=== PATIENT | male | born 1960 | race Caucasian/White ===

== ENCOUNTER 2021-07-08 13:26 | Outpatient (CLI) | payer OTHER, SELFPAY ==
--- NOTE | ~2021-07-08 | CT_ITS ---
EXAMINATION: CT diagnostic chest wo con DATE: 07/08/2021 15:04 INDICATION: J44.9 - Chronic obstructive pulmonary disease, unspecified TECHNIQUE: Computed tomography (CT) of the chest was performed without intravenous contrast. Addition al 3D reconstructions utilizing coronal maximum intensity projection (MIP) were performed. Automated exposure control and iterative reconstruction technique were employed. The dose-length product was 11 9.24 mGy-cm. COMPARISON: None FINDINGS: Mild to moderate upper lung predominant emphysema. Mild discoid atelectasis in the right lower lobe a nd in the lingula. 3 mm right middle lobe nodule for which optional low-dose noncontrast chest CT cou ld be obtained in one year. No pneumonia, pulmonary edema or pleural effusion. Heart size is normal. Atherosclerotic coronary artery calcifications. No pericardial effusion. Mild fusiform ascending thor acic aortic aneurysm measuring up to 4.3 x 4.3 cm in maximal transaxial dimensions. This tapers to no rmal caliber at the distal aortic arch and descending thoracic aorta. No pathologically enlarged thor acic lymphadenopathy. Parapelvic cysts at the bilateral renal mike. Chronic mild anterior wedging of multiple mid to lower thoracic vertebral bodies. Severe lower cervical and mild to moderate thoracic spondylosis. IMPRESSION: 1. Mild to moderate upper lung predominant emphysema. 2. Mild ascending thoracic aortic aneurysm measuring up to 4.3 cm in maximal diameter. 3. 3 mm right middle lobe nodule for which optional low-dose noncontrast chest CT could be obtained i n one year. Reviewed, dictated and finalized at location [facility] IMPRESSION: 1. Mild to moderate upper lung predominant emphysema. 2. Mild ascending thoracic aortic aneurysm measuring up to 4.3 cm in maximal di ameter. 3. 3 mm right middle lobe nodule for which optional low-dose noncontrast chest CT could be obtained in one year.
[2021-07-08 15:00] VITALS: PULSE 89; O2SAT 90
[2021-07-08 15:05] VITALS: PULSE 94; O2SAT 86
[2021-07-08 15:10] VITALS: PULSE 98; O2SAT 88
[2021-07-08 15:15] VITALS: PULSE 95; O2SAT 90
[2021-07-08 15:25] VITALS: PULSE 92; O2SAT 90
--- NOTE | 2021-07-08 15:36 | HOMEO2EVAL ---
Evaluation was performed at [facility] Home Oxygen Evaluation RC: Home Oxygen (O2) Evaluation Start: 07/08/21 15:27 Freq: Status: Active Protocol: RPE Activity Type Activity Date Activity User E-Sign Co-Sign Detail Recorded Client Recorded Date Recorded By Document 07/08/21 15:00 [email or web address] [email or web address] 07/08/21 15:36 DJO Document 07/08/21 15:05 [email or web address] [email or web address] 07/08/21 15:36 DJO Document 07/08/21 15:10 [email or web address] [email or web address] 07/08/21 15:36 DJO Document 07/08/21 15:15 [email or web address] [email or web address] 07/08/21 15:36 DJO Document 07/08/21 15:25 [email or web address] [email or web address] 07/08/21 15:36 DJO 07/08/21 07/08/21 07/08/21 15:00 15:05 15:10 Home O2 Evaluation Test Phase Resting Exercise Exercise Oxygen Delivery Room Air Room Air Nasal Cannula Oxygen Flow Rate (L/min) 1 Pulse Oximetry (90-100 %) 90 86 L 88 L Pulse Rate (60-100 beats/min) 89 94 98 Ambulation Distance (feet) Treatment Charges O2 Evaluation - Outpatient 07/08/21 07/08/21 15:15 15:25 Home O2 Evaluation Test Phase Exercise Resting Oxygen Delivery Nasal Cannula Room Air Oxygen Flow Rate (L/min) 2 Pulse Oximetry (90-100 %) 90 90 Pulse Rate (60-100 beats/min) 95 92 Ambulation Distance (feet) 1,000 Treatment Charges
--- NOTE | 2021-07-08 16:31 | WPDPFTINT ---
PFT Procedure Performed PFT Procedure Performed Spirometry with Pre/Post Bronchodilator Plethysmography (Lung Vol) Diffusing Cap (DLCO) Flow Vol Loop PFT Interpretation This is a pulmonary function test with pre and post-bronchodilator spirometry, plethysmography and diffusing capacity. The test was performed and results interpreted in accordance with the 2019 and 2005 ATS/ERS Task Force guidelines respectively using the Global Lung Function Initiative-2012 reference equations. Patient demonstrated good effort and cooperation. Reproducibility criteria were met. The quality of the pre bronchodilator spirometry maneuver was Grade A and post bronchodilator spirometry maneuver was Grade A. Findings: Spirometry: there is decreased maximal expiratory airflow at all lung volumes with concave expiratory flow tracing. The contour of the inspiratory flow tracing is normal. The pre bronchodilator FVC is 2.88 L, 63% predicted. The pre bronchodilator FEV1 is 0.88 L, 25% predicted. The FEV1: FVC ratio is 31%. The post bronchodilator FVC is 2.82 L, representing to 2% decrease. The post bronchodilator FEV1 is 0.77 L, representing a 12% decrease. Post bronchodilator FEV1: FVC ratio is 27%. Plethysmography: The total lung capacity is 10.00 L, 143% predicted. The functional residual capacity is 9.51 L, 259% predicted. The residual volume is 7.13 L, 311% predicted. Diffusing capacity: The absolute diffusion capacity is 6.7, 24% predicted. The diffusing capacity corrected for alveolar volume is 2.03, 49% predicted. Impression: There is a severe obstructive abnormality without significant improvement after inhaling a single dose of albuterol. The increase in residual volume is consistent with air trapping from an obstructive abnormality. Hyperinflation is present is demonstrated by the increase in functional residual capacity and total lung capacity and is consistent with an obstructive abnormality. The absolute diffusing capacity is severely decreased and remains moderately decreased when corrected for alveolar volume There are no prior studies for comparison
== END 2021-07-08 13:27 | disposition home or self-care (01) ==
PROVIDERS: PCP Family Medicine Adolescent Medicine; Visit Provider Internal Medicine Pulmonary Disease
DX: J44.9 Chronic obstructive pulmonary disease, unspecified (principal); I71.4 Abdominal aortic aneurysm, without rupture; R91.1 Solitary pulmonary nodule; R94.2 Abnormal results of pulmonary function studies
CPT/HCPCS: 71250; 94060; 94618; 94726; 94729

== ENCOUNTER 2022-11-03 12:21 | Outpatient (CLI) | payer OTHER, SELFPAY ==
[2022-11-03 12:55] LABS: Base Excess ABG 2.3 mEq/l (+/-2.0); Carboxyhemoglobin 1.6 % THb (0-2.0); Fractional Inspired Oxygen 21 %; HCO3 ABG 26.1 mEq/l (22.0-26.0); Methemoglobin ABG 0.3 %THb (0-1.5); Oxygen Content ABG 21.1 %vol (16.0-22.0); Oxygen Saturation ABG 90.4 % (95.0-100.0); Oxyhemoglobin 88.6 % THb (90.0-100.0); PCO2 ABG 38.4 mmHg (35.0-45.0); PO2 ABG 55.7 mmHg (80.0-100.0); PO2 FiO2 Ratio Arterial Blood 2.65 %; Reduced Hemoglobin 9.5 %THb (0-5.0); pH ABG 7.451 (7.350-7.450)
[2022-11-03 12:57] LABS: Device ROOM AIR; Site Drawn RIGHT BRACHIAL
== END 2022-11-03 12:22 | disposition home or self-care (01) ==
PROVIDERS: PCP Family Medicine Adolescent Medicine; Visit Provider Internal Medicine Pulmonary Disease
DX: J44.9 Chronic obstructive pulmonary disease, unspecified (principal)
CPT/HCPCS: 36600; 82375; 82805; 83050

== ENCOUNTER 2024-07-12 08:01 | Outpatient (CLI) | payer OTHER, SELFPAY ==
[2024-07-12 08:00] VITALS: PULSE 104; O2SAT 86
[2024-07-12 08:05] VITALS: PULSE 102; O2SAT 88
[2024-07-12 08:10] VITALS: PULSE 106; O2SAT 92
[2024-07-12 08:15] VITALS: PULSE 118; O2SAT 88
[2024-07-12 08:20] VITALS: PULSE 120; O2SAT 91
[2024-07-12 08:30] VITALS: PULSE 105; O2SAT 90
--- NOTE | 2024-07-12 08:35 | HOMEO2EVAL ---
Evaluation was performed at [facility] Home Oxygen Evaluation RC: Home Oxygen (O2) Evaluation Start: 07/12/24 08:29 Freq: Status: Active Protocol: RPE Activity Type Activity Date Activity User E-sign Co-sign Detail Recorded Client Recorded Date Recorded By Document 07/12/24 08:00 [email or web address] [email or web address] 07/12/24 08:35 DJO Document 07/12/24 08:05 [email or web address] [email or web address] 07/12/24 08:35 DJO Document 07/12/24 08:10 [email or web address] [email or web address] 07/12/24 08:35 DJO Document 07/12/24 08:15 [email or web address] [email or web address] 07/12/24 08:35 DJO Document 07/12/24 08:20 [email or web address] [email or web address] 07/12/24 08:35 DJO Document 07/12/24 08:30 [email or web address] [email or web address] 07/12/24 08:35 DJO 07/12/24 07/12/24 07/12/24 08:00 08:05 08:10 Home O2 Evaluation [Oxygen] -Test Phase Resting Resting Resting -Oxygen Delivery Room Air Nasal Cannula Nasal Cannula -Oxygen Flow Rate (L/min) 1 2 [Pulse Oximetry] -Pulse Oximetry (90-100 %) 86 L 88 L 92 [Pulse Rate] -Pulse Rate (60-100 beats/min) 104 H 102 H 106 H [Charges] -Evaluation Charges O2 Evaluation by Pulmonary 07/12/24 07/12/24 07/12/24 08:15 08:20 08:30 Home O2 Evaluation [Oxygen] -Test Phase Exercise Exercise Resting -Oxygen Delivery Nasal Cannula Nasal Cannula Nasal Cannula -Oxygen Flow Rate (L/min) 2 3 2 [Pulse Oximetry] -Pulse Oximetry (90-100 %) 88 L 91 90 [Pulse Rate] -Pulse Rate (60-100 beats/min) 118 H 120 H 105 H [Charges] -Evaluation Charges
== END 2024-07-12 08:02 | disposition home or self-care (01) ==
PROVIDERS: PCP Family Medicine Adolescent Medicine; Visit Provider Physician Assistant
DX: J96.11 Chronic respiratory failure with hypoxia (principal); J44.9 Chronic obstructive pulmonary disease, unspecified
CPT/HCPCS: 94618

== ENCOUNTER 2025-03-06 18:57 | Inpatient (IN) | payer OTHER, SELFPAY ==
[2025-03-06] VITALS (16 sets, daily range): BP systolic 111–125; BP diastolic 88–90; PULSE 99–115; RESP 24–34; O2SAT 76–100; BMI 19.0
--- NOTE | ~2025-03-06 | XR_ITS ---
Portable chest x-ray Comparison: 03/09/2025 Clinical History: Intubation Findings: There is advanced COPD with probable chronic blunting of the costophrenic angles versus sm all pleural or possible minimal haziness in the right midlung Left-sided PICC line in satisfactory po sition. Cardiomediastinal silhouette is stable. Bones and soft tissues are unremarkable. Impression: Left-sided PICC line in place. No other support tubes are present on this exam. Advanced COPD with probable chronic blunting of the costophrenic angles. Correlate for small pleural effusions. Possible minimal haziness right midlung. Correlate for pneumonia or asymmetric pulmonary edema. Reviewed, dictated and finalized at location . Impression: Left-sided PICC line in place. No other support tubes are present on this exam. Advanced COPD with probable chronic blunting of the costophrenic angles. Correl ate for small pleural effusions. Possible minimal haziness right midlung. Correlate for pneumonia or asymmetric pulmonary edema.
--- NOTE | ~2025-03-06 | XR_ITS ---
Portable chest x-ray Comparison: 03/07/2025 Clinical History: Respiratory failure Findings: Endotracheal tube and NG tube are in satisfactory positions. Lungs are clear, without foca l consolidation or pleural effusion. Cardiomediastinal silhouette is stable. Bones and soft tissues are unremarkable. Impression: Support tubes, as above. Clear lungs. Reviewed, dictated and finalized at location . Impression: Support tubes, as above. Clear lungs.
--- NOTE | ~2025-03-06 | XR_ITS ---
Upright portable view of the abdomen Clinical history: NG tube placement Findings: NG tube in satisfactory position. Bowel gas pattern is nonspecific. No evidence for obstruc tion or free air. No abnormal mass lesion or calcification is seen. Osseous structures are intact. Impression: NG tube in satisfactory position. Reviewed, dictated and finalized at location . Impression: NG tube in satisfactory position.
--- NOTE | ~2025-03-06 | XR_ITS ---
XR chest 1V portable 03/12/2025 05:23 Indication: Respiratory distress. Intubation. Procedure: AP portable chest Comparison: Comparison to multiple prior studies sequentially, with oldest reviewed study dated 03/09. Findings: Heart size normal. The lungs are hyperinflated which is consistent with, but not diagnostic of chronic obstructive pulmonary disease. Bibasilar atelectasis/scarring. Endotracheal tube approxim ately 9 cm above the franklyn. Central line tip in the SVC. NG tube coiled in the stomach. No focal pne umonia or edema. Impression: 1: Bibasilar atelectasis/scarring. Reviewed, dictated and finalized at location A. Impression: 1: Bibasilar atelectasis/scarring.
--- NOTE | ~2025-03-06 | XR_ITS ---
XR chest PICC line Ordering provider: Greg Kennedy MD History: . picc line placement . Comparison: None. FINDINGS/impression: Left PICC line is noted with the tip overlying the superior vena cava. Nasogastric tube seen extendin g to the upper abdomen. Endotracheal tube is also seen above the franklyn by about 3 cm Reviewed, dictated and finalized at location A.
--- NOTE | ~2025-03-06 | XR_ITS ---
XR chest ET placement 03/10/2025 11:08 Indication: Intubation. Respiratory distress. Procedure: AP portable chest Comparison: Comparison to multiple prior studies sequentially, with oldest reviewed study dated 03/07. Findings: Endotracheal tube tip 5.8 cm above the franklyn. NG tube in the stomach. Heart size normal. T he lungs are hyperinflated which is consistent with, but not diagnostic of chronic obstructive pulmon louis disease. There are infiltrates of the right mid lung, consistent with pneumonia. No pneumothorax. PICC line tip in the SVC. Impression: 1: Right midthoracic infiltrates, compatible with pneumonia. Reviewed, dictated and finalized at location A. Impression: 1: Right midthoracic infiltrates, compatible with pneumonia.
--- NOTE | ~2025-03-06 | XR_ITS ---
Portable chest x-ray Comparison: 03/07/2025 Clinical History: Intubation Findings: Endotracheal tube, NG tube, and left-sided PICC line are in place. Suspected COPD. Questio nable minimal pleural effusions versus chronic blunting of the costophrenic angles. Cardiomediastina l silhouette is stable. Bones and soft tissues are unremarkable. Impression: COPD with suspected chronic blunting of the costophrenic angles. Consider minimal pleural effusions. Support tubes, as above. Reviewed, dictated and finalized at location M. Impression: COPD with suspected chronic blunting of the costophrenic angles. Consider minim al pleural effusions. Support tubes, as above.
--- NOTE | ~2025-03-06 | XR_ITS ---
XR chest 1V portable 03/11/2025 05:37 Indication: Respiratory distress Procedure: AP portable chest Comparison: Comparison to multiple prior studies sequentially, with oldest reviewed study dated 03/08. Findings: Tubes and lines stable. No pneumothorax. Stable asymmetric infiltrates right midlung. The l ungs are hyperinflated which is consistent with, but not diagnostic of chronic obstructive pulmonary disease. Impression: 1: Stable infiltrates right midlung which may represent atelectasis and/or pneumonia. Reviewed, dictated and finalized at location A. Impression: 1: Stable infiltrates right midlung which may represent atelectasis and/or pneu monia.
--- NOTE | ~2025-03-06 | XR_ITS ---
EXAMINATION: XR chest 1V portable Exam Date/Time: 03/06/2025 19:55 CDT HISTORY: COREY Comparison: 12/27/2018. RESULT: Lines, tubes, and devices: None. Lungs and pleura: Significant hyperinflation. Diffusely increased density over the right lung. No fo chandler consolidation, pleural effusion, or pneumothorax. Cardiomediastinal silhouette: Stable. Other: No acute osseous or upper abdominal finding. IMPRESSION: Asymmetric density over the right lung may be secondary to summation artifact from soft tissues, asym metric edema, or infection. Reviewed, dictated and finalized at location K. IMPRESSION: Asymmetric density over the right lung may be secondary to summation artifact f rom soft tissues, asymmetric edema, or infection.
--- NOTE | ~2025-03-06 | CT_ITS ---
EXAMINATION: CTA chest PE protocol DATE: 03/17/2025 7:09 CDT INDICATION: Persistent shortness of breath TECHNIQUE: Computed tomographic angiography (CTA) of the chest was performed with 100 mL Omnipaque-35 0 intravenous contrast. The dose-length product was 222.89 mGy-cm. Maximum intensity projection 3D-re constructions of the aorta and other arteries were constructed by the technologist on a separate work station. COMPARISON: Reference is made to multiple plain film evaluations of the chest performed most recently on 03/14/2025 and dating back to 03/12/2025 FINDINGS/OBSERVATIONS: PULMONARY ARTERIES: No filling defect is identified within the main or proximal pulmonary artery. The main pulmonary artery is not enlarged. THORACIC AORTA: No aneurysmal dilatation or dissection is present. The great vessels are intact LUNGS: Small right and trace left-sided pleural effusion. Right basilar consolidation. MEDIASTINUM: No morphologically suspicious or pathologically enlarged lymph nodes are identified with in the mediastinum or bilateral axilla. BONES OF THE CHEST: No acute fracture. No significant degenerative disease. No lytic or blastic lesions. HEART: The heart is of normal size, without pericardial effusion. IMPRESSION: No pulmonary embolus. No thoracic aortic dissection. Small right and trace left-sided pleural effusion. Right basilar consolidation. Reviewed, dictated and finalized at location A.
--- NOTE | ~2025-03-06 | XR_ITS ---
XR chest 1V portable 03/13/2025 05:29 Indication: Respiratory failure Procedure: AP portable chest Comparison: Comparison to multiple prior studies sequentially, with oldest reviewed study dated 03/10. Findings: Central line tip in the SVC. Emphysema. Heart size normal. Moderate hyperinflation. Bibasil ar atelectasis. Developing right basilar infiltrates which may represent atelectasis or developing pn eumonia. Impression: 1: Right basilar infiltrates may represent developing pneumonia or atelectasis. Reviewed, dictated and finalized at location A. Impression: 1: Right basilar infiltrates may represent developing pneumonia or atelectasis.
--- NOTE | ~2025-03-06 | XR_ITS ---
Portable chest x-ray Comparison: 03/06/2025 Clinical History: Tube placement Findings: Endotracheal tube in satisfactory position. Lungs are clear, without focal consolidation o r pleural effusion. Probable COPD. Cardiomediastinal silhouette is stable. Bones and soft tissues ar e unremarkable. Impression: Probable COPD with chronic blunting of costophrenic angles. Small pleural effusions not completely ex cluded. ET tube in satisfactory position. Reviewed, dictated and finalized at location M. Impression: Probable COPD with chronic blunting of costophrenic angles. Small pleural effus ions not completely excluded. ET tube in satisfactory position.
--- NOTE | ~2025-03-06 | XR_ITS ---
XR abdomen gastric tube insert INDICATION: Evaluate OG tube position. TECHNIQUE: Limited KUB perform for evaluating LG tube . COMPARISON: 03/07/2020 FINDINGS: OG tube tip in the stomach. Visualized bowel gas pattern is unremarkable. IMPRESSION: 1: OG tube tip in the stomach. Reviewed, dictated and finalized at location A.
--- NOTE | ~2025-03-06 | XR_ITS ---
MODIFIED ESOPHAGRAM HISTORY: Dysphagia. TECHNIQUE: Modified barium esophagram was performed by speech pathologist under radiologist fluorosco pic guidance. This was recorded on tape. The exam was reviewed on 03/14/2025 14:05 CDT. The DAP for this procedure was 0.533 Gycm2. Fluoroscopy time is 0.7 minutes. FINDINGS: Lateral projection of the cervical spine demonstrates age-appropriate degenerative diseas e. No penetration or aspiration. IMPRESSION: No penetration or aspiration Please refer to speech pathologist report for additional detail. Reviewed, dictated and finalized at location A.
--- NOTE | ~2025-03-06 | XR_ITS ---
XR chest 1V portable 03/14/2025 09:14 Indication: Aspiration. Procedure: AP portable chest Comparison: 03/14/2025 Findings: Developing left basilar infiltrate. Heart size normal. Blunting lateral costophrenic recess es may represent small effusions or pleural thickening. No pneumothorax. The lungs are hyperinflated which is consistent with, but not diagnostic of chronic obstructive pulmonary disease. Impression: 1: Developing left basilar infiltrate may represent atelectasis or pneumonia. Consider aspiration. Reviewed, dictated and finalized at location A. Impression: 1: Developing left basilar infiltrate may represent atelectasis or pneumonia. C onsider aspiration.
--- NOTE | ~2025-03-06 | XR_ITS ---
XR chest 1V portable 03/09/2025 05:32 Indication: Respiratory distress Procedure: AP portable chest Comparison: Comparison to multiple prior studies sequentially, with oldest reviewed study dated 03/07. Findings: Heart size normal. Asymmetric right-sided airspace disease may represent pneumonia or asymm etric edema. No significant effusion. No pneumothorax. PICC line tip in the SVC. NG tube in the stoma ch. Endotracheal tube tip 5.4 cm above the franklyn. Impression: 1: Asymmetric right-sided airspace disease may represent asymmetric edema versus pneumonia. Reviewed, dictated and finalized at location A. Impression: 1: Asymmetric right-sided airspace disease may represent asymmetric edema versu s pneumonia.
--- NOTE | ~2025-03-06 | XR_ITS ---
XR chest 1V portable 03/14/2025 06:51 Indication: Respiratory failure Procedure: AP portable chest Comparison: Comparison to multiple prior studies sequentially, with oldest reviewed study dated 03/10. Findings: The lungs are hyperinflated which is consistent with, but not diagnostic of chronic obstruc tive pulmonary disease. Heart size normal. PICC line tip in the SVC. Small pleural effusions. No foca l pneumonia or pneumothorax. No edema. Impression: 1: Small pleural effusions. Reviewed, dictated and finalized at location A. Impression: 1: Small pleural effusions.
--- OUTSIDE RECORDS SUMMARY | 2025-03-06 18:59 | XMS_ITS | Clinical Summary ---
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 Gender Identity Not on file Sexual Orientation Not on file Plan of Treatment Health Maintenance Due Date Last Done Comments Colorectal Cancer Screening Colonoscopy (10 Years) 1959 Hepatitis C 1977 DTaP, Tdap and Td Vaccines ( 1 - Tdap) 1978 Pneumococcal Vaccine: 50+ Ye ars (1 of 1 - PCV) 2009 Zoster Vaccines (1 of 2) 2009 COVID-19 Vaccine ( - 2023-2 5 season) 2024 RSV Immunization or 60+ Years (1 - 1-dose 75+ series) 2034 Meningococcal B Vaccine Aged Out No l onger eligible based on patient's age to complete this topic Meningococcal Vaccine Aged Out No cyn fadumo eligible based on patient's age to complete this topic RSV Immunizations Under 20 Months Aged Out No longer eligible based on patient's age to complete this topic Insurance [facility] [place] [address] Advance Directives Documents on File Type Date Recorded 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
--- NOTE | 2025-03-06 19:13 | ECG_ITS ---
Test Date: 2025-03-06 19:16:26 Measurements Intervals [place] Rate: 102 P: 85 WA: 143 QRS: -82 QRSD: 93 T: 250 QT: 413 QTc: 538 Interpretive Statements SINUS TACHYCARDIA LEFT ANTERIOR FASCICULAR BLOCK ANTEROSEPTAL MYOCARDIAL INFARCTION , PROBABLY RECENT Electronically Signed On 03-06-2025 23:32:45 CDT by Jono Guido D.O
[2025-03-06] MEDS: MAGNESIUM SULF 2 GM/WATER 50ML 2 GM/50 ML BAG IVPB (19:22)
[2025-03-06] MEDS: IPRATROPIUM BR 0.02% INH SOLN 0.5 MG/2.5 ML VIAL 1 MG INHALATION (19:25)
[2025-03-06] MEDS: ALBUTEROL SULFATE NEB 2.5 MG/3 ML INH 15 MG INHALATION (19:25)
[2025-03-06 19:50] LABS: Alveolar/Arterial O2 Gradient 442.8 mmHg; Fractional Inspired Oxygen 100 %; HCO3 ABG 27.9 mEq/l (22.0-26.0); Oxygen Content ABG 22.6 %vol (16.0-22.0); Oxygen Saturation ABG 99.1 % (95.0-100.0); PO2 ABG 201.3 mmHg (80.0-100.0); PO2 FiO2 Ratio Arterial Blood 2.01 %
[2025-03-06 19:52] LABS: Non-Invasive Expiratory Pressure 8 CMH2O; Non-Invasive Inspiratory Pressure 15 CMH2O; Non-Invasive Vent Rate 12 /MIN; PCO2 ABG 68.9 mmHg (35.0-45.0); Site Drawn RIGHT BRACHIAL
[2025-03-06 19:59] LABS: Hematocrit 46.8 % (42.0-52.0); Hemoglobin 15.2 g/dL (14.0-18.0); Mean Corpuscular HGB Conc 32.5 g/dl (32-36); Mean Corpuscular Hemoglobin 31.2 pg (26-34); Mean Corpuscular Volume 96.1 fl (80-100); Platelet Count Result 307 k/mm3 (150-375); Red Blood Count 4.87 M/mm3 (4.6-6.20); White Blood Count 21.0 K/mm3 (4.5-10.0)
[2025-03-06 20:09] LABS: Alanine Aminotransferase 35 U/L (6-50); Albumin Level 4.9 g/dL (3.5-5.1); Alkaline Phosphatase 83 U/L (38-126); Anion Gap 11 mmol/L (4-12); Aspartate Amino Transferase 80 U/L (17-59); Bilirubin,Total 0.6 mg/dL (0.2-1.3); Blood Urea Nitrogen 31 mg/dL (9-20); Calcium 9.9 mg/dL (8.4-10.2); Carbon Dioxide 31 mmol/L (22-30); Chloride 99 mmol/L (98-107); Estimated CRCL calculation 39 ml/min; Estimated Glomerular Filt Rate 49; Glucose 174 mg/dL (65-110); Magnesium 3.8 mg/dL (1.6-2.3); Potassium 4.1 mmol/L (3.4-5.0); Sodium 141 mmol/L (137-145); Total Protein 8.7 g/dL (6.3-8.2)
[2025-03-06 20:10] LABS: INR 1.1; Prothrombin Time 14.7 Seconds (11.1-14.7)
[2025-03-06 20:11] LABS: Partial Thromboplastin Time 37.8 Seconds (22.3-36.8)
[2025-03-06 20:20] LABS: Band Neutrophils Percent 4 % (0-6); Lymphocytes Absolute Manual 1.26 K/mm3 (1.1-4.5); Lymphocytes Percent Manual 6.0 % (18-44); Monocytes Absolute Manual 2.10 K/mm3 (0.1-0.90); Monocytes Percent Manual 10 % (3-9); Neutrophils Absolute Manual 17.64 K/mm3 (1.3-6.7); Neutrophils Percent Manual 80 % (46-73); Total Cells Counted 100
[2025-03-06 20:21] LABS: Schistocytes None Seen
[2025-03-06 20:33] LABS: NT Pro B Type Natriuretic Pept 28900 pg/mL (19.9-100); Troponin I 0.740 ng/mL (0.000-0.034)
[2025-03-06 20:56] LABS: Alveolar/Arterial O2 Gradient 226.8 mmHg; Fractional Inspired Oxygen 60 %; HCO3 ABG 28.6 mEq/l (22.0-26.0); Oxygen Content ABG 22.4 %vol (16.0-22.0); Oxygen Saturation ABG 98.1 % (95.0-100.0); PO2 ABG 129.7 mmHg (80.0-100.0); PO2 FiO2 Ratio Arterial Blood 2.16 %
[2025-03-06 20:59] LABS: PCO2 ABG 64.8 mmHg (35.0-45.0); Site Drawn RIGHT BRACHIAL
[2025-03-06 21:00] LABS: Non-Invasive Expiratory Pressure 8 CMH2O; Non-Invasive Inspiratory Pressure 15 CMH2O; Non-Invasive Vent Rate 12 /MIN
[2025-03-06] MEDS: cefTRIAXone 1 GM in SODIUM CHLORIDE 0.9% IV 50 ML 100 ML IVPB (21:02)
[2025-03-06] MEDS: HEPARIN SOD/D5W 100 UNITS/ML 25,000 UNITS/250 ML BAG 7 UNITS IV CONT (21:06)
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
[2025-03-06] MEDS: ALBUTEROL SULFATE NEB 2.5 MG/3 ML INH 10 MG INHALATION (21:25)
[2025-03-06] MEDS: DOXYCYCLINE IV 100 MG in SODIUM CHLORIDE 0.9% IV 100 ML IVPB (21:33)
--- NOTE | 2025-03-06 22:07 | P.HP_ITS ---
H&P: HPI History of Present Illness Date/Time: 03/06/25 22:07 Chief Complaint: Shortness of breath Narrative: This is a pleasant 64-year-old male with a history of prior tobacco abuse, COPD, chronic respiratory failure with hypoxia, who presents to [facility] ER on 03/06/2025 with a complaint of shortness of breath for about 1 to 2 day. It has been getting progressively worse in his family members finally brought him to the hospital against his will. Patient reports he also had cough with clear sputum production. Some wheezing. No chest pain, fever, nausea or vomiting diarrhea or abdominal pain. Denies drug use or alcohol use. Upon presentation patient has sinus tachycardia, tachypnea, pressure 123/90, saturating 30% on room air. Placed on BiPAP. WBC 21, BUN 31, serum creatinine 1.44. Unclear baseline. Patient does not know of any prior kidney disease. Lactic acid 2.2. Troponin 0.74. BNP 66929. ABG demonstrating pH 7.22, pCO2 69, PO2 to 0 1 on BiPAP 100% FiO2, bicarb 28. Repeat ABG slightly improved with a pH is 7.26, pCO2 65, PO2 130 on 60% FiO2, bicarb 28.6. He had been on a rate of 12 with IPAP EPAP 15/8. On arrival he had been in extreme respiratory distress however after BiPAP he looked greatly improved and breathing much more comfortably. Cardiology consulted from ER, troponin EKG reviewed. Heparin GTT started. Patient also given ceftriaxone and doxycycline, Solu-Medrol 125 mg IV x1, magnesium 2 g IV x1, DuoNebs. Review of Systems Review of Systems: All systems reviewed & are unremarkable except as noted in HPI and below (Subjective/HPI) COUNTS INCLUDE 234 BEDS AT THE [facility] Past Medical History Medical History Chronic respiratory failure with hypoxia Surgical History Surgical History History of ankle surgery (~1976) Right Family History Family History Mother Bone cancer Father Lung cancer Sibling Bone cancer Sibling Liver cancer Social History Social History Smoking packs per day: 0.5 Smoking cigarettes per day: 10.0 Years smoked: 4 Smoking pack-years: 2.00 Smoking status: Former smoker Second hand tobacco smoke exposure: No Smoking end date: 08/22/17 Alcohol intake: current Alcohol use details: Socially Substance use: never Substance use type: does not use Living arrangements: alone Occupation/Education: occupation Gender identity (if verbalized by the patient): Male Spiritual care concerns: No Meds Home Medications and Allergies Home Medications ?Medication ?Instructions ?Recorded ?Confirmed ?Type albuterol sulfate 2.5 mg/3 mL 2.5 mg inhalation Q4-6H PRN 05/19/21 07/04/24 History (0.083 %) solution for nebulization multivitamin 1 tablet PO DAILY 05/19/21 07/04/24 History albuterol sulfate 90 mcg/actuation 2 inh inhalation Q4H PRN shortness 02/04/25 Rx aerosol inhaler (Ventolin HFA) of breath or wheezing #8.5 grams fluticasone fur. 100 mcg-umeclid 1 inh inhalation DAILY #60 ea 02/04/25 Rx 62.5 mcg-vilant 25 mcg inhalat.powder (Trelegy Ellipta) Allergies Allergy/AdvReac Type Severity Reaction Status Date / Time morphine Allergy Intermediate Swelling Verified 03/06/25 22:06 Vital Signs Vital Signs - 24 hr 03/06/25 19:03 03/06/25 19:15 03/06/25 19:25 Pulse Rate 106 H 99 100 Respiratory Rate 27 H 28 H 24 H Blood Pressure 111/89 Pulse Oximetry 91 99 Oxygen Delivery Nasal Cannula BiPAP Oxygen Flow Rate 4 03/06/25 20:15 03/06/25 20:30 03/06/25 20:40 Pulse Rate 109 H 105 H Respiratory Rate 34 H 32 H Blood Pressure 125/88 Pulse Oximetry 90 76 L Oxygen Delivery Room Air Oxygen Flow Rate 03/06/25 21:01 03/06/25 21:22 03/06/25 21:22 Pulse Rate 110 H 107 H Respiratory Rate 30 H 29 H Blood Pressure 123/90 Pulse Oximetry 98 100 100 Oxygen Delivery BiPAP BiPAP Oxygen Flow Rate 03/06/25 21:23 03/06/25 21:31 03/06/25 21:39 Pulse Rate 107 H 106 H 107 H Respiratory Rate 32 H 24 H Blood Pressure 115/88 Pulse Oximetry 99 Oxygen Delivery Oxygen Flow Rate Exam Const: Other: Tachypnea, otherwise comfortable Eyes: Pupils: Equal, round and reactive pupils present Neck: Neck: supple Resp: Effort & Inspection: normal respiratory effort Other: Bibasilar crackles Cardio: Rate: tachycardic Rhythm: regular rhythm Heart sounds: no gallops, no murmurs and no rubs GI: Inspection: non-distended GI Palp: Yes Soft to palpation : General: Yes bladder normal to palpation Neuro: Motor exam (neuro): 5/5 motor strength present throughout Extrem: General: no edema H&P: Results Labs Labs: Short CBC 03/06/25 Range/Units 19:53 WBC 21.0 H (4.5-10.0) K/mm3 Hgb 15.2 (14.0-18.0) g/dL Hct 46.8 (42.0-52.0) % Plt Count 307 (150-375) k/mm3 BMP 03/06/25 19:53 Sodium 141 Potassium 4.1 Chloride 99 Carbon Dioxide 31 H BUN 31 H Creatinine 1.44 H Glucose 174 H Calcium 9.9 Cardiac Enzymes 03/06/25 Range/Units 19:53 Troponin I 0.740 H* (0.000-0.034) ng/mL Liver Function 03/06/25 Range/Units 19:53 Total Bilirubin 0.6 (0.2-1.3) mg/dL AST 80 H (17-59) U/L ALT 35 (6-50) U/L Alkaline Phosphatase 83 (38-126) U/L Albumin 4.9 (3.5-5.1) g/dL Assessment and Plan Assessment and plan (1) Elevated troponin: Code(s): R79.89 - Other specified abnormal findings of blood chemistry Status: Acute (2) Acute respiratory failure with hypoxia and hypercapnia: Code(s): J96.01 - Acute respiratory failure with hypoxia; J96.02 - Acute respiratory failure with hypercapnia Status: Acute (3) COPD (chronic obstructive pulmonary disease): Code(s): J44.9 - Chronic obstructive pulmonary disease, unspecified Status: Acute (4) Pneumonia: Code(s): J18.9 - Pneumonia, unspecified organism Status: Acute (5) Lactic acidosis: Code(s): E87.20 - Acidosis, unspecified Status: Acute (6) Leukocytosis: Code(s): D72.829 - Elevated white blood cell count, unspecified Status: Acute (7) Elevated serum creatinine: Code(s): R79.89 - Other specified abnormal findings of blood chemistry Status: Acute Plan This is a pleasant 64-year-old male with a history of prior tobacco abuse, COPD, chronic respiratory failure with hypoxia, who presents to [facility] ER on 03/06/2025 with a complaint of shortness of breath for about 1 to 2 day. It has been getting progressively worse in his family members finally brought him to the hospital against his will. Patient reports he also had cough with clear sputum production. Some wheezing. No chest pain, fever, nausea or vomiting diarrhea or abdominal pain. Denies drug use or alcohol use. Upon presentation patient has sinus tachycardia, tachypnea, pressure 123/90, saturating 30% on room air. Placed on BiPAP. WBC 21, BUN 31, serum creatinine 1.44. Unclear baseline. Patient does not know of any prior kidney disease. Lactic acid 2.2. Troponin 0.74. BNP 27326. ABG demonstrating pH 7.22, pCO2 69, PO2 to 0 1 on BiPAP 100% FiO2, bicarb 28. Repeat ABG slightly improved with a pH is 7.26, pCO2 65, PO2 130 on 60% FiO2, bicarb 28.6. He had been on a rate of 12 with IPAP EPAP 15/8. Chest x-ray demonstrating streaky opacities over right lung. On arrival he had been in extreme respiratory distress however after BiPAP he looked greatly improved and breathing much more comfortably. Cardiology consulted from ER, troponin EKG reviewed. Heparin GTT started. Patient also given ceftriaxone and doxycycline, Solu-Medrol 125 mg IV x1, magnesium 2 g IV x1, DuoNebs. ----- Sepsis without shock as evidence by possible community-acquired pneumonia with leukocytosis tachycardia acute respiratory failure COPD exacerbation Acute hypoxic hypercapnic respiratory failure Lactic acidosis Elevated serum creatinine Suspected community-acquired pneumonia, likely bacterial NSTEMI Continue heparin GTT. Repeat troponin pending. Cardiology consulted from the ER. NPO. Admit to ICU with telemetry Continue BiPAP. Improving. Check ABG at 2:00 a.m. and will adjust as needed. Continue Solu-Medrol 125 mg IV q.8 hours. DuoNebs q.4 hours. Check quad viral screen. Repeat lactic acid pending Monitor leukocytosis. Hemodynamically stable. Pending blood cultures. Continue ceftriaxone and doxycycline. Elevated BNP has scant bibasilar crackles however with elevated serum creatinine will hold off on diuresis. Does not look overtly overloaded otherwise and is on noninvasive positive-pressure ventilation. Continue to cycle renal function. Intake/output monitoring, daily weights. Consider Nephrology consult. Full code. Saline lock IV. Heparin GTT. NPO. Patient lives at home alone. Hospitalist [facility] Advance Care Plan I have confirmed that the patient's Advanced Care Plan is present, code status is documented, or surrogate decision maker is listed in patient medical record.: Yes Medication Reconciliation I have utilized all available resources to obtain, update and review the patients current medications (includes all prescriptions, OTC, herbals, cannabis, and nutritional supplements).: Yes
[2025-03-06 23:00] LABS: MRSA (PCR) NOT DETECTED (NOT DETECTE)
[2025-03-06] MEDS: IPRATROPIUM 0.5 MG/ALBUTEROL SULFATE 2.5 MG AMPUL.NEB 3 ML INHALATION (23:00)
[2025-03-06 23:01] LABS: Influenza A QL RT-PCR Negative (Negative); Influenza B QL RT-PCR Negative (Negative); RSV RNA, RT-PCR Negative (Negative); SARS-CoV-2 RNA PCR Negative (Negative)
--- NOTE | 2025-03-06 23:29 | ADMGEN ---
This patient, Vega Cedeno, was admitted to Intensive Care Unit-5. Patient/family oriented to hospital policies and general routines including ID bracelet, bed and alarms, visiting hours, pain management, procedures, bathroom and other care routines, personal items, smoking policy, room service/diet, and visiting hours. Information on how to activate the Rapid Response Team has been discussed. Patient/Family are encouraged to report perceived risks to care and to ask questions if they do not understand what they are told or what they should do.
[2025-03-06 23:57] LABS: Alveolar/Arterial O2 Gradient 396.0 mmHg; Carboxyhemoglobin 0.4 % THb (0-2.0); Fractional Inspired Oxygen 85 %; HCO3 ABG 29.1 mEq/l (22.0-26.0); Methemoglobin ABG 0.3 %THb (0-1.5); Oxygen Content ABG 21.3 %vol (16.0-22.0); Oxygen Saturation ABG 98.1 % (95.0-100.0); PO2 ABG 135.6 mmHg (80.0-100.0); PO2 FiO2 Ratio Arterial Blood 1.60 %; Reduced Hemoglobin 1.6 %THb (0-5.0)
[2025-03-07] VITALS (78 sets, daily range): BP systolic 78–138; BP diastolic 59–95; PULSE 72–124; RESP 14–24; TEMP 36.3–38.1; O2SAT 93–100; BMI 19.0
[2025-03-07] MEDS: ETOMIDATE 20 MG/10 ML AMPUL IV PUSH (00:11)
[2025-03-07] MEDS: ROCURONIUM BROMIDE 50 MG/5 ML VIAL 100 MG IV PUSH (00:12)
[2025-03-07 00:23] LABS: Modified Allen's Test Pass; Non-Invasive Expiratory Pressure 8 CMH2O; Non-Invasive Inspiratory Pressure 15 CMH2O; Non-Invasive Vent Rate 12 /MIN; PCO2 ABG 71.8 mmHg (35.0-45.0); Site Drawn RIGHT RADIAL
[2025-03-07] MEDS: SODIUM CHLORIDE 0.9% IV 1,000 ML 999 ML IV CONT ×2 (00:25→06:02)
[2025-03-07] MEDS: EPINEPHrine INJ 1 MG/10 ML SYRINGE IV PUSH (00:25)
[2025-03-07] MEDS: IPRATROPIUM BR 0.02% INH SOLN 0.5 MG/2.5 ML VIAL 1 MG INHALATION (00:29)
[2025-03-07] MEDS: ALBUTEROL SULFATE NEB 2.5 MG/3 ML INH 10 MG INHALATION (00:29)
[2025-03-07] MEDS: MIDAZOLAM 100MG/NS 100ML(*CRX) 100 MG/100 ML BAG IV CONT (00:30)
[2025-03-07] MEDS: FENTANYL 2,500MCG/NS250ML(*CRX 2,500 MCG/250 ML BAG IV CONT (00:30)
[2025-03-07] MEDS: RAPID SEQUENCE INTUBATION KIT 1 EACH (00:47)
[2025-03-07 02:28] LABS: Alveolar/Arterial O2 Gradient 276.7 mmHg; Carboxyhemoglobin 0.5 % THb (0-2.0); Fractional Inspired Oxygen 80 %; HCO3 ABG 28.6 mEq/l (22.0-26.0); Methemoglobin ABG 0.3 %THb (0-1.5); Oxygen Content ABG 20.6 %vol (16.0-22.0); Oxygen Saturation ABG 99.3 % (95.0-100.0); PO2 ABG 222.6 mmHg (80.0-100.0); PO2 FiO2 Ratio Arterial Blood 2.78 %; Reduced Hemoglobin 0.6 %THb (0-5.0)
[2025-03-07 02:32] LABS: Arterial Blood Gas Ventilator rate 16 /MIN; Modified Allen's Test Pass; PCO2 ABG 67.7 mmHg (35.0-45.0); Site Drawn LEFT RADIAL
[2025-03-07 02:33] LABS: Arterial Blood Gas Tidal Volume 400 ml
[2025-03-07] MEDS: PHENYLEPHRINE HCL INJ 50 MG in SODIUM CHLORIDE 0.9% IV 245 ML 12 ML IV CONT ×2 (02:36→21:33)
[2025-03-07 02:46] LABS: Influenza A QL RT-PCR Negative (Negative); Influenza B QL RT-PCR Negative (Negative); RSV RNA, RT-PCR Negative (Negative); SARS-CoV-2 RNA PCR Negative (Negative)
--- NOTE | 2025-03-07 03:17 | P.PCNBEDED_ITS ---
Procedures Intubation Intubation Date: 03/07/25 Intubation Time: 00:54 Consent: Patient consented to intubation after we went over indications and alternatives. A pre-procedural Time-Out was completed immediately before starting the procedur e and confirmed: Patient Identification, Site, Procedure, Patient Position and the Availability of Requisite Equipment: Yes Sedative: etomidate Mg given: 20 Paralytic: rocuronium Mg given: 100 Laryngoscope: fiber optic video scope ET tube size: 8 Tube secured depth (cm): 24 Tube secured location: lips Tube placement confirmation: visualized tube passing through cords, equal breath sounds bilaterally, no breath sounds over epigastrium and confirmation by capnometry Patient tolerated procedure: well and no complications Intubation complications: hypotension (Post intubation hypotension with blood pressures in the 70s and 60 systolic, given 20 mcg of push dose epinephrine with improvement as well as a L of fluid. Sedation was held until correction of hemodynamics. Postprocedural chest x-ray confirms placement) Other Procedures Procedure 1: Other Procedure: Critical care time: 35 minutes, exclusive of the separately billable procedures above including intubation Procedure: Resuscitation Narrative: Patient was intubated for acute hypoxemic and hypercapnic respiratory failure likely secondary to his severe COPD exacerbation. He has failed traditional BiPAP therapies and was admitted to the hospital into the ICU for care. I was called to bedside to perform intubation given patient's clinical decline. He was awake alert and able to answer questions but does have retractions and decreased tidal volumes with hypoxia. Decision was made to intubate the patient emergently. Patient was optimized at this time with blood pressure in the low 100s however did sustain post intubation hypotension likely after sedation given patient was severely working to breathe. Patient was resuscitated with fluid and crystalloid resuscitation 1 L bolus, I did make push dose epinephrine 20 mcg at bedside and pushed 1 aliquot 20 mcg with improvement. X-ray was called to bedside and I independently reviewed the films confirming placement the endotracheal tube approximately 4-5 cm above the franklyn which was advanced and repeat x-ray confirms appropriate placement. Patient is currently on vent settings of 16, tidal volumes of 400, 100% FiO2, peep of 5. Discussed with respiratory therapy in the hospitalist at bedside the plan of care and patient is currently in the ICU with improving hemodynamics after intubation. Versed drip was started for sedation. Spent a total of approximately 35 minutes exclusive of the intubation time performing critical care and stabilization of the patient. Care transitioned back to the hospitalist Dr. Wise at this time.
--- NOTE | 2025-03-07 04:24 | PC.NURSE ---
Patient admitted to floor at 2245 on continuous BiPap. SpO2 in low 90s upon admission. Patient tachypneic with RR of 35-45 breaths per minute as well as very restless and anxious. Patient only able to speak in one word answers and very winded when answering admission questions. Dr. Wise notified of decline in patient condition. FiO2 increased to 85% on patient's BiPap and patient continued to use all accessory muscles with an increased work of breathing. Patient's breath sounds extremely diminished bilaterally. Dr. Wise at bedside at 2340. Patient alert and oriented and agrees to intubation at this time. Dr. Arce at bedside at 0005 to intubate patient as patient's ABG results were worsening on BiPap. Patient intubated at 0012 with 20 of Etomidate and 100 of Rocuronium. Patient requiring blood pressure support post intubation and received 1 L NS bolus. Peripheral phenylephrine initiated to maintain adequate blood pressures. No further changes at this time.
[2025-03-07 04:29] LABS: Alveolar/Arterial O2 Gradient 169.0 mmHg; Carboxyhemoglobin 0.3 % THb (0-2.0); Fractional Inspired Oxygen 40 %; HCO3 ABG 28.2 mEq/l (22.0-26.0); Methemoglobin ABG 0.2 %THb (0-1.5); Oxygen Content ABG 18.9 %vol (16.0-22.0); Oxygen Saturation ABG 93.1 % (95.0-100.0); PCO2 ABG 44.4 mmHg (35.0-45.0); PO2 ABG 65.1 mmHg (80.0-100.0); PO2 FiO2 Ratio Arterial Blood 1.63 %; Reduced Hemoglobin 6.2 %THb (0-5.0)
[2025-03-07 04:30] LABS: Arterial Blood Gas Ventilator rate 20 /MIN; Modified Allen's Test Pass; Site Drawn LEFT RADIAL
[2025-03-07 04:31] LABS: Arterial Blood Gas Tidal Volume 400 ml
[2025-03-07 04:53] LABS: Hematocrit 44.4 % (42.0-52.0); Hemoglobin 13.5 g/dL (14.0-18.0); Mean Corpuscular HGB Conc 30.4 g/dl (32-36); Mean Corpuscular Hemoglobin 30.5 pg (26-34); Mean Corpuscular Volume 100.5 fl (80-100); Platelet Count Result 313 k/mm3 (150-375); Red Blood Count 4.42 M/mm3 (4.6-6.20); White Blood Count 17.7 K/mm3 (4.5-10.0)
[2025-03-07 05:04] LABS: INR 1.2; Prothrombin Time 15.5 Seconds (11.1-14.7)
[2025-03-07 05:05] LABS: Partial Thromboplastin Time 45.9 Seconds (22.3-36.8)
[2025-03-07 05:15] LABS: Anion Gap 12 mmol/L (4-12); Blood Urea Nitrogen 34 mg/dL (9-20); Calcium 9.7 mg/dL (8.4-10.2); Carbon Dioxide 28 mmol/L (22-30); Chloride 101 mmol/L (98-107); Estimated CRCL calculation 47 ml/min; Estimated Glomerular Filt Rate > 60; Glucose 177 mg/dL (65-110); Magnesium 2.7 mg/dL (1.6-2.3); Potassium 4.0 mmol/L (3.4-5.0); Sodium 141 mmol/L (137-145)
[2025-03-07 05:23] LABS: Band Neutrophils Percent 3 % (0-6); Lymphocytes Absolute Manual 0.53 K/mm3 (1.1-4.5); Lymphocytes Percent Manual 3.0 % (18-44); Monocytes Absolute Manual 0.70 K/mm3 (0.1-0.90); Monocytes Percent Manual 4 % (3-9); Neutrophils Absolute Manual 16.46 K/mm3 (1.3-6.7); Neutrophils Percent Manual 90 % (46-73); Total Cells Counted 100
[2025-03-07 05:24] LABS: Schistocytes None Seen
[2025-03-07 05:29] LABS: Troponin I 0.589 ng/mL (0.000-0.034)
[2025-03-07 05:33] LABS: Procalcitonin 0.7 ng/mL
[2025-03-07] MEDS: IPRATROPIUM 0.5 MG/ALBUTEROL SULFATE 2.5 MG AMPUL.NEB 3 ML INHALATION ×6 (06:14→23:19)
--- NOTE | 2025-03-07 07:29 | ECHO_ITS ---
Patient Info Name: Vega Cedeno Age: 64 years : 1960 Gender: Male Ht: 60 in Wt: 132 lbs BSA: 1.61 m2 HR: 106 bpm BP: 100 / 69 mmHg Technical Quality: Good Exam Date: 03/07/2025 10:54 AM Patient Status: I Admit Date: 03/06/2025 Exam Type: CA echo dop color flow w con Complete two-dimensional, color flow and Doppler transthoracic echocardiogram is performed with contrast to opacify the left ventricle and to improve the deliniation of the left ventricle endocardial borders. Staff Referring Physician: Greg Kennedy MD [employer] Teacher: Radha Vela Attending Provider: Corrine Wise Contrast/Agitated Saline Contrast/Ag. Saline: Definity Amount: 2.00 ml Administered By: Radha Vela Existing IV Access: Yes IV Access Condition: patent with no signs of infiltration Summary 1. The left ventricle is normal in size and systolic function. The left ventricular ejection fraction is visually estimated to be 50-55%. The anteroseptum on some off-axis views is hypokinetic. 2. The right ventricle is normal in size and systolic function. 3. There is a small size pericardial effusion with no echocardiographic evidence of cardiac tamponade. Left Ventricle The left ventricle is normal in size and systolic function. The left ventricular ejection fraction is visually estimated to be 50-55%. The anteroseptum on some off-axis views is hypokinetic. Right Ventricle The right ventricle is normal in size and systolic function. Left Atria The left atrium is normal size. Right Atria The right atrium is normal size. Atrial Septum The atrial septum is intact. Aortic Valve The aortic valve is trileaflet and opens well. There is no aortic regurgitation. Pulmonic Valve The pulmonic valve is grossly normal. There is no pulmonic valve regurgitation. Mitral Valve The mitral valve is normal. Tricuspid Valve The tricuspid valve is normal. There is trace tricuspid regurgitation. Pericardium/Pleural There is a small size pericardial effusion with no echocardiographic evidence of cardiac tamponade. Inferior Vena Cava Dilated inferior vena cava with <50% collapse upon inspiration consistent with significantly elevated right atrial pressure, 15 mmHg. Patient was on positive pressure support during this examination. Aorta The aortic root at the level of the sinus of Valsalva measures 3.6 cm in diameter. Left Ventricular Outflow Tract Name Value Normal LVOT 2D LVOT Diameter 2.2 cm LVOT Doppler LVOT Peak Velocity 97 cm/s LVOT Peak Gradient 4 mmHg LVOT Mean Gradient 2 mmHg LVOT VTI 14 cm LVOT VTI/AV VTI Ratio 0.7 LVOT Stroke Volume 51 ml LVOT CO 5.1 l/min LVOT CI 3.2 l/min/m2 Pulmonic Valve Name Value Normal PV Doppler PV Peak Velocity 101 cm/s PV Peak Gradient 4 mmHg Mitral Valve Name Value Normal MV Diastolic Function MV E Peak Velocity 68 cm/s MV A Peak Velocity 88 cm/s MV E/A 0.8 MV Decel Time (PW) 128 ms MV Annular TDI MV E/e' (Septal) 11.3 MV E/e' (Lateral) 6.4 MV E/e' (Average) 8.9 Tricuspid Valve Name Value Normal TV Regurgitation Doppler TR Peak Velocity 251 cm/s TR Peak Gradient 25 mmHg Estimated PAP/RSVP RA Pressure 15 mmHg <=5 PA Systolic Pressure 40 mmHg <36 RV Systolic Pressure 40 mmHg <36 TV Annular TDI TV Lateral Arielle s' Velocity 11.4 cm/s >=9.5 Aortic Valve Name Value Normal AV Doppler AV Peak Velocity 112 cm/s AV Peak Gradient 5 mmHg AV Mean Gradient 3 mmHg AV VTI 20 cm AV Area (Cont Eq VTI) 2.6 cm2 >=3.0 AV Area (Cont Eq Ashok) 3.2 cm2 AV DI (Ashok) 0.87 AV Regurgitation 2D LVOT Area 3.7 cm2 Ventricles Name Value Normal LV Dimensions 2D/MM IVS Diastolic Thickness (2D) 0.8 cm 0.6-1.0 LVID Diastole (2D) 3.8 cm 4.2-5.8 LVIW Diastolic Thickness (2D) 0.9 cm 0.6-1.0 LVID Systole (2D) 2.4 cm 2.5-4.0 LVOT Diameter 2.2 cm LV Mass (2D Cubed) 95.45 g 88.00-224.00 LV Mass Index (2D Cubed) 59 g/m2 49-115 Relative Wall Thickness (2D) 0.48 <=0.42 LV Fractional Shortening/Ejection Fraction 2D/MM LV Fractional Shortening (2D) 38 % 25-43 LV EF (2D Teichholz) 68 % LV Diastolic Volume (4C MOD) 96 ml LV EF (4C MOD) 48 % LV Diastolic Length (4C) 8.6 cm LV Systolic Length (4C) 7.4 cm LV Stroke Volume (4C MOD) 46 ml Atria Name Value Normal LA Dimensions LA Volume (4C A-L) 25 ml RA Dimensions RA Systolic Major [place] Length (4C) 3.4 cm 2.1-2.7 RA Area (4C) 11.0 cm2 <=18.0 Report Signatures
[2025-03-07] MEDS: LIDOCAINE 1% PF INJ 5 ML VIAL INFILTRATE (07:35)
[2025-03-07] MEDS: DOXYCYCLINE IV 100 MG in SODIUM CHLORIDE 0.9% IV 100 ML IVPB ×2 (08:52→20:39)
[2025-03-07] MEDS: PHENTOLAMINE MESYLATE 5 MG/ML VIAL XX (08:53)
[2025-03-07] MEDS: MINERAL OIL/WHITE PETROLATUM OINTMENT 1 APPLIC EACH EYE ×2 (08:57→20:40)
--- NOTE | 2025-03-07 09:03 | ECG_ITS ---
Test Date: 2025-03-07 09:29:31 Measurements Intervals [place] Rate: 108 P: 83 AK: 126 QRS: 94 QRSD: 104 T: 236 QT: 401 QTc: 539 Interpretive Statements SINUS TACHYCARDIA ANTEROSEPTAL INFARCT, AGE INDETERMINATE MARKED T-WAVE ABNORMALITY, CONSIDER ANTEROLATERAL ISCHEMIA [-0.5+ mV T WAVE IN I/aVL/V3-V6] MODERATE T-WAVE ABNORMALITY, CONSIDER INFERIOR ISCHEMIA [-0.1+ mV T WAVE IN II/aVF] Compared to ECG 03/06/2025 19:16:26 NO SIGNIFICANT CHANGE Electronically Signed On 03-07-2025 14:43:43 CDT by Uri Mark M.D.
--- NOTE | 2025-03-07 09:03 | WPDCNINT ---
Assessment and Plan Assessment and plan (1) Septic shock: Code(s): A41.9 - Sepsis, unspecified organism; R65.21 - Severe sepsis with septic shock Status: Acute Assessment and Plan: Patient presented with hypoxia, tachypnea, tachycardia -was found to be in COPD exacerbation -patient was hypotensive, requiring Costa-Synephrine through peripheral IV -lactic acid 5.9 this morning could be related to hypoxia, hypotension -patient has received adequate IV fluids -03/07: PICC line inserted -now on Costa-Synephrine through a PICC line, maintain MAP > 65 mmHg or S BP > 100 mmHg -03/06: Patient on ceftriaxone and doxycycline -03/06: Blood cultures have been obtained and pending (2) Acute respiratory failure with hypoxia and hypercapnia: Code(s): J96.01 - Acute respiratory failure with hypoxia; J96.02 - Acute respiratory failure with hypercapnia Status: Acute Assessment and Plan: Patient presented with respiratory distress, dyspnea, hypoxia with O2 sats in the 30s on 2-3 L oxygen at home, family had to force the patient to come to the ED, in the ED he was immediately placed on BiPAP, given DuoNebs. ABGs revealed hypercapnic respiratory failure, a. ABGs did not show any improvement rather worsening in the CO2 - intubated after he came to the ICU on 03/07/2025 -currently on CMV mode of ventilation, peep of 5, 40% FiO2, will wean oxygen to maintain O2 sats greater than 90% given his COPD -continue bronchodilators -patient did receive Solu-Medrol 125 mg in the ER -Solu-Medrol 125 mg q.8 hours was continued in the ICU by hospitalist -patient is not wheezing this morning, will decrease Solu-Medrol to 40 mg q.12 hours, and will hopefully wean to discontinue quickly -sedated with fentanyl and Versed infusion, maintain RASS of 0 to -2, daily SBT and SAT (3) Chronic obstructive pulmonary disease: Code(s): J44.9 - Chronic obstructive pulmonary disease, unspecified Status: Acute Assessment and Plan: COPD exacerbation -continue mechanical ventilation, DuoNebs, steroids (4) Elevated troponin: Code(s): R79.89 - Other specified abnormal findings of blood chemistry Status: Acute Assessment and Plan: Elevated troponin along with EKG changes -check EKG and troponin again this morning -cardiology has been consulted from ED -patient on heparin infusion - start aspirin 81 mg -echocardiogram has been ordered to rule out wall motion abnormality -await Cardiology recommendation (5) Acute kidney injury: Code(s): N17.9 - Acute kidney failure, unspecified Status: Acute Assessment and Plan: Patient presented with creatinine 1.44 on admission (unknown baseline) - adequately fluid-resuscitated -low urine output, but creatinine has normalized -lactic acid in increased -will start albumin for intravascular volume expansion and maintenance IV fluids for a total of 1000 mL -monitor urine output, renal function and electrolytes (6) IV infiltration: Code(s): T80.1XXA - Vascular complications following infusion, transfusion and therapeutic injection, initial encounter Status: Acute Assessment and Plan: Patient was on Ocsta-Synephrine through a peripheral access which infiltrated overnight -will inject phentolamine/Regitine around the site of infiltration -continue to monitor Plan DVT prophylaxis: Heparin infusion Stress ulcer prophylaxis: Protonix Nutrition: Start tube feeds Code Status: Full code Critical Care Time Spent: 49 minutes Due to a high probability of clinically significant, life threatening deterioration, the patient required my highest level of preparedness to intervene emergently and I personally spent this critical care time directly and personally managing the patient. This critical care time included obtaining a history; examining the patient; pulse oximetry; ordering and review of studies; arranging urgent treatment with development of a management plan; evaluation of patient's response to treatment; frequent reassessment; and discussions with other providers. It was exclusive of separately billable procedures and treating other patients and teaching time. Please see Assessment and Plan section and the rest of the note for further information on patient assessment and treatment This dictation may have been done utilizing a voice recognition system. Attempts have been made to correct errors. However, there may be uncorrected grammatical, spelling, and recognitions errors present. 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 His family members finally forced him to come to the hospital against his wishes as he was saturating 30% on his home O2. In the ER patient was on 4 L nasal cannula and was night saturating 91% initially and was placed on by due to extreme dyspnea and barely able to speak. Patient also reported of cough with clear sputum and wheezing. He denies any chest pain, fevers nausea, vomiting diarrhea abdominal pain denies any drug use or alcohol use. He does smoke 10 cigarettes per day. Initially ABGs showed a pH of 7.22, pCO2 69, PO2 of 201, on BiPAP 15/8, 100% FiO2. BiPAP settings were not changed, repeat head ABGs remained the same and once patient was in the ICU his pCO2 was worse. Patient continued to have dyspnea and tachypnea and was breathing 40 times a minute. Decision was made to intubate the patient in the ICU. He was intubated by the ER physician. Started on Versed and fentanyl infusion for sedation, also started on ceftriaxone and doxycycline. -until labs in the ER were WBC count of 21, INR of 1.2. Creatinine of 1.44, lactic acid of 2.2, troponins was 0.74 and 0.589. PCR for influenza, RSV, SARS-CoV-2 were negative. [place] 57160, procalcitonin of 0.7 EKG anterior septal myocardial infarction, probably recent, sinus tachycardia, left anterior fascicular block Patient seen and examined the ICU this morning, remains intubated, on CMV mode of ventilation, peep of 5, 40% FiO2. Sedated with fentanyl and Versed infusion, patient is awake, opens his eyes, follows simple commands in all extremities and nods to questions. Urine output has been adequate, febrile with a T-max of 100.5?. Lactic acid is elevated to 5.9 this morning, received 1 L IV fluid bolus this morning. Patient denies any chest pain, shortness difficulty breathing, abdominal pain or nausea. He complains of pain in his throat due to the tube. Patient is on Costa-Synephrine a peripheral IV, PICC line was inserted. Costa-Synephrine overnight had extravasated. Review of Systems Review of Systems: ROS unobtainable: Yes unobtainable due to endotracheal tube and unobtainable due to medical condition PMFSH Past Medical History Medical History Chronic respiratory failure with hypoxia Surgical History Surgical History History of ankle surgery (~1976) Right Family History Family History Mother Bone cancer Father Lung cancer Sibling Bone cancer Sibling Liver cancer Social History Social History Smoking packs per day: 0.5 Smoking cigarettes per day: 10.0 Years smoked: 10 Smoking pack-years: 5.00 Smoking status: Former smoker Tobacco type: cigarettes Second hand tobacco smoke exposure: No Smoking end date: 08/22/17 Alcohol intake: current Alcohol use details: Socially Substance use: never Substance use type: does not use Last use: Social drinker Do You Feel Safe in your Home?: Yes Lack of Transportation: No Lack of Food: Never True Current Housing: I Have Housing Concerned About Future Housing: No Difficulty Paying Gas/Electric Bills: No Difficulty Paying for Meds: YES Currently Unemployed: No Education: Decline to Answer Difficulty w/ Childcare or Family Care: No Living arrangements: alone Occupation/Education: occupation Gender identity (if verbalized by the patient): Male Spiritual care concerns: No Meds Home Medications and Allergies Home Medications ?Medication ?Instructions ?Recorded ?Confirmed ?Type albuterol sulfate 2.5 mg/3 mL 2.5 mg inhalation Q4-6H PRN 05/19/21 03/07/25 History (0.083 %) solution for nebulization shortness of breath or wheezing multivitamin 1 tablet PO DAILY 05/19/21 03/07/25 History albuterol sulfate 90 mcg/actuation 2 inh inhalation Q4H PRN shortness 02/04/25 03/07/25 Rx aerosol inhaler (Ventolin HFA) of breath or wheezing #8.5 grams fluticasone fur. 100 mcg-umeclid 1 inh inhalation DAILY #60 ea 02/04/25 03/07/25 Rx 62.5 mcg-vilant 25 mcg inhalat.powder (Trelegy Ellipta) Allergies Allergy/AdvReac Type Severity Reaction Status Date / Time morphine Allergy Intermediate Swelling Verified 03/06/25 22:06 Vital Signs Vital Signs - 24 hr 03/06/25 19:03 03/06/25 19:15 03/06/25 19:25 Temperature Pulse Rate 106 H 99 100 Respiratory Rate 27 H 28 H 24 H Blood Pressure 111/89 Pulse Oximetry 91 99 Oxygen Delivery Nasal Cannula BiPAP Oxygen Flow Rate 4 Fraction of Inspired Oxygen 03/06/25 20:15 03/06/25 20:30 03/06/25 20:40 Temperature Pulse Rate 109 H 105 H Respiratory Rate 34 H 32 H Blood Pressure 125/88 Pulse Oximetry 90 76 L Oxygen Delivery Room Air Oxygen Flow Rate Fraction of Inspired Oxygen 03/06/25 21:01 03/06/25 21:22 03/06/25 21:22 Temperature Pulse Rate 110 H 107 H Respiratory Rate 30 H 29 H Blood Pressure 123/90 Pulse Oximetry 98 100 100 Oxygen Delivery BiPAP BiPAP Oxygen Flow Rate Fraction of Inspired Oxygen 03/06/25 21:23 03/06/25 21:31 03/06/25 21:39 Temperature Pulse Rate 107 H 106 H 107 H Respiratory Rate 32 H 24 H Blood Pressure 115/88 Pulse Oximetry 99 Oxygen Delivery Oxygen Flow Rate Fraction of Inspired Oxygen 03/06/25 22:55 03/06/25 22:58 03/06/25 23:00 Temperature Pulse Rate 111 H 107 H 111 H Respiratory Rate 30 H 24 H 30 H Blood Pressure 115/88 Pulse Oximetry 98 99 Oxygen Delivery BiPAP Oxygen Flow Rate Fraction of Inspired Oxygen 03/06/25 23:10 03/06/25 23:45 03/07/25 00:00 Temperature 97.7 F Pulse Rate 115 H 115 H 112 H Respiratory Rate 30 H 34 H 18 Blood Pressure 109/82 Pulse Oximetry 89 L 100 Oxygen Delivery BiPAP Oxygen Flow Rate Fraction of Inspired Oxygen 45 03/07/25 00:00 03/07/25 00:20 03/07/25 00:24 Temperature Pulse Rate 111 H 115 H 115 H Respiratory Rate 16 Blood Pressure Pulse Oximetry 100 Oxygen Delivery Mechanical Ventilation Oxygen Flow Rate Fraction of Inspired Oxygen 45 03/07/25 00:25 03/07/25 00:30 03/07/25 00:30 Temperature Pulse Rate 124 H 114 H 115 H Respiratory Rate 16 15 16 Blood Pressure 78/69 L Pulse Oximetry 96 Oxygen Delivery Oxygen Flow Rate Fraction of Inspired Oxygen 03/07/25 00:30 03/07/25 00:40 03/07/25 01:00 Temperature 97.3 F L Pulse Rate 119 H 116 H 113 H Respiratory Rate 16 16 16 Blood Pressure 91/67 L 121/92 H 114/86 Pulse Oximetry 94 100 100 Oxygen Delivery Oxygen Flow Rate Fraction of Inspired Oxygen 03/07/25 01:00 03/07/25 01:05 03/07/25 01:20 Temperature Pulse Rate 113 H 118 H 104 H Respiratory Rate 14 16 16 Blood Pressure 102/78 Pulse Oximetry 100 98 Oxygen Delivery Mechanical Ventilation Oxygen Flow Rate Fraction of Inspired Oxygen 85 03/07/25 02:00 03/07/25 02:00 03/07/25 02:00 Temperature Pulse Rate 112 H 115 H 110 H Respiratory Rate 24 H 24 H Blood Pressure Pulse Oximetry Oxygen Delivery Oxygen Flow Rate Fraction of Inspired Oxygen 03/07/25 02:00 03/07/25 02:00 03/07/25 02:30 Temperature 97.5 F L 98.3 F Pulse Rate 108 H 110 H Respiratory Rate 16 16 Blood Pressure 90/67 L 85/65 L Pulse Oximetry 98 94 Oxygen Delivery Oxygen Flow Rate Fraction of Inspired Oxygen 85 03/07/25 02:36 03/07/25 02:45 03/07/25 02:53 Temperature 98.3 F Pulse Rate 112 H 113 H 113 H Respiratory Rate 16 20 Blood Pressure 85/65 L 89/72 L Pulse Oximetry 94 Oxygen Delivery Oxygen Flow Rate Fraction of Inspired Oxygen 03/07/25 02:54 03/07/25 03:07 03/07/25 03:20 Temperature 98.7 F Pulse Rate 110 H 113 H 103 H Respiratory Rate 20 16 Blood Pressure 88/63 L Pulse Oximetry 93 98 Oxygen Delivery Mechanical Ventilation Oxygen Flow Rate Fraction of Inspired Oxygen 40 03/07/25 03:21 03/07/25 03:21 03/07/25 03:30 Temperature Pulse Rate 113 H 114 H 109 H Respiratory Rate 16 Blood Pressure 80/59 L 83/64 L Pulse Oximetry Oxygen Delivery Oxygen Flow Rate Fraction of Inspired Oxygen 03/07/25 03:31 03/07/25 03:45 03/07/25 04:00 Temperature 99.1 F Pulse Rate 109 H 103 H 100 Respiratory Rate 20 20 Blood Pressure 90/69 L 94/73 L Pulse Oximetry 93 Oxygen Delivery Oxygen Flow Rate Fraction of Inspired Oxygen 03/07/25 04:00 03/07/25 04:00 03/07/25 04:00 Temperature 99.3 F Pulse Rate 100 100 100 Respiratory Rate 20 20 20 Blood Pressure 94/73 L Pulse Oximetry 95 Oxygen Delivery Oxygen Flow Rate Fraction of Inspired Oxygen 03/07/25 04:00 03/07/25 04:00 03/07/25 04:00 Temperature Pulse Rate 100 100 Respiratory Rate 20 Blood Pressure Pulse Oximetry 95 Oxygen Delivery Mechanical Ventilation Oxygen Flow Rate Fraction of Inspired Oxygen 85 85 03/07/25 04:45 03/07/25 04:45 03/07/25 05:08 Temperature 99.6 F Pulse Rate 101 H 101 H 99 Respiratory Rate 20 Blood Pressure 100/75 100/75 Pulse Oximetry 97 94 Oxygen Delivery Mechanical Ventilation Oxygen Flow Rate Fraction of Inspired Oxygen 40 03/07/25 06:00 03/07/25 06:00 03/07/25 06:00 Temperature 100.5 F H Pulse Rate 103 H 102 H 102 H Respiratory Rate 20 20 Blood Pressure 91/70 L Pulse Oximetry 97 Oxygen Delivery Oxygen Flow Rate Fraction of Inspired Oxygen 03/07/25 06:00 03/07/25 06:00 03/07/25 06:15 Temperature Pulse Rate 102 H 102 H 101 H Respiratory Rate 20 20 Blood Pressure 91/70 L Pulse Oximetry Oxygen Delivery Oxygen Flow Rate Fraction of Inspired Oxygen 03/07/25 06:25 03/07/25 06:45 03/07/25 06:45 Temperature 100.2 F H Pulse Rate 104 H 102 H 105 H Respiratory Rate 20 20 Blood Pressure 110/78 110/78 Pulse Oximetry 99 Oxygen Delivery Oxygen Flow Rate Fraction of Inspired Oxygen 03/07/25 07:00 03/07/25 07:55 03/07/25 08:03 Temperature 100.1 F H Pulse Rate 106 H 105 H 103 H Respiratory Rate 20 20 Blood Pressure 100/69 Pulse Oximetry 98 98 Oxygen Delivery Mechanical Ventilation Oxygen Flow Rate Fraction of Inspired Oxygen 40 03/07/25 08:12 03/07/25 08:14 Temperature Pulse Rate 116 H Respiratory Rate 19 Blood Pressure Pulse Oximetry Oxygen Delivery Mechanical Ventilation Oxygen Flow Rate Fraction of Inspired Oxygen Exam Narrative: General: Intubated, sedated in no acute distress HEENT:? Pupils equal and reactive, sclera is clear, ETT in place Neck:? Supple Respiratory:? Clear to auscultation bilaterally, decreased at bases, no wheezing, adequate air entry Cardiac:? S1-S2 is normal, sinus tachycardia Abdomen:? Soft, nontender, nondistended, hypoactive bowel sounds Extremities:? No edema, palpable pedal pulses, left upper extremity IV infiltration site with redness on the forearm Neuro:? Intubated, on sedation, patient is awake, follows simple commands and nods to questions Skin:? No lesions noted Psych:? Unable to assess at this time Results Labs 03/07/25 04:44 03/07/25 04:44 Labs: Short CBC 03/06/25 03/07/25 Range/Units 19:53 04:44 WBC 21.0 H 17.7 H (4.5-10.0) K/mm3 Hgb 15.2 13.5 L (14.0-18.0) g/dL Hct 46.8 44.4 (42.0-52.0) % Plt Count 307 313 (150-375) k/mm3 BMP 03/06/25 03/07/25 19:53 04:44 Sodium 141 141 Potassium 4.1 4.0 Chloride 99 101 Carbon Dioxide 31 H 28 BUN 31 H 34 H Creatinine 1.44 H 1.18 Glucose 174 H 177 H Calcium 9.9 9.7 Cardiac Enzymes 03/06/25 03/07/25 03/07/25 Range/Units 19:53 04:44 04:44 Troponin I 0.740 H* 0.589 H* Cancelled (0.000-0.034) ng/mL Liver Function 03/06/25 Range/Units 19:53 Total Bilirubin 0.6 (0.2-1.3) mg/dL AST 80 H (17-59) U/L ALT 35 (6-50) U/L Alkaline Phosphatase 83 (38-126) U/L Albumin 4.9 (3.5-5.1) g/dL Quality VTE Prophylaxis VTE prophylaxis: pharmacologic ordered Hospitalist MIPS Advance Care Plan I have confirmed that the patient's Advanced Care Plan is present, code status is documented, or surrogate decision maker is listed in patient medical record.: Yes Medication Reconciliation I have utilized all available resources to obtain, update and review the patients current medications (includes all prescriptions, OTC, herbals, cannabis, and nutritional supplements).: Yes
[2025-03-07] MEDS: PHENYLEPHRINE HCL INJ 50 MG in SODIUM CHLORIDE 0.9% IV 245 ML 37.5 ML IV CONT (10:15)
[2025-03-07 10:31] LABS: Troponin I 0.431 ng/mL (0.000-0.034)
[2025-03-07] MEDS: ALBUMIN HUMAN 25% 25 GM/100 ML 100 ML IVPB ×3 (10:50→20:39)
--- NOTE | 2025-03-07 10:57 | PM.CNCAR ---
Assessment and Plan Assessment and plan (1) Elevated troponin: Code(s): R79.89 - Other specified abnormal findings of blood chemistry Status: Acute (2) Chronic obstructive pulmonary disease: Code(s): J44.9 - Chronic obstructive pulmonary disease, unspecified Status: Acute Plan 64-year-old man with chronic hypoxic respiratory failure secondary to COPD on home oxygen 2-3 L and tobacco abuse was brought in by family members for worsening shortness of breath now intubated in setting of respiratory acidosis and impending acute on chronic respiratory failure now also found to have ischemic EKG and mildly elevated troponins Troponin elevation -the trend is unlikely to be secondary to acute plaque rupture however cannot rule out underlying coronary artery disease -recommend 48 hours heparin drip and aspirin 81 mg p.o. daily Ischemic EKG -once patient is stable from respiratory standpoint, will consider nuclear stress test -recommend echocardiogram Ventilator dependent respiratory failure -COPD treatment -obtain transthoracic echocardiogram -does not appear to be volume overloaded Ascending aortic aneurysm -will eventually need repeat CT scan of chest and abdomen to monitor his aortic aneurysm (previous CT in 2020 showed 4.3 x 4.3cm) History of Present Illness History of Present Illness Consult date/time: 03/07/25 10:57 Requesting physician: Nini Ji MD Consult reason: Other Reason For Visit: COPD, Acute hypoxic hypercapnic resp failure Narrative: 64-year-old man with chronic hypoxic respiratory failure secondary to COPD on home oxygen 2-3 L and tobacco abuse was brought in by family members for worsening shortness of breath. He clinically presented with hypoxia, respiratory acidosis, and impending acute on chronic respiratory failure for which intubation was performed. He is currently intubated and sedated. He was found to have lactic acidosis along with elevated troponins and ischemic EKG for which Cardiology has been consulted. Review of Systems Review of Systems: ROS unobtainable: Yes unobtainable due to endotracheal tube PMFSH Past Medical History Medical History Chronic respiratory failure with hypoxia Surgical History Surgical History History of ankle surgery (~1976) Right Family History Family History Mother Bone cancer Father Lung cancer Sibling Bone cancer Sibling Liver cancer Social History Social History Smoking packs per day: 0.5 Smoking cigarettes per day: 10.0 Years smoked: 10 Smoking pack-years: 5.00 Smoking status: Former smoker Tobacco type: cigarettes Second hand tobacco smoke exposure: No Smoking end date: 08/22/17 Alcohol intake: current Alcohol use details: Socially Substance use: never Substance use type: does not use Last use: Social drinker Do You Feel Safe in your Home?: Yes Lack of Transportation: No Lack of Food: Never True Current Housing: I Have Housing Concerned About Future Housing: No Difficulty Paying Gas/Electric Bills: No Difficulty Paying for Meds: YES Currently Unemployed: No Education: Decline to Answer Difficulty w/ Childcare or Family Care: No Living arrangements: alone Occupation/Education: occupation Gender identity (if verbalized by the patient): Male Spiritual care concerns: No Meds Home Medications and Allergies Home Medications ?Medication ?Instructions ?Recorded ?Confirmed ?Type albuterol sulfate 2.5 mg/3 mL 2.5 mg inhalation Q4-6H PRN 05/19/21 03/07/25 History (0.083 %) solution for nebulization shortness of breath or wheezing multivitamin 1 tablet PO DAILY 05/19/21 03/07/25 History albuterol sulfate 90 mcg/actuation 2 inh inhalation Q4H PRN shortness 02/04/25 03/07/25 Rx aerosol inhaler (Ventolin HFA) of breath or wheezing #8.5 grams fluticasone fur. 100 mcg-umeclid 1 inh inhalation DAILY #60 ea 02/04/25 03/07/25 Rx 62.5 mcg-vilant 25 mcg inhalat.powder (Trelegy Ellipta) Allergies Allergy/AdvReac Type Severity Reaction Status Date / Time morphine Allergy Intermediate Swelling Verified 03/06/25 22:06 Vital Signs Vital Signs - 24 hr 03/06/25 19:03 03/06/25 19:15 03/06/25 19:25 Temperature Pulse Rate 106 H 99 100 Respiratory Rate 27 H 28 H 24 H Blood Pressure 111/89 Pulse Oximetry 91 99 Oxygen Delivery Nasal Cannula BiPAP Oxygen Flow Rate 4 Fraction of Inspired Oxygen 03/06/25 20:15 03/06/25 20:30 03/06/25 20:40 Temperature Pulse Rate 109 H 105 H Respiratory Rate 34 H 32 H Blood Pressure 125/88 Pulse Oximetry 90 76 L Oxygen Delivery Room Air Oxygen Flow Rate Fraction of Inspired Oxygen 03/06/25 21:01 03/06/25 21:22 03/06/25 21:22 Temperature Pulse Rate 110 H 107 H Respiratory Rate 30 H 29 H Blood Pressure 123/90 Pulse Oximetry 98 100 100 Oxygen Delivery BiPAP BiPAP Oxygen Flow Rate Fraction of Inspired Oxygen 03/06/25 21:23 03/06/25 21:31 03/06/25 21:39 Temperature Pulse Rate 107 H 106 H 107 H Respiratory Rate 32 H 24 H Blood Pressure 115/88 Pulse Oximetry 99 Oxygen Delivery Oxygen Flow Rate Fraction of Inspired Oxygen 03/06/25 22:55 03/06/25 22:58 03/06/25 23:00 Temperature Pulse Rate 111 H 107 H 111 H Respiratory Rate 30 H 24 H 30 H Blood Pressure 115/88 Pulse Oximetry 98 99 Oxygen Delivery BiPAP Oxygen Flow Rate Fraction of Inspired Oxygen 03/06/25 23:10 03/06/25 23:45 03/07/25 00:00 Temperature 36.5 C Pulse Rate 115 H 115 H 112 H Respiratory Rate 30 H 34 H 18 Blood Pressure 109/82 Pulse Oximetry 89 L 100 Oxygen Delivery BiPAP Oxygen Flow Rate Fraction of Inspired Oxygen 45 03/07/25 00:00 03/07/25 00:20 03/07/25 00:24 Temperature Pulse Rate 111 H 115 H 115 H Respiratory Rate 16 Blood Pressure Pulse Oximetry 100 Oxygen Delivery Mechanical Ventilation Oxygen Flow Rate Fraction of Inspired Oxygen 45 03/07/25 00:25 03/07/25 00:30 03/07/25 00:30 Temperature Pulse Rate 124 H 114 H 115 H Respiratory Rate 16 15 16 Blood Pressure 78/69 L Pulse Oximetry 96 Oxygen Delivery Oxygen Flow Rate Fraction of Inspired Oxygen 03/07/25 00:30 03/07/25 00:40 03/07/25 01:00 Temperature 36.3 C L Pulse Rate 119 H 116 H 113 H Respiratory Rate 16 16 16 Blood Pressure 91/67 L 121/92 H 114/86 Pulse Oximetry 94 100 100 Oxygen Delivery Oxygen Flow Rate Fraction of Inspired Oxygen 03/07/25 01:00 03/07/25 01:05 03/07/25 01:20 Temperature Pulse Rate 113 H 118 H 104 H Respiratory Rate 14 16 16 Blood Pressure 102/78 Pulse Oximetry 100 98 Oxygen Delivery Mechanical Ventilation Oxygen Flow Rate Fraction of Inspired Oxygen 85 03/07/25 02:00 03/07/25 02:00 03/07/25 02:00 Temperature Pulse Rate 112 H 115 H 110 H Respiratory Rate 24 H 24 H Blood Pressure Pulse Oximetry Oxygen Delivery Oxygen Flow Rate Fraction of Inspired Oxygen 03/07/25 02:00 03/07/25 02:00 03/07/25 02:30 Temperature 36.4 C L 36.8 C Pulse Rate 108 H 110 H Respiratory Rate 16 16 Blood Pressure 90/67 L 85/65 L Pulse Oximetry 98 94 Oxygen Delivery Oxygen Flow Rate Fraction of Inspired Oxygen 85 03/07/25 02:36 03/07/25 02:45 03/07/25 02:53 Temperature 36.8 C Pulse Rate 112 H 113 H 113 H Respiratory Rate 16 20 Blood Pressure 85/65 L 89/72 L Pulse Oximetry 94 Oxygen Delivery Oxygen Flow Rate Fraction of Inspired Oxygen 03/07/25 02:54 03/07/25 03:07 03/07/25 03:20 Temperature 37.1 C Pulse Rate 110 H 113 H 103 H Respiratory Rate 20 16 Blood Pressure 88/63 L Pulse Oximetry 93 98 Oxygen Delivery Mechanical Ventilation Oxygen Flow Rate Fraction of Inspired Oxygen 40 03/07/25 03:21 03/07/25 03:21 03/07/25 03:30 Temperature Pulse Rate 113 H 114 H 109 H Respiratory Rate 16 Blood Pressure 80/59 L 83/64 L Pulse Oximetry Oxygen Delivery Oxygen Flow Rate Fraction of Inspired Oxygen 03/07/25 03:31 03/07/25 03:45 03/07/25 04:00 Temperature 37.3 C Pulse Rate 109 H 103 H 100 Respiratory Rate 20 20 Blood Pressure 90/69 L 94/73 L Pulse Oximetry 93 Oxygen Delivery Oxygen Flow Rate Fraction of Inspired Oxygen 03/07/25 04:00 03/07/25 04:00 03/07/25 04:00 Temperature 37.4 C Pulse Rate 100 100 100 Respiratory Rate 20 20 20 Blood Pressure 94/73 L Pulse Oximetry 95 Oxygen Delivery Oxygen Flow Rate Fraction of Inspired Oxygen 03/07/25 04:00 03/07/25 04:00 03/07/25 04:00 Temperature Pulse Rate 100 100 Respiratory Rate 20 Blood Pressure Pulse Oximetry 95 Oxygen Delivery Mechanical Ventilation Oxygen Flow Rate Fraction of Inspired Oxygen 85 85 03/07/25 04:45 03/07/25 04:45 03/07/25 05:08 Temperature 37.6 C Pulse Rate 101 H 101 H 99 Respiratory Rate 20 Blood Pressure 100/75 100/75 Pulse Oximetry 97 94 Oxygen Delivery Mechanical Ventilation Oxygen Flow Rate Fraction of Inspired Oxygen 40 03/07/25 06:00 03/07/25 06:00 03/07/25 06:00 Temperature 38.1 C H Pulse Rate 103 H 102 H 102 H Respiratory Rate 20 20 Blood Pressure 91/70 L Pulse Oximetry 97 Oxygen Delivery Oxygen Flow Rate Fraction of Inspired Oxygen 03/07/25 06:00 03/07/25 06:00 03/07/25 06:15 Temperature Pulse Rate 102 H 102 H 101 H Respiratory Rate 20 20 Blood Pressure 91/70 L Pulse Oximetry Oxygen Delivery Oxygen Flow Rate Fraction of Inspired Oxygen 03/07/25 06:25 03/07/25 06:45 03/07/25 06:45 Temperature 37.9 C H Pulse Rate 104 H 102 H 105 H Respiratory Rate 20 20 Blood Pressure 110/78 110/78 Pulse Oximetry 99 Oxygen Delivery Oxygen Flow Rate Fraction of Inspired Oxygen 03/07/25 07:00 03/07/25 07:55 03/07/25 08:00 Temperature 37.8 C H 37.9 C H Pulse Rate 106 H 105 H 110 H Respiratory Rate 20 20 Blood Pressure 100/69 100/76 Pulse Oximetry 98 98 98 Oxygen Delivery Mechanical Ventilation Oxygen Flow Rate Fraction of Inspired Oxygen 40 03/07/25 08:03 03/07/25 08:12 03/07/25 08:14 Temperature Pulse Rate 103 H 116 H Respiratory Rate 20 19 Blood Pressure Pulse Oximetry Oxygen Delivery Mechanical Ventilation Oxygen Flow Rate Fraction of Inspired Oxygen 03/07/25 09:13 03/07/25 09:59 03/07/25 10:00 Temperature Pulse Rate 108 H 104 H 103 H Respiratory Rate 18 Blood Pressure 90/66 L 101/73 Pulse Oximetry Oxygen Delivery Oxygen Flow Rate Fraction of Inspired Oxygen 03/07/25 10:00 03/07/25 10:00 03/07/25 10:00 Temperature 37.9 C H Pulse Rate 103 H 103 H 106 H Respiratory Rate 18 18 18 Blood Pressure 101/73 Pulse Oximetry 98 Oxygen Delivery Oxygen Flow Rate Fraction of Inspired Oxygen 03/07/25 10:15 03/07/25 10:15 03/07/25 10:49 Temperature Pulse Rate 102 H 102 H 95 Respiratory Rate Blood Pressure 105/75 105/75 122/88 Pulse Oximetry Oxygen Delivery Oxygen Flow Rate Fraction of Inspired Oxygen Exam Const: Other: Intubated and sedated HENMT: Other: ETT in place Neck: Neck: no JVD Resp: Auscultation: clear to auscultation bilaterally Cardio: Rate: regular rate Rhythm: regular rhythm Extrem: General: no pedal edema Results Labs and Meds 03/07/25 04:44 03/07/25 04:44 Lab results: Cardiac Enzymes 03/06/25 03/07/25 03/07/25 Range/Units 19:53 04:44 04:44 AST 80 H (17-59) U/L Troponin I 0.740 H* 0.589 H* Cancelled (0.000-0.034) ng/mL 03/07/25 Range/Units 09:49 AST (17-59) U/L Troponin I 0.431 H* D (0.000-0.034) ng/mL Coagulation 03/06/25 03/07/25 Range/Units 19:53 04:44 PT 14.7 15.5 H (11.1-14.7) Seconds APTT 37.8 H 45.9 H (22.3-36.8) Seconds CBC 03/06/25 03/07/25 Range/Units 19:53 04:44 WBC 21.0 H 17.7 H (4.5-10.0) K/mm3 RBC 4.87 4.42 L (4.6-6.20) M/mm3 Hgb 15.2 13.5 L (14.0-18.0) g/dL Hct 46.8 44.4 (42.0-52.0) % Plt Count 307 313 (150-375) k/mm3 Lymph # (Auto) Not Reportable Not Reportable Coos # (Auto) Not Reportable Not Reportable Eos # (Auto) Not Reportable Not Reportable Baso # (Auto) Not Reportable Not Reportable Comprehensive Metabolic Panel 03/06/25 03/07/25 Range/Units 19:53 04:44 Sodium 141 141 (137-145) mmol/L Potassium 4.1 4.0 (3.4-5.0) mmol/L Chloride 99 101 (98-107) mmol/L Carbon Dioxide 31 H 28 (22-30) mmol/L BUN 31 H 34 H (9-20) mg/dL Creatinine 1.44 H 1.18 (0.7-1.3) mg/dL Glucose 174 H 177 H (65-110) mg/dL Calcium 9.9 9.7 (8.4-10.2) mg/dL AST 80 H (17-59) U/L ALT 35 (6-50) U/L Alkaline Phosphatase 83 (38-126) U/L Total Protein 8.7 H (6.3-8.2) g/dL Albumin 4.9 (3.5-5.1) g/dL Intake and Output 03/06/25 03/07/25 03/07/25 23:59 07:59 15:59 Intake Total 200 1239.6 150.3 Output Total 550 Balance 200 689.6 150.3 Intake: IV 200 1239.6 150.3 Fentanyl 2,500Mcg/[id number](*Crx 36.8 20 2,500 mcg In 250 ml @ 75 MCG/HR 7.5 mls/hr IV CONT .[id number] [facility] Rx#:[id number] Heparin Sod/D5w 100 Units/ml 25 57.2 ,000 units In 250 ml @ 700 UNITS/HR 7 mls/hr IV CONT .Q24H [facility] Rx#:[id number] Midazolam 100Mg/Ns 100Ml(*Crx) 8.0 6.9 100 mg In 100 ml @ 1 MG/HR 1 mls/hr IV CONT .Q72H [facility] Rx#: [id number] Phenylephrine HCl Inj 50 mg In 137.6 123.4 Sodium Chloride 0.9% IV 245 ml @ 140 MCG/MIN 42 mls/hr IV CONT .Q5H58M [facility] Rx#:[id number] Sodium Chloride 0.9% IV 1,000 1000 ml @ 999 mls/hr IV CONT .Q1H1M [facility] Rx#:[id number] Doxycycline IV 100 mg In Sodium 100 Chloride 0.9% IV 100 ml @ 100 mls/hr IVPB ONCE ONE Rx#: [id number] Magnesium Sulf 2 gm/Water 50Ml 50 2 gm In 50 ml @ 25 mls/hr IVPB ONCE ONE Rx#:[id number] cefTRIAXone 1 gm In Sodium 50 Chloride 0.9% IV 50 ml @ 100 mls/hr IVPB ONCE STA Rx#: [id number] Oral 0 Output: Catheter Urine 300 Urethral Catheter 300 Gastric Drainage 250 [place] Oral 250 Patient Weight 03/07/25 23:59 Weight 60.2 kg
[2025-03-07] MEDS: PERFLUTREN LIPID MICROSPHERES 1.5 ML VIAL DILUTED TO 10 ML TOTAL VOLUME IV PUSH (11:35)
[2025-03-07] MEDS: cefTRIAXone 2 GM in SODIUM CHLORIDE 0.9% IV 100 ML 200 ML IVPB (12:00)
[2025-03-07] MEDS: LACTATED RINGERS 1,000 ML 100 ML IV CONT (12:04)
[2025-03-07] MEDS: ASPIRIN 81 MG CHEWABLE TABLET PO ×2 (12:05→12:26)
[2025-03-07] MEDS: PANTOPRAZOLE SODIUM IV 40 MG VIAL IV PUSH (12:25)
--- NOTE | 2025-03-07 12:34 | IVDEFINITY ---
Prior to administration of IV Definity the patient was educated on the risks and benefits of the imaging enhancing agent including potential adverse side effects. The patient verbalized understanding. Allergies were verified. No exclusion criteria were identified and at least one of the following inclusion criteria were met: 1) physician request, 2) patient technically difficult to image (per the [place] [employer] guidelines of two or more segments not discernable within the apical view), or 3) questionable left ventricular function. ?
[2025-03-07 12:47] LABS: Partial Thromboplastin Time 79.4 Seconds (22.3-36.8)
[2025-03-07] MEDS: CENTRAL LINE FLUSH 10 ML IV PUSH ×2 (14:00→20:40)
[2025-03-07 17:59] LABS: Partial Thromboplastin Time 81.6 Seconds (22.3-36.8)
[2025-03-08] VITALS (41 sets, daily range): BP systolic 90–128; BP diastolic 60–93; PULSE 72–140; RESP 16–21; TEMP 36.4–37.2; O2SAT 96–100
[2025-03-08] MEDS: HEPARIN SOD/D5W 100 UNITS/ML 25,000 UNITS/250 ML BAG 9 UNITS IV CONT (03:04)
[2025-03-08] MEDS: IPRATROPIUM 0.5 MG/ALBUTEROL SULFATE 2.5 MG AMPUL.NEB 3 ML INHALATION ×5 (03:12→20:22)
[2025-03-08] MEDS: ALBUMIN HUMAN 25% 25 GM/100 ML 100 ML IVPB (04:15)
[2025-03-08 04:45] LABS: Alveolar/Arterial O2 Gradient 141.7 mmHg; Carboxyhemoglobin 0.3 % THb (0-2.0); Fractional Inspired Oxygen 40 %; HCO3 ABG 29.3 mEq/l (22.0-26.0); Methemoglobin ABG 0.1 %THb (0-1.5); Oxygen Content ABG 16.1 %vol (16.0-22.0); Oxygen Saturation ABG 97.8 % (95.0-100.0); PCO2 ABG 40.0 mmHg (35.0-45.0); PO2 ABG 97.5 mmHg (80.0-100.0); PO2 FiO2 Ratio Arterial Blood 2.44 %; Reduced Hemoglobin 2.3 %THb (0-5.0)
[2025-03-08 04:46] LABS: Arterial Blood Gas Ventilator rate 18 /MIN; Site Drawn LEFT BRACHIAL
[2025-03-08 04:47] LABS: Arterial Blood Gas Tidal Volume 450 ml
[2025-03-08 05:25] LABS: Hematocrit 32.9 % (42.0-52.0); Hemoglobin 10.3 g/dL (14.0-18.0); Mean Corpuscular HGB Conc 31.3 g/dl (32-36); Mean Corpuscular Hemoglobin 30.7 pg (26-34); Mean Corpuscular Volume 98.2 fl (80-100); Platelet Count Result 216 k/mm3 (150-375); Red Blood Count 3.35 M/mm3 (4.6-6.20); White Blood Count 18.4 K/mm3 (4.5-10.0)
[2025-03-08 05:37] LABS: Partial Thromboplastin Time 61.4 Seconds (22.3-36.8)
[2025-03-08 05:44] LABS: Alanine Aminotransferase 23 U/L (6-50); Albumin Level 4.1 g/dL (3.5-5.1); Alkaline Phosphatase 46 U/L (38-126); Anion Gap 8 mmol/L (4-12); Aspartate Amino Transferase 40 U/L (17-59); Bilirubin,Total 0.4 mg/dL (0.2-1.3); Blood Urea Nitrogen 33 mg/dL (9-20); Calcium 9.5 mg/dL (8.4-10.2); Carbon Dioxide 30 mmol/L (22-30); Chloride 104 mmol/L (98-107); Estimated CRCL calculation 58 ml/min; Estimated Glomerular Filt Rate > 60; Glucose 155 mg/dL (65-110); Magnesium 2.4 mg/dL (1.6-2.3); Potassium 3.5 mmol/L (3.4-5.0); Sodium 142 mmol/L (137-145); Total Protein 6.4 g/dL (6.3-8.2)
[2025-03-08 06:13] LABS: Band Neutrophils Percent 11 % (0-6); Lymphocytes Absolute Manual 0.55 K/mm3 (1.1-4.5); Lymphocytes Percent Manual 3 % (18-44); Monocytes Absolute Manual 1.65 K/mm3 (0.1-0.90); Monocytes Percent Manual 9 % (3-9); Neutrophils Absolute Manual 16.19 K/mm3 (1.3-6.7); Neutrophils Percent Manual 77 % (46-73); Total Cells Counted 100
[2025-03-08 06:14] LABS: Schistocytes None Seen
[2025-03-08] MEDS: CENTRAL LINE FLUSH 10 ML IV PUSH ×3 (06:21→20:07)
[2025-03-08] MEDS: DOXYCYCLINE IV 100 MG in SODIUM CHLORIDE 0.9% IV 100 ML IVPB ×2 (08:52→20:06)
[2025-03-08] MEDS: POTASSIUM PHOS,M-BASIC-D-BASIC 20 MMOL in SODIUM CHLORIDE 0.9% IV 250 ML 64.17 MMOL IVPB (08:52)
[2025-03-08] MEDS: PANTOPRAZOLE SODIUM IV 40 MG VIAL IV PUSH (08:53)
[2025-03-08] MEDS: MINERAL OIL/WHITE PETROLATUM OINTMENT 1 APPLIC EACH EYE ×2 (08:54→20:07)
--- NOTE | 2025-03-08 09:10 | WPDINTPN ---
Progress Note: A&P Assessment and Plan (1) Septic shock: Code(s): A41.9 - Sepsis, unspecified organism; R65.21 - Severe sepsis with septic shock Status: Acute Assessment and Plan: Patient presented with hypoxia, tachypnea, tachycardia. She was found to be in COPD exacerbation -patient was hypotensive, requiring Costa-Synephrine through peripheral IV -patient has received adequate IV fluids -03/07: PICC line inserted -now on Costa-Synephrine through a PICC line, maintain MAP > 65 mmHg or S BP > 100 mmHg -lactic acid has normalized -03/06: Patient on ceftriaxone and doxycycline -03/06: Blood cultures have been obtained and negative till now (2) Acute respiratory failure with hypoxia and hypercapnia: Code(s): J96.01 - Acute respiratory failure with hypoxia; J96.02 - Acute respiratory failure with hypercapnia Status: Acute Assessment and Plan: Patient presented with respiratory distress, dyspnea, hypoxia with O2 sats in the 30s on 2-3 L oxygen at home, family had to force the patient to come to the ED, in the ED he was immediately placed on BiPAP, given DuoNebs. ABGs revealed hypercapnic respiratory failure, patient was initially placed on BiPAP ABGs did not show any improvement rather worsening in the CO2 - intubated after he came to the ICU on 03/07/2025 -currently on CMV mode of ventilation, peep of 5, 40% FiO2 - 03/08 5/5 PSV weaning trial was tried the patient failed trial due to increased respiratory distress tachycardia and complaint of chest pain. PSV was increased to 15 and later it was aborted and patient was placed back on CMV -continue Solu-Medrol decreased to q.day does -continue bronchodilators and antibiotic -sedated with fentanyl and Versed infusion, maintain RASS of 0 to -2, daily SBT and SAT (3) Chronic obstructive pulmonary disease: Code(s): J44.9 - Chronic obstructive pulmonary disease, unspecified Status: Acute Assessment and Plan: COPD exacerbation See above (4) Elevated troponin: Code(s): R79.89 - Other specified abnormal findings of blood chemistry Status: Acute Assessment and Plan: Elevated troponin along with EKG changes Cardiology consult Patient currently heparin infusion Can not aspirin 81 mg Echo Summary 1. The left ventricle is normal in size and systolic function. The left ventricular ejection fraction is visually estimated to be 50-55%. The anteroseptum on some off-axis views is hypokinetic. 2. The right ventricle is normal in size and systolic function. 3. There is a small size pericardial effusion with no echocardiographic evidence of cardiac tamponade. Await Cardiology recommendation (5) Acute kidney injury: Code(s): N17.9 - Acute kidney failure, unspecified Status: Acute Assessment and Plan: Patient presented with creatinine 1.44 on admission (unknown baseline) - adequately fluid-resuscitated -low urine output, but creatinine has normalized -monitor urine output, renal function and electrolytes (6) IV infiltration: Code(s): T80.1XXA - Vascular complications following infusion, transfusion and therapeutic injection, initial encounter Status: Acute Assessment and Plan: Patient was on Costa-Synephrine through a peripheral access which infiltrated overnight Patient was givent phentolamine/Regitine around the site of infiltration -continue to monitor (7) Electrolyte abnormality: Code(s): E87.8 - Other disorders of electrolyte and fluid balance, not elsewhere classified Status: Acute Assessment and Plan: Replace low potassium Plan DVT prophylaxis: Heparin infusion Stress ulcer prophylaxis: Protonix Nutrition: Continue tube feeds Code Status: Full code Critical Care Time Spent: 35 minutes Due to a high probability of clinically significant, life threatening deterioration, the patient required my highest level of preparedness to intervene emergently and I personally spent this critical care time directly and personally managing the patient. This critical care time included obtaining a history; examining the patient; pulse oximetry; ordering and review of studies; arranging urgent treatment with development of a management plan; evaluation of patient's response to treatment; frequent reassessment; and discussions with other providers. It was exclusive of separately billable procedures and treating other patients and teaching time. Please see Assessment and Plan section and the rest of the note for further information on patient assessment and treatment This dictation may have been done utilizing a voice recognition system. Attempts have been made to correct errors. However, there may be uncorrected grammatical, spelling, and recognitions errors present. Subjective Date/time seen: 03/08/25 Overnight events reviewed. Afebrile Continues to be on mechanical ventilation 40% FiO2 and 5 of PEEP Continues to be on low-dose Costa-Synephrine Continues to be sedated with Versed and fentanyl Other Vitals acceptable Review of Systems Review of Systems: ROS unobtainable: Yes unobtainable due to endotracheal tube and unobtainable due to medical condition Exam Narrative: General: Intubated, sedated in no acute distress HEENT:? Pupils equal and reactive, sclera is clear, ETT in place Neck:? Supple Respiratory:? Clear to auscultation bilaterally, decreased at bases, no wheezing, adequate air entry Cardiac:? S1-S2 is normal, sinus tachycardia Abdomen:? Soft, nontender, nondistended, hypoactive bowel sounds Extremities:? No edema, palpable pedal pulses, left upper extremity IV infiltration site with redness on the forearm Neuro:? Intubated, on sedation, patient is awake, follows simple commands and nods to questions Skin:? No lesions noted Psych:? Unable to assess at this time Objective Data Vital Signs Vital Signs: Vital Signs - 24 hr 03/07/25 09:13 03/07/25 09:59 03/07/25 10:00 Temperature Pulse Rate 108 H 104 H 103 H Respiratory Rate 18 Blood Pressure 90/66 L 101/73 Pulse Oximetry Oxygen Delivery Fraction of Inspired Oxygen 03/07/25 10:00 03/07/25 10:00 03/07/25 10:00 Temperature 37.9 C H Pulse Rate 103 H 103 H 106 H Respiratory Rate 18 18 18 Blood Pressure 101/73 Pulse Oximetry 98 Oxygen Delivery Fraction of Inspired Oxygen 03/07/25 10:00 03/07/25 10:15 03/07/25 10:15 Temperature Pulse Rate 104 H 102 H 102 H Respiratory Rate Blood Pressure 105/75 105/75 Pulse Oximetry Oxygen Delivery Fraction of Inspired Oxygen 03/07/25 10:49 03/07/25 11:44 03/07/25 11:45 Temperature Pulse Rate 95 103 H 104 H Respiratory Rate Blood Pressure 122/88 84/65 L Pulse Oximetry 97 Oxygen Delivery Mechanical Ventilation Fraction of Inspired Oxygen 03/07/25 11:50 03/07/25 12:00 03/07/25 12:00 Temperature Pulse Rate 103 H 93 93 Respiratory Rate 18 18 18 Blood Pressure Pulse Oximetry Oxygen Delivery Fraction of Inspired Oxygen 03/07/25 12:00 03/07/25 12:00 03/07/25 12:00 Temperature 37.8 C H Pulse Rate 93 93 92 Respiratory Rate 18 18 Blood Pressure 123/86 123/86 Pulse Oximetry 99 99 Oxygen Delivery Mechanical Ventilation Fraction of Inspired Oxygen 40 03/07/25 12:00 03/07/25 12:00 03/07/25 12:10 Temperature Pulse Rate 92 101 H Respiratory Rate 18 Blood Pressure Pulse Oximetry Oxygen Delivery Fraction of Inspired Oxygen 40 03/07/25 12:30 03/07/25 14:00 03/07/25 14:00 Temperature 37.6 C Pulse Rate 92 89 89 Respiratory Rate 18 Blood Pressure 130/88 135/93 H Pulse Oximetry 99 Oxygen Delivery Fraction of Inspired Oxygen 03/07/25 14:00 03/07/25 14:00 03/07/25 14:00 Temperature Pulse Rate 89 89 89 Respiratory Rate 18 18 Blood Pressure 135/93 H Pulse Oximetry Oxygen Delivery Fraction of Inspired Oxygen 03/07/25 14:19 03/07/25 14:30 03/07/25 16:00 Temperature Pulse Rate 88 92 85 Respiratory Rate Blood Pressure 135/93 H 131/91 H Pulse Oximetry 98 Oxygen Delivery Mechanical Ventilation Fraction of Inspired Oxygen 03/07/25 16:00 03/07/25 16:00 03/07/25 16:00 Temperature 37.2 C Pulse Rate 84 84 84 Respiratory Rate 18 18 18 Blood Pressure 138/94 H Pulse Oximetry 99 Oxygen Delivery Fraction of Inspired Oxygen 03/07/25 16:00 03/07/25 16:00 03/07/25 16:25 Temperature Pulse Rate 83 82 Respiratory Rate 18 Blood Pressure Pulse Oximetry 99 99 Oxygen Delivery Mechanical Ventilation Mechanical Ventilation Fraction of Inspired Oxygen 40 40 03/07/25 16:25 03/07/25 16:35 03/07/25 16:37 Temperature Pulse Rate 82 85 87 Respiratory Rate 18 18 Blood Pressure 138/94 H Pulse Oximetry Oxygen Delivery Fraction of Inspired Oxygen 03/07/25 17:38 03/07/25 18:00 03/07/25 18:00 Temperature 37.1 C Pulse Rate 95 89 89 Respiratory Rate 18 Blood Pressure 87/62 L 112/79 Pulse Oximetry 98 Oxygen Delivery Fraction of Inspired Oxygen 03/07/25 18:00 03/07/25 18:00 03/07/25 18:00 Temperature Pulse Rate 89 89 89 Respiratory Rate 18 18 Blood Pressure 112/79 Pulse Oximetry Oxygen Delivery Fraction of Inspired Oxygen 03/07/25 18:56 03/07/25 20:00 03/07/25 20:00 Temperature Pulse Rate 93 81 80 Respiratory Rate 18 Blood Pressure 137/95 H 117/81 Pulse Oximetry Oxygen Delivery Fraction of Inspired Oxygen 03/07/25 20:00 03/07/25 20:00 03/07/25 20:00 Temperature 36.9 C Pulse Rate 81 91 Respiratory Rate 18 18 Blood Pressure 117/81 Pulse Oximetry 98 Oxygen Delivery Fraction of Inspired Oxygen 40 03/07/25 20:00 03/07/25 20:15 03/07/25 20:28 Temperature 37.0 C Pulse Rate 78 103 H 90 Respiratory Rate 16 Blood Pressure 125/84 Pulse Oximetry 98 99 Oxygen Delivery Mechanical Ventilation Fraction of Inspired Oxygen 40 03/07/25 20:28 03/07/25 20:30 03/07/25 20:30 Temperature 36.9 C Pulse Rate 90 79 101 H Respiratory Rate 18 18 Blood Pressure 125/84 121/94 H Pulse Oximetry 99 Oxygen Delivery Fraction of Inspired Oxygen 03/07/25 20:32 03/07/25 20:34 03/07/25 20:40 Temperature Pulse Rate 89 93 92 Respiratory Rate 18 18 18 Blood Pressure Pulse Oximetry 98 Oxygen Delivery Mechanical Ventilation Fraction of Inspired Oxygen 40 03/07/25 20:45 03/07/25 20:45 03/07/25 20:46 Temperature 36.9 C Pulse Rate 97 92 92 Respiratory Rate 18 16 Blood Pressure 130/90 130/90 Pulse Oximetry 98 Oxygen Delivery Fraction of Inspired Oxygen 03/07/25 21:00 03/07/25 21:15 03/07/25 21:15 Temperature 37.0 C Pulse Rate 103 H 104 H 104 H Respiratory Rate 18 16 16 Blood Pressure 99/69 L Pulse Oximetry 97 Oxygen Delivery Fraction of Inspired Oxygen 03/07/25 21:30 03/07/25 21:33 03/07/25 21:45 Temperature 37.0 C 37.0 C Pulse Rate 102 H 101 H 95 Respiratory Rate 18 18 Blood Pressure 81/60 L 81/60 L 92/66 L Pulse Oximetry 97 97 Oxygen Delivery Fraction of Inspired Oxygen 03/07/25 22:00 03/07/25 22:00 03/07/25 22:00 Temperature 37.0 C Pulse Rate 72 77 82 Respiratory Rate 18 Blood Pressure 112/79 112/79 Pulse Oximetry 99 Oxygen Delivery Fraction of Inspired Oxygen 03/07/25 22:00 03/07/25 22:00 03/07/25 22:15 Temperature Pulse Rate 78 78 78 Respiratory Rate 16 16 Blood Pressure 120/86 Pulse Oximetry Oxygen Delivery Fraction of Inspired Oxygen 03/07/25 22:15 03/07/25 22:30 03/07/25 22:31 Temperature 36.9 C 36.9 C Pulse Rate 80 86 87 Respiratory Rate 18 18 Blood Pressure 120/86 118/79 118/79 Pulse Oximetry 99 99 Oxygen Delivery Fraction of Inspired Oxygen 03/07/25 22:46 03/07/25 23:00 03/07/25 23:00 Temperature 36.8 C 36.9 C Pulse Rate 90 92 93 Respiratory Rate 18 18 Blood Pressure 99/71 L 85/61 L 85/61 L Pulse Oximetry 98 98 Oxygen Delivery Fraction of Inspired Oxygen 03/07/25 23:19 03/07/25 23:19 03/07/25 23:25 Temperature Pulse Rate 80 80 86 Respiratory Rate 18 18 Blood Pressure Pulse Oximetry 99 Oxygen Delivery Mechanical Ventilation Fraction of Inspired Oxygen 40 03/08/25 00:00 03/08/25 00:00 03/08/25 00:00 Temperature Pulse Rate 85 83 85 Respiratory Rate 16 16 Blood Pressure 115/81 Pulse Oximetry Oxygen Delivery Fraction of Inspired Oxygen 03/08/25 00:00 03/08/25 00:00 03/08/25 00:00 Temperature 36.7 C Pulse Rate 85 85 Respiratory Rate 16 18 Blood Pressure 115/81 Pulse Oximetry 99 98 Oxygen Delivery Mechanical Ventilation Fraction of Inspired Oxygen 40 40 03/08/25 00:00 03/08/25 01:43 03/08/25 02:00 Temperature Pulse Rate 85 89 96 Respiratory Rate Blood Pressure Pulse Oximetry 98 Oxygen Delivery Mechanical Ventilation Fraction of Inspired Oxygen 40 03/08/25 02:00 03/08/25 02:00 03/08/25 02:00 Temperature 36.5 C Pulse Rate 97 93 93 Respiratory Rate 18 18 18 Blood Pressure 93/62 L Pulse Oximetry 97 Oxygen Delivery Fraction of Inspired Oxygen 03/08/25 02:00 03/08/25 03:13 03/08/25 04:00 Temperature Pulse Rate 94 82 95 Respiratory Rate 18 18 Blood Pressure 90/60 L Pulse Oximetry Oxygen Delivery Fraction of Inspired Oxygen 03/08/25 04:00 03/08/25 04:00 03/08/25 04:00 Temperature Pulse Rate 93 94 94 Respiratory Rate 18 18 Blood Pressure 93/62 L Pulse Oximetry 97 Oxygen Delivery Mechanical Ventilation Fraction of Inspired Oxygen 40 03/08/25 04:00 03/08/25 04:00 03/08/25 04:00 Temperature 36.6 C Pulse Rate 92 92 Respiratory Rate 18 Blood Pressure 93/62 L Pulse Oximetry 97 Oxygen Delivery Fraction of Inspired Oxygen 40 03/08/25 04:56 03/08/25 06:00 03/08/25 06:00 Temperature 36.5 C Pulse Rate 87 94 84 Respiratory Rate 18 Blood Pressure 128/92 H Pulse Oximetry 97 100 Oxygen Delivery Mechanical Ventilation Fraction of Inspired Oxygen 40 03/08/25 06:00 03/08/25 06:00 03/08/25 06:30 Temperature 36.8 C Pulse Rate 95 92 87 Respiratory Rate 18 18 18 Blood Pressure 116/84 Pulse Oximetry 99 Oxygen Delivery Fraction of Inspired Oxygen 03/08/25 07:56 03/08/25 07:59 03/08/25 08:00 Temperature 36.7 C Pulse Rate 87 98 88 Respiratory Rate 18 18 Blood Pressure 95/79 L Pulse Oximetry 96 97 Oxygen Delivery Mechanical Ventilation Fraction of Inspired Oxygen 40 03/08/25 08:00 03/08/25 08:13 03/08/25 08:40 Temperature Pulse Rate 100 109 H Respiratory Rate 16 Blood Pressure Pulse Oximetry 98 Oxygen Delivery Mechanical Ventilation Fraction of Inspired Oxygen 40 40 03/08/25 08:56 Temperature Pulse Rate 100 Respiratory Rate Blood Pressure Pulse Oximetry 100 Oxygen Delivery Mechanical Ventilation Fraction of Inspired Oxygen 40 Intake/Output Intake/Output: Intake & Output 03/05/25 03/06/25 03/07/25 03/08/25 23:59 23:59 23:59 23:59 Intake Total 200 3652.5 699.7 Output Total 1100 275 Balance 200 2552.5 424.7 Meds/Results Medications: Active Medications Generic Name Dose Route Start Last Admin Trade Name Freq PRN Reason Stop Dose Admin Albuterol/Ipratropium 3 ml 03/07/25 00:00 03/08/25 07:55 Ipratropium 0.5 Mg/Albuterol Sulfate 2.5 Mg Ampul.Neb 3 Ml INHALATION 3 ml Q4HRT [facility] Administration Aspirin 81 mg 03/08/25 08:00 03/07/25 12:26 Aspirin 81 Mg Chewable Tablet PO 81 mg DAILY@0800 LIZY Administration Dextrose 12.5 gm 03/07/25 11:20 Dextrose 50% 25 Gm/50 Ml Syringe IV PUSH PRN PRN Hypoglycemia Protocol Enoxaparin Sodium 40 mg 03/09/25 09:00 Enoxaparin 40 Mg/0.4 Ml Syringe SUB-Q DAILY LIZY Glucagon 1 mg 03/07/25 11:20 Glucagon For Inj 1 Mg Vial IM PRN PRN Hypoglycemia Protocol Glucose 15 gm 03/07/25 11:20 Glucose Oral Gel 15 Gm Of Glucse In 37.5 Gm Tube PO PRN PRN Hypoglycemia Protocol Heparin Sodium (Porcine) 4,000 units 03/06/25 20:41 03/07/25 05:17 Heparin Sodium 5,000 Units/Ml Vial IV PUSH 03/08/25 21:00 4,000 units PRN PRN Administration aPTT less than 55 seconds Heparin Sodium (Porcine) 2,500 units 03/06/25 20:41 03/08/25 06:55 Heparin Sodium 5,000 Units/Ml Vial IV PUSH 03/08/25 21:00 2,500 units PRN PRN Administration aPTT 55 - 70 seconds Heparin Sodium/Dextrose 25,000 units in 250 mls @ 10 mls/hr 03/06/25 20:45 03/08/25 06:54 Heparin Sodium/D5w 100 Units/Ml IV CONT 03/08/25 21:00 1,000 units/hr .Q24H LIZY 10 mls/hr Titration Protocol 1,000 UNITS/HR Doxycycline Hyclate 100 mg/ 100 mls @ 100 mls/hr 03/07/25 09:00 03/08/25 08:52 Sodium Chloride IVPB 100 mls/hr Q12H LIZY Administration Phenylephrine HCl 50 mg/ 250 mls @ 7.5 mls/hr 03/07/25 00:30 03/08/25 04:00 Sodium Chloride IV CONT 25 mcg/min .[id number] LIZY 7.5 mls/hr Titration Protocol 25 MCG/MIN Fentanyl Citrate 2,500 mcg in 250 mls @ 5 mls/hr 03/07/25 00:50 03/08/25 06:00 Fentanyl 2,500 Mcg/Ns 250 Ml IV CONT 50 mcg/hr .Q50H LIZY 5 mls/hr Titration Protocol 50 MCG/HR Midazolam HCl 100 mg in 100 mls @ 2 mls/hr 03/07/25 00:50 03/08/25 06:00 Versed 100 Mg/Ns 100 Ml IV CONT 2 mg/hr .Q50H LIZY 2 mls/hr Titration Protocol 2 MG/HR Dextrose 1,000 mls @ 100 mls/hr 03/07/25 11:20 Dextrose 5% 1,000 Ml IVPB PRN PRN Hypoglycemia Protocol Ceftriaxone Sodium 2 gm/ 100 mls @ 200 mls/hr 03/08/25 12:00 Sodium Chloride IVPB Q24H LIZY Potassium Phosphate 20 mmol/ 256.6667 mls @ 64.167 mls/hr 03/08/25 07:54 03/08/25 08:52 Sodium Chloride IVPB 03/08/25 11:53 64.17 mls/hr ONCE ONE Administration Insulin Aspart 3 - 6 units 03/07/25 12:00 03/08/25 06:21 Insulin Aspart (*Bkc) 100 Units/Ml SUB-Q Not Given Q6HR LIZY Protocol Methylprednisolone Sodium Succinate 40 mg 03/08/25 09:00 03/08/25 08:53 Methylprednisolone Sod Succ 40 Mg Vial IV PUSH 40 mg QAM LIZY Administration Multi-Ingred Cream/Lotion/Oil/Oint 1 applic 03/07/25 09:00 03/08/25 08:54 Mineral Oil/White Petrolatum Ointment EACH EYE 1 applic Q12HR LIZY Administration Pantoprazole Sodium 40 mg 03/08/25 09:00 03/08/25 08:53 Pantoprazole Sodium Iv 40 Mg Vial IV PUSH 40 mg QAM LIZY Administration Sodium Chloride 10 ml 03/07/25 14:00 03/08/25 06:21 Central Line Flush IV PUSH 10 ml Q8HR LIZY Administration Sodium Chloride 10 ml 03/07/25 07:57 Central Line Flush IV PUSH PRN PRN with TPN bag changes Sodium Chloride 20 ml 03/07/25 07:57 Central Line Flush IV PUSH PRN PRN after blood draws Radiology Results: ITS Impressions Abdomen X-Ray 03/07/25 05:46 Impression: NG tube in satisfactory position. Chest X-Ray 03/08/25 06:02 Impression: COPD with suspected chronic blunting of the costophrenic angles. Consider minimal pleural effusions. Support tubes, as above. Labs Labs: Laboratory Results - last 24 hr 03/07/25 03/07/25 03/07/25 09:49 11:46 11:53 WBC RBC Hgb Hct MCV MCH MCHC RDW Plt Count MPV Immature Gran % (Auto) Neut % (Auto) Lymph % (Auto) [place] % (Auto) Eos % (Auto) Baso % (Auto) Lymph # (Auto) [place] # (Auto) Eos # (Auto) Baso # (Auto) Abs Immat Gran (auto) Absolute Neuts (auto) Absolute Nucleated RBC Total Counted Neutrophils % (Manual) Band Neutrophils % Lymphocytes % (Manual) Monocytes % (Manual) Nucleated RBC % Abs Neuts (Manual) Abs Lymphs (Manual) Abs Monocytes (Manual) Platelet Estimate Schistocytes APTT 79.4 H Puncture Site ABG pH ABG pCO2 ABG pO2 ABG PO2/FiO2 Ratio ABG HCO3 ABG O2 Saturation ABG O2 Content ABG Base Excess A-a Gradient Oxyhemoglobin Carboxyhemoglobin Methemoglobin Reduced Hemoglobin Total Hemoglobin O2 Delivery Device O2 Liters/Min Minute Volume Vent Rate Vent Mode FiO2 Tidal Volume PEEP Peak Inspir Pressure Pressure Support Sodium Potassium Chloride Carbon Dioxide Anion Gap BUN Creatinine Estim Creat Clear Calc Estimated GFR Glucose POC Capillary Glucose 136 H Lactic Acid 1.4 Calcium Phosphorus Magnesium Total Bilirubin AST ALT Alkaline Phosphatase Troponin I 0.431 H* D Total Protein Albumin 03/07/25 03/07/25 03/07/25 17:29 17:31 23:18 WBC RBC Hgb Hct MCV MCH MCHC RDW Plt Count MPV Immature Gran % (Auto) Neut % (Auto) Lymph % (Auto) Rob[place] % (Auto) Eos % (Auto) Baso % (Auto) Lymph # (Auto) [place] # (Auto) Eos # (Auto) Baso # (Auto) Abs Immat Gran (auto) Absolute Neuts (auto) Absolute Nucleated RBC Total Counted Neutrophils % (Manual) Band Neutrophils % Lymphocytes % (Manual) Monocytes % (Manual) Nucleated RBC % Abs Neuts (Manual) Abs Lymphs (Manual) Abs Monocytes (Manual) Platelet Estimate Schistocytes APTT 81.6 H Puncture Site ABG pH ABG pCO2 ABG pO2 ABG PO2/FiO2 Ratio ABG HCO3 ABG O2 Saturation ABG O2 Content ABG Base Excess A-a Gradient Oxyhemoglobin Carboxyhemoglobin Methemoglobin Reduced Hemoglobin Total Hemoglobin O2 Delivery Device O2 Liters/Min Minute Volume Vent Rate Vent Mode FiO2 Tidal Volume PEEP Peak Inspir Pressure Pressure Support Sodium Potassium Chloride Carbon Dioxide Anion Gap BUN Creatinine Estim Creat Clear Calc Estimated GFR Glucose POC Capillary Glucose 143 H 131 H Lactic Acid Calcium Phosphorus Magnesium Total Bilirubin AST ALT Alkaline Phosphatase Troponin I Total Protein Albumin 03/08/25 03/08/25 04:37 05:18 WBC 18.4 H RBC 3.35 L Hgb 10.3 L D Hct 32.9 L MCV 98.2 MCH 30.7 MCHC 31.3 L RDW 13.7 Plt Count 216 MPV 9.9 Immature Gran % (Auto) Not Reportable Neut % (Auto) Not Reportable Lymph % (Auto) Not Reportable Robeson % (Auto) Not Reportable Eos % (Auto) Not Reportable Baso % (Auto) Not Reportable Lymph # (Auto) Not Reportable Robeson # (Auto) Not Reportable Eos # (Auto) Not Reportable Baso # (Auto) Not Reportable Abs Immat Gran (auto) Not Reportable Absolute Neuts (auto) Not Reportable Absolute Nucleated RBC Not Reportable Total Counted 100 Neutrophils % (Manual) 77 H Band Neutrophils % 11 H Lymphocytes % (Manual) 3 L Monocytes % (Manual) 9 Nucleated RBC % Not Reportable Abs Neuts (Manual) 16.19 H Abs Lymphs (Manual) 0.55 L Abs Monocytes (Manual) 1.65 H Platelet Estimate Adequate Schistocytes None seen APTT 61.4 H Puncture Site Left brachial ABG pH 7.483 H ABG pCO2 40.0 ABG pO2 97.5 ABG PO2/FiO2 Ratio 2.44 ABG HCO3 29.3 H ABG O2 Saturation 97.8 ABG O2 Content 16.1 ABG Base Excess 5.5 A-a Gradient 141.7 Oxyhemoglobin 97.3 Carboxyhemoglobin 0.3 Methemoglobin 0.1 Reduced Hemoglobin 2.3 Total Hemoglobin 11.7 L O2 Delivery Device Ventilator O2 Liters/Min Not Reportable Minute Volume Not Reportable Vent Rate 18 Vent Mode Cmv FiO2 40 Tidal Volume 450 PEEP 5 Peak Inspir Pressure Not Reportable Pressure Support Not Reportable Sodium 142 Potassium 3.5 Chloride 104 Carbon Dioxide 30 Anion Gap 8 BUN 33 H Creatinine 0.95 Estim Creat Clear Calc 58 Estimated GFR > 60 Glucose 155 H POC Capillary Glucose Lactic Acid 1.0 Calcium 9.5 Phosphorus 2.1 L Magnesium 2.4 H Total Bilirubin 0.4 AST 40 ALT 23 Alkaline Phosphatase 46 Troponin I Total Protein 6.4 Albumin 4.1 Quality VTE Prophylaxis VTE prophylaxis: pharmacologic ordered
--- NOTE | 2025-03-08 09:57 | P.PNCA_ITS ---
Progress Note: A&P Assessment and Plan (1) Elevated troponin: Code(s): R79.89 - Other specified abnormal findings of blood chemistry Status: Acute (2) COPD (chronic obstructive pulmonary disease): Code(s): J44.9 - Chronic obstructive pulmonary disease, unspecified Status: Acute Plan 64-year-old man with severe COPD with exacerbation requiring intubation and mechanical ventilation. Question regarding possibility of underlying ischemic component has been raised because of the electrocardiographic abnormalities that are noted on this admission. It is also certainly possible that he just has demand ischemia because of hypoxemia/respiratory failure in this setting. I believe the plan should be to proceed with coronary angiography when the patient is stable and no longer on the ventilator. I did speak to him for a while about this today and he seems to understand. Will cut follow him with you and hopefully he will come off the ventilator over the weekend and we can proceed with angiography sometime this coming week Attila Silvestre MD [facility] Subjective Date/time seen: . Date of service: 03/08/25 09:57 Interval history: Follow-up visit in this 64-year-old man with: Severe COPD with exacerbation requiring intubation and mechanical ventilation. In this setting patient developed ischemic T-wave abnormality on ECG and has had modest troponin elevation. No previous history of underlying coronary artery disease. He is awake alert comfortable but still on the ventilator at this time. Spoke to the patient about concerns regarding ischemic heart disease because of the electrocardiographic abnormalities and modest troponin rise. Exam Const: General: comfortable and no acute distress Other: Well-developed well-nourished white male who intubated comfortable on ventilator support. Awake and alert. HENMT: Mouth: Yes moist mucous membranes Eyes: Sclera: sclerae normal Neck: Neck: supple Resp: Other: Breath sounds are clear but tubular and diminished in both lung alvarez, barrel- chested Cardio: Rate: regular rate Rhythm: regular rhythm Other: No audible murmur or gallop GI: GI Palp: Yes Soft to palpation Auscultation: normal bowel sounds Skin: General skin exam: normal color Neuro: Other: Awake and oriented x3 Extrem: General: normal to inspection Objective Data Vital Signs Vital Signs: Vital Signs - 24 hr 03/07/25 09:59 03/07/25 10:00 03/07/25 10:00 Temperature Pulse Rate 104 H 103 H 103 H Respiratory Rate 18 Blood Pressure 90/66 L 101/73 Pulse Oximetry Oxygen Delivery Fraction of Inspired Oxygen 03/07/25 10:00 03/07/25 10:00 03/07/25 10:00 Temperature 37.9 C H Pulse Rate 103 H 106 H 104 H Respiratory Rate 18 18 Blood Pressure 101/73 Pulse Oximetry 98 Oxygen Delivery Fraction of Inspired Oxygen 03/07/25 10:15 03/07/25 10:15 03/07/25 10:49 Temperature Pulse Rate 102 H 102 H 95 Respiratory Rate Blood Pressure 105/75 105/75 122/88 Pulse Oximetry Oxygen Delivery Fraction of Inspired Oxygen 03/07/25 11:44 03/07/25 11:45 03/07/25 11:50 Temperature Pulse Rate 103 H 104 H 103 H Respiratory Rate 18 Blood Pressure 84/65 L Pulse Oximetry 97 Oxygen Delivery Mechanical Ventilation Fraction of Inspired Oxygen 03/07/25 12:00 03/07/25 12:00 03/07/25 12:00 Temperature Pulse Rate 93 93 93 Respiratory Rate 18 18 Blood Pressure 123/86 Pulse Oximetry Oxygen Delivery Fraction of Inspired Oxygen 03/07/25 12:00 03/07/25 12:00 03/07/25 12:00 Temperature 37.8 C H Pulse Rate 93 92 Respiratory Rate 18 18 Blood Pressure 123/86 Pulse Oximetry 99 99 Oxygen Delivery Mechanical Ventilation Fraction of Inspired Oxygen 40 40 03/07/25 12:00 03/07/25 12:10 03/07/25 12:30 Temperature Pulse Rate 92 101 H 92 Respiratory Rate 18 Blood Pressure 130/88 Pulse Oximetry Oxygen Delivery Fraction of Inspired Oxygen 03/07/25 14:00 03/07/25 14:00 03/07/25 14:00 Temperature 37.6 C Pulse Rate 89 89 89 Respiratory Rate 18 Blood Pressure 135/93 H 135/93 H Pulse Oximetry 99 Oxygen Delivery Fraction of Inspired Oxygen 03/07/25 14:00 03/07/25 14:00 03/07/25 14:19 Temperature Pulse Rate 89 89 88 Respiratory Rate 18 18 Blood Pressure 135/93 H Pulse Oximetry Oxygen Delivery Fraction of Inspired Oxygen 03/07/25 14:30 03/07/25 16:00 03/07/25 16:00 Temperature Pulse Rate 92 85 84 Respiratory Rate 18 Blood Pressure 131/91 H Pulse Oximetry 98 Oxygen Delivery Mechanical Ventilation Fraction of Inspired Oxygen 03/07/25 16:00 03/07/25 16:00 03/07/25 16:00 Temperature 37.2 C Pulse Rate 84 84 83 Respiratory Rate 18 18 18 Blood Pressure 138/94 H Pulse Oximetry 99 99 Oxygen Delivery Mechanical Ventilation Fraction of Inspired Oxygen 40 03/07/25 16:00 03/07/25 16:25 03/07/25 16:25 Temperature Pulse Rate 82 82 Respiratory Rate 18 Blood Pressure Pulse Oximetry 99 Oxygen Delivery Mechanical Ventilation Fraction of Inspired Oxygen 40 03/07/25 16:35 03/07/25 16:37 03/07/25 17:38 Temperature Pulse Rate 85 87 95 Respiratory Rate 18 Blood Pressure 138/94 H 87/62 L Pulse Oximetry Oxygen Delivery Fraction of Inspired Oxygen 03/07/25 18:00 03/07/25 18:00 03/07/25 18:00 Temperature 37.1 C Pulse Rate 89 89 89 Respiratory Rate 18 Blood Pressure 112/79 112/79 Pulse Oximetry 98 Oxygen Delivery Fraction of Inspired Oxygen 03/07/25 18:00 03/07/25 18:00 03/07/25 18:56 Temperature Pulse Rate 89 89 93 Respiratory Rate 18 18 Blood Pressure 137/95 H Pulse Oximetry Oxygen Delivery Fraction of Inspired Oxygen 03/07/25 20:00 03/07/25 20:00 03/07/25 20:00 Temperature Pulse Rate 81 80 81 Respiratory Rate 18 18 Blood Pressure 117/81 Pulse Oximetry Oxygen Delivery Fraction of Inspired Oxygen 03/07/25 20:00 03/07/25 20:00 03/07/25 20:00 Temperature 36.9 C Pulse Rate 91 78 Respiratory Rate 18 Blood Pressure 117/81 Pulse Oximetry 98 Oxygen Delivery Fraction of Inspired Oxygen 40 03/07/25 20:15 03/07/25 20:28 03/07/25 20:28 Temperature 37.0 C Pulse Rate 103 H 90 90 Respiratory Rate 16 18 Blood Pressure 125/84 Pulse Oximetry 98 99 Oxygen Delivery Mechanical Ventilation Fraction of Inspired Oxygen 40 03/07/25 20:30 03/07/25 20:30 03/07/25 20:32 Temperature 36.9 C Pulse Rate 79 101 H 89 Respiratory Rate 18 18 Blood Pressure 125/84 121/94 H Pulse Oximetry 99 Oxygen Delivery Fraction of Inspired Oxygen 03/07/25 20:34 03/07/25 20:40 03/07/25 20:45 Temperature 36.9 C Pulse Rate 93 92 97 Respiratory Rate 18 18 18 Blood Pressure 130/90 Pulse Oximetry 98 98 Oxygen Delivery Mechanical Ventilation Fraction of Inspired Oxygen 40 03/07/25 20:45 03/07/25 20:46 03/07/25 21:00 Temperature 37.0 C Pulse Rate 92 92 103 H Respiratory Rate 16 18 Blood Pressure 130/90 99/69 L Pulse Oximetry 97 Oxygen Delivery Fraction of Inspired Oxygen 03/07/25 21:15 03/07/25 21:15 03/07/25 21:30 Temperature 37.0 C Pulse Rate 104 H 104 H 102 H Respiratory Rate 16 16 18 Blood Pressure 81/60 L Pulse Oximetry 97 Oxygen Delivery Fraction of Inspired Oxygen 03/07/25 21:33 03/07/25 21:45 03/07/25 22:00 Temperature 37.0 C Pulse Rate 101 H 95 72 Respiratory Rate 18 Blood Pressure 81/60 L 92/66 L Pulse Oximetry 97 Oxygen Delivery Fraction of Inspired Oxygen 03/07/25 22:00 03/07/25 22:00 03/07/25 22:00 Temperature 37.0 C Pulse Rate 77 82 78 Respiratory Rate 18 16 Blood Pressure 112/79 112/79 Pulse Oximetry 99 Oxygen Delivery Fraction of Inspired Oxygen 03/07/25 22:00 03/07/25 22:15 03/07/25 22:15 Temperature 36.9 C Pulse Rate 78 78 80 Respiratory Rate 16 18 Blood Pressure 120/86 120/86 Pulse Oximetry 99 Oxygen Delivery Fraction of Inspired Oxygen 03/07/25 22:30 03/07/25 22:31 03/07/25 22:46 Temperature 36.9 C 36.8 C Pulse Rate 86 87 90 Respiratory Rate 18 18 Blood Pressure 118/79 118/79 99/71 L Pulse Oximetry 99 98 Oxygen Delivery Fraction of Inspired Oxygen 03/07/25 23:00 03/07/25 23:00 03/07/25 23:19 Temperature 36.9 C Pulse Rate 92 93 80 Respiratory Rate 18 Blood Pressure 85/61 L 85/61 L Pulse Oximetry 98 99 Oxygen Delivery Mechanical Ventilation Fraction of Inspired Oxygen 40 03/07/25 23:19 03/07/25 23:25 03/08/25 00:00 Temperature Pulse Rate 80 86 85 Respiratory Rate 18 18 Blood Pressure 115/81 Pulse Oximetry Oxygen Delivery Fraction of Inspired Oxygen 03/08/25 00:00 03/08/25 00:00 03/08/25 00:00 Temperature Pulse Rate 83 85 85 Respiratory Rate 16 16 16 Blood Pressure Pulse Oximetry 99 Oxygen Delivery Mechanical Ventilation Fraction of Inspired Oxygen 40 03/08/25 00:00 03/08/25 00:00 03/08/25 00:00 Temperature 36.7 C Pulse Rate 85 85 Respiratory Rate 18 Blood Pressure 115/81 Pulse Oximetry 98 Oxygen Delivery Fraction of Inspired Oxygen 40 03/08/25 01:43 03/08/25 02:00 03/08/25 02:00 Temperature 36.5 C Pulse Rate 89 96 97 Respiratory Rate 18 Blood Pressure 93/62 L Pulse Oximetry 98 97 Oxygen Delivery Mechanical Ventilation Fraction of Inspired Oxygen 40 03/08/25 02:00 03/08/25 02:00 03/08/25 02:00 Temperature Pulse Rate 93 93 94 Respiratory Rate 18 18 Blood Pressure 90/60 L Pulse Oximetry Oxygen Delivery Fraction of Inspired Oxygen 03/08/25 03:13 03/08/25 04:00 03/08/25 04:00 Temperature Pulse Rate 82 95 93 Respiratory Rate 18 18 18 Blood Pressure Pulse Oximetry Oxygen Delivery Fraction of Inspired Oxygen 03/08/25 04:00 03/08/25 04:00 03/08/25 04:00 Temperature Pulse Rate 94 94 92 Respiratory Rate 18 Blood Pressure 93/62 L Pulse Oximetry 97 Oxygen Delivery Mechanical Ventilation Fraction of Inspired Oxygen 40 03/08/25 04:00 03/08/25 04:00 03/08/25 04:56 Temperature 36.6 C Pulse Rate 92 87 Respiratory Rate 18 Blood Pressure 93/62 L Pulse Oximetry 97 97 Oxygen Delivery Mechanical Ventilation Fraction of Inspired Oxygen 40 40 03/08/25 06:00 03/08/25 06:00 03/08/25 06:00 Temperature 36.5 C Pulse Rate 94 84 95 Respiratory Rate 18 18 Blood Pressure 128/92 H Pulse Oximetry 100 Oxygen Delivery Fraction of Inspired Oxygen 03/08/25 06:00 03/08/25 06:30 03/08/25 07:56 Temperature 36.8 C Pulse Rate 92 87 87 Respiratory Rate 18 18 18 Blood Pressure 116/84 Pulse Oximetry 99 Oxygen Delivery Fraction of Inspired Oxygen 03/08/25 07:59 03/08/25 08:00 03/08/25 08:00 Temperature 36.7 C Pulse Rate 98 88 Respiratory Rate 18 Blood Pressure 95/79 L Pulse Oximetry 96 97 Oxygen Delivery Mechanical Ventilation Fraction of Inspired Oxygen 40 40 03/08/25 08:00 03/08/25 08:13 03/08/25 08:40 Temperature Pulse Rate 100 109 H Respiratory Rate 16 Blood Pressure Pulse Oximetry 97 98 Oxygen Delivery Mechanical Ventilation Mechanical Ventilation Fraction of Inspired Oxygen 40 40 03/08/25 08:56 Temperature Pulse Rate 100 Respiratory Rate Blood Pressure Pulse Oximetry 100 Oxygen Delivery Mechanical Ventilation Fraction of Inspired Oxygen 40 Intake/Output Intake/Output: Intake & Output 03/05/25 03/06/25 03/07/25 03/08/25 23:59 23:59 23:59 23:59 Intake Total 200 3652.5 699.7 Output Total 1100 275 Balance 200 2552.5 424.7 Meds/Results Medications: Active Medications Generic Name Dose Route Start Last Admin Trade Name Freq PRN Reason Stop Dose Admin Albuterol/Ipratropium 3 ml 03/07/25 00:00 03/08/25 07:55 Ipratropium 0.5 Mg/Albuterol Sulfate 2.5 Mg Ampul.Neb 3 Ml INHALATION 3 ml Q4HRT LIZY Administration Aspirin 81 mg 03/08/25 08:00 03/07/25 12:26 Aspirin 81 Mg Chewable Tablet PO 81 mg DAILY@0800 LIZY Administration Dextrose 12.5 gm 03/07/25 11:20 Dextrose 50% 25 Gm/50 Ml Syringe IV PUSH PRN PRN Hypoglycemia Protocol Enoxaparin Sodium 40 mg 03/09/25 09:00 Enoxaparin 40 Mg/0.4 Ml Syringe SUB-Q DAILY LIZY Glucagon 1 mg 03/07/25 11:20 Glucagon For Inj 1 Mg Vial IM PRN PRN Hypoglycemia Protocol Glucose 15 gm 03/07/25 11:20 Glucose Oral Gel 15 Gm Of Glucse In 37.5 Gm Tube PO PRN PRN Hypoglycemia Protocol Heparin Sodium (Porcine) 4,000 units 03/06/25 20:41 03/07/25 05:17 Heparin Sodium 5,000 Units/Ml Vial IV PUSH 03/08/25 21:00 4,000 units PRN PRN Administration aPTT less than 55 seconds Heparin Sodium (Porcine) 2,500 units 03/06/25 20:41 03/08/25 06:55 Heparin Sodium 5,000 Units/Ml Vial IV PUSH 03/08/25 21:00 2,500 units PRN PRN Administration aPTT 55 - 70 seconds Heparin Sodium/Dextrose 25,000 units in 250 mls @ 10 mls/hr 03/06/25 20:45 03/08/25 06:54 Heparin Sodium/D5w 100 Units/Ml IV CONT 03/08/25 21:00 1,000 units/hr .Q24H LIZY 10 mls/hr Titration Protocol 1,000 UNITS/HR Doxycycline Hyclate 100 mg/ 100 mls @ 100 mls/hr 03/07/25 09:00 03/08/25 08:52 Sodium Chloride IVPB 100 mls/hr Q12H LIZY Administration Phenylephrine HCl 50 mg/ 250 mls @ 7.5 mls/hr 03/07/25 00:30 03/08/25 04:00 Sodium Chloride IV CONT 25 mcg/min .[id number] LIZY 7.5 mls/hr Titration Protocol 25 MCG/MIN Fentanyl Citrate 2,500 mcg in 250 mls @ 5 mls/hr 03/07/25 00:50 03/08/25 06:00 Fentanyl 2,500 Mcg/Ns 250 Ml IV CONT 50 mcg/hr .Q50H LIZY 5 mls/hr Titration Protocol 50 MCG/HR Midazolam HCl 100 mg in 100 mls @ 2 mls/hr 03/07/25 00:50 03/08/25 06:00 Versed 100 Mg/Ns 100 Ml IV CONT 2 mg/hr .Q50H LIZY 2 mls/hr Titration Protocol 2 MG/HR Dextrose 1,000 mls @ 100 mls/hr 03/07/25 11:20 Dextrose 5% 1,000 Ml IVPB PRN PRN Hypoglycemia Protocol Ceftriaxone Sodium 2 gm/ 100 mls @ 200 mls/hr 03/08/25 12:00 Sodium Chloride IVPB Q24H LIZY Potassium Phosphate 20 mmol/ 256.6667 mls @ 64.167 mls/hr 03/08/25 07:54 03/08/25 08:52 Sodium Chloride IVPB 03/08/25 11:53 64.17 mls/hr ONCE ONE Administration Dexmedetomidine HCl 400 mcg in 100 mls @ 3.02 mls/hr 03/08/25 09:50 Precedex 400 Mcg/100 Ml IV CONT .[id number] LIZY Protocol 0.2 MCG/KG/HR Insulin Aspart 3 - 6 units 03/07/25 12:00 03/08/25 06:21 Insulin Aspart (*Bkc) 100 Units/Ml SUB-Q Not Given Q6HR [facility] Protocol Methylprednisolone Sodium Succinate 40 mg 03/08/25 09:00 03/08/25 08:53 Methylprednisolone Sod Succ 40 Mg Vial IV PUSH 40 mg QAM LIZY Administration Multi-Ingred Cream/Lotion/Oil/Oint 1 applic 03/07/25 09:00 03/08/25 08:54 Mineral Oil/White Petrolatum Ointment EACH EYE 1 applic Q12HR LIZY Administration Pantoprazole Sodium 40 mg 03/08/25 09:00 03/08/25 08:53 Pantoprazole Sodium Iv 40 Mg Vial IV PUSH 40 mg QAM LIZY Administration Sodium Chloride 10 ml 03/07/25 14:00 03/08/25 06:21 Central Line Flush IV PUSH 10 ml Q8HR LIZY Administration Sodium Chloride 10 ml 03/07/25 07:57 Central Line Flush IV PUSH PRN PRN with TPN bag changes Sodium Chloride 20 ml 03/07/25 07:57 Central Line Flush IV PUSH PRN PRN after blood draws Radiology Results: ITS Impressions Abdomen X-Ray 03/07/25 05:46 Impression: NG tube in satisfactory position. Chest X-Ray 03/08/25 06:02 Impression: COPD with suspected chronic blunting of the costophrenic angles. Consider minimal pleural effusions. Support tubes, as above. Labs Labs: Laboratory Results - last 24 hr 03/07/25 03/07/25 03/07/25 09:49 11:46 11:53 WBC RBC Hgb Hct MCV MCH MCHC RDW Plt Count MPV Immature Gran % (Auto) Neut % (Auto) Lymph % (Auto) Mckenzie % (Auto) Eos % (Auto) Baso % (Auto) Lymph # (Auto) Mckenzie # (Auto) Eos # (Auto) Baso # (Auto) Abs Immat Gran (auto) Absolute Neuts (auto) Absolute Nucleated RBC Total Counted Neutrophils % (Manual) Band Neutrophils % Lymphocytes % (Manual) Monocytes % (Manual) Nucleated RBC % Abs Neuts (Manual) Abs Lymphs (Manual) Abs Monocytes (Manual) Platelet Estimate Schistocytes APTT 79.4 H Puncture Site ABG pH ABG pCO2 ABG pO2 ABG PO2/FiO2 Ratio ABG HCO3 ABG O2 Saturation ABG O2 Content ABG Base Excess A-a Gradient Oxyhemoglobin Carboxyhemoglobin Methemoglobin Reduced Hemoglobin Total Hemoglobin O2 Delivery Device O2 Liters/Min Minute Volume Vent Rate Vent Mode FiO2 Tidal Volume PEEP Peak Inspir Pressure Pressure Support Sodium Potassium Chloride Carbon Dioxide Anion Gap BUN Creatinine Estim Creat Clear Calc Estimated GFR Glucose POC Capillary Glucose 136 H Lactic Acid 1.4 Calcium Phosphorus Magnesium Total Bilirubin AST ALT Alkaline Phosphatase Troponin I 0.431 H* D Total Protein Albumin 03/07/25 03/07/25 03/07/25 17:29 17:31 23:18 WBC RBC Hgb Hct MCV MCH MCHC RDW Plt Count MPV Immature Gran % (Auto) Neut % (Auto) Lymph % (Auto) Mckenzie % (Auto) Eos % (Auto) Baso % (Auto) Lymph # (Auto) Mckenzie # (Auto) Eos # (Auto) Baso # (Auto) Abs Immat Gran (auto) Absolute Neuts (auto) Absolute Nucleated RBC Total Counted Neutrophils % (Manual) Band Neutrophils % Lymphocytes % (Manual) Monocytes % (Manual) Nucleated RBC % Abs Neuts (Manual) Abs Lymphs (Manual) Abs Monocytes (Manual) Platelet Estimate Schistocytes APTT 81.6 H Puncture Site ABG pH ABG pCO2 ABG pO2 ABG PO2/FiO2 Ratio ABG HCO3 ABG O2 Saturation ABG O2 Content ABG Base Excess A-a Gradient Oxyhemoglobin Carboxyhemoglobin Methemoglobin Reduced Hemoglobin Total Hemoglobin O2 Delivery Device O2 Liters/Min Minute Volume Vent Rate Vent Mode FiO2 Tidal Volume PEEP Peak Inspir Pressure Pressure Support Sodium Potassium Chloride Carbon Dioxide Anion Gap BUN Creatinine Estim Creat Clear Calc Estimated GFR Glucose POC Capillary Glucose 143 H 131 H Lactic Acid Calcium Phosphorus Magnesium Total Bilirubin AST ALT Alkaline Phosphatase Troponin I Total Protein Albumin 03/08/25 03/08/25 04:37 05:18 WBC 18.4 H RBC 3.35 L Hgb 10.3 L D Hct 32.9 L MCV 98.2 MCH 30.7 MCHC 31.3 L RDW 13.7 Plt Count 216 MPV 9.9 Immature Gran % (Auto) Not Reportable Neut % (Auto) Not Reportable Lymph % (Auto) Not Reportable Mckenzie % (Auto) Not Reportable Eos % (Auto) Not Reportable Baso % (Auto) Not Reportable Lymph # (Auto) Not Reportable Mckenzie # (Auto) Not Reportable Eos # (Auto) Not Reportable Baso # (Auto) Not Reportable Abs Immat Gran (auto) Not Reportable Absolute Neuts (auto) Not Reportable Absolute Nucleated RBC Not Reportable Total Counted 100 Neutrophils % (Manual) 77 H Band Neutrophils % 11 H Lymphocytes % (Manual) 3 L Monocytes % (Manual) 9 Nucleated RBC % Not Reportable Abs Neuts (Manual) 16.19 H Abs Lymphs (Manual) 0.55 L Abs Monocytes (Manual) 1.65 H Platelet Estimate Adequate Schistocytes None seen APTT 61.4 H Puncture Site Left brachial ABG pH 7.483 H ABG pCO2 40.0 ABG pO2 97.5 ABG PO2/FiO2 Ratio 2.44 ABG HCO3 29.3 H ABG O2 Saturation 97.8 ABG O2 Content 16.1 ABG Base Excess 5.5 A-a Gradient 141.7 Oxyhemoglobin 97.3 Carboxyhemoglobin 0.3 Methemoglobin 0.1 Reduced Hemoglobin 2.3 Total Hemoglobin 11.7 L O2 Delivery Device Ventilator O2 Liters/Min Not Reportable Minute Volume Not Reportable Vent Rate 18 Vent Mode Cmv FiO2 40 Tidal Volume 450 PEEP 5 Peak Inspir Pressure Not Reportable Pressure Support Not Reportable Sodium 142 Potassium 3.5 Chloride 104 Carbon Dioxide 30 Anion Gap 8 BUN 33 H Creatinine 0.95 Estim Creat Clear Calc 58 Estimated GFR > 60 Glucose 155 H POC Capillary Glucose Lactic Acid 1.0 Calcium 9.5 Phosphorus 2.1 L Magnesium 2.4 H Total Bilirubin 0.4 AST 40 ALT 23 Alkaline Phosphatase 46 Troponin I Total Protein 6.4 Albumin 4.1
[2025-03-08] MEDS: dexmedeTOMIDine 400 MCG/100 ML 400 MCG/100 ML BAG IV CONT (10:30)
--- NOTE | 2025-03-08 11:05 | PCNFU ---
Nutrition Follow-Up Complete: Increased protein energy needs related to mechanical ventilation as evidenced by need for tube feeding Goal: Meet estimated nutrition needs Patient is progressing towards goal. We will continue current goal. Pt current nutrition is Vital AF 1.2 at 40 ml/hr. Nutrition recommendation: goal rate 60 ml/hr. Last recorded weight is 60.4 kg, stable Bowel Motility: Last reported BM 03/06 Labs Reviewed:BUN 33, Glu 155, Hct 32.9, Hgb 10.3 Meds Noted:Protonix, Precedex, Lovenox. Skin: WNL Additional Notes: Patient remains on mechanical vent. Failed breathing trial today. Tube feedings are being tolerated of Vital AF 1.2 at 40 ml/hr. Spoke with Senior Medical Writer today, recommending goal rate at 60 ml/hr. Total Nutrition:1584 kcal/99 gm protein/1070 ml water. Flush 30 ml q 4 hours. Agree with diet orders at this time. Monitoring orders, weights, labs, TF tolerance, output, plan of care, meds, vent settings Follow up Tuesday/Tuesday.
[2025-03-08] MEDS: MIDAZOLAM HCL (*CRX) 2 MG/2 ML VIAL 4 MG IV PUSH (11:54)
[2025-03-08] MEDS: cefTRIAXone 2 GM in SODIUM CHLORIDE 0.9% IV 100 ML 200 ML IVPB (12:36)
[2025-03-08 13:43] LABS: Partial Thromboplastin Time 79.6 Seconds (22.3-36.8)
[2025-03-08] MEDS: FENTANYL 2,500MCG/NS250ML(*CRX 2,500 MCG/250 ML BAG 7.5 MCG IV CONT (18:43)
[2025-03-08] MEDS: dexmedeTOMIDine 400 MCG/100 ML 400 MCG/100 ML BAG 10.57 MCG IV CONT (18:44)
[2025-03-09] VITALS (63 sets, daily range): BP systolic 122–199; BP diastolic 86–178; PULSE 68–138; RESP 6–28; TEMP 36.8–37.4; O2SAT 88–99
[2025-03-09] MEDS: IPRATROPIUM 0.5 MG/ALBUTEROL SULFATE 2.5 MG AMPUL.NEB 3 ML INHALATION ×2 (01:25→07:48)
[2025-03-09] MEDS: dexmedeTOMIDine 400 MCG/100 ML 400 MCG/100 ML BAG 13.59 MCG IV CONT ×2 (02:49→09:12)
[2025-03-09 04:52] LABS: Alveolar/Arterial O2 Gradient 129.2 mmHg; Carboxyhemoglobin 0.3 % THb (0-2.0); Fractional Inspired Oxygen 40 %; HCO3 ABG 30.8 mEq/l (22.0-26.0); Methemoglobin ABG 0.2 %THb (0-1.5); Oxygen Content ABG 17.4 %vol (16.0-22.0); Oxygen Saturation ABG 97.8 % (95.0-100.0); PCO2 ABG 47.1 mmHg (35.0-45.0); PO2 ABG 101.8 mmHg (80.0-100.0); PO2 FiO2 Ratio Arterial Blood 2.55 %; Reduced Hemoglobin 2.0 %THb (0-5.0)
[2025-03-09 04:54] LABS: Modified Allen's Test Pass; Site Drawn RIGHT RADIAL
[2025-03-09 04:55] LABS: Arterial Blood Gas Tidal Volume 400 ml; Arterial Blood Gas Ventilator rate 16 /MIN
[2025-03-09 05:37] LABS: Hematocrit 36.8 % (42.0-52.0); Hemoglobin 11.4 g/dL (14.0-18.0); Immature Granulocyte Percent A 1.0 % (0-0.5); Lymphocytes Absolute Auto 0.66 K/mm3 (0.9-3.2); Mean Corpuscular HGB Conc 31.0 g/dl (32-36); Mean Corpuscular Hemoglobin 30.7 pg (26-34); Mean Corpuscular Volume 99.2 fl (80-100); Nucleated Red Blood Cells Absolute Auto 0.000 K/mm3 (0.0-0.012); Nucleated Red Blood Cells Perc 0.0 % (0.0-0.2); Platelet Count Result 212 k/mm3 (150-375); Red Blood Count 3.71 M/mm3 (4.6-6.20); White Blood Count 14.2 K/mm3 (4.5-10.0)
[2025-03-09 05:52] LABS: Alanine Aminotransferase 34 U/L (6-50); Albumin Level 4.1 g/dL (3.5-5.1); Alkaline Phosphatase 39 U/L (38-126); Anion Gap 8 mmol/L (4-12); Aspartate Amino Transferase 37 U/L (17-59); Bilirubin,Total 0.2 mg/dL (0.2-1.3); Blood Urea Nitrogen 36 mg/dL (9-20); Calcium 9.6 mg/dL (8.4-10.2); Carbon Dioxide 30 mmol/L (22-30); Chloride 105 mmol/L (98-107); Estimated CRCL calculation 62 ml/min; Estimated Glomerular Filt Rate > 60; Glucose 179 mg/dL (65-110); Magnesium 2.4 mg/dL (1.6-2.3); Potassium 4.2 mmol/L (3.4-5.0); Sodium 143 mmol/L (137-145); Total Protein 6.6 g/dL (6.3-8.2)
[2025-03-09] MEDS: CENTRAL LINE FLUSH 10 ML IV PUSH ×3 (06:12→20:48)
--- NOTE | 2025-03-09 08:51 | P.PNINT_ITS ---
Progress Note: A&P Assessment and Plan (1) Septic shock: Code(s): A41.9 - Sepsis, unspecified organism; R65.21 - Severe sepsis with septic shock Status: Acute Assessment and Plan: Patient presented with hypoxia, tachypnea, tachycardia. She was found to be in COPD exacerbation -patient was hypotensive, requiring Costa-Synephrine through peripheral IV -patient has received adequate IV fluids -03/07: PICC line inserted -Costa-Synephrine weaned off -lactic acid has normalized -03/06: Patient on ceftriaxone and doxycycline -03/06: Blood cultures have been obtained and negative till now (2) Acute respiratory failure with hypoxia and hypercapnia: Code(s): J96.01 - Acute respiratory failure with hypoxia; J96.02 - Acute respiratory failure with hypercapnia Status: Acute Assessment and Plan: Patient presented with respiratory distress, dyspnea, hypoxia with O2 sats in the 30s on 2-3 L oxygen at home, family had to force the patient to come to the ED, in the ED he was immediately placed on BiPAP, given DuoNebs. ABGs revealed hypercapnic respiratory failure, patient was initially placed on BiPAP ABGs did not show any improvement rather worsening in the CO2 - intubated after he came to the ICU on 03/07/2025 -currently on CMV mode of ventilation, peep of 5, 40% FiO2 - 03/08 5/5 PSV weaning trial was tried the patient failed trial due to increased respiratory distress tachycardia and complaint of chest pain. PSV was increased to 15 and later it was aborted and patient was placed back on CMV -03/09 sedation holiday and weaning trial again today -continue Solu-Medrol decreased to q.day does -continue bronchodilators and antibiotic -sedated with Precedex and fentanyl infusion, maintain RASS of 0 to -2, daily SBT and SAT (3) Chronic obstructive pulmonary disease: Code(s): J44.9 - Chronic obstructive pulmonary disease, unspecified Status: Acute Assessment and Plan: COPD exacerbation See above (4) Elevated troponin: Code(s): R79.89 - Other specified abnormal findings of blood chemistry Status: Acute Assessment and Plan: Elevated troponin along with EKG changes Cardiology consult Off of heparin infusion after 48 hours Continue aspirin 81 mg Echo Summary 1. The left ventricle is normal in size and systolic function. The left ventricular ejection fraction is visually estimated to be 50-55%. The anteroseptum on some off-axis views is hypokinetic. 2. The right ventricle is normal in size and systolic function. 3. There is a small size pericardial effusion with no echocardiographic evidence of cardiac tamponade. Cardiology plans for cardiac catheterization early next week (5) Acute kidney injury: Code(s): N17.9 - Acute kidney failure, unspecified Status: Acute Assessment and Plan: Patient presented with creatinine 1.44 on admission (unknown baseline) - adequately fluid-resuscitated -low urine output, but creatinine has normalized -monitor urine output, renal function and electrolytes (6) IV infiltration: Code(s): T80.1XXA - Vascular complications following infusion, transfusion and therapeutic injection, initial encounter Status: Acute Assessment and Plan: Patient was on Costa-Synephrine through a peripheral access which infiltrated overnight Patient was givent phentolamine/Regitine around the site of infiltration -continue to monitor (7) Electrolyte abnormality: Code(s): E87.8 - Other disorders of electrolyte and fluid balance, not elsewhere classified Status: Acute Assessment and Plan: Potassium improved after placement Plan DVT prophylaxis: Lovenox Stress ulcer prophylaxis: Protonix Nutrition: Continue tube feeds Code Status: Full code Critical Care Time Spent: 30 minutes Due to a high probability of clinically significant, life threatening deterioration, the patient required my highest level of preparedness to intervene emergently and I personally spent this critical care time directly and personally managing the patient. This critical care time included obtaining a history; examining the patient; pulse oximetry; ordering and review of studies; arranging urgent treatment with development of a management plan; evaluation of patient's response to treatment; frequent reassessment; and discussions with other providers. It was exclusive of separately billable procedures and treating other patients and teaching time. Please see Assessment and Plan section and the rest of the note for further information on patient assessment and treatment This dictation may have been done utilizing a voice recognition system. Attempts have been made to correct errors. However, there may be uncorrected grammatical, spelling, and recognitions errors present. Subjective Date/time seen: 03/09/25 Overnight events reviewed. Afebrile Continues to be on mechanical ventilation 40% FiO2 and 5 of PEEP Tolerating tube feed Continues to be sedated with V Precedex and fentanyl Other Vitals acceptable Awake follows commands and denies any pain or shortness of breath Review of Systems Review of Systems: ROS unobtainable: Yes unobtainable due to endotracheal tube and unobtainable due to medical condition Exam Narrative: General: Intubated, sedated in no acute distress HEENT:? Pupils equal and reactive, sclera is clear, ETT in place Neck:? Supple Respiratory:? Clear to auscultation bilaterally, decreased at bases, no wheezing, adequate air entry Cardiac:? S1-S2 is normal, sinus tachycardia Abdomen:? Soft, nontender, nondistended, hypoactive bowel sounds Extremities:? No edema, palpable pedal pulses, left upper extremity IV infiltration site with redness on the forearm Neuro:? Intubated, on sedation, patient is awake, follows simple commands and nods to questions Skin:? No lesions noted Psych:? Unable to assess at this time Objective Data Vital Signs Vital Signs: Vital Signs - 24 hr 03/08/25 08:56 03/08/25 10:00 03/08/25 10:00 Temperature Pulse Rate 100 100 100 Respiratory Rate 17 17 Blood Pressure Pulse Oximetry 100 Oxygen Delivery Mechanical Ventilation Fraction of Inspired Oxygen 40 03/08/25 10:00 03/08/25 10:00 03/08/25 10:00 Temperature 37.0 C Pulse Rate 100 100 100 Respiratory Rate 17 Blood Pressure 119/87 117/85 Pulse Oximetry 100 Oxygen Delivery Fraction of Inspired Oxygen 03/08/25 10:30 03/08/25 11:17 03/08/25 11:21 Temperature Pulse Rate 98 101 H 101 H Respiratory Rate 18 16 Blood Pressure Pulse Oximetry 100 Oxygen Delivery Mechanical Ventilation Fraction of Inspired Oxygen 40 03/08/25 11:30 03/08/25 11:44 03/08/25 11:45 Temperature Pulse Rate 113 H 140 H 140 H Respiratory Rate 16 21 H 21 H Blood Pressure Pulse Oximetry Oxygen Delivery Fraction of Inspired Oxygen 03/08/25 11:49 03/08/25 12:00 03/08/25 12:00 Temperature 36.9 C Pulse Rate 93 Respiratory Rate 16 Blood Pressure 96/68 L Pulse Oximetry 98 Oxygen Delivery Mechanical Ventilation Fraction of Inspired Oxygen 40 40 03/08/25 12:00 03/08/25 12:00 03/08/25 12:44 Temperature Pulse Rate 108 H 94 Respiratory Rate 16 Blood Pressure Pulse Oximetry 98 Oxygen Delivery Mechanical Ventilation Fraction of Inspired Oxygen 40 03/08/25 13:15 03/08/25 14:00 03/08/25 14:00 Temperature 36.4 C L Pulse Rate 84 77 77 Respiratory Rate 16 16 16 Blood Pressure 112/92 H Pulse Oximetry 100 Oxygen Delivery Fraction of Inspired Oxygen 03/08/25 14:00 03/08/25 14:15 03/08/25 14:28 Temperature Pulse Rate 77 77 75 Respiratory Rate 16 16 Blood Pressure Pulse Oximetry Oxygen Delivery Fraction of Inspired Oxygen 03/08/25 14:31 03/08/25 14:40 03/08/25 16:00 Temperature 36.8 C Pulse Rate 75 77 77 Respiratory Rate 16 16 Blood Pressure 127/93 H Pulse Oximetry 99 98 Oxygen Delivery Mechanical Ventilation Fraction of Inspired Oxygen 40 03/08/25 16:00 03/08/25 16:00 03/08/25 16:00 Temperature Pulse Rate 77 Respiratory Rate 16 Blood Pressure Pulse Oximetry 97 Oxygen Delivery Mechanical Ventilation Fraction of Inspired Oxygen 40 40 03/08/25 16:00 03/08/25 16:00 03/08/25 17:00 Temperature Pulse Rate 77 79 79 Respiratory Rate 16 Blood Pressure Pulse Oximetry 97 Oxygen Delivery Mechanical Ventilation Fraction of Inspired Oxygen 40 03/08/25 18:00 03/08/25 18:00 03/08/25 18:00 Temperature 36.9 C Pulse Rate 75 74 73 Respiratory Rate 16 16 16 Blood Pressure 128/89 Pulse Oximetry 98 Oxygen Delivery Fraction of Inspired Oxygen 03/08/25 18:00 03/08/25 18:43 03/08/25 18:43 Temperature Pulse Rate 76 74 74 Respiratory Rate 17 17 Blood Pressure Pulse Oximetry Oxygen Delivery Fraction of Inspired Oxygen 03/08/25 18:44 03/08/25 18:44 03/08/25 20:00 Temperature 37.2 C Pulse Rate 75 75 84 Respiratory Rate 16 16 18 Blood Pressure 110/82 Pulse Oximetry 97 Oxygen Delivery Fraction of Inspired Oxygen 03/08/25 20:00 03/08/25 20:00 03/08/25 20:00 Temperature Pulse Rate 82 82 82 Respiratory Rate 19 19 19 Blood Pressure Pulse Oximetry 97 Oxygen Delivery Mechanical Ventilation Fraction of Inspired Oxygen 40 03/08/25 20:00 03/08/25 20:00 03/08/25 20:22 Temperature Pulse Rate 84 84 Respiratory Rate 17 Blood Pressure Pulse Oximetry Oxygen Delivery Fraction of Inspired Oxygen 40 03/08/25 20:24 03/08/25 22:00 03/08/25 22:00 Temperature 37.1 C Pulse Rate 84 77 78 Respiratory Rate 16 Blood Pressure 115/86 Pulse Oximetry 97 98 Oxygen Delivery Mechanical Ventilation Fraction of Inspired Oxygen 40 03/08/25 22:00 03/08/25 22:00 03/08/25 22:10 Temperature Pulse Rate 76 77 81 Respiratory Rate 16 16 20 Blood Pressure Pulse Oximetry Oxygen Delivery Fraction of Inspired Oxygen 03/08/25 23:12 03/08/25 23:35 03/08/25 23:48 Temperature Pulse Rate 74 72 Respiratory Rate 16 Blood Pressure Pulse Oximetry 99 99 Oxygen Delivery Mechanical Ventilation Mechanical Ventilation Fraction of Inspired Oxygen 40 40 40 03/09/25 00:00 03/09/25 00:00 03/09/25 00:00 Temperature 37.2 C Pulse Rate 71 71 71 Respiratory Rate 16 16 16 Blood Pressure 123/94 H Pulse Oximetry 99 Oxygen Delivery Fraction of Inspired Oxygen 03/09/25 00:00 03/09/25 01:26 03/09/25 01:28 Temperature Pulse Rate 72 69 68 Respiratory Rate 16 Blood Pressure Pulse Oximetry 99 Oxygen Delivery Mechanical Ventilation Fraction of Inspired Oxygen 40 03/09/25 02:00 03/09/25 02:00 03/09/25 02:00 Temperature 37.1 C Pulse Rate 73 73 74 Respiratory Rate 16 16 Blood Pressure 123/90 Pulse Oximetry 98 Oxygen Delivery Fraction of Inspired Oxygen 03/09/25 02:00 03/09/25 02:49 03/09/25 02:49 Temperature Pulse Rate 74 77 75 Respiratory Rate 16 16 16 Blood Pressure Pulse Oximetry Oxygen Delivery Fraction of Inspired Oxygen 03/09/25 04:00 03/09/25 04:00 03/09/25 04:00 Temperature Pulse Rate 76 76 Respiratory Rate 16 16 Blood Pressure Pulse Oximetry Oxygen Delivery Fraction of Inspired Oxygen 40 03/09/25 04:00 03/09/25 04:00 03/09/25 04:08 Temperature 37.0 C Pulse Rate 77 77 78 Respiratory Rate 17 16 Blood Pressure 122/86 Pulse Oximetry 98 98 Oxygen Delivery Mechanical Ventilation Fraction of Inspired Oxygen 40 03/09/25 04:57 03/09/25 06:00 03/09/25 06:00 Temperature 37.0 C Pulse Rate 75 72 73 Respiratory Rate 16 Blood Pressure 123/87 Pulse Oximetry 98 99 Oxygen Delivery Mechanical Ventilation Fraction of Inspired Oxygen 40 03/09/25 06:00 03/09/25 06:00 03/09/25 07:50 Temperature Pulse Rate 73 73 81 Respiratory Rate 16 16 Blood Pressure Pulse Oximetry 99 Oxygen Delivery Mechanical Ventilation Fraction of Inspired Oxygen 40 03/09/25 07:50 03/09/25 07:58 03/09/25 08:16 Temperature Pulse Rate 81 96 98 Respiratory Rate 11 L 21 H Blood Pressure Pulse Oximetry 97 Oxygen Delivery Mechanical Ventilation Fraction of Inspired Oxygen 35 03/09/25 08:45 Temperature Pulse Rate 102 H Respiratory Rate Blood Pressure Pulse Oximetry 96 Oxygen Delivery Mechanical Ventilation Fraction of Inspired Oxygen 35 Intake/Output Intake/Output: Intake & Output 03/06/25 03/07/25 03/08/25 03/09/25 23:59 23:59 23:59 23:59 Intake Total 200 3652.5 1666.5 901.5 Output Total 1100 675 350 Balance 200 2552.5 991.5 551.5 Meds/Results Medications: Active Medications Generic Name Dose Route Start Last Admin Trade Name Freq PRN Reason Stop Dose Admin Albuterol/Ipratropium 3 ml 03/08/25 14:00 03/09/25 07:48 Ipratropium 0.5 Mg/Albuterol Sulfate 2.5 Mg Ampul.Neb 3 Ml INHALATION 3 ml Q6HRT LIZY Administration Aspirin 81 mg 03/08/25 08:00 03/07/25 12:26 Aspirin 81 Mg Chewable Tablet PO 81 mg DAILY@0800 LIZY Administration Dextrose 12.5 gm 03/07/25 11:20 Dextrose 50% 25 Gm/50 Ml Syringe IV PUSH PRN PRN Hypoglycemia Protocol Enoxaparin Sodium 40 mg 03/09/25 09:00 Enoxaparin 40 Mg/0.4 Ml Syringe SUB-Q DAILY LIZY Glucagon 1 mg 03/07/25 11:20 Glucagon For Inj 1 Mg Vial IM PRN PRN Hypoglycemia Protocol Glucose 15 gm 03/07/25 11:20 Glucose Oral Gel 15 Gm Of Glucse In 37.5 Gm Tube PO PRN PRN Hypoglycemia Protocol Doxycycline Hyclate 100 mg/ 100 mls @ 100 mls/hr 03/07/25 09:00 03/08/25 20:06 Sodium Chloride IVPB 03/11/25 09:59 100 mls/hr Q12H LIZY Administration Fentanyl Citrate 2,500 mcg in 250 mls @ 10 mls/hr 03/07/25 00:50 03/09/25 06:00 Fentanyl 2,500 Mcg/Ns 250 Ml IV CONT 100 mcg/hr .Q25H LIZY 10 mls/hr Titration Protocol 100 MCG/HR Dextrose 1,000 mls @ 100 mls/hr 03/07/25 11:20 Dextrose 5% 1,000 Ml IVPB PRN PRN Hypoglycemia Protocol Ceftriaxone Sodium 2 gm/ 100 mls @ 200 mls/hr 03/08/25 12:00 03/08/25 13:06 Sodium Chloride IVPB 03/12/25 12:29 Infused Q24H LIZY Infusion Dexmedetomidine HCl 400 mcg in 100 mls @ 13.59 mls/hr 03/08/25 09:50 03/09/25 06:00 Precedex 400 Mcg/100 Ml IV CONT 0.9 mcg/kg/hr .Q7H22M LIZY 13.59 mls/hr Titration Protocol 0.9 MCG/KG/HR Insulin Aspart 3 - 6 units 03/07/25 12:00 03/09/25 06:13 Insulin Aspart (*Bkc) 100 Units/Ml SUB-Q Not Given Q6HR LIZY Protocol Methylprednisolone Sodium Succinate 40 mg 03/08/25 09:00 03/08/25 08:53 Methylprednisolone Sod Succ 40 Mg Vial IV PUSH 40 mg QAM LIZY Administration Multi-Ingred Cream/Lotion/Oil/Oint 1 applic 03/07/25 09:00 03/08/25 20:07 Mineral Oil/White Petrolatum Ointment EACH EYE 1 applic Q12HR LIZY Administration Pantoprazole Sodium 40 mg 03/08/25 09:00 03/08/25 08:53 Pantoprazole Sodium Iv 40 Mg Vial IV PUSH 40 mg QAM LIZY Administration Sodium Chloride 10 ml 03/07/25 14:00 03/09/25 06:12 Central Line Flush IV PUSH 10 ml Q8HR LIZY Administration Sodium Chloride 10 ml 03/07/25 07:57 Central Line Flush IV PUSH PRN PRN with TPN bag changes Sodium Chloride 20 ml 03/07/25 07:57 Central Line Flush IV PUSH PRN PRN after blood draws Radiology Results: ITS Impressions Abdomen X-Ray 03/07/25 05:46 Impression: NG tube in satisfactory position. Labs Labs: Laboratory Results - last 24 hr 03/08/25 03/08/25 03/08/25 12:30 13:17 17:43 WBC RBC Hgb Hct MCV MCH MCHC RDW Plt Count MPV Immature Gran % (Auto) Neut % (Auto) Lymph % (Auto) [place] % (Auto) Eos % (Auto) Baso % (Auto) Lymph # (Auto) [place] # (Auto) Eos # (Auto) Baso # (Auto) Abs Immat Gran (auto) Absolute Neuts (auto) Absolute Nucleated RBC Nucleated RBC % APTT 79.6 H Puncture Site ABG pH ABG pCO2 ABG pO2 ABG PO2/FiO2 Ratio ABG HCO3 ABG O2 Saturation ABG O2 Content ABG Base Excess A-a Gradient Oxyhemoglobin Carboxyhemoglobin Methemoglobin Reduced Hemoglobin Total Hemoglobin O2 Delivery Device O2 Liters/Min Minute Volume FiO2 Peak Inspir Pressure Pressure Support Sodium Potassium Chloride Carbon Dioxide Anion Gap BUN Creatinine Estim Creat Clear Calc Estimated GFR Glucose POC Capillary Glucose 169 H 170 H Lactic Acid Calcium Phosphorus Magnesium Total Bilirubin AST ALT Alkaline Phosphatase Total Protein Albumin 03/08/25 03/09/25 03/09/25 23:09 04:45 05:22 WBC 14.2 H RBC 3.71 L Hgb 11.4 L Hct 36.8 L MCV 99.2 MCH 30.7 MCHC 31.0 L RDW 14.0 Plt Count 212 MPV 10.3 Immature Gran % (Auto) 1.0 H Neut % (Auto) 85.4 H Lymph % (Auto) 4.6 L [place] % (Auto) 8.9 H Eos % (Auto) 0.0 Baso % (Auto) 0.1 L Lymph # (Auto) 0.66 L [place] # (Auto) 1.3 H Eos # (Auto) 0.0 Baso # (Auto) 0.0 Abs Immat Gran (auto) 0.14 H Absolute Neuts (auto) 12.2 H Absolute Nucleated RBC 0.000 Nucleated RBC % 0.0 APTT Puncture Site Right radial ABG pH 7.433 ABG pCO2 47.1 H ABG pO2 101.8 H ABG PO2/FiO2 Ratio 2.55 ABG HCO3 30.8 H ABG O2 Saturation 97.8 ABG O2 Content 17.4 ABG Base Excess 5.6 A-a Gradient 129.2 Oxyhemoglobin 97.5 Carboxyhemoglobin 0.3 Methemoglobin 0.2 Reduced Hemoglobin 2.0 Total Hemoglobin 12.6 O2 Delivery Device Ventilator O2 Liters/Min Not Reportable Minute Volume Not Reportable FiO2 40 Peak Inspir Pressure Not Reportable Pressure Support Not Reportable Sodium 143 Potassium 4.2 Chloride 105 Carbon Dioxide 30 Anion Gap 8 BUN 36 H Creatinine 0.97 Estim Creat Clear Calc 62 Estimated GFR > 60 Glucose 179 H POC Capillary Glucose 187 H Lactic Acid 1.6 Calcium 9.6 Phosphorus 3.2 Magnesium 2.4 H Total Bilirubin 0.2 AST 37 ALT 34 Alkaline Phosphatase 39 Total Protein 6.6 Albumin 4.1 Quality VTE Prophylaxis VTE prophylaxis: pharmacologic ordered
[2025-03-09] MEDS: ENOXAPARIN 40 MG/0.4 ML SYRINGE SUB-Q (09:12)
[2025-03-09] MEDS: DOXYCYCLINE IV 100 MG in SODIUM CHLORIDE 0.9% IV 100 ML IVPB ×2 (09:12→20:48)
[2025-03-09] MEDS: MINERAL OIL/WHITE PETROLATUM OINTMENT 1 APPLIC EACH EYE (09:13)
[2025-03-09] MEDS: PANTOPRAZOLE SODIUM IV 40 MG VIAL IV PUSH (09:13)
[2025-03-09] MEDS: ASPIRIN 81 MG CHEWABLE TABLET PO (09:13)
[2025-03-09 09:37] LABS: Alveolar/Arterial O2 Gradient 111.9 mmHg; Fractional Inspired Oxygen 35 %; HCO3 ABG 30.9 mEq/l (22.0-26.0); Oxygen Content ABG 17.1 %vol (16.0-22.0); Oxygen Saturation ABG 93.7 % (95.0-100.0); PCO2 ABG 56.2 mmHg (35.0-45.0); PO2 ABG 72.3 mmHg (80.0-100.0); PO2 FiO2 Ratio Arterial Blood 2.07 %
[2025-03-09 09:38] LABS: Modified Allen's Test Pass; Site Drawn LEFT RADIAL
[2025-03-09 09:39] LABS: Arterial Blood Gas Pressure Support 5 cmH2O
[2025-03-09] MEDS: cefTRIAXone 2 GM in SODIUM CHLORIDE 0.9% IV 100 ML 200 ML IVPB (12:06)
--- NOTE | 2025-03-09 18:48 | P.PNCROSS_ITS ---
Event Note Event Note Event Note: 18:40 - Called to the bedside to re-evaluate the patient. Patient was success fully extubated today. However this afternoon, there were some concerns that the patient's respiratory status was declining. Upon my evaluation the patient had subcostal retractions, minimal air movement upon auscultation, diaphoretic, and tachypneic. He was briefly trialed on BiPAP, however the he tolerated poorly. Discussed findings with the patient and his overall respiratory status. He would like to avoid intubation, however if it is required he is okay with remaining full code. Discussed trying anxiolytic to free try BiPAP, patient is amenable both like to wait until 7:00 p.m.. If breathing has not improved by 7:00 p.m., will start Precedex gtt and once medication has taken affect will place patient back on BiPAP. Levalbuterol/Atrovent 1 hour nebulizer ordered as well. Plan for reassessment. Binitrotoluene Operator aware of plan. 21:00 - Patient's general coloring improved, less mottling noted to his peripheral extremities and he is no longer diaphoretic. Patient's heart rate remains elevated and he remains tachypneic, however subcostal retractions are slightly improved. Patient reports he is tolerating BiPAP better with the Precedex and is alert and orientated x4. Will continue BiPAP as tolerated. No emergent intubation indicated. Monitor closely overnight. Chair Inspector And Leveler updated on patient condition as well. Critical Care Time: I personally spent 30 minutes of direct patient care including (but not limited to) the physical examination, decision-making, bedside evaluation, review of medical records, review of labs and imaging, discussion with nursing staff and other providers for collaborative, critical care management of this patient.
--- NOTE | 2025-03-09 18:54 | ECG_ITS ---
Test Date: 2025-03-09 18:35:28 Measurements Intervals [place] Rate: 127 P: 82 KS: 130 QRS: -43 QRSD: 103 T: 195 QT: 320 QTc: 466 Interpretive Statements BASELINE ARTIFACT, POOR QUALITY ECG SINUS TACHYCARDIA T-WAVE ABNORMALITY CONSIDER ANTEROLATERAL ISCHEMIA ABNORMAL ECG Compared to ECG 03/07/2025 09:29:31 THIS ECG IS OF POOR QUALITY BECAUSE OF BASELINE ARTIFACT, HEART RATE INCREASED NO OTHER SIGNIFICANT CHANGE Electronically Signed On 03-10-2025 08:12:50 CDT by Attila Silvestre M.D.
[2025-03-09] MEDS: IPRATROPIUM BR 0.02% INH SOLN 0.5 MG/2.5 ML VIAL 1.5 MG INHALATION (19:00)
[2025-03-09] MEDS: dexmedeTOMIDine 400 MCG/100 ML 400 MCG/100 ML BAG 8.19 MCG IV CONT (19:38)
[2025-03-10] VITALS (59 sets, daily range): BP systolic 49–187; BP diastolic 39–116; PULSE 16–123; RESP 10–30; TEMP 36.9–37.6; O2SAT 94–100
[2025-03-10] MEDS: CENTRAL LINE FLUSH 20 ML IV PUSH (04:45)
[2025-03-10] MEDS: CENTRAL LINE FLUSH 10 ML IV PUSH ×3 (04:45→20:21)
[2025-03-10 05:22] LABS: Hematocrit 37.5 % (42.0-52.0); Hemoglobin 11.5 g/dL (14.0-18.0); Immature Granulocyte Percent A 0.5 % (0-0.5); Lymphocytes Absolute Auto 1.09 K/mm3 (0.9-3.2); Mean Corpuscular HGB Conc 30.7 g/dl (32-36); Mean Corpuscular Hemoglobin 30.8 pg (26-34); Mean Corpuscular Volume 100.5 fl (80-100); Nucleated Red Blood Cells Absolute Auto 0.000 K/mm3 (0.0-0.012); Nucleated Red Blood Cells Perc 0.0 % (0.0-0.2); Platelet Count Result 192 k/mm3 (150-375); Red Blood Count 3.73 M/mm3 (4.6-6.20); White Blood Count 11.7 K/mm3 (4.5-10.0)
[2025-03-10 05:42] LABS: Alanine Aminotransferase 56 U/L (6-50); Albumin Level 3.7 g/dL (3.5-5.1); Alkaline Phosphatase 45 U/L (38-126); Anion Gap 3 mmol/L (4-12); Aspartate Amino Transferase 52 U/L (17-59); Bilirubin,Total 0.3 mg/dL (0.2-1.3); Blood Urea Nitrogen 30 mg/dL (9-20); Calcium 9.7 mg/dL (8.4-10.2); Carbon Dioxide 37 mmol/L (22-30); Chloride 99 mmol/L (98-107); Estimated CRCL calculation 75 ml/min; Estimated Glomerular Filt Rate > 60; Glucose 106 mg/dL (65-110); Magnesium 2.2 mg/dL (1.6-2.3); Potassium 4.2 mmol/L (3.4-5.0); Sodium 139 mmol/L (137-145); Total Protein 6.2 g/dL (6.3-8.2)
[2025-03-10 05:46] LABS: Alveolar/Arterial O2 Gradient 78.5 mmHg; Carboxyhemoglobin 0.6 % THb (0-2.0); Fractional Inspired Oxygen 35 %; HCO3 ABG 34.6 mEq/l (22.0-26.0); Methemoglobin ABG 0.1 %THb (0-1.5); Oxygen Content ABG 17.7 %vol (16.0-22.0); Oxygen Saturation ABG 98.1 % (95.0-100.0); PCO2 ABG 52.5 mmHg (35.0-45.0); PO2 ABG 110.0 mmHg (80.0-100.0); PO2 FiO2 Ratio Arterial Blood 3.14 %; Reduced Hemoglobin 1.5 %THb (0-5.0)
[2025-03-10 05:54] LABS: Modified Allen's Test Pass; Site Drawn RIGHT RADIAL
[2025-03-10 05:57] LABS: Arterial Blood Gas Ventilator rate 12 /MIN
[2025-03-10] MEDS: IPRATROPIUM 0.5 MG/ALBUTEROL SULFATE 2.5 MG AMPUL.NEB 3 ML INHALATION (08:04)
[2025-03-10] MEDS: DOXYCYCLINE IV 100 MG in SODIUM CHLORIDE 0.9% IV 100 ML IVPB ×2 (09:00→20:20)
[2025-03-10] MEDS: ASPIRIN 81 MG CHEWABLE TABLET PO (09:00)
[2025-03-10] MEDS: ENOXAPARIN 40 MG/0.4 ML SYRINGE SUB-Q (09:00)
[2025-03-10] MEDS: PANTOPRAZOLE SODIUM IV 40 MG VIAL IV PUSH (09:01)
--- NOTE | 2025-03-10 09:15 | WPDINTPN ---
Progress Note: A&P Assessment and Plan (1) Acute respiratory failure with hypoxia and hypercapnia: Code(s): J96.01 - Acute respiratory failure with hypoxia; J96.02 - Acute respiratory failure with hypercapnia Status: Acute Assessment and Plan: Patient presented with respiratory distress, dyspnea, hypoxia with O2 sats in the 30s on 2-3 L oxygen at home, family had to force the patient to come to the ED, in the ED he was immediately placed on BiPAP, given DuoNebs. ABGs revealed hypercapnic respiratory failure, patient was initially placed on BiPAP ABGs did not show any improvement rather worsening in the CO2 - intubated after he came to the ICU on 03/07/2025 - 03/08 5/ PSV weaning trial was tried the patient failed trial due to increased respiratory distress tachycardia and complaint of chest pain. PSV was increased to 15 and later it was aborted and patient was placed back on CMV -03/09 patient was extubated after a successful weaning trial. Patient has required BiPAP on p.r.n. basis and at night yesterday. Continue Change Solu-Medrol to p.o. prednisone taper -continue bronchodilators and antibiotics as below -wean off Precedex (2) Septic shock: Code(s): A41.9 - Sepsis, unspecified organism; R65.21 - Severe sepsis with septic shock Status: Acute Assessment and Plan: Patient presented with hypoxia, tachypnea, tachycardia. She was found to be in COPD exacerbation -patient was hypotensive, requiring Costa-Synephrine through peripheral IV initially and a PICC line was inserted on 03/07 -Costa-Synephrine weaned off -03/06: Patient on ceftriaxone and doxycycline for the code -03/06: Blood cultures have been obtained and negative till now (3) Chronic obstructive pulmonary disease: Code(s): J44.9 - Chronic obstructive pulmonary disease, unspecified Status: Acute Assessment and Plan: COPD exacerbation See above (4) Elevated troponin: Code(s): R79.89 - Other specified abnormal findings of blood chemistry Status: Acute Assessment and Plan: Elevated troponin along with EKG changes Cardiology consult Off of heparin infusion after 48 hours Continue aspirin 81 mg Echo Summary 1. The left ventricle is normal in size and systolic function. The left ventricular ejection fraction is visually estimated to be 50-55%. The anteroseptum on some off-axis views is hypokinetic. 2. The right ventricle is normal in size and systolic function. 3. There is a small size pericardial effusion with no echocardiographic evidence of cardiac tamponade. Cardiology plans for cardiac catheterization on 03/11 (5) Acute kidney injury: Code(s): N17.9 - Acute kidney failure, unspecified Status: Acute Assessment and Plan: Patient presented with creatinine 1.44 on admission (unknown baseline) - adequately fluid-resuscitated and creatinine is normalized -monitor urine output, renal function and electrolytes (6) IV infiltration: Code(s): T80.1XXA - Vascular complications following infusion, transfusion and therapeutic injection, initial encounter Status: Acute Assessment and Plan: Patient was on Costa-Synephrine through a peripheral access which infiltrated overnight Patient was givent phentolamine/Regitine around the site of infiltration -continue to monitor (7) Electrolyte abnormality: Code(s): E87.8 - Other disorders of electrolyte and fluid balance, not elsewhere classified Status: Acute Assessment and Plan: Potassium improved after placement Plan DVT prophylaxis: Lovenox Stress ulcer prophylaxis: Protonix Nutrition: Heart healthy diet Remove Bennett catheter Code Status: Full code Critical Care Time Spent: 30 minutes Due to a high probability of clinically significant, life threatening deterioration, the patient required my highest level of preparedness to intervene emergently and I personally spent this critical care time directly and personally managing the patient. This critical care time included obtaining a history; examining the patient; pulse oximetry; ordering and review of studies; arranging urgent treatment with development of a management plan; evaluation of patient's response to treatment; frequent reassessment; and discussions with other providers. It was exclusive of separately billable procedures and treating other patients and teaching time. Please see Assessment and Plan section and the rest of the note for further information on patient assessment and treatment This dictation may have been done utilizing a voice recognition system. Attempts have been made to correct errors. However, there may be uncorrected grammatical, spelling, and recognitions errors present. Subjective Date/time seen: 03/10/25 Patient was extubated yesterday after a successful weaning trial. Patient has required BiPAP on p.r.n. basis since extubation due to work of breathing. Yesterday he was noncompliant and was not wearing BiPAP through the day but at night he was convinced by the nursing staff and wore BiPAP till 6 in the morning. He states he was feeling much better but this morning during my evaluation he states that he was working with a harder to breathe. He felt a little short of breath but denied any chest pain or cough. He was able to speak full sentences and tolerated clear liquid diet last night without any difficulty. When not on BiPAP he is on 1-2 L of nasal cannula. Urine output is good. Other vitals are stable. Sinus tachycardia on monitor. He is on 0.1 mics of Precedex Patient denies fever, chest pain, cough, nausea vomiting, abdominal pain,, diarrhea, headache or constipation. All other systems were reviewed and were negative Review of Systems Review of Systems: All systems reviewed & are unremarkable except as noted in HPI and below (HPI) Exam Narrative: General: Obvious alert awake mild respiratory distress HEENT:? Pupils equal and reactive, sclera is clear, Neck:? Supple Respiratory:? Overall decreased air entry bilaterally, occasional wheezing bilaterally, able to speak for full sentences Cardiac:? S1-S2 is normal, sinus tachycardia Abdomen:? Soft, nontender, nondistended, hypoactive bowel sounds Extremities:? No edema, palpable pedal pulses, left upper extremity IV infiltration site with redness on the forearm Neuro:? Awake alert follows commands all 4 extremities and AO x3 Skin:? No lesions noted Psych:? Normal speech and affect Objective Data Vital Signs Vital Signs: Vital Signs - 24 hr 03/09/25 09:53 03/09/25 09:53 03/09/25 09:54 Temperature 36.8 C Pulse Rate 109 H Respiratory Rate 15 Blood Pressure 133/90 Pulse Oximetry 93 90 93 Oxygen Delivery Nasal Cannula Nasal Cannula Oxygen Flow Rate 3 3 Fraction of Inspired Oxygen 03/09/25 10:03/09/25 10:03/09/25 10:00 Temperature Pulse Rate 115 H 116 H 113 H Respiratory Rate 17 17 Blood Pressure Pulse Oximetry Oxygen Delivery Oxygen Flow Rate Fraction of Inspired Oxygen 03/09/25 10:03/09/25 11:00 03/09/25 12:00 Temperature 36.8 C Pulse Rate 112 H 109 H 104 H Respiratory Rate 23 H 16 15 Blood Pressure 141/97 H Pulse Oximetry 93 Oxygen Delivery Oxygen Flow Rate Fraction of Inspired Oxygen 03/09/25 12:00 03/09/25 12:00 03/09/25 12:00 Temperature 36.8 C Pulse Rate 104 H 114 H Respiratory Rate 19 Blood Pressure 133/96 H Pulse Oximetry 96 99 Oxygen Delivery Nasal Cannula Oxygen Flow Rate 2 Fraction of Inspired Oxygen 03/09/25 13:00 03/09/25 14:00 03/09/25 14:00 Temperature 37.0 C Pulse Rate 108 H 99 99 Respiratory Rate 22 H 23 H Blood Pressure 154/102 H Pulse Oximetry 97 Oxygen Delivery Oxygen Flow Rate Fraction of Inspired Oxygen 03/09/25 14:00 03/09/25 15:00 03/09/25 16:00 Temperature Pulse Rate 104 H 98 Respiratory Rate 22 H 18 Blood Pressure Pulse Oximetry 96 Oxygen Delivery Nasal Cannula Oxygen Flow Rate 2 Fraction of Inspired Oxygen 03/09/25 16:00 03/09/25 16:00 03/09/25 16:00 Temperature 37.1 C Pulse Rate 114 H 109 H 109 H Respiratory Rate 15 15 Blood Pressure 148/106 H Pulse Oximetry 98 Oxygen Delivery Oxygen Flow Rate Fraction of Inspired Oxygen 03/09/25 17:22 03/09/25 18:00 03/09/25 18:00 Temperature 37.2 C Pulse Rate 127 H 120 H 120 H Respiratory Rate 20 23 H Blood Pressure 163/113 H Pulse Oximetry 88 L Oxygen Delivery Oxygen Flow Rate Fraction of Inspired Oxygen 03/09/25 18:00 03/09/25 18:12 03/09/25 19:00 Temperature 37.3 C Pulse Rate 129 H 126 H 131 H Respiratory Rate 23 H 21 H 19 Blood Pressure 199/178 H Pulse Oximetry 88 L 93 92 Oxygen Delivery Nasal Cannula Nasal Cannula Oxygen Flow Rate 4 2 Fraction of Inspired Oxygen 03/09/25 19:01 03/09/25 19:05 03/09/25 19:15 Temperature 37.3 C 37.4 C Pulse Rate 130 H 128 H 133 H Respiratory Rate 18 25 H 18 Blood Pressure Pulse Oximetry 92 95 Oxygen Delivery Oxygen Flow Rate Fraction of Inspired Oxygen 03/09/25 19:30 03/09/25 19:30 03/09/25 19:38 Temperature 37.3 C Pulse Rate 136 H 134 H 135 H Respiratory Rate 21 H 22 H 19 Blood Pressure Pulse Oximetry 95 96 Oxygen Delivery Nasal Cannula Oxygen Flow Rate 2 Fraction of Inspired Oxygen 03/09/25 19:45 03/09/25 19:48 03/09/25 19:58 Temperature 37.4 C 37.4 C Pulse Rate 138 H 135 H 135 H Respiratory Rate 23 H 24 H 28 H Blood Pressure 198/178 H Pulse Oximetry 96 96 95 Oxygen Delivery BiPAP Oxygen Flow Rate Fraction of Inspired Oxygen 03/09/25 20:00 03/09/25 20:00 03/09/25 20:01 Temperature 37.3 C 37.3 C Pulse Rate 129 H 131 H 130 H Respiratory Rate 18 17 Blood Pressure 164/109 H Pulse Oximetry 95 95 Oxygen Delivery Oxygen Flow Rate Fraction of Inspired Oxygen 03/09/25 20:15 03/09/25 20:15 03/09/25 20:30 Temperature 37.3 C 37.3 C Pulse Rate 132 H 133 H 127 H Respiratory Rate 17 20 17 Blood Pressure Pulse Oximetry 94 92 94 Oxygen Delivery BiPAP Oxygen Flow Rate Fraction of Inspired Oxygen 35 03/09/25 20:45 03/09/25 21:00 03/09/25 21:01 Temperature 37.2 C 37.2 C 37.2 C Pulse Rate 122 H 123 H 123 H Respiratory Rate 17 17 17 Blood Pressure 155/98 H Pulse Oximetry 93 94 94 Oxygen Delivery Oxygen Flow Rate Fraction of Inspired Oxygen 03/09/25 21:15 03/09/25 21:30 03/09/25 21:45 Temperature 37.2 C 37.1 C 37.1 C Pulse Rate 117 H 116 H 108 H Respiratory Rate 17 20 23 H Blood Pressure Pulse Oximetry 94 95 96 Oxygen Delivery Oxygen Flow Rate Fraction of Inspired Oxygen 03/09/25 21:54 03/09/25 22:00 03/09/25 22:01 Temperature 37.1 C 37.0 C 37.0 C Pulse Rate 109 H 103 H 102 H Respiratory Rate 23 H 16 16 Blood Pressure 125/100 H 125/100 H Pulse Oximetry 96 95 95 Oxygen Delivery Oxygen Flow Rate Fraction of Inspired Oxygen 03/09/25 22:04 03/09/25 22:12 03/09/25 22:15 Temperature 37.0 C Pulse Rate 104 H 100 102 H Respiratory Rate 21 H 14 Blood Pressure Pulse Oximetry 96 Oxygen Delivery Oxygen Flow Rate Fraction of Inspired Oxygen 03/09/25 22:30 03/09/25 22:45 03/09/25 23:00 Temperature 37.0 C 37.1 C 37.0 C Pulse Rate 96 93 100 Respiratory Rate 13 15 18 Blood Pressure 136/122 H Pulse Oximetry 97 97 99 Oxygen Delivery Oxygen Flow Rate Fraction of Inspired Oxygen 03/09/25 23:01 03/09/25 23:02 03/09/25 23:06 Temperature 37.0 C 37.0 C Pulse Rate 96 90 95 Respiratory Rate 21 H 14 22 H Blood Pressure 149/99 H Pulse Oximetry 98 98 96 Oxygen Delivery BiPAP Oxygen Flow Rate Fraction of Inspired Oxygen 03/09/25 23:15 03/09/25 23:30 03/09/25 23:45 Temperature 37.0 C 36.9 C 37.0 C Pulse Rate 79 93 82 Respiratory Rate 13 21 H 15 Blood Pressure Pulse Oximetry 98 99 98 Oxygen Delivery Oxygen Flow Rate Fraction of Inspired Oxygen 03/09/25 23:59 03/10/25 00:00 03/10/25 00:00 Temperature 37.0 C Pulse Rate 74 80 80 Respiratory Rate 15 13 13 Blood Pressure 149/99 H Pulse Oximetry 98 98 Oxygen Delivery BiPAP Oxygen Flow Rate Fraction of Inspired Oxygen 35 03/10/25 00:00 03/10/25 00:00 03/10/25 00:02 Temperature 37.0 C 37.1 C Pulse Rate 81 75 76 Respiratory Rate 17 15 Blood Pressure 111/75 Pulse Oximetry 98 97 Oxygen Delivery Oxygen Flow Rate Fraction of Inspired Oxygen 03/10/25 00:15 03/10/25 00:30 03/10/25 00:45 Temperature 37.1 C 37.0 C 37.1 C Pulse Rate 79 78 75 Respiratory Rate 16 13 14 Blood Pressure Pulse Oximetry 98 98 97 Oxygen Delivery Oxygen Flow Rate Fraction of Inspired Oxygen 03/10/25 01:00 03/10/25 01:01 03/10/25 01:15 Temperature 37.1 C 37.1 C 37.1 C Pulse Rate 76 70 73 Respiratory Rate 14 15 14 Blood Pressure 126/80 Pulse Oximetry 97 98 97 Oxygen Delivery Oxygen Flow Rate Fraction of Inspired Oxygen 03/10/25 01:30 03/10/25 01:45 03/10/25 02:00 Temperature 37.1 C 37.1 C Pulse Rate 65 82 67 Respiratory Rate 13 18 Blood Pressure Pulse Oximetry 98 99 Oxygen Delivery Oxygen Flow Rate Fraction of Inspired Oxygen 03/10/25 02:00 03/10/25 02:00 03/10/25 02:00 Temperature 37.1 C 37.1 C Pulse Rate 67 65 67 Respiratory Rate 16 15 16 Blood Pressure 110/70 110/78 Pulse Oximetry 98 Oxygen Delivery Oxygen Flow Rate Fraction of Inspired Oxygen 03/10/25 02:00 03/10/25 02:01 03/10/25 02:15 Temperature 37.2 C 37.1 C 37.1 C Pulse Rate 68 68 63 Respiratory Rate 15 15 13 Blood Pressure 110/78 Pulse Oximetry 98 98 98 Oxygen Delivery Oxygen Flow Rate Fraction of Inspired Oxygen 03/10/25 02:30 03/10/25 02:31 03/10/25 02:45 Temperature 37.1 C 37.1 C Pulse Rate 72 70 71 Respiratory Rate 12 22 H 12 Blood Pressure Pulse Oximetry 98 98 98 Oxygen Delivery BiPAP Oxygen Flow Rate Fraction of Inspired Oxygen 03/10/25 03:01 03/10/25 03:15 03/10/25 03:30 Temperature 37.1 C 37.0 C 37.0 C Pulse Rate 62 70 64 Respiratory Rate 15 13 12 Blood Pressure Pulse Oximetry 97 98 98 Oxygen Delivery Oxygen Flow Rate Fraction of Inspired Oxygen 03/10/25 03:45 03/10/25 04:00 03/10/25 04:00 Temperature 37.0 C 37.0 C Pulse Rate 62 67 62 Respiratory Rate 13 12 15 Blood Pressure 128/91 H Pulse Oximetry 97 98 Oxygen Delivery Oxygen Flow Rate Fraction of Inspired Oxygen 03/10/25 04:00 03/10/25 04:00 03/10/25 04:46 Temperature Pulse Rate 63 63 61 Respiratory Rate 15 10 L Blood Pressure Pulse Oximetry 97 Oxygen Delivery Mechanical Ventilation Oxygen Flow Rate Fraction of Inspired Oxygen 35 03/10/25 05:30 03/10/25 06:00 03/10/25 06:00 Temperature 36.9 C Pulse Rate 76 77 74 Respiratory Rate 18 15 15 Blood Pressure 124/89 Pulse Oximetry 98 99 Oxygen Delivery BiPAP Oxygen Flow Rate Fraction of Inspired Oxygen 03/10/25 06:39 03/10/25 06:41 03/10/25 08:00 Temperature Pulse Rate 78 82 110 H Respiratory Rate 18 24 H Blood Pressure Pulse Oximetry Oxygen Delivery Oxygen Flow Rate Fraction of Inspired Oxygen 03/10/25 08:06 03/10/25 08:06 03/10/25 08:21 Temperature Pulse Rate 114 H 114 H 123 H Respiratory Rate 24 H 24 H 30 H Blood Pressure Pulse Oximetry 94 Oxygen Delivery BiPAP Oxygen Flow Rate Fraction of Inspired Oxygen Intake/Output Intake/Output: Intake & Output 03/07/25 03/08/25 03/09/25 03/10/25 23:59 23:59 23:59 23:59 Intake Total 3652.5 1766.5 1454.3 750.3 Output Total 7227 803 2139 750 Balance 2552.5 1091.5 454.3 0.3 Meds/Results Medications: Active Medications Generic Name Dose Route Start Last Admin Trade Name Freq PRN Reason Stop Dose Admin Albuterol/Ipratropium 3 ml 03/09/25 14:01 03/10/25 08:04 Ipratropium 0.5 Mg/Albuterol Sulfate 2.5 Mg Ampul.Neb 3 Ml INHALATION 3 ml Q6HRT PRN Administration Wheezing Aspirin 81 mg 03/08/25 08:00 03/10/25 09:00 Aspirin 81 Mg Chewable Tablet PO 81 mg DAILY@0800 LIZY Administration Dextrose 12.5 gm 03/07/25 11:20 Dextrose 50% 25 Gm/50 Ml Syringe IV PUSH PRN PRN Hypoglycemia Protocol Enoxaparin Sodium 40 mg 03/09/25 09:00 03/10/25 09:00 Enoxaparin 40 Mg/0.4 Ml Syringe SUB-Q 40 mg DAILY LIZY Administration Glucagon 1 mg 03/07/25 11:20 Glucagon For Inj 1 Mg Vial IM PRN PRN Hypoglycemia Protocol Glucose 15 gm 03/07/25 11:20 Glucose Oral Gel 15 Gm Of Glucse In 37.5 Gm Tube PO PRN PRN Hypoglycemia Protocol Doxycycline Hyclate 100 mg/ 100 mls @ 100 mls/hr 03/07/25 09:00 03/10/25 09:00 Sodium Chloride IVPB 03/11/25 09:59 100 mls/hr Q12H LIZY Administration Dextrose 1,000 mls @ 100 mls/hr 03/07/25 11:20 Dextrose 5% 1,000 Ml IVPB PRN PRN Hypoglycemia Protocol Ceftriaxone Sodium 2 gm/ 100 mls @ 200 mls/hr 03/08/25 12:00 03/09/25 12:36 Sodium Chloride IVPB 03/12/25 12:29 Infused Q24H LIZY Infusion Multi-Ingred Cream/Lotion/Oil/Oint 1 applic 03/07/25 09:00 03/10/25 09:01 Mineral Oil/White Petrolatum Ointment EACH EYE Not Given Q12HR LIZY Pantoprazole Sodium 40 mg 03/08/25 09:00 03/10/25 09:01 Pantoprazole Sodium Iv 40 Mg Vial IV PUSH 40 mg QAM LIZY Administration Prednisone 40 mg 03/10/25 08:00 03/10/25 09:00 Prednisone 20 Mg Tablet PO 03/11/25 08:01 40 mg DAILY@0800 ILZY Administration Prednisone 20 mg 03/12/25 08:00 Prednisone 20 Mg Tablet PO 03/14/25 08:01 DAILY@0800 LIZY Sodium Chloride 10 ml 03/07/25 14:00 03/10/25 04:45 Central Line Flush IV PUSH 10 ml Q8HR LIZY Administration Sodium Chloride 10 ml 03/07/25 07:57 Central Line Flush IV PUSH PRN PRN with TPN bag changes Sodium Chloride 20 ml 03/07/25 07:57 03/10/25 04:45 Central Line Flush IV PUSH 20 ml PRN PRN Administration after blood draws Radiology Results: ITS Impressions Abdomen X-Ray 03/07/25 05:46 Impression: NG tube in satisfactory position. Chest X-Ray 03/10/25 07:14 Impression: Left-sided PICC line in place. No other support tubes are present on this exam. Advanced COPD with probable chronic blunting of the costophrenic angles. Correlate for small pleural effusions. Possible minimal haziness right midlung. Correlate for pneumonia or asymmetric pulmonary edema. Labs Labs: Laboratory Results - last 24 hr 03/09/25 03/09/25 03/09/25 09:35 12:00 17:48 WBC RBC Hgb Hct MCV MCH MCHC RDW Plt Count MPV Immature Gran % (Auto) Neut % (Auto) Lymph % (Auto) [place] % (Auto) Eos % (Auto) Baso % (Auto) Lymph # (Auto) [place] # (Auto) Eos # (Auto) Baso # (Auto) Abs Immat Gran (auto) Absolute Neuts (auto) Absolute Nucleated RBC Nucleated RBC % Puncture Site Left radial ABG pH 7.358 ABG pCO2 56.2 H ABG pO2 72.3 L ABG PO2/FiO2 Ratio 2.07 ABG HCO3 30.9 H ABG O2 Saturation 93.7 L ABG O2 Content 17.1 ABG Base Excess 4.1 A-a Gradient 111.9 Oxyhemoglobin 93.5 Carboxyhemoglobin Methemoglobin Reduced Hemoglobin Total Hemoglobin 13.0 O2 Delivery Device Ventilator O2 Liters/Min Not Reportable Minute Volume Not Reportable Vent Rate Not Reportable Vent Mode Spontaneous FiO2 35 Expiratory Pressure Tidal Volume Not Reportable PEEP 5 Inspiratory Pressure Peak Inspir Pressure Not Reportable Pressure Support 5 Sodium Potassium Chloride Carbon Dioxide Anion Gap BUN Creatinine Estim Creat Clear Calc Estimated GFR Glucose POC Capillary Glucose 144 H 142 H Calcium Phosphorus Magnesium Total Bilirubin AST ALT Alkaline Phosphatase Total Protein Albumin 03/09/25 03/10/25 03/10/25 23:49 04:40 05:32 WBC 11.7 H RBC 3.73 L Hgb 11.5 L Hct 37.5 L MCV 100.5 H MCH 30.8 MCHC 30.7 L RDW 13.7 Plt Count 192 MPV 10.4 Immature Gran % (Auto) 0.5 Neut % (Auto) 78.8 H Lymph % (Auto) 9.3 L [place] % (Auto) 11.2 H Eos % (Auto) 0.0 Baso % (Auto) 0.2 Lymph # (Auto) 1.09 [place] # (Auto) 1.3 H Eos # (Auto) 0.0 Baso # (Auto) 0.0 Abs Immat Gran (auto) 0.06 H Absolute Neuts (auto) 9.2 H Absolute Nucleated RBC 0.000 Nucleated RBC % 0.0 Puncture Site Right radial ABG pH 7.437 ABG pCO2 52.5 H ABG pO2 110.0 H ABG PO2/FiO2 Ratio 3.14 ABG HCO3 34.6 H ABG O2 Saturation 98.1 ABG O2 Content 17.7 ABG Base Excess 8.8 A-a Gradient 78.5 Oxyhemoglobin 97.8 Carboxyhemoglobin 0.6 Methemoglobin 0.1 Reduced Hemoglobin 1.5 Total Hemoglobin 12.8 O2 Delivery Device Bipap O2 Liters/Min Not Reportable Minute Volume Vent Rate 12 Vent Mode FiO2 35 Expiratory Pressure 6 Tidal Volume PEEP Inspiratory Pressure 12 Peak Inspir Pressure Pressure Support Sodium 139 Potassium 4.2 Chloride 99 Carbon Dioxide 37 H Anion Gap 3 L BUN 30 H Creatinine 0.81 Estim Creat Clear Calc 75 Estimated GFR > 60 Glucose 106 POC Capillary Glucose 114 H Calcium 9.7 Phosphorus 2.6 Magnesium 2.2 Total Bilirubin 0.3 AST 52 ALT 56 H Alkaline Phosphatase 45 Total Protein 6.2 L Albumin 3.7 Quality VTE Prophylaxis VTE prophylaxis: pharmacologic ordered
--- NOTE | 2025-03-10 09:26 | PM.PNCARD ---
Progress Note: A&P Assessment and Plan (1) Elevated troponin: Code(s): R79.89 - Other specified abnormal findings of blood chemistry Status: Acute Plan 64-year-old man with: Relatively severe COPD presenting with respiratory failure requiring initially intubation and mechanical ventilator support currently on BiPAP. In the setting of this patient's electrocardiogram developed significant relatively deep precordial T-wave inversions and mild troponin rise. Evaluation with a coronary angiography has been recommended. We will proceed with this tomorrow the patient is able to speak to his physicians and satisfy his concerns to have this conversation. Attila Silvestre MD [facility] Subjective Date/time seen: Date of service: 03/10/25 09:26 Interval history: Follow-up visit in this 64-year-old man with: Severe COPD with exacerbation requiring intubation and mechanical ventilation. In this setting patient developed ischemic T-wave abnormality on ECG and has had modest troponin elevation. No previous history of underlying coronary artery disease. He is awake alert comfortable but still on the ventilator at this time. Spoke to the patient about concerns regarding ischemic heart disease because of the electrocardiographic abnormalities and modest troponin rise. 03/10/2025: Patient reports no cardiovascular symptoms today. Respiratory status has been tenuous requiring BiPAP support. No chest pain or additional symptoms. She another conversation with him today about recommendation to proceed with left heart catheterization tomorrow. Again he expresses desire to speak with his physicians, PCP and or with chyron operator before agreeing to undergo an angiogram. Exam Const: General: comfortable and no acute distress Other: Well-developed well-nourished white male on BiPAP support in ICU HENMT: Mouth: Yes moist mucous membranes Other: ETT in place Eyes: Sclera: sclerae normal Neck: Neck: supple and no JVD Resp: Auscultation: clear to auscultation bilaterally Other: Breath sounds are clear but tubular and diminished in both lung alvarez, barrel-chested Cardio: Rate: regular rate Rhythm: regular rhythm Other: No audible murmur or gallop GI: Auscultation: normal bowel sounds Skin: General skin exam: normal color Neuro: Other: Awake and oriented x3 Extrem: General: normal to inspection and no pedal edema Objective Data Vital Signs Vital Signs: Vital Signs - 24 hr 03/09/25 09:53 03/09/25 09:53 03/09/25 09:54 Temperature 36.8 C Pulse Rate 109 H Respiratory Rate 15 Blood Pressure 133/90 Pulse Oximetry 93 90 93 Oxygen Delivery Nasal Cannula Nasal Cannula Oxygen Flow Rate 3 3 Fraction of Inspired Oxygen 03/09/25 10:00 03/09/25 10:00 03/09/25 10:00 Temperature Pulse Rate 115 H 116 H 113 H Respiratory Rate 17 17 Blood Pressure Pulse Oximetry Oxygen Delivery Oxygen Flow Rate Fraction of Inspired Oxygen 03/09/25 10:00 03/09/25 11:00 03/09/25 12:00 Temperature 36.8 C Pulse Rate 112 H 109 H 104 H Respiratory Rate 23 H 16 15 Blood Pressure 141/97 H Pulse Oximetry 93 Oxygen Delivery Oxygen Flow Rate Fraction of Inspired Oxygen 03/09/25 12:00 03/09/25 12:00 03/09/25 12:00 Temperature 36.8 C Pulse Rate 104 H 114 H Respiratory Rate 19 Blood Pressure 133/96 H Pulse Oximetry 96 99 Oxygen Delivery Nasal Cannula Oxygen Flow Rate 2 Fraction of Inspired Oxygen 03/09/25 13:00 03/09/25 14:00 03/09/25 14:00 Temperature 37.0 C Pulse Rate 108 H 99 99 Respiratory Rate 22 H 23 H Blood Pressure 154/102 H Pulse Oximetry 97 Oxygen Delivery Oxygen Flow Rate Fraction of Inspired Oxygen 03/09/25 14:00 03/09/25 15:00 03/09/25 16:00 Temperature Pulse Rate 104 H 98 Respiratory Rate 22 H 18 Blood Pressure Pulse Oximetry 96 Oxygen Delivery Nasal Cannula Oxygen Flow Rate 2 Fraction of Inspired Oxygen 03/09/25 16:00 03/09/25 16:00 03/09/25 16:00 Temperature 37.1 C Pulse Rate 114 H 109 H 109 H Respiratory Rate 15 15 Blood Pressure 148/106 H Pulse Oximetry 98 Oxygen Delivery Oxygen Flow Rate Fraction of Inspired Oxygen 03/09/25 17:22 03/09/25 18:00 03/09/25 18:00 Temperature 37.2 C Pulse Rate 127 H 120 H 120 H Respiratory Rate 20 23 H Blood Pressure 163/113 H Pulse Oximetry 88 L Oxygen Delivery Oxygen Flow Rate Fraction of Inspired Oxygen 03/09/25 18:00 03/09/25 18:12 03/09/25 19:00 Temperature 37.3 C Pulse Rate 129 H 126 H 131 H Respiratory Rate 23 H 21 H 19 Blood Pressure 199/178 H Pulse Oximetry 88 L 93 92 Oxygen Delivery Nasal Cannula Nasal Cannula Oxygen Flow Rate 4 2 Fraction of Inspired Oxygen 03/09/25 19:01 03/09/25 19:05 03/09/25 19:15 Temperature 37.3 C 37.4 C Pulse Rate 130 H 128 H 133 H Respiratory Rate 18 25 H 18 Blood Pressure Pulse Oximetry 92 95 Oxygen Delivery Oxygen Flow Rate Fraction of Inspired Oxygen 03/09/25 19:30 03/09/25 19:30 03/09/25 19:38 Temperature 37.3 C Pulse Rate 136 H 134 H 135 H Respiratory Rate 21 H 22 H 19 Blood Pressure Pulse Oximetry 95 96 Oxygen Delivery Nasal Cannula Oxygen Flow Rate 2 Fraction of Inspired Oxygen 03/09/25 19:45 03/09/25 19:48 03/09/25 19:58 Temperature 37.4 C 37.4 C Pulse Rate 138 H 135 H 135 H Respiratory Rate 23 H 24 H 28 H Blood Pressure 198/178 H Pulse Oximetry 96 96 95 Oxygen Delivery BiPAP Oxygen Flow Rate Fraction of Inspired Oxygen 03/09/25 20:00 03/09/25 20:00 03/09/25 20:01 Temperature 37.3 C 37.3 C Pulse Rate 129 H 131 H 130 H Respiratory Rate 18 17 Blood Pressure 164/109 H Pulse Oximetry 95 95 Oxygen Delivery Oxygen Flow Rate Fraction of Inspired Oxygen 03/09/25 20:15 03/09/25 20:15 03/09/25 20:30 Temperature 37.3 C 37.3 C Pulse Rate 132 H 133 H 127 H Respiratory Rate 17 20 17 Blood Pressure Pulse Oximetry 94 92 94 Oxygen Delivery BiPAP Oxygen Flow Rate Fraction of Inspired Oxygen 35 03/09/25 20:45 03/09/25 21:00 03/09/25 21:01 Temperature 37.2 C 37.2 C 37.2 C Pulse Rate 122 H 123 H 123 H Respiratory Rate 17 17 17 Blood Pressure 155/98 H Pulse Oximetry 93 94 94 Oxygen Delivery Oxygen Flow Rate Fraction of Inspired Oxygen 03/09/25 21:15 03/09/25 21:30 03/09/25 21:45 Temperature 37.2 C 37.1 C 37.1 C Pulse Rate 117 H 116 H 108 H Respiratory Rate 17 20 23 H Blood Pressure Pulse Oximetry 94 95 96 Oxygen Delivery Oxygen Flow Rate Fraction of Inspired Oxygen 03/09/25 21:54 03/09/25 22:00 03/09/25 22:01 Temperature 37.1 C 37.0 C 37.0 C Pulse Rate 109 H 103 H 102 H Respiratory Rate 23 H 16 16 Blood Pressure 125/100 H 125/100 H Pulse Oximetry 96 95 95 Oxygen Delivery Oxygen Flow Rate Fraction of Inspired Oxygen 03/09/25 22:04 03/09/25 22:12 03/09/25 22:15 Temperature 37.0 C Pulse Rate 104 H 100 102 H Respiratory Rate 21 H 14 Blood Pressure Pulse Oximetry 96 Oxygen Delivery Oxygen Flow Rate Fraction of Inspired Oxygen 03/09/25 22:30 03/09/25 22:45 03/09/25 23:00 Temperature 37.0 C 37.1 C 37.0 C Pulse Rate 96 93 100 Respiratory Rate 13 15 18 Blood Pressure 136/122 H Pulse Oximetry 97 97 99 Oxygen Delivery Oxygen Flow Rate Fraction of Inspired Oxygen 03/09/25 23:01 03/09/25 23:02 03/09/25 23:06 Temperature 37.0 C 37.0 C Pulse Rate 96 90 95 Respiratory Rate 21 H 14 22 H Blood Pressure 149/99 H Pulse Oximetry 98 98 96 Oxygen Delivery BiPAP Oxygen Flow Rate Fraction of Inspired Oxygen 03/09/25 23:15 03/09/25 23:30 03/09/25 23:45 Temperature 37.0 C 36.9 C 37.0 C Pulse Rate 79 93 82 Respiratory Rate 13 21 H 15 Blood Pressure Pulse Oximetry 98 99 98 Oxygen Delivery Oxygen Flow Rate Fraction of Inspired Oxygen 03/09/25 23:59 03/10/25 00:00 03/10/25 00:00 Temperature 37.0 C Pulse Rate 74 80 80 Respiratory Rate 15 13 13 Blood Pressure 149/99 H Pulse Oximetry 98 98 Oxygen Delivery BiPAP Oxygen Flow Rate Fraction of Inspired Oxygen 35 03/10/25 00:00 03/10/25 00:00 03/10/25 00:02 Temperature 37.0 C 37.1 C Pulse Rate 81 75 76 Respiratory Rate 17 15 Blood Pressure 111/75 Pulse Oximetry 98 97 Oxygen Delivery Oxygen Flow Rate Fraction of Inspired Oxygen 03/10/25 00:15 03/10/25 00:30 03/10/25 00:45 Temperature 37.1 C 37.0 C 37.1 C Pulse Rate 79 78 75 Respiratory Rate 16 13 14 Blood Pressure Pulse Oximetry 98 98 97 Oxygen Delivery Oxygen Flow Rate Fraction of Inspired Oxygen 03/10/25 01:00 03/10/25 01:01 03/10/25 01:15 Temperature 37.1 C 37.1 C 37.1 C Pulse Rate 76 70 73 Respiratory Rate 14 15 14 Blood Pressure 126/80 Pulse Oximetry 97 98 97 Oxygen Delivery Oxygen Flow Rate Fraction of Inspired Oxygen 03/10/25 01:30 03/10/25 01:45 03/10/25 02:00 Temperature 37.1 C 37.1 C Pulse Rate 65 82 67 Respiratory Rate 13 18 Blood Pressure Pulse Oximetry 98 99 Oxygen Delivery Oxygen Flow Rate Fraction of Inspired Oxygen 03/10/25 02:00 03/10/25 02:00 03/10/25 02:00 Temperature 37.1 C 37.1 C Pulse Rate 67 65 67 Respiratory Rate 16 15 16 Blood Pressure 110/70 110/78 Pulse Oximetry 98 Oxygen Delivery Oxygen Flow Rate Fraction of Inspired Oxygen 03/10/25 02:00 03/10/25 02:01 03/10/25 02:15 Temperature 37.2 C 37.1 C 37.1 C Pulse Rate 68 68 63 Respiratory Rate 15 15 13 Blood Pressure 110/78 Pulse Oximetry 98 98 98 Oxygen Delivery Oxygen Flow Rate Fraction of Inspired Oxygen 03/10/25 02:30 03/10/25 02:31 03/10/25 02:45 Temperature 37.1 C 37.1 C Pulse Rate 72 70 71 Respiratory Rate 12 22 H 12 Blood Pressure Pulse Oximetry 98 98 98 Oxygen Delivery BiPAP Oxygen Flow Rate Fraction of Inspired Oxygen 03/10/25 03:01 03/10/25 03:15 03/10/25 03:30 Temperature 37.1 C 37.0 C 37.0 C Pulse Rate 62 70 64 Respiratory Rate 15 13 12 Blood Pressure Pulse Oximetry 97 98 98 Oxygen Delivery Oxygen Flow Rate Fraction of Inspired Oxygen 03/10/25 03:45 03/10/25 04:00 03/10/25 04:00 Temperature 37.0 C 37.0 C Pulse Rate 62 67 62 Respiratory Rate 13 12 15 Blood Pressure 128/91 H Pulse Oximetry 97 98 Oxygen Delivery Oxygen Flow Rate Fraction of Inspired Oxygen 03/10/25 04:00 03/10/25 04:00 03/10/25 04:46 Temperature Pulse Rate 63 63 61 Respiratory Rate 15 10 L Blood Pressure Pulse Oximetry 97 Oxygen Delivery Mechanical Ventilation Oxygen Flow Rate Fraction of Inspired Oxygen 35 03/10/25 05:30 03/10/25 06:00 03/10/25 06:00 Temperature 36.9 C Pulse Rate 76 77 74 Respiratory Rate 18 15 15 Blood Pressure 124/89 Pulse Oximetry 98 99 Oxygen Delivery BiPAP Oxygen Flow Rate Fraction of Inspired Oxygen 03/10/25 06:39 03/10/25 06:41 03/10/25 08:00 Temperature Pulse Rate 78 82 110 H Respiratory Rate 18 24 H Blood Pressure Pulse Oximetry Oxygen Delivery Oxygen Flow Rate Fraction of Inspired Oxygen 03/10/25 08:06 03/10/25 08:06 03/10/25 08:21 Temperature Pulse Rate 114 H 114 H 123 H Respiratory Rate 24 H 24 H 30 H Blood Pressure Pulse Oximetry 94 Oxygen Delivery BiPAP Oxygen Flow Rate Fraction of Inspired Oxygen Intake/Output Intake/Output: Intake & Output 03/07/25 03/08/25 03/09/25 03/10/25 23:59 23:59 23:59 23:59 Intake Total 3652.5 1766.5 1454.3 750.3 Output Total 3542 285 4620 750 Balance 2552.5 1091.5 454.3 0.3 Meds/Results Medications: Active Medications Generic Name Dose Route Start Last Admin Trade Name Freq PRN Reason Stop Dose Admin Albuterol/Ipratropium 3 ml 03/09/25 14:01 03/10/25 08:04 Ipratropium 0.5 Mg/Albuterol Sulfate 2.5 Mg Ampul.Neb 3 Ml INHALATION 3 ml Q6HRT PRN Administration Wheezing Aspirin 81 mg 03/08/25 08:00 03/10/25 09:00 Aspirin 81 Mg Chewable Tablet PO 81 mg DAILY@0800 LIZY Administration Dextrose 12.5 gm 03/07/25 11:20 Dextrose 50% 25 Gm/50 Ml Syringe IV PUSH PRN PRN Hypoglycemia Protocol Enoxaparin Sodium 40 mg 03/09/25 09:00 03/10/25 09:00 Enoxaparin 40 Mg/0.4 Ml Syringe SUB-Q 40 mg DAILY LIZY Administration Glucagon 1 mg 03/07/25 11:20 Glucagon For Inj 1 Mg Vial IM PRN PRN Hypoglycemia Protocol Glucose 15 gm 03/07/25 11:20 Glucose Oral Gel 15 Gm Of Glucse In 37.5 Gm Tube PO PRN PRN Hypoglycemia Protocol Doxycycline Hyclate 100 mg/ 100 mls @ 100 mls/hr 03/07/25 09:00 03/10/25 09:00 Sodium Chloride IVPB 03/11/25 09:59 100 mls/hr Q12H LIZY Administration Dextrose 1,000 mls @ 100 mls/hr 03/07/25 11:20 Dextrose 5% 1,000 Ml IVPB PRN PRN Hypoglycemia Protocol Ceftriaxone Sodium 2 gm/ 100 mls @ 200 mls/hr 03/08/25 12:00 03/09/25 12:36 Sodium Chloride IVPB 03/12/25 12:29 Infused Q24H LIZY Infusion Multi-Ingred Cream/Lotion/Oil/Oint 1 applic 03/07/25 09:00 03/10/25 09:01 Mineral Oil/White Petrolatum Ointment EACH EYE Not Given Q12HR LIZY Pantoprazole Sodium 40 mg 03/08/25 09:00 03/10/25 09:01 Pantoprazole Sodium Iv 40 Mg Vial IV PUSH 40 mg QAM LIZY Administration Prednisone 40 mg 03/10/25 08:00 03/10/25 09:00 Prednisone 20 Mg Tablet PO 03/11/25 08:01 40 mg DAILY@0800 LIZY Administration Prednisone 20 mg 03/12/25 08:00 Prednisone 20 Mg Tablet PO 03/14/25 08:01 DAILY@0800 LIZY Sodium Chloride 10 ml 03/07/25 14:00 03/10/25 04:45 Central Line Flush IV PUSH 10 ml Q8HR LIZY Administration Sodium Chloride 10 ml 03/07/25 07:57 Central Line Flush IV PUSH PRN PRN with TPN bag changes Sodium Chloride 20 ml 03/07/25 07:57 03/10/25 04:45 Central Line Flush IV PUSH 20 ml PRN PRN Administration after blood draws Radiology Results: ITS Impressions Abdomen X-Ray 03/07/25 05:46 Impression: NG tube in satisfactory position. Chest X-Ray 03/10/25 07:14 Impression: Left-sided PICC line in place. No other support tubes are present on this exam. Advanced COPD with probable chronic blunting of the costophrenic angles. Correlate for small pleural effusions. Possible minimal haziness right midlung. Correlate for pneumonia or asymmetric pulmonary edema. Labs Labs: Laboratory Results - last 24 hr 03/09/25 03/09/25 03/09/25 09:35 12:00 17:48 WBC RBC Hgb Hct MCV MCH MCHC RDW Plt Count MPV Immature Gran % (Auto) Neut % (Auto) Lymph % (Auto) Tyrrell % (Auto) Eos % (Auto) Baso % (Auto) Lymph # (Auto) Tyrrell # (Auto) Eos # (Auto) Baso # (Auto) Abs Immat Gran (auto) Absolute Neuts (auto) Absolute Nucleated RBC Nucleated RBC % Puncture Site Left radial ABG pH 7.358 ABG pCO2 56.2 H ABG pO2 72.3 L ABG PO2/FiO2 Ratio 2.07 ABG HCO3 30.9 H ABG O2 Saturation 93.7 L ABG O2 Content 17.1 ABG Base Excess 4.1 A-a Gradient 111.9 Oxyhemoglobin 93.5 Carboxyhemoglobin Methemoglobin Reduced Hemoglobin Total Hemoglobin 13.0 O2 Delivery Device Ventilator O2 Liters/Min Not Reportable Minute Volume Not Reportable Vent Rate Not Reportable Vent Mode Spontaneous FiO2 35 Expiratory Pressure Tidal Volume Not Reportable PEEP 5 Inspiratory Pressure Peak Inspir Pressure Not Reportable Pressure Support 5 Sodium Potassium Chloride Carbon Dioxide Anion Gap BUN Creatinine Estim Creat Clear Calc Estimated GFR Glucose POC Capillary Glucose 144 H 142 H Calcium Phosphorus Magnesium Total Bilirubin AST ALT Alkaline Phosphatase Total Protein Albumin 03/09/25 03/10/25 03/10/25 23:49 04:40 05:32 WBC 11.7 H RBC 3.73 L Hgb 11.5 L Hct 37.5 L MCV 100.5 H MCH 30.8 MCHC 30.7 L RDW 13.7 Plt Count 192 MPV 10.4 Immature Gran % (Auto) 0.5 Neut % (Auto) 78.8 H Lymph % (Auto) 9.3 L Tyrrell % (Auto) 11.2 H Eos % (Auto) 0.0 Baso % (Auto) 0.2 Lymph # (Auto) 1.09 Tyrrell # (Auto) 1.3 H Eos # (Auto) 0.0 Baso # (Auto) 0.0 Abs Immat Gran (auto) 0.06 H Absolute Neuts (auto) 9.2 H Absolute Nucleated RBC 0.000 Nucleated RBC % 0.0 Puncture Site Right radial ABG pH 7.437 ABG pCO2 52.5 H ABG pO2 110.0 H ABG PO2/FiO2 Ratio 3.14 ABG HCO3 34.6 H ABG O2 Saturation 98.1 ABG O2 Content 17.7 ABG Base Excess 8.8 A-a Gradient 78.5 Oxyhemoglobin 97.8 Carboxyhemoglobin 0.6 Methemoglobin 0.1 Reduced Hemoglobin 1.5 Total Hemoglobin 12.8 O2 Delivery Device Bipap O2 Liters/Min Not Reportable Minute Volume Vent Rate 12 Vent Mode FiO2 35 Expiratory Pressure 6 Tidal Volume PEEP Inspiratory Pressure 12 Peak Inspir Pressure Pressure Support Sodium 139 Potassium 4.2 Chloride 99 Carbon Dioxide 37 H Anion Gap 3 L BUN 30 H Creatinine 0.81 Estim Creat Clear Calc 75 Estimated GFR > 60 Glucose 106 POC Capillary Glucose 114 H Calcium 9.7 Phosphorus 2.6 Magnesium 2.2 Total Bilirubin 0.3 AST 52 ALT 56 H Alkaline Phosphatase 45 Total Protein 6.2 L Albumin 3.7
[2025-03-10] MEDS: ETOMIDATE 20 MG/10 ML AMPUL 30 MG IV PUSH (10:38)
[2025-03-10] MEDS: MIDAZOLAM HCL (*CRX) 2 MG/2 ML VIAL 4 MG IV PUSH (10:41)
[2025-03-10] MEDS: dexmedeTOMIDine 400 MCG/100 ML 400 MCG/100 ML BAG 8.35 MCG IV CONT (10:49)
[2025-03-10] MEDS: FENTANYL 2,500MCG/NS250ML(*CRX 2,500 MCG/250 ML BAG 10 MCG IV CONT (10:49)
--- NOTE | 2025-03-10 10:50 | WPDPROCEDUR ---
Procedures Intubation Intubation Date: 03/10/25 Intubation Time: 10:40 Consent: Patient with respiratory distress and respiratory failure. Verbal consent was obtained from the patient. A pre-procedural Time-Out was completed immediately before starting the procedure and confirmed: Patient Identification, Site, Procedure, Patient Position and the Availability of Requisite Equipment: Yes Sedative: etomidate Mg given: 30 Paralytic: succinylcholine Mg given: 100 Laryngoscope: fiber optic video scope Assist device used: fiber optic device ET tube size: 7.5 Tube secured depth (cm): 25 Tube secured location: lips Tube placement confirmation: visualized tube passing through cords, equal breath sounds bilaterally, no breath sounds over epigastrium and confirmation by capnometry Patient tolerated procedure: well Intubation complications: none
[2025-03-10] MEDS: SUCCINYLCHOLINE CHLORIDE 20 MG/ML 10 ML VIAL 100 MG IV PUSH (10:51)
--- NOTE | 2025-03-10 10:51 | PM.EVENT ---
Event Note Event Note Event Note: Patient was placed on BiPAP this morning due to increased work of breathing. As the day went patient became worse with increased respiratory distress tachypnea tachycardia. On exam patient was using accessory muscles with face red and diaphoretic. I spoke to patient and discussed option of re-intubation and placed eating back command mechanical ventilation. But agreed and provided verbal consent in the presence of patient's nurse. Patient was re intubated emergently without any complication. Now placed on mechanical ventilation and sedated. Repeat chest x-ray and ABG are pending. Will start tube feeds.
[2025-03-10] MEDS: LACTATED RINGERS 1,000 ML 999 ML IV CONT (11:24)
[2025-03-10] MEDS: NOREPINEPHRINE 8 MG/D5W 250 ML 8 MG/250 ML BAG 9.38 MG IV CONT (11:24)
[2025-03-10 12:08] LABS: Alveolar/Arterial O2 Gradient 108.4 mmHg; Carboxyhemoglobin 0.7 % THb (0-2.0); Fractional Inspired Oxygen 35 %; HCO3 ABG 29.5 mEq/l (22.0-26.0); Methemoglobin ABG 0.1 %THb (0-1.5); Oxygen Content ABG 17.4 %vol (16.0-22.0); Oxygen Saturation ABG 96.6 % (95.0-100.0); PCO2 ABG 47.1 mmHg (35.0-45.0); PO2 ABG 86.4 mmHg (80.0-100.0); PO2 FiO2 Ratio Arterial Blood 2.47 %; Reduced Hemoglobin 3.1 %THb (0-5.0)
[2025-03-10 12:09] LABS: Modified Allen's Test Pass; Site Drawn LEFT RADIAL
[2025-03-10 12:10] LABS: Arterial Blood Gas Pressure Support 0 cmH2O; Arterial Blood Gas Tidal Volume 400 ml; Arterial Blood Gas Ventilator rate 16 /MIN; Liters per Minute 0.0 LPM
[2025-03-10] MEDS: cefTRIAXone 2 GM in SODIUM CHLORIDE 0.9% IV 100 ML 200 ML IVPB (12:32)
--- NOTE | 2025-03-10 13:38 | P.PNIM_ITS ---
Progress Note: A&P Assessment and Plan (1) Acute respiratory failure with hypoxia and hypercapnia: Code(s): J96.01 - Acute respiratory failure with hypoxia; J96.02 - Acute respiratory failure with hypercapnia Status: Acute Assessment and Plan: Patient presented with respiratory distress, dyspnea, hypoxia with O2 sats in the 30s on 2-3 L oxygen at home, ABGs revealed hypercapnic respiratory failure, patient was initially placed on BiPAP ABGs did not show any improvement rather worsening in the CO2 - intubated after he came to the ICU on 03/07/2025 - 03/08 12/24 PSV weaning trial was tried the patient failed trial due to increased respiratory distress tachycardia and complaint of chest pain. PSV was increased to 15 and later it was aborted and patient was placed back on CMV -03/09 patient was extubated after a successful weaning trial. Patient has required BiPAP on p.r.n. basis and at night yesterday. Continue Change Solu-Medrol to p.o. prednisone taper had worsening breathing today. intubated again. 03/10/25 (2) Septic shock: Code(s): A41.9 - Sepsis, unspecified organism; R65.21 - Severe sepsis with septic shock Status: Acute Assessment and Plan: Patient presented with hypoxia, tachypnea, tachycardia. She was found to be in COPD exacerbation -patient was hypotensive, requiring Costa-Synephrine through peripheral IV initially and a PICC line was inserted on 03/07 -Costa-Synephrine weaned off -03/06: Patient on ceftriaxone and doxycycline for the code -03/06: Blood cultures have been obtained and negative till now 03/10. WBC improving 11.7 B/C neg So far (3) Chronic obstructive pulmonary disease: Code(s): J44.9 - Chronic obstructive pulmonary disease, unspecified Status: Acute Assessment and Plan: COPD exacerbation See above (4) Elevated troponin: Code(s): R79.89 - Other specified abnormal findings of blood chemistry Status: Acute Assessment and Plan: Elevated troponin along with EKG changes Cardiology on board plan for possible cardiac cath tomorrow Off of heparin infusion after 48 hours Continue aspirin 81 mg Echo Summary 1. The left ventricle is normal in size and systolic function. The left ventricular ejection fraction is visually estimated to be 50-55%. The anteroseptum on some off-axis views is hypokinetic. 2. The right ventricle is normal in size and systolic function. 3. There is a small size pericardial effusion with no echocardiographic evidence of cardiac tamponade. Cardiology plans for cardiac catheterization on 03/11 (5) Acute kidney injury: Code(s): N17.9 - Acute kidney failure, unspecified Status: Acute Assessment and Plan: Patient presented with creatinine 1.44 on admission (unknown baseline) - adequately fluid-resuscitated and creatinine is normalized -monitor urine output, renal function and electrolytes (6) IV infiltration: Code(s): T80.1XXA - Vascular complications following infusion, transfusion and therapeutic injection, initial encounter Status: Acute Assessment and Plan: Patient was on Costa-Synephrine through a peripheral access which infiltrated overnight Patient was givent phentolamine/Regitine around the site of infiltration -continue to monitor (7) Electrolyte abnormality: Code(s): E87.8 - Other disorders of electrolyte and fluid balance, not elsewhere classified Status: Acute Assessment and Plan: Potassium improved after placement Plan DVT prophylaxis: Lovenox Stress ulcer prophylaxis: Protonix Nutrition: npo while intubated Remove Bennett catheter Code Status: Full code Subjective Date/time seen: 03/10/25 13:38 Interval history: Patient was seen and examined at bedside. he has been intubated this morning. he is awake . following commands. was able to write for me as he is ok. denies any chest pain, abd pain Review of Systems Review of Systems: All systems reviewed & are unremarkable except as noted in HPI and below (HPI) ROS unobtainable: Yes unobtainable due to endotracheal tube and unobtainable due to medical condition Exam Narrative: General: Obvious alert awake, intubated HEENT:? Pupils equal and reactive, sclera is clear, Neck:? Supple Respiratory:? Overall decreased air entry bilaterally, occasional wheezing bilaterallys Cardiac:? S1-S2 is normal, sinus tachycardia Abdomen:? Soft, nontender, nondistended, hypoactive bowel sounds Extremities:? No edema, palpable pedal pulses, left upper extremity IV infiltration site with redness on the forearm Neuro:? Awake alert follows commands all 4 extremities Skin:? No lesions noted Psych:? intubated Const: Other: Tachypnea, otherwise comfortable Eyes: Pupils: Equal, round and reactive pupils present Neck: Neck: supple Resp: Effort & Inspection: normal respiratory effort Other: Bibasilar crackles Cardio: Rate: tachycardic Rhythm: regular rhythm Heart sounds: no gallops, no murmurs and no rubs GI: Inspection: non-distended : General: Yes bladder normal to palpation Neuro: Cranial nerves: Yes Equal, round and reactive pupils present Motor exam (neuro): 5/5 motor strength present throughout Extrem: General: no edema Objective Data Vital Signs Vital Signs: Vital Signs - 24 hr 03/09/25 14:00 03/09/25 14:00 03/09/25 14:00 Temperature 98.6 F Pulse Rate 99 99 104 H Respiratory Rate 23 H 22 H Blood Pressure 154/102 H Pulse Oximetry 97 Oxygen Delivery Oxygen Flow Rate Fraction of Inspired Oxygen 03/09/25 15:00 03/09/25 16:00 03/09/25 16:00 Temperature Pulse Rate 98 114 H Respiratory Rate 18 Blood Pressure Pulse Oximetry 96 Oxygen Delivery Nasal Cannula Oxygen Flow Rate 2 Fraction of Inspired Oxygen 03/09/25 16:00 03/09/25 16:00 03/09/25 17:22 Temperature 98.7 F Pulse Rate 109 H 109 H 127 H Respiratory Rate 15 15 20 Blood Pressure 148/106 H Pulse Oximetry 98 Oxygen Delivery Oxygen Flow Rate Fraction of Inspired Oxygen 03/09/25 18:00 03/09/25 18:00 03/09/25 18:00 Temperature 99 F Pulse Rate 120 H 120 H 129 H Respiratory Rate 23 H 23 H Blood Pressure 163/113 H Pulse Oximetry 88 L 88 L Oxygen Delivery Nasal Cannula Oxygen Flow Rate 4 Fraction of Inspired Oxygen 03/09/25 18:12 03/09/25 19:00 03/09/25 19:01 Temperature 99.2 F 99.2 F Pulse Rate 126 H 131 H 130 H Respiratory Rate 21 H 19 18 Blood Pressure 199/178 H Pulse Oximetry 93 92 92 Oxygen Delivery Nasal Cannula Oxygen Flow Rate 2 Fraction of Inspired Oxygen 03/09/25 19:05 03/09/25 19:15 03/09/25 19:30 Temperature 99.3 F Pulse Rate 128 H 133 H 136 H Respiratory Rate 25 H 18 21 H Blood Pressure Pulse Oximetry 95 95 Oxygen Delivery Nasal Cannula Oxygen Flow Rate 2 Fraction of Inspired Oxygen 03/09/25 19:30 03/09/25 19:38 03/09/25 19:45 Temperature 99.1 F 99.3 F Pulse Rate 134 H 135 H 138 H Respiratory Rate 22 H 19 23 H Blood Pressure Pulse Oximetry 96 96 Oxygen Delivery Oxygen Flow Rate Fraction of Inspired Oxygen 03/09/25 19:48 03/09/25 19:58 03/09/25 20:00 Temperature 99.3 F Pulse Rate 135 H 135 H 129 H Respiratory Rate 24 H 28 H Blood Pressure 198/178 H Pulse Oximetry 96 95 Oxygen Delivery BiPAP Oxygen Flow Rate Fraction of Inspired Oxygen 03/09/25 20:00 03/09/25 20:01 03/09/25 20:15 Temperature 99.2 F 99.2 F Pulse Rate 131 H 130 H 132 H Respiratory Rate 18 17 17 Blood Pressure 164/109 H Pulse Oximetry 95 95 94 Oxygen Delivery BiPAP Oxygen Flow Rate Fraction of Inspired Oxygen 35 03/09/25 20:15 03/09/25 20:30 03/09/25 20:45 Temperature 99.1 F 99.1 F 99.0 F Pulse Rate 133 H 127 H 122 H Respiratory Rate 20 17 17 Blood Pressure Pulse Oximetry 92 94 93 Oxygen Delivery Oxygen Flow Rate Fraction of Inspired Oxygen 03/09/25 21:00 03/09/25 21:01 03/09/25 21:15 Temperature 98.9 F 99.0 F 98.9 F Pulse Rate 123 H 123 H 117 H Respiratory Rate 17 17 17 Blood Pressure 155/98 H Pulse Oximetry 94 94 94 Oxygen Delivery Oxygen Flow Rate Fraction of Inspired Oxygen 03/09/25 21:30 03/09/25 21:45 03/09/25 21:54 Temperature 98.7 F 98.7 F 98.7 F Pulse Rate 116 H 108 H 109 H Respiratory Rate 20 23 H 23 H Blood Pressure 125/100 H Pulse Oximetry 95 96 96 Oxygen Delivery Oxygen Flow Rate Fraction of Inspired Oxygen 03/09/25 22:00 03/09/25 22:01 03/09/25 22:04 Temperature 98.6 F 98.6 F Pulse Rate 103 H 102 H 104 H Respiratory Rate 16 16 21 H Blood Pressure 125/100 H Pulse Oximetry 95 95 Oxygen Delivery Oxygen Flow Rate Fraction of Inspired Oxygen 03/09/25 22:12 03/09/25 22:15 03/09/25 22:30 Temperature 98.6 F 98.6 F Pulse Rate 100 102 H 96 Respiratory Rate 14 13 Blood Pressure Pulse Oximetry 96 97 Oxygen Delivery Oxygen Flow Rate Fraction of Inspired Oxygen 03/09/25 22:45 03/09/25 23:00 03/09/25 23:01 Temperature 98.7 F 98.6 F 98.6 F Pulse Rate 93 100 96 Respiratory Rate 15 18 21 H Blood Pressure 136/122 H 149/99 H Pulse Oximetry 97 99 98 Oxygen Delivery Oxygen Flow Rate Fraction of Inspired Oxygen 03/09/25 23:02 03/09/25 23:06 03/09/25 23:15 Temperature 98.6 F 98.6 F Pulse Rate 90 95 79 Respiratory Rate 14 22 H 13 Blood Pressure Pulse Oximetry 98 96 98 Oxygen Delivery BiPAP Oxygen Flow Rate Fraction of Inspired Oxygen 03/09/25 23:30 03/09/25 23:45 03/09/25 23:59 Temperature 98.5 F 98.6 F 98.6 F Pulse Rate 93 82 74 Respiratory Rate 21 H 15 15 Blood Pressure 149/99 H Pulse Oximetry 99 98 98 Oxygen Delivery Oxygen Flow Rate Fraction of Inspired Oxygen 03/10/25 00:00 03/10/25 00:00 03/10/25 00:00 Temperature Pulse Rate 80 80 81 Respiratory Rate 13 13 Blood Pressure Pulse Oximetry 98 Oxygen Delivery BiPAP Oxygen Flow Rate Fraction of Inspired Oxygen 35 03/10/25 00:00 03/10/25 00:02 03/10/25 00:15 Temperature 98.6 F 98.7 F 98.7 F Pulse Rate 75 76 79 Respiratory Rate 17 15 16 Blood Pressure 111/75 Pulse Oximetry 98 97 98 Oxygen Delivery Oxygen Flow Rate Fraction of Inspired Oxygen 03/10/25 00:30 03/10/25 00:45 03/10/25 01:00 Temperature 98.6 F 98.8 F 98.8 F Pulse Rate 78 75 76 Respiratory Rate 13 14 14 Blood Pressure 126/80 Pulse Oximetry 98 97 97 Oxygen Delivery Oxygen Flow Rate Fraction of Inspired Oxygen 03/10/25 01:01 03/10/25 01:15 03/10/25 01:30 Temperature 98.8 F 98.8 F 98.8 F Pulse Rate 70 73 65 Respiratory Rate 15 14 13 Blood Pressure Pulse Oximetry 98 97 98 Oxygen Delivery Oxygen Flow Rate Fraction of Inspired Oxygen 03/10/25 01:45 03/10/25 02:00 03/10/25 02:00 Temperature 98.8 F 98.8 F Pulse Rate 82 67 67 Respiratory Rate 18 16 Blood Pressure 110/70 Pulse Oximetry 99 Oxygen Delivery Oxygen Flow Rate Fraction of Inspired Oxygen 03/10/25 02:00 03/10/25 02:00 03/10/25 02:00 Temperature 98.8 F 98.9 F Pulse Rate 65 67 68 Respiratory Rate 15 16 15 Blood Pressure 110/78 110/78 Pulse Oximetry 98 98 Oxygen Delivery Oxygen Flow Rate Fraction of Inspired Oxygen 03/10/25 02:01 03/10/25 02:15 03/10/25 02:30 Temperature 98.8 F 98.8 F 98.8 F Pulse Rate 68 63 72 Respiratory Rate 15 13 12 Blood Pressure Pulse Oximetry 98 98 98 Oxygen Delivery Oxygen Flow Rate Fraction of Inspired Oxygen 03/10/25 02:31 03/10/25 02:45 03/10/25 03:01 Temperature 98.7 F 98.7 F Pulse Rate 70 71 62 Respiratory Rate 22 H 12 15 Blood Pressure Pulse Oximetry 98 98 97 Oxygen Delivery BiPAP Oxygen Flow Rate Fraction of Inspired Oxygen 03/10/25 03:15 03/10/25 03:30 03/10/25 03:45 Temperature 98.6 F 98.6 F 98.6 F Pulse Rate 70 64 62 Respiratory Rate 13 12 13 Blood Pressure Pulse Oximetry 98 98 97 Oxygen Delivery Oxygen Flow Rate Fraction of Inspired Oxygen 03/10/25 04:00 03/10/25 04:00 03/10/25 04:00 Temperature 98.6 F Pulse Rate 67 62 63 Respiratory Rate 12 15 15 Blood Pressure 128/91 H Pulse Oximetry 98 97 Oxygen Delivery Mechanical Ventilation Oxygen Flow Rate Fraction of Inspired Oxygen 35 03/10/25 04:00 03/10/25 04:46 03/10/25 05:30 Temperature Pulse Rate 63 61 76 Respiratory Rate 10 L 18 Blood Pressure Pulse Oximetry 98 Oxygen Delivery BiPAP Oxygen Flow Rate Fraction of Inspired Oxygen 03/10/25 06:00 03/10/25 06:00 03/10/25 06:39 Temperature 98.4 F Pulse Rate 77 74 78 Respiratory Rate 15 15 18 Blood Pressure 124/89 Pulse Oximetry 99 Oxygen Delivery Oxygen Flow Rate Fraction of Inspired Oxygen 03/10/25 06:41 03/10/25 08:00 03/10/25 08:00 Temperature Pulse Rate 82 110 H Respiratory Rate 24 H Blood Pressure Pulse Oximetry 94 Oxygen Delivery BiPAP Oxygen Flow Rate Fraction of Inspired Oxygen 35 03/10/25 08:00 03/10/25 08:06 03/10/25 08:06 Temperature 98.7 F Pulse Rate 110 H 114 H 114 H Respiratory Rate 24 H 24 H 24 H Blood Pressure 187/100 H Pulse Oximetry 96 94 Oxygen Delivery BiPAP Oxygen Flow Rate Fraction of Inspired Oxygen 03/10/25 08:21 03/10/25 10:00 03/10/25 10:39 Temperature 99.3 F Pulse Rate 123 H 117 H Respiratory Rate 30 H 29 H Blood Pressure 179/116 H Pulse Oximetry 95 Oxygen Delivery Oxygen Flow Rate Fraction of Inspired Oxygen 35 03/10/25 10:40 03/10/25 10:49 03/10/25 10:49 Temperature Pulse Rate 103 H 103 H 120 H Respiratory Rate 16 16 Blood Pressure Pulse Oximetry 100 Oxygen Delivery Mechanical Ventilation Oxygen Flow Rate Fraction of Inspired Oxygen 35 03/10/25 11:00 03/10/25 11:15 03/10/25 11:23 Temperature Pulse Rate 100 81 69 Respiratory Rate 16 Blood Pressure 49/39 L 62/51 L Pulse Oximetry Oxygen Delivery Oxygen Flow Rate Fraction of Inspired Oxygen 03/10/25 11:24 03/10/25 11:30 03/10/25 11:47 Temperature Pulse Rate 67 62 54 L Respiratory Rate Blood Pressure 66/54 L 67/57 L 134/84 Pulse Oximetry Oxygen Delivery Oxygen Flow Rate Fraction of Inspired Oxygen 03/10/25 12:00 03/10/25 12:00 03/10/25 12:00 Temperature 98.7 F Pulse Rate 57 L Respiratory Rate 16 Blood Pressure 129/83 Pulse Oximetry 98 98 Oxygen Delivery Mechanical Ventilation Oxygen Flow Rate Fraction of Inspired Oxygen 35 35 03/10/25 12:30 03/10/25 12:36 03/10/25 13:00 Temperature Pulse Rate 56 L 68 58 L Respiratory Rate 16 Blood Pressure 141/88 H 133/84 Pulse Oximetry Oxygen Delivery Oxygen Flow Rate Fraction of Inspired Oxygen 03/10/25 13:00 03/10/25 13:21 Temperature Pulse Rate 70 74 Respiratory Rate 16 Blood Pressure 136/85 Pulse Oximetry Oxygen Delivery Oxygen Flow Rate Fraction of Inspired Oxygen Intake/Output Intake/Output: Intake & Output 03/07/25 03/08/25 03/09/25 03/10/25 23:59 23:59 23:59 23:59 Intake Total 3652.5 1766.5 1454.3 995.1 Output Total 7247 185 7662 750 Balance 2552.5 1091.5 454.3 245.1 Meds/Results Medications: Active Medications Generic Name Dose Route Start Last Admin Trade Name Freq PRN Reason Stop Dose Admin Albuterol/Ipratropium 3 ml 03/09/25 14:01 03/10/25 08:04 Ipratropium 0.5 Mg/Albuterol Sulfate 2.5 Mg Ampul.Neb 3 Ml INHALATION 3 ml Q6HRT PRN Administration Wheezing Aspirin 81 mg 03/08/25 08:00 03/10/25 09:00 Aspirin 81 Mg Chewable Tablet PO 81 mg DAILY@0800 LIZY Administration Dextrose 12.5 gm 03/07/25 11:20 Dextrose 50% 25 Gm/50 Ml Syringe IV PUSH PRN PRN Hypoglycemia Protocol Enoxaparin Sodium 40 mg 03/09/25 09:00 03/10/25 09:00 Enoxaparin 40 Mg/0.4 Ml Syringe SUB-Q 40 mg DAILY LIZY Administration Glucagon 1 mg 03/07/25 11:20 Glucagon For Inj 1 Mg Vial IM PRN PRN Hypoglycemia Protocol Glucose 15 gm 03/07/25 11:20 Glucose Oral Gel 15 Gm Of Glucse In 37.5 Gm Tube PO PRN PRN Hypoglycemia Protocol Doxycycline Hyclate 100 mg/ 100 mls @ 100 mls/hr 03/07/25 09:00 03/10/25 10:00 Sodium Chloride IVPB 03/11/25 09:59 Infused Q12H LIZY Infusion Dextrose 1,000 mls @ 100 mls/hr 03/07/25 11:20 Dextrose 5% 1,000 Ml IVPB PRN PRN Hypoglycemia Protocol Ceftriaxone Sodium 2 gm/ 100 mls @ 200 mls/hr 03/08/25 12:00 03/10/25 13:02 Sodium Chloride IVPB 03/12/25 12:29 Infused Q24H LIZY Infusion Fentanyl Citrate 2,500 mcg in 250 mls @ 7.5 mls/hr 03/10/25 10:35 03/10/25 12:30 Fentanyl 2,500 Mcg/Ns 250 Ml IV CONT 75 mcg/hr .[id number] LIZY 7.5 mls/hr Titration Protocol 75 MCG/HR Dexmedetomidine HCl 400 mcg in 100 mls @ 11.69 mls/hr 03/10/25 10:35 03/10/25 13:00 Precedex 400 Mcg/100 Ml IV CONT 0.7 mcg/kg/hr .Q8H34M LIZY 11.69 mls/hr Titration Protocol 0.7 MCG/KG/HR Norepinephrine Bitartrate 8 mg in 250 mls @ 0 mls/hr 03/10/25 11:05 03/10/25 13:21 Levophed 8 Mg/D5w 250 Ml IV CONT 0 mcg/min .Q0M LIZY 0 mls/hr Titration Protocol 0 MCG/MIN Midazolam HCl 2 mg 03/10/25 10:58 Midazolam Hcl (*Crx) 2 Mg/2 Ml Vial IV PUSH Q1H PRN Sedation Multi-Ingred Cream/Lotion/Oil/Oint 1 applic 03/07/25 09:00 03/10/25 09:01 Mineral Oil/White Petrolatum Ointment EACH EYE Not Given Q12HR LIZY Pantoprazole Sodium 40 mg 03/08/25 09:00 03/10/25 09:01 Pantoprazole Sodium Iv 40 Mg Vial IV PUSH 40 mg QAM LIZY Administration Prednisone 40 mg 03/10/25 08:00 03/10/25 09:00 Prednisone 20 Mg Tablet PO 03/11/25 08:01 40 mg DAILY@0800 LIZY Administration Prednisone 20 mg 03/12/25 08:00 Prednisone 20 Mg Tablet PO 03/14/25 08:01 DAILY@0800 LIZY Sodium Chloride 10 ml 03/07/25 14:00 03/10/25 13:24 Central Line Flush IV PUSH 10 ml Q8HR LIZY Administration Sodium Chloride 10 ml 03/07/25 07:57 Central Line Flush IV PUSH PRN PRN with TPN bag changes Sodium Chloride 20 ml 03/07/25 07:57 03/10/25 04:45 Central Line Flush IV PUSH 20 ml PRN PRN Administration after blood draws Radiology Results: ITS Impressions Abdomen X-Ray 03/10/25 11:11 IMPRESSION: 1: OG tube tip in the stomach. Chest X-Ray 03/10/25 11:13 Impression: 1: Right midthoracic infiltrates, compatible with pneumonia. Labs Labs: Laboratory Results - last 24 hr 03/09/25 03/09/25 03/10/25 17:48 23:49 04:40 WBC 11.7 H RBC 3.73 L Hgb 11.5 L Hct 37.5 L MCV 100.5 H MCH 30.8 MCHC 30.7 L RDW 13.7 Plt Count 192 MPV 10.4 Immature Gran % (Auto) 0.5 Neut % (Auto) 78.8 H Lymph % (Auto) 9.3 L [place] % (Auto) 11.2 H Eos % (Auto) 0.0 Baso % (Auto) 0.2 Lymph # (Auto) 1.09 [place] # (Auto) 1.3 H Eos # (Auto) 0.0 Baso # (Auto) 0.0 Abs Immat Gran (auto) 0.06 H Absolute Neuts (auto) 9.2 H Absolute Nucleated RBC 0.000 Nucleated RBC % 0.0 Puncture Site ABG pH ABG pCO2 ABG pO2 ABG PO2/FiO2 Ratio ABG HCO3 ABG O2 Saturation ABG O2 Content ABG Base Excess A-a Gradient Oxyhemoglobin Carboxyhemoglobin Methemoglobin Reduced Hemoglobin Total Hemoglobin O2 Delivery Device O2 Liters/Min Minute Volume Vent Rate Vent Mode FiO2 Expiratory Pressure Tidal Volume PEEP Inspiratory Pressure Peak Inspir Pressure Pressure Support Sodium 139 Potassium 4.2 Chloride 99 Carbon Dioxide 37 H Anion Gap 3 L BUN 30 H Creatinine 0.81 Estim Creat Clear Calc 75 Estimated GFR > 60 Glucose 106 POC Capillary Glucose 142 H 114 H Calcium 9.7 Phosphorus 2.6 Magnesium 2.2 Total Bilirubin 0.3 AST 52 ALT 56 H Alkaline Phosphatase 45 Total Protein 6.2 L Albumin 3.7 03/10/25 03/10/25 03/10/25 05:32 11:59 12:30 WBC RBC Hgb Hct MCV MCH MCHC RDW Plt Count MPV Immature Gran % (Auto) Neut % (Auto) Lymph % (Auto) [place] % (Auto) Eos % (Auto) Baso % (Auto) Lymph # (Auto) [place] # (Auto) Eos # (Auto) Baso # (Auto) Abs Immat Gran (auto) Absolute Neuts (auto) Absolute Nucleated RBC Nucleated RBC % Puncture Site Right radial Left radial ABG pH 7.437 7.415 ABG pCO2 52.5 H 47.1 H ABG pO2 110.0 H 86.4 ABG PO2/FiO2 Ratio 3.14 2.47 ABG HCO3 34.6 H 29.5 H ABG O2 Saturation 98.1 96.6 ABG O2 Content 17.7 17.4 ABG Base Excess 8.8 4.2 A-a Gradient 78.5 108.4 Oxyhemoglobin 97.8 96.1 Carboxyhemoglobin 0.6 0.7 Methemoglobin 0.1 0.1 Reduced Hemoglobin 1.5 3.1 Total Hemoglobin 12.8 12.8 O2 Delivery Device Bipap Ventilator O2 Liters/Min Not Reportable 0.0 Minute Volume Not Reportable Vent Rate 12 16 Vent Mode Cmv FiO2 35 35 Expiratory Pressure 6 Tidal Volume 400 PEEP 5 Inspiratory Pressure 12 Peak Inspir Pressure Not Reportable Pressure Support 0 Sodium Potassium Chloride Carbon Dioxide Anion Gap BUN Creatinine Estim Creat Clear Calc Estimated GFR Glucose POC Capillary Glucose 120 H Calcium Phosphorus Magnesium Total Bilirubin AST ALT Alkaline Phosphatase Total Protein Albumin Quality VTE Prophylaxis VTE prophylaxis: pharmacologic ordered
[2025-03-10] MEDS: dexmedeTOMIDine 400 MCG/100 ML 400 MCG/100 ML BAG 11.69 MCG IV CONT (17:59)
[2025-03-10] MEDS: MINERAL OIL/WHITE PETROLATUM OINTMENT 1 APPLIC EACH EYE (20:21)
[2025-03-11] VITALS (48 sets, daily range): BP systolic 76–126; BP diastolic 56–85; PULSE 47–77; RESP 14–17; TEMP 36.5–37.7; O2SAT 96–100
[2025-03-11] MEDS: dexmedeTOMIDine 400 MCG/100 ML 400 MCG/100 ML BAG 15.03 MCG IV CONT (00:31)
[2025-03-11 05:27] LABS: Hematocrit 40.2 % (42.0-52.0); Hemoglobin 12.3 g/dL (14.0-18.0); Immature Granulocyte Percent A 0.6 % (0-0.5); Lymphocytes Absolute Auto 1.89 K/mm3 (0.9-3.2); Mean Corpuscular HGB Conc 30.6 g/dl (32-36); Mean Corpuscular Hemoglobin 30.7 pg (26-34); Mean Corpuscular Volume 100.2 fl (80-100); Nucleated Red Blood Cells Absolute Auto 0.000 K/mm3 (0.0-0.012); Nucleated Red Blood Cells Perc 0.0 % (0.0-0.2); Platelet Count Result 193 k/mm3 (150-375); Red Blood Count 4.01 M/mm3 (4.6-6.20); White Blood Count 10.7 K/mm3 (4.5-10.0)
[2025-03-11 05:29] LABS: Alanine Aminotransferase 53 U/L (6-50); Albumin Level 3.3 g/dL (3.5-5.1); Alkaline Phosphatase 45 U/L (38-126); Anion Gap 2 mmol/L (4-12); Aspartate Amino Transferase 40 U/L (17-59); Bilirubin,Total 0.5 mg/dL (0.2-1.3); Blood Urea Nitrogen 31 mg/dL (9-20); Calcium 9.4 mg/dL (8.4-10.2); Carbon Dioxide 35 mmol/L (22-30); Chloride 99 mmol/L (98-107); Estimated CRCL calculation 76 ml/min; Estimated Glomerular Filt Rate > 60; Glucose 101 mg/dL (65-110); Magnesium 2.0 mg/dL (1.6-2.3); Potassium 4.0 mmol/L (3.4-5.0); Sodium 136 mmol/L (137-145); Total Protein 5.7 g/dL (6.3-8.2)
[2025-03-11 05:51] LABS: Alveolar/Arterial O2 Gradient 97.8 mmHg; Carboxyhemoglobin 0.9 % THb (0-2.0); Fractional Inspired Oxygen 30 %; HCO3 ABG 31.8 mEq/l (22.0-26.0); Methemoglobin ABG 0.0 %THb (0-1.5); Oxygen Content ABG 18.0 %vol (16.0-22.0); Oxygen Saturation ABG 94.6 % (95.0-100.0); PCO2 ABG 42.0 mmHg (35.0-45.0); PO2 ABG 66.8 mmHg (80.0-100.0); PO2 FiO2 Ratio Arterial Blood 2.23 %; Reduced Hemoglobin 5.5 %THb (0-5.0)
[2025-03-11 05:56] LABS: Arterial Blood Gas Ventilator rate 16 /MIN; Modified Allen's Test Pass; Site Drawn RIGHT RADIAL
[2025-03-11 05:57] LABS: Arterial Blood Gas Tidal Volume 400 ml
[2025-03-11] MEDS: CENTRAL LINE FLUSH 10 ML IV PUSH ×3 (06:18→20:26)
--- NOTE | 2025-03-11 06:45 | PC.NURSE ---
Updated Dr. Llanes regarding vital signs, new order received
[2025-03-11] MEDS: SODIUM CHLORIDE 0.9% IV 500 ML 1000 ML IV CONT (06:55)
[2025-03-11] MEDS: dexmedeTOMIDine 400 MCG/100 ML 400 MCG/100 ML BAG 11.69 MCG IV CONT ×2 (07:24→16:06)
[2025-03-11] MEDS: ASPIRIN 81 MG CHEWABLE TABLET PO (07:53)
[2025-03-11] MEDS: PANTOPRAZOLE SODIUM IV 40 MG VIAL IV PUSH (07:53)
[2025-03-11] MEDS: DOXYCYCLINE IV 100 MG in SODIUM CHLORIDE 0.9% IV 100 ML IVPB (07:53)
[2025-03-11] MEDS: MINERAL OIL/WHITE PETROLATUM OINTMENT 1 APPLIC EACH EYE ×2 (07:54→20:26)
--- NOTE | 2025-03-11 08:28 | P.PNINT_ITS ---
Progress Note: A&P Assessment and Plan (1) Acute respiratory failure with hypoxia and hypercapnia: Code(s): J96.01 - Acute respiratory failure with hypoxia; J96.02 - Acute respiratory failure with hypercapnia Status: Acute Assessment and Plan: Patient presented with respiratory distress, dyspnea, hypoxia with O2 sats in the 30s on 2-3 L oxygen at home, family had to force the patient to come to the ED, in the ED he was immediately placed on BiPAP, given DuoNebs. ABGs revealed hypercapnic respiratory failure, patient was initially placed on BiPAP ABGs did not show any improvement rather worsening in the CO2 - intubated after he came to the ICU on 03/07/2025 - 03/08 12/24 PSV weaning trial was tried the patient failed trial due to increased respiratory distress tachycardia and complaint of chest pain. PSV was increased to 15 and later it was aborted and patient was placed back on CMV -03/09 patient was extubated after a successful weaning trial. Required BiPAP intermittently 03/10 Patient was placed on BiPAP in the morning due to increased work of breathing. As the day went patient became worse with increased respiratory distress tachypnea tachycardia. On exam patient was using accessory muscles with face red and diaphoretic. I spoke to patient and discussed option of re- intubation and placed eating back command mechanical ventilation. Patient agreed and provided verbal consent in the presence of patient's nurse. Patient was re intubated emergently without any complication. Chest x-ray ABG and ventilator settings reviewed. Decrease tidal volume to 380 and rate to 14 Continue prednisone taper Continue bronchodilators and antibiotics as below Continue sedation with Precedex and fentanyl (2) Septic shock: Code(s): A41.9 - Sepsis, unspecified organism; R65.21 - Severe sepsis with septic shock Status: Acute Assessment and Plan: Patient presented with hypoxia, tachypnea, tachycardia. She was found to be in COPD exacerbation -patient was hypotensive, requiring Costa-Synephrine through peripheral IV initially and a PICC line was inserted on 03/07 -on and off support for Levophed likely secondary to sedation. -03/06: Patient on ceftriaxone and doxycycline for the code -03/06: Blood cultures have been obtained and negative till now (3) Chronic obstructive pulmonary disease: Code(s): J44.9 - Chronic obstructive pulmonary disease, unspecified Status: Acute Assessment and Plan: COPD exacerbation See above (4) Elevated troponin: Code(s): R79.89 - Other specified abnormal findings of blood chemistry Status: Acute Assessment and Plan: Elevated troponin along with EKG changes Cardiology consult Off of heparin infusion after 48 hours Continue aspirin 81 mg Echo Summary 1. The left ventricle is normal in size and systolic function. The left ventricular ejection fraction is visually estimated to be 50-55%. The anteroseptum on some off-axis views is hypokinetic. 2. The right ventricle is normal in size and systolic function. 3. There is a small size pericardial effusion with no echocardiographic evidence of cardiac tamponade. Cardiology plans for cardiac catheterization on 03/11 (5) Acute kidney injury: Code(s): N17.9 - Acute kidney failure, unspecified Status: Acute Assessment and Plan: Patient presented with creatinine 1.44 on admission (unknown baseline) - adequately fluid-resuscitated and creatinine is normalized -monitor urine output, renal function and electrolytes (6) Electrolyte abnormality: Code(s): E87.8 - Other disorders of electrolyte and fluid balance, not elsewhere classified Status: Acute Assessment and Plan: Potassium improved after replacement Plan DVT prophylaxis: Lovenox Stress ulcer prophylaxis: Protonix Nutrition: Tube feeds ordered but currently on hold for cardiac catheterization. Code Status: Full code Critical Care Time Spent: 30 minutes Due to a high probability of clinically significant, life threatening deterioration, the patient required my highest level of preparedness to inte rvene emergently and I personally spent this critical care time directly and personally managing the patient. This critical care time included obtaining a history; examining the patient; pulse oximetry; ordering and review of studies; arranging urgent treatment with development of a management plan; evaluation of patient's response to treatment; frequent reassessment; and discussions with other providers. It was exclusive of separately billable procedures and treating other patients and teaching time. Please see Assessment and Plan section and the rest of the note for further information on patient assessment and treatment This dictation may have been done utilizing a voice recognition system. Attempts have been made to correct errors. However, there may be uncorrected grammatical, spelling, and recognitions errors present. Subjective Date/time seen: 03/11/25 Overnight events reviewed. Patient was reintubated yesterday. Afebrile overnight Continues to be on mechanical ventilation 35% FiO2 and 5 of PEEP Yesterday he was started on Levophed for blood pressure support which has been weaned off overnight. Continues to be sedated with Precedex and fentanyl Tolerating tube feeds. Other Vitals acceptable Patient despite sedation is awake and following commands and denies any pain feeling of respiratory distress. Review of system is not obtainable Review of Systems Review of Systems: ROS unobtainable: Yes unobtainable due to endotracheal tube and unobtainable due to medical condition Exam Narrative: General: Sedated intubated and in no distress HEENT:? Pupils equal and reactive, sclera is clear, Neck:? Supple Respiratory:? Overall decreased air entry bilaterally, occasional wheezing bilaterally, Cardiac:? S1-S2 is normal, sinus tachycardia Abdomen:? Soft, nontender, nondistended, hypoactive bowel sounds Extremities:? No edema, palpable pedal pulses, left upper extremity IV infiltration site with redness on the forearm Neuro:? Sedated but opens eyes and nodes head to questions and follows commands with all 4 extremities Skin:? No lesions noted Objective Data Vital Signs Vital Signs: Vital Signs - 24 hr 03/10/25 10:00 03/10/25 10:00 03/10/25 10:39 Temperature 37.4 C Pulse Rate 117 H 113 H Respiratory Rate 29 H Blood Pressure 179/116 H Pulse Oximetry 95 Oxygen Delivery Fraction of Inspired Oxygen 35 03/10/25 10:40 03/10/25 10:49 03/10/25 10:49 Temperature Pulse Rate 103 H 103 H 120 H Respiratory Rate 16 16 Blood Pressure Pulse Oximetry 100 Oxygen Delivery Mechanical Ventilation Fraction of Inspired Oxygen 35 03/10/25 11:00 03/10/25 11:15 03/10/25 11:23 Temperature Pulse Rate 100 81 69 Respiratory Rate 16 Blood Pressure 49/39 L 62/51 L Pulse Oximetry Oxygen Delivery Fraction of Inspired Oxygen 03/10/25 11:24 03/10/25 11:30 03/10/25 11:47 Temperature Pulse Rate 67 62 54 L Respiratory Rate Blood Pressure 66/54 L 67/57 L 134/84 Pulse Oximetry Oxygen Delivery Fraction of Inspired Oxygen 03/10/25 12:00 03/10/25 12:00 03/10/25 12:00 Temperature 37.1 C Pulse Rate 57 L Respiratory Rate 16 Blood Pressure 129/83 Pulse Oximetry 98 98 Oxygen Delivery Mechanical Ventilation Fraction of Inspired Oxygen 35 35 03/10/25 12:00 03/10/25 12:30 03/10/25 12:36 Temperature Pulse Rate 64 56 L 68 Respiratory Rate 16 Blood Pressure 141/88 H Pulse Oximetry Oxygen Delivery Fraction of Inspired Oxygen 03/10/25 13:00 03/10/25 13:00 03/10/25 13:21 Temperature Pulse Rate 58 L 70 74 Respiratory Rate 16 Blood Pressure 133/84 136/85 Pulse Oximetry Oxygen Delivery Fraction of Inspired Oxygen 03/10/25 14:00 03/10/25 14:00 03/10/25 14:00 Temperature 37.6 C H Pulse Rate 70 66 63 Respiratory Rate 16 16 Blood Pressure 92/69 L Pulse Oximetry 97 Oxygen Delivery Fraction of Inspired Oxygen 03/10/25 14:07 03/10/25 14:30 03/10/25 15:00 Temperature Pulse Rate 84 65 63 Respiratory Rate 16 Blood Pressure 92/68 L Pulse Oximetry 97 Oxygen Delivery Mechanical Ventilation Fraction of Inspired Oxygen 35 03/10/25 16:00 03/10/25 16:00 03/10/25 16:00 Temperature 37.6 C Pulse Rate 61 60 65 Respiratory Rate 16 16 16 Blood Pressure 99/70 L Pulse Oximetry 98 Oxygen Delivery Fraction of Inspired Oxygen 03/10/25 16:00 03/10/25 16:00 03/10/25 16:00 Temperature Pulse Rate 59 L Respiratory Rate Blood Pressure Pulse Oximetry 98 Oxygen Delivery Mechanical Ventilation Fraction of Inspired Oxygen 35 35 03/10/25 16:54 03/10/25 17:00 03/10/25 17:59 Temperature Pulse Rate 16 L 81 57 L Respiratory Rate 16 Blood Pressure 97/71 L Pulse Oximetry 99 Oxygen Delivery Mechanical Ventilation Fraction of Inspired Oxygen 30 03/10/25 17:59 03/10/25 18:00 03/10/25 18:00 Temperature 37.4 C Pulse Rate 57 L 57 L 56 L Respiratory Rate 16 16 16 Blood Pressure 97/69 L Pulse Oximetry 97 Oxygen Delivery Fraction of Inspired Oxygen 03/10/25 18:00 03/10/25 19:00 03/10/25 19:00 Temperature Pulse Rate 56 L 58 L 62 Respiratory Rate 18 Blood Pressure 97/67 L Pulse Oximetry Oxygen Delivery Fraction of Inspired Oxygen 03/10/25 19:00 03/10/25 19:20 03/10/25 19:49 Temperature Pulse Rate 61 55 L Respiratory Rate 18 16 Blood Pressure Pulse Oximetry 97 Oxygen Delivery Mechanical Ventilation Fraction of Inspired Oxygen 30 30 03/10/25 20:00 03/10/25 20:00 03/10/25 20:00 Temperature Pulse Rate 55 L 55 L 55 L Respiratory Rate 16 16 Blood Pressure 115/75 Pulse Oximetry Oxygen Delivery Fraction of Inspired Oxygen 03/10/25 20:00 03/10/25 20:00 03/10/25 20:45 Temperature 37.5 C Pulse Rate 55 L 54 L 62 Respiratory Rate 16 Blood Pressure 115/75 Pulse Oximetry 97 97 Oxygen Delivery Mechanical Ventilation Fraction of Inspired Oxygen 30 03/10/25 22:00 03/10/25 22:00 03/10/25 22:00 Temperature 37.6 C H Pulse Rate 55 L 55 L 55 L Respiratory Rate 16 16 Blood Pressure 121/81 Pulse Oximetry 97 Oxygen Delivery Fraction of Inspired Oxygen 03/10/25 22:00 03/10/25 22:00 03/10/25 23:25 Temperature Pulse Rate 55 L 55 L 53 L Respiratory Rate 16 Blood Pressure 121/81 Pulse Oximetry 96 Oxygen Delivery Mechanical Ventilation Fraction of Inspired Oxygen 30 03/10/25 23:29 03/10/25 23:33 03/11/25 00:00 Temperature 37.7 C H Pulse Rate 54 L 54 L Respiratory Rate 16 16 Blood Pressure 126/83 Pulse Oximetry 96 96 Oxygen Delivery Mechanical Ventilation Fraction of Inspired Oxygen 30 30 03/11/25 00:00 03/11/25 00:01 03/11/25 00:01 Temperature Pulse Rate 54 L 55 L 55 L Respiratory Rate 16 16 Blood Pressure Pulse Oximetry Oxygen Delivery Fraction of Inspired Oxygen 03/11/25 00:31 03/11/25 00:31 03/11/25 01:31 Temperature Pulse Rate 56 L 56 L 56 L Respiratory Rate 16 16 16 Blood Pressure Pulse Oximetry Oxygen Delivery Fraction of Inspired Oxygen 03/11/25 02:00 03/11/25 02:00 03/11/25 02:00 Temperature 37.7 C H Pulse Rate 56 L 55 L 56 L Respiratory Rate 16 16 Blood Pressure 111/77 Pulse Oximetry 96 Oxygen Delivery Fraction of Inspired Oxygen 03/11/25 02:00 03/11/25 02:13 03/11/25 03:39 Temperature Pulse Rate 56 L 55 L 57 L Respiratory Rate 16 16 Blood Pressure Pulse Oximetry 96 97 Oxygen Delivery Mechanical Ventilation Mechanical Ventilation Fraction of Inspired Oxygen 30 30 03/11/25 03:45 03/11/25 04:00 03/11/25 04:00 Temperature 37.7 C H Pulse Rate 57 L 57 L Respiratory Rate 16 Blood Pressure 106/76 Pulse Oximetry 97 Oxygen Delivery Fraction of Inspired Oxygen 30 03/11/25 04:00 03/11/25 04:00 03/11/25 05:00 Temperature Pulse Rate 58 L 58 L 58 L Respiratory Rate 16 16 Blood Pressure 100/74 Pulse Oximetry Oxygen Delivery Fraction of Inspired Oxygen 03/11/25 05:30 03/11/25 05:40 03/11/25 06:00 Temperature 37.7 C H Pulse Rate 60 58 L 60 Respiratory Rate 16 16 Blood Pressure 80/62 L Pulse Oximetry 97 98 Oxygen Delivery Mechanical Ventilation Fraction of Inspired Oxygen 30 03/11/25 06:00 03/11/25 06:00 03/11/25 06:00 Temperature Pulse Rate 60 60 60 Respiratory Rate 16 16 Blood Pressure Pulse Oximetry Oxygen Delivery Fraction of Inspired Oxygen 03/11/25 06:15 03/11/25 06:30 03/11/25 07:15 Temperature Pulse Rate 60 60 Respiratory Rate Blood Pressure 80/59 L 80/56 L 98/69 L Pulse Oximetry Oxygen Delivery Fraction of Inspired Oxygen 03/11/25 07:24 03/11/25 07:24 03/11/25 07:30 Temperature Pulse Rate 57 L 57 L Respiratory Rate 16 16 Blood Pressure 88/66 L Pulse Oximetry Oxygen Delivery Fraction of Inspired Oxygen 03/11/25 08:00 03/11/25 08:00 Temperature Pulse Rate Respiratory Rate Blood Pressure Pulse Oximetry 98 Oxygen Delivery Mechanical Ventilation Fraction of Inspired Oxygen 30 30 Intake/Output Intake/Output: Intake & Output 03/08/25 03/09/25 03/10/25 03/11/25 23:59 23:59 23:59 23:59 Intake Total 1766.5 1454.3 1389.9 529.3 Output Total 675 1000 1300 400 Balance 1091.5 454.3 89.9 129.3 Meds/Results Medications: Active Medications Generic Name Dose Route Start Last Admin Trade Name Freq PRN Reason Stop Dose Admin Albuterol/Ipratropium 3 ml 03/09/25 14:01 03/10/25 08:04 Ipratropium 0.5 Mg/Albuterol Sulfate 2.5 Mg Ampul.Neb 3 Ml INHALATION 3 ml Q6HRT PRN Administration Wheezing Aspirin 81 mg 03/08/25 08:00 03/11/25 07:53 Aspirin 81 Mg Chewable Tablet PO 81 mg DAILY@0800 LIZY Administration Dextrose 12.5 gm 03/07/25 11:20 Dextrose 50% 25 Gm/50 Ml Syringe IV PUSH PRN PRN Hypoglycemia Protocol Enoxaparin Sodium 40 mg 03/09/25 09:00 03/10/25 09:00 Enoxaparin 40 Mg/0.4 Ml Syringe SUB-Q 40 mg DAILY LIZY Administration Glucagon 1 mg 03/07/25 11:20 Glucagon For Inj 1 Mg Vial IM PRN PRN Hypoglycemia Protocol Glucose 15 gm 03/07/25 11:20 Glucose Oral Gel 15 Gm Of Glucse In 37.5 Gm Tube PO PRN PRN Hypoglycemia Protocol Doxycycline Hyclate 100 mg/ 100 mls @ 100 mls/hr 03/07/25 09:00 03/11/25 07:53 Sodium Chloride IVPB 03/11/25 09:59 100 mls/hr Q12H LIZY Administration Dextrose 1,000 mls @ 100 mls/hr 03/07/25 11:20 Dextrose 5% 1,000 Ml IVPB PRN PRN Hypoglycemia Protocol Ceftriaxone Sodium 2 gm/ 100 mls @ 200 mls/hr 03/08/25 12:00 03/10/25 13:02 Sodium Chloride IVPB 03/12/25 12:29 Infused Q24H LIZY Infusion Fentanyl Citrate 2,500 mcg in 250 mls @ 2.5 mls/hr 03/10/25 10:35 03/11/25 06:00 Fentanyl 2,500 Mcg/Ns 250 Ml IV CONT 25 mcg/hr .Q72H LIZY 2.5 mls/hr Titration Protocol 25 MCG/HR Dexmedetomidine HCl 400 mcg in 100 mls @ 11.69 mls/hr 03/10/25 10:35 03/11/25 07:24 Precedex 400 Mcg/100 Ml IV CONT 0.7 mcg/kg/hr .Q8H34M LIZY 11.69 mls/hr Administration Protocol 0.7 MCG/KG/HR Norepinephrine Bitartrate 8 mg in 250 mls @ 0 mls/hr 03/10/25 11:05 03/10/25 22:00 Levophed 8 Mg/D5w 250 Ml IV CONT Infused .Q0M LIZY Titration Protocol 0 MCG/MIN Midazolam HCl 2 mg 03/10/25 10:58 Midazolam Hcl (*Crx) 2 Mg/2 Ml Vial IV PUSH Q1H PRN Sedation Multi-Ingred Cream/Lotion/Oil/Oint 1 applic 03/07/25 09:00 03/11/25 07:54 Mineral Oil/White Petrolatum Ointment EACH EYE 1 applic Q12HR LIZY Administration Pantoprazole Sodium 40 mg 03/08/25 09:00 03/11/25 07:53 Pantoprazole Sodium Iv 40 Mg Vial IV PUSH 40 mg QAM LIZY Administration Prednisone 20 mg 03/12/25 08:00 Prednisone 20 Mg Tablet PO 03/14/25 08:01 DAILY@0800 LIZY Sodium Chloride 10 ml 03/07/25 14:00 03/11/25 06:18 Central Line Flush IV PUSH 10 ml Q8HR LIZY Administration Sodium Chloride 10 ml 03/07/25 07:57 Central Line Flush IV PUSH PRN PRN with TPN bag changes Sodium Chloride 20 ml 03/07/25 07:57 03/10/25 04:45 Central Line Flush IV PUSH 20 ml PRN PRN Administration after blood draws Radiology Results: ITS Impressions Abdomen X-Ray 03/10/25 11:11 IMPRESSION: 1: OG tube tip in the stomach. Chest X-Ray 03/11/25 05:57 Impression: 1: Stable infiltrates right midlung which may represent atelectasis and/or pneumonia. Labs Labs: Laboratory Results - last 24 hr 03/10/25 03/10/25 03/10/25 11:59 12:30 17:29 WBC RBC Hgb Hct MCV MCH MCHC RDW Plt Count MPV Immature Gran % (Auto) Neut % (Auto) Lymph % (Auto) [place] % (Auto) Eos % (Auto) Baso % (Auto) Lymph # (Auto) [place] # (Auto) Eos # (Auto) Baso # (Auto) Abs Immat Gran (auto) Absolute Neuts (auto) Absolute Nucleated RBC Nucleated RBC % Puncture Site Left radial ABG pH 7.415 ABG pCO2 47.1 H ABG pO2 86.4 ABG PO2/FiO2 Ratio 2.47 ABG HCO3 29.5 H ABG O2 Saturation 96.6 ABG O2 Content 17.4 ABG Base Excess 4.2 A-a Gradient 108.4 Oxyhemoglobin 96.1 Carboxyhemoglobin 0.7 Methemoglobin 0.1 Reduced Hemoglobin 3.1 Total Hemoglobin 12.8 O2 Delivery Device Ventilator O2 Liters/Min 0.0 Minute Volume Not Reportable Vent Rate 16 Vent Mode Cmv FiO2 35 Tidal Volume 400 PEEP 5 Peak Inspir Pressure Not Reportable Pressure Support 0 Sodium Potassium Chloride Carbon Dioxide Anion Gap BUN Creatinine Estim Creat Clear Calc Estimated GFR Glucose POC Capillary Glucose 120 H 115 H Calcium Phosphorus Magnesium Total Bilirubin AST ALT Alkaline Phosphatase Total Protein Albumin 03/11/25 03/11/25 03/11/25 00:08 05:00 05:30 WBC 10.7 H RBC 4.01 L Hgb 12.3 L Hct 40.2 L MCV 100.2 H MCH 30.7 MCHC 30.6 L RDW 13.5 Plt Count 193 MPV 10.3 Immature Gran % (Auto) 0.6 H Neut % (Auto) 68.4 Lymph % (Auto) 17.7 L [place] % (Auto) 12.5 H Eos % (Auto) 0.7 Baso % (Auto) 0.1 L Lymph # (Auto) 1.89 [place] # (Auto) 1.3 H Eos # (Auto) 0.1 Baso # (Auto) 0.0 Abs Immat Gran (auto) 0.06 H Absolute Neuts (auto) 7.3 H Absolute Nucleated RBC 0.000 Nucleated RBC % 0.0 Puncture Site Right radial ABG pH 7.497 H ABG pCO2 42.0 ABG pO2 66.8 L ABG PO2/FiO2 Ratio 2.23 ABG HCO3 31.8 H ABG O2 Saturation 94.6 L ABG O2 Content 18.0 ABG Base Excess 7.8 A-a Gradient 97.8 Oxyhemoglobin 93.6 Carboxyhemoglobin 0.9 Methemoglobin 0.0 Reduced Hemoglobin 5.5 H Total Hemoglobin 13.7 O2 Delivery Device Ventilator O2 Liters/Min Not Reportable Minute Volume Not Reportable Vent Rate 16 Vent Mode Cmv FiO2 30 Tidal Volume 400 PEEP 5 Peak Inspir Pressure Not Reportable Pressure Support Not Reportable Sodium 136 L Potassium 4.0 Chloride 99 Carbon Dioxide 35 H Anion Gap 2 L BUN 31 H Creatinine 0.79 Estim Creat Clear Calc 76 Estimated GFR > 60 Glucose 101 POC Capillary Glucose 127 H Calcium 9.4 Phosphorus 2.7 Magnesium 2.0 Total Bilirubin 0.5 AST 40 ALT 53 H Alkaline Phosphatase 45 Total Protein 5.7 L Albumin 3.3 L Quality VTE Prophylaxis VTE prophylaxis: pharmacologic ordered
--- NOTE | 2025-03-11 10:03 | P.SEDATION_ITS ---
Moderate Sedation Note-Pt Data Patient Data Allergies Allergy/AdvReac Type Severity Reaction Status Date / Time morphine Allergy Intermediate Swelling Verified 03/06/25 22:06 Home Medications ?Medication ?Instructions ?Recorded ?Confirmed ?Type albuterol sulfate 2.5 mg/3 mL 2.5 mg inhalation Q4-6H PRN 05/19/21 03/07/25 History (0.083 %) solution for nebulization shortness of breath or wheezing multivitamin 1 tablet PO DAILY 05/19/21 03/07/25 History albuterol sulfate 90 mcg/actuation 2 inh inhalation Q4H PRN shortness 02/04/25 03/07/25 Rx aerosol inhaler (Ventolin HFA) of breath or wheezing #8.5 grams fluticasone fur. 100 mcg-umeclid 1 inh inhalation DAILY #60 ea 02/04/25 03/07/25 Rx 62.5 mcg-vilant 25 mcg inhalat.powder (Trelegy Ellipta) Current Medications: Active Medications Albuterol/Ipratropium (Ipratropium 0.5 Mg/Albuterol Sulfate 2.5 Mg Ampul.Neb 3 Ml) 3 ml INHALATION Q6HRT PRN PRN Reason: Wheezing Last Admin: 03/10/25 08:04 Dose: 3 ml Aspirin (Aspirin 81 Mg Chewable Tablet) 81 mg PO DAILY@0800 [facility] Last Admin: 03/11/25 07:53 Dose: 81 mg Dextrose (Dextrose 50% 25 Gm/50 Ml Syringe) 12.5 gm IV PUSH PRN PRN; Protocol PRN Reason: Hypoglycemia Enoxaparin Sodium (Enoxaparin 40 Mg/0.4 Ml Syringe) 40 mg SUB-Q DAILY [facility] Last Admin: 03/11/25 09:16 Dose: Not Given Glucagon (Glucagon For Inj 1 Mg Vial) 1 mg IM PRN PRN; Protocol PRN Reason: Hypoglycemia Glucose (Glucose Oral Gel 15 Gm Of Glucse In 37.5 Gm Tube) 15 gm PO PRN PRN; Protocol PRN Reason: Hypoglycemia Dextrose (Dextrose 5% 1,000 Ml) 1,000 mls @ 100 mls/hr IVPB PRN PRN; Protocol PRN Reason: Hypoglycemia Ceftriaxone Sodium 2 gm/ (Sodium Chloride) 100 mls @ 200 mls/hr IVPB Q24H [facility] Stop: 03/12/25 12:29 Last Infusion: 03/10/25 13:02 Dose: Infused Fentanyl Citrate (Fentanyl 2,500 Mcg/Ns 250 Ml) 2,500 mcg in 250 mls @ 2.5 mls/hr IV CONT .Q72H [facility]; Protocol Last Titration: 03/11/25 06:00 Dose: 25 mcg/hr, 2.5 mls/hr Dexmedetomidine HCl (Precedex 400 Mcg/100 Ml) 400 mcg in 100 mls @ 11.69 mls/hr IV CONT .Q8H34M [facility]; Protocol Last Admin: 03/11/25 07:24 Dose: 0.7 mcg/kg/hr, 11.69 mls/hr Norepinephrine Bitartrate (Levophed 8 Mg/D5w 250 Ml) 8 mg in 250 mls @ 9.375 mls/hr IV CONT .Q24H [facility]; Protocol Midazolam HCl (Midazolam Hcl (*Crx) 2 Mg/2 Ml Vial) 2 mg IV PUSH Q1H PRN PRN Reason: Sedation Multi-Ingred Cream/Lotion/Oil/Oint (Mineral Oil/White Petrolatum Ointment) 1 applic EACH EYE Q12HR [facility] Last Admin: 03/11/25 07:54 Dose: 1 applic Pantoprazole Sodium (Pantoprazole Sodium Iv 40 Mg Vial) 40 mg IV PUSH QAM [facility] Last Admin: 03/11/25 07:53 Dose: 40 mg Prednisone (Prednisone 20 Mg Tablet) 20 mg PO DAILY@0800 [facility] Stop: 03/14/25 08:01 Sodium Chloride (Central Line Flush) 10 ml IV PUSH Q8HR [facility] Last Admin: 03/11/25 06:18 Dose: 10 ml Sodium Chloride (Central Line Flush) 10 ml IV PUSH PRN PRN PRN Reason: with TPN bag changes Sodium Chloride (Central Line Flush) 20 ml IV PUSH PRN PRN PRN Reason: after blood draws Last Admin: 03/10/25 04:45 Dose: 20 ml Sedation/Anesthesia: No previous sedation/anesthesia problems (including family history). [facility] Past Medical History Medical History Chronic respiratory failure with hypoxia Surgical History Surgical History History of ankle surgery (~1976) Right Family History Family History Mother Bone cancer Father Lung cancer Sibling Bone cancer Sibling Liver cancer Social History Social History Smoking packs per day: 0.5 Smoking cigarettes per day: 10.0 Years smoked: 10 Smoking pack-years: 5.00 Smoking status: Former smoker Tobacco type: cigarettes Second hand tobacco smoke exposure: No Smoking end date: 08/22/17 Alcohol intake: current Alcohol use details: Socially Substance use: never Substance use type: does not use Last use: Social drinker Do You Feel Safe in your Home?: Yes Lack of Transportation: No Lack of Food: Never True Current Housing: I Have Housing Concerned About Future Housing: No Difficulty Paying Gas/Electric Bills: No Difficulty Paying for Meds: YES Currently Unemployed: No Education: Decline to Answer Difficulty w/ Childcare or Family Care: No Living arrangements: alone Occupation/Education: occupation Gender identity (if verbalized by the patient): Male Spiritual care concerns: No Mod Sed Physical Exam Physical Exam Pre Procedural Exam: Normal: Heart Size, Heart Rate and Heart Rhythm and Variation: Airway (intubated) and Lungs (intubated) Hours since solid foods: 12 Hours since liquid intake: 12 Mallampati Classification: class II Internal Medicine - PN: Obj Da Vital Signs Vital Signs: Vital Signs - 24 hr 03/10/25 10:39 03/10/25 10:40 03/10/25 10:49 Temperature Pulse Rate 103 H 103 H Respiratory Rate 16 Blood Pressure Pulse Oximetry 100 Oxygen Delivery Mechanical Ventilation Fraction of Inspired Oxygen 35 35 03/10/25 10:49 03/10/25 11:00 03/10/25 11:15 Temperature Pulse Rate 120 H 100 81 Respiratory Rate 16 Blood Pressure 49/39 L 62/51 L Pulse Oximetry Oxygen Delivery Fraction of Inspired Oxygen 03/10/25 11:23 03/10/25 11:24 03/10/25 11:30 Temperature Pulse Rate 69 67 62 Respiratory Rate 16 Blood Pressure 66/54 L 67/57 L Pulse Oximetry Oxygen Delivery Fraction of Inspired Oxygen 03/10/25 11:47 03/10/25 12:00 03/10/25 12:00 Temperature 37.1 C Pulse Rate 54 L 57 L Respiratory Rate 16 Blood Pressure 134/84 129/83 Pulse Oximetry 98 Oxygen Delivery Fraction of Inspired Oxygen 35 03/10/25 12:00 03/10/25 12:00 03/10/25 12:30 Temperature Pulse Rate 64 56 L Respiratory Rate 16 Blood Pressure Pulse Oximetry 98 Oxygen Delivery Mechanical Ventilation Fraction of Inspired Oxygen 35 03/10/25 12:36 03/10/25 13:00 03/10/25 13:00 Temperature Pulse Rate 68 58 L 70 Respiratory Rate 16 Blood Pressure 141/88 H 133/84 Pulse Oximetry Oxygen Delivery Fraction of Inspired Oxygen 03/10/25 13:21 03/10/25 14:00 03/10/25 14:00 Temperature 37.6 C H Pulse Rate 74 70 66 Respiratory Rate 16 Blood Pressure 136/85 92/69 L Pulse Oximetry 97 Oxygen Delivery Fraction of Inspired Oxygen 03/10/25 14:00 03/10/25 14:07 03/10/25 14:30 Temperature Pulse Rate 63 84 65 Respiratory Rate 16 16 Blood Pressure Pulse Oximetry 97 Oxygen Delivery Mechanical Ventilation Fraction of Inspired Oxygen 35 03/10/25 15:00 03/10/25 16:00 03/10/25 16:00 Temperature Pulse Rate 63 61 60 Respiratory Rate 16 16 Blood Pressure 92/68 L Pulse Oximetry Oxygen Delivery Fraction of Inspired Oxygen 03/10/25 16:00 03/10/25 16:00 03/10/25 16:00 Temperature 37.6 C Pulse Rate 65 Respiratory Rate 16 Blood Pressure 99/70 L Pulse Oximetry 98 98 Oxygen Delivery Mechanical Ventilation Fraction of Inspired Oxygen 35 35 03/10/25 16:00 03/10/25 16:54 03/10/25 17:00 Temperature Pulse Rate 59 L 16 L 81 Respiratory Rate Blood Pressure 97/71 L Pulse Oximetry 99 Oxygen Delivery Mechanical Ventilation Fraction of Inspired Oxygen 30 03/10/25 17:59 03/10/25 17:59 03/10/25 18:00 Temperature Pulse Rate 57 L 57 L 57 L Respiratory Rate 16 16 16 Blood Pressure Pulse Oximetry Oxygen Delivery Fraction of Inspired Oxygen 03/10/25 18:00 03/10/25 18:00 03/10/25 19:00 Temperature 37.4 C Pulse Rate 56 L 56 L 58 L Respiratory Rate 16 Blood Pressure 97/69 L 97/67 L Pulse Oximetry 97 Oxygen Delivery Fraction of Inspired Oxygen 03/10/25 19:00 03/10/25 19:00 03/10/25 19:20 Temperature Pulse Rate 62 61 Respiratory Rate 18 18 Blood Pressure Pulse Oximetry Oxygen Delivery Fraction of Inspired Oxygen 30 03/10/25 19:49 03/10/25 20:00 03/10/25 20:00 Temperature Pulse Rate 55 L 55 L 55 L Respiratory Rate 16 16 16 Blood Pressure Pulse Oximetry 97 Oxygen Delivery Mechanical Ventilation Fraction of Inspired Oxygen 30 03/10/25 20:00 03/10/25 20:00 03/10/25 20:00 Temperature 37.5 C Pulse Rate 55 L 55 L 54 L Respiratory Rate 16 Blood Pressure 115/75 115/75 Pulse Oximetry 97 Oxygen Delivery Fraction of Inspired Oxygen 03/10/25 20:45 03/10/25 22:00 03/10/25 22:00 Temperature 37.6 C H Pulse Rate 62 55 L 55 L Respiratory Rate 16 Blood Pressure 121/81 Pulse Oximetry 97 97 Oxygen Delivery Mechanical Ventilation Fraction of Inspired Oxygen 30 03/10/25 22:00 03/10/25 22:00 03/10/25 22:00 Temperature Pulse Rate 55 L 55 L 55 L Respiratory Rate 16 16 Blood Pressure 121/81 Pulse Oximetry Oxygen Delivery Fraction of Inspired Oxygen 03/10/25 23:25 03/10/25 23:29 03/10/25 23:33 Temperature Pulse Rate 53 L 54 L Respiratory Rate 16 Blood Pressure Pulse Oximetry 96 96 Oxygen Delivery Mechanical Ventilation Mechanical Ventilation Fraction of Inspired Oxygen 30 30 30 03/11/25 00:00 03/11/25 00:00 03/11/25 00:01 Temperature 37.7 C H Pulse Rate 54 L 54 L 55 L Respiratory Rate 16 16 Blood Pressure 126/83 Pulse Oximetry 96 Oxygen Delivery Fraction of Inspired Oxygen 03/11/25 00:01 03/11/25 00:31 03/11/25 00:31 Temperature Pulse Rate 55 L 56 L 56 L Respiratory Rate 16 16 16 Blood Pressure Pulse Oximetry Oxygen Delivery Fraction of Inspired Oxygen 03/11/25 01:31 03/11/25 02:00 03/11/25 02:00 Temperature 37.7 C H Pulse Rate 56 L 56 L 55 L Respiratory Rate 16 16 Blood Pressure 111/77 Pulse Oximetry 96 Oxygen Delivery Fraction of Inspired Oxygen 03/11/25 02:00 03/11/25 02:00 03/11/25 02:13 Temperature Pulse Rate 56 L 56 L 55 L Respiratory Rate 16 16 Blood Pressure Pulse Oximetry 96 Oxygen Delivery Mechanical Ventilation Fraction of Inspired Oxygen 30 03/11/25 03:39 03/11/25 03:45 03/11/25 04:00 Temperature Pulse Rate 57 L 57 L Respiratory Rate 16 Blood Pressure Pulse Oximetry 97 Oxygen Delivery Mechanical Ventilation Fraction of Inspired Oxygen 30 30 03/11/25 04:00 03/11/25 04:00 03/11/25 04:00 Temperature 37.7 C H Pulse Rate 57 L 58 L 58 L Respiratory Rate 16 16 16 Blood Pressure 106/76 Pulse Oximetry 97 Oxygen Delivery Fraction of Inspired Oxygen 03/11/25 05:00 03/11/25 05:30 03/11/25 05:40 Temperature Pulse Rate 58 L 60 58 L Respiratory Rate 16 Blood Pressure 100/74 Pulse Oximetry 97 Oxygen Delivery Mechanical Ventilation Fraction of Inspired Oxygen 30 03/11/25 06:00 03/11/25 06:00 03/11/25 06:00 Temperature 37.7 C H Pulse Rate 60 60 60 Respiratory Rate 16 16 Blood Pressure 80/62 L Pulse Oximetry 98 Oxygen Delivery Fraction of Inspired Oxygen 03/11/25 06:00 03/11/25 06:15 03/11/25 06:30 Temperature Pulse Rate 60 60 60 Respiratory Rate 16 Blood Pressure 80/59 L 80/56 L Pulse Oximetry Oxygen Delivery Fraction of Inspired Oxygen 03/11/25 07:15 03/11/25 07:24 03/11/25 07:24 Temperature Pulse Rate 57 L 57 L Respiratory Rate 16 16 Blood Pressure 98/69 L Pulse Oximetry Oxygen Delivery Fraction of Inspired Oxygen 03/11/25 07:30 03/11/25 08:00 03/11/25 08:00 Temperature Pulse Rate Respiratory Rate Blood Pressure 88/66 L Pulse Oximetry 98 Oxygen Delivery Mechanical Ventilation Fraction of Inspired Oxygen 30 30 03/11/25 08:00 03/11/25 08:00 03/11/25 08:50 Temperature 37.6 C Pulse Rate 56 L 56 L 57 L Respiratory Rate 16 Blood Pressure 87/66 L Pulse Oximetry 97 99 Oxygen Delivery Mechanical Ventilation Fraction of Inspired Oxygen 35 03/11/25 09:00 03/11/25 09:16 03/11/25 09:30 Temperature Pulse Rate Respiratory Rate Blood Pressure 76/56 L 94/69 L 104/80 Pulse Oximetry Oxygen Delivery Fraction of Inspired Oxygen Intake/Output Intake/Output: Intake & Output 03/08/25 03/09/25 03/10/25 03/11/25 23:59 23:59 23:59 23:59 Intake Total 1766.5 1454.3 1389.9 629.3 Output Total 675 1000 1300 400 Balance 1091.5 454.3 89.9 229.3 Meds/Results Medications: Active Medications Generic Name Dose Route Start Last Admin Trade Name Freq PRN Reason Stop Dose Admin Albuterol/Ipratropium 3 ml 03/09/25 14:01 03/10/25 08:04 Ipratropium 0.5 Mg/Albuterol Sulfate 2.5 Mg Ampul.Neb 3 Ml INHALATION 3 ml Q6HRT PRN Administration Wheezing Aspirin 81 mg 03/08/25 08:00 03/11/25 07:53 Aspirin 81 Mg Chewable Tablet PO 81 mg DAILY@0800 [facility] Administration Dextrose 12.5 gm 03/07/25 11:20 Dextrose 50% 25 Gm/50 Ml Syringe IV PUSH PRN PRN Hypoglycemia Protocol Enoxaparin Sodium 40 mg 03/09/25 09:00 03/11/25 09:16 Enoxaparin 40 Mg/0.4 Ml Syringe SUB-Q Not Given DAILY [facility] Glucagon 1 mg 03/07/25 11:20 Glucagon For Inj 1 Mg Vial IM PRN PRN Hypoglycemia Protocol Glucose 15 gm 03/07/25 11:20 Glucose Oral Gel 15 Gm Of Glucse In 37.5 Gm Tube PO PRN PRN Hypoglycemia Protocol Dextrose 1,000 mls @ 100 mls/hr 03/07/25 11:20 Dextrose 5% 1,000 Ml IVPB PRN PRN Hypoglycemia Protocol Ceftriaxone Sodium 2 gm/ 100 mls @ 200 mls/hr 03/08/25 12:00 03/10/25 13:02 Sodium Chloride IVPB 03/12/25 12:29 Infused Q24H [facility] Infusion Fentanyl Citrate 2,500 mcg in 250 mls @ 2.5 mls/hr 03/10/25 10:35 03/11/25 06:00 Fentanyl 2,500 Mcg/Ns 250 Ml IV CONT 25 mcg/hr .Q72H [facility] 2.5 mls/hr Titration Protocol 25 MCG/HR Dexmedetomidine HCl 400 mcg in 100 mls @ 11.69 mls/hr 03/10/25 10:35 03/11/25 07:24 Precedex 400 Mcg/100 Ml IV CONT 0.7 mcg/kg/hr .Q8H34M [facility] 11.69 mls/hr Administration Protocol 0.7 MCG/KG/HR Norepinephrine Bitartrate 8 mg in 250 mls @ 9.375 mls/hr 03/11/25 09:15 Levophed 8 Mg/D5w 250 Ml IV CONT .Q24H [facility] Protocol 5 MCG/MIN Midazolam HCl 2 mg 03/10/25 10:58 Midazolam Hcl (*Crx) 2 Mg/2 Ml Vial IV PUSH Q1H PRN Sedation Multi-Ingred Cream/Lotion/Oil/Oint 1 applic 03/07/25 09:00 03/11/25 07:54 Mineral Oil/White Petrolatum Ointment EACH EYE 1 applic Q12HR [facility] Administration Pantoprazole Sodium 40 mg 03/08/25 09:00 03/11/25 07:53 Pantoprazole Sodium Iv 40 Mg Vial IV PUSH 40 mg QAM [facility] Administration Prednisone 20 mg 03/12/25 08:00 Prednisone 20 Mg Tablet PO 03/14/25 08:01 DAILY@0800 [facility] Sodium Chloride 10 ml 03/07/25 14:00 03/11/25 06:18 Central Line Flush IV PUSH 10 ml Q8HR [facility] Administration Sodium Chloride 10 ml 03/07/25 07:57 Central Line Flush IV PUSH PRN PRN with TPN bag changes Sodium Chloride 20 ml 03/07/25 07:57 03/10/25 04:45 Central Line Flush IV PUSH 20 ml PRN PRN Administration after blood draws Radiology Results: ITS Impressions Abdomen X-Ray 03/10/25 11:11 IMPRESSION: 1: OG tube tip in the stomach. Chest X-Ray 03/11/25 05:57 Impression: 1: Stable infiltrates right midlung which may represent atelectasis and/or pneumonia. Labs 03/11/25 05:00 03/11/25 05:00 Labs: Laboratory Results - last 24 hr 03/09/25 03/10/25 03/10/25 04:45 05:32 11:59 WBC RBC Hgb Hct MCV MCH MCHC RDW Plt Count MPV Immature Gran % (Auto) Neut % (Auto) Lymph % (Auto) [place] % (Auto) Eos % (Auto) Baso % (Auto) Lymph # (Auto) [place] # (Auto) Eos # (Auto) Baso # (Auto) Abs Immat Gran (auto) Absolute Neuts (auto) Absolute Nucleated RBC Nucleated RBC % Puncture Site Left radial ABG pH 7.415 ABG pCO2 47.1 H ABG pO2 86.4 ABG PO2/FiO2 Ratio 2.47 ABG HCO3 29.5 H ABG O2 Saturation 96.6 ABG O2 Content 17.4 ABG Base Excess 4.2 A-a Gradient 108.4 Oxyhemoglobin 96.1 Carboxyhemoglobin 0.7 Methemoglobin 0.1 Reduced Hemoglobin 3.1 Total Hemoglobin 12.8 O2 Delivery Device Ventilator O2 Liters/Min 0.0 Minute Volume Not Reportable Not Reportable Vent Rate 16 16 Vent Mode Cmv Not Reportable Cmv FiO2 35 Tidal Volume 400 Not Reportable 400 PEEP 5 Not Reportable 5 Peak Inspir Pressure Not Reportable Not Reportable Pressure Support Not Reportable 0 Sodium Potassium Chloride Carbon Dioxide Anion Gap BUN Creatinine Estim Creat Clear Calc Estimated GFR Glucose POC Capillary Glucose Calcium Phosphorus Magnesium Total Bilirubin AST ALT Alkaline Phosphatase Total Protein Albumin 03/10/25 03/10/25 03/11/25 12:30 17:29 00:08 WBC RBC Hgb Hct MCV MCH MCHC RDW Plt Count MPV Immature Gran % (Auto) Neut % (Auto) Lymph % (Auto) [place] % (Auto) Eos % (Auto) Baso % (Auto) Lymph # (Auto) [place] # (Auto) Eos # (Auto) Baso # (Auto) Abs Immat Gran (auto) Absolute Neuts (auto) Absolute Nucleated RBC Nucleated RBC % Puncture Site ABG pH ABG pCO2 ABG pO2 ABG PO2/FiO2 Ratio ABG HCO3 ABG O2 Saturation ABG O2 Content ABG Base Excess A-a Gradient Oxyhemoglobin Carboxyhemoglobin Methemoglobin Reduced Hemoglobin Total Hemoglobin O2 Delivery Device O2 Liters/Min Minute Volume Vent Rate Vent Mode FiO2 Tidal Volume PEEP Peak Inspir Pressure Pressure Support Sodium Potassium Chloride Carbon Dioxide Anion Gap BUN Creatinine Estim Creat Clear Calc Estimated GFR Glucose POC Capillary Glucose 120 H 115 H 127 H Calcium Phosphorus Magnesium Total Bilirubin AST ALT Alkaline Phosphatase Total Protein Albumin 03/11/25 03/11/25 05:00 05:30 WBC 10.7 H RBC 4.01 L Hgb 12.3 L Hct 40.2 L MCV 100.2 H MCH 30.7 MCHC 30.6 L RDW 13.5 Plt Count 193 MPV 10.3 Immature Gran % (Auto) 0.6 H Neut % (Auto) 68.4 Lymph % (Auto) 17.7 L [place] % (Auto) 12.5 H Eos % (Auto) 0.7 Baso % (Auto) 0.1 L Lymph # (Auto) 1.89 [place] # (Auto) 1.3 H Eos # (Auto) 0.1 Baso # (Auto) 0.0 Abs Immat Gran (auto) 0.06 H Absolute Neuts (auto) 7.3 H Absolute Nucleated RBC 0.000 Nucleated RBC % 0.0 Puncture Site Right radial ABG pH 7.497 H ABG pCO2 42.0 ABG pO2 66.8 L ABG PO2/FiO2 Ratio 2.23 ABG HCO3 31.8 H ABG O2 Saturation 94.6 L ABG O2 Content 18.0 ABG Base Excess 7.8 A-a Gradient 97.8 Oxyhemoglobin 93.6 Carboxyhemoglobin 0.9 Methemoglobin 0.0 Reduced Hemoglobin 5.5 H Total Hemoglobin 13.7 O2 Delivery Device Ventilator O2 Liters/Min Not Reportable Minute Volume Not Reportable Vent Rate 16 Vent Mode Cmv FiO2 30 Tidal Volume 400 PEEP 5 Peak Inspir Pressure Not Reportable Pressure Support Not Reportable Sodium 136 L Potassium 4.0 Chloride 99 Carbon Dioxide 35 H Anion Gap 2 L BUN 31 H Creatinine 0.79 Estim Creat Clear Calc 76 Estimated GFR > 60 Glucose 101 POC Capillary Glucose Calcium 9.4 Phosphorus 2.7 Magnesium 2.0 Total Bilirubin 0.5 AST 40 ALT 53 H Alkaline Phosphatase 45 Total Protein 5.7 L Albumin 3.3 L ASA Classification/Sedation ASA Classification/Sedation ASA Class: III Emergent: No Risks: Risks, benefits and alternatives explained and patient/family accepted plan for sedation. Patient re-evaluated immediately prior to sedation.
--- NOTE | 2025-03-11 10:03 | WPDHPUPDATE1 ---
History and Physical Update Update Date/Time: 03/11/25 09:03 History and Physical has been reviewed, including an updated exam of the patient. There are NO changes in the patient's condition. Risks, benefits, and alternatives have been discussed and questions answered. Patient agrees to proceed with procedure.
--- NOTE | 2025-03-11 11:03 | PCFNICU ---
ICU Rounding Note: Pt current nutrition is Vital 1.2 AF @ 40 ml/h goal rate ON HOLD for cardiac cath. Nutrition recommendation: After procedure, resume Vital AF 1.2 @ 40 ml/h and increase goal rate to 60 ml/h to better meet protein energy needs Last recorded weight is 66.5 kg. Bowel Motility: +1 03/10/25 Labs Reviewed:Hgb 12.3, Hct 40.2, Alb 3.3, Na 136, BUN 31 Meds Noted: Fentanyl, versed, protonix, precedex, levophed Skin: No skin issues Additional Notes: Pt was extubated and then re-intubated. Tube feeds on hold for cath today. When TF is resumed, increase goal to 60 ml/h to provide 1584 kcal, 99 g protein, 1070 ml free water (~90% EER) Following daily in ICU rounds. Monitoring orders, weights, labs, TF tolerance, output, plan of care, meds, vent settings Follow up Tuesday/Tuesday. Daily rounds.
[2025-03-11] MEDS: cefTRIAXone 2 GM in SODIUM CHLORIDE 0.9% IV 100 ML 200 ML IVPB (11:35)
--- NOTE | 2025-03-11 14:27 | P.PCNCC_ITS ---
Cardiac Cath Procedure Note Date of procedure:: 03/11/25 Performing physician:: CATHETERIZATION LABORATORY REPORT Procedure Date: 03/11/2025 Referring Physician: Dr. Llanes Anesthesia: Versed and Fentanyl were ordered and given in my presence at 1402, procedure ended at 1420. Supervision of nurse, Jillian Cruz monitored moderate sedation for 18 minutes. Patient came from ICU intubated and sedated on fentanyl 25mcg/hr and precedex 0.7mcg/kg/hr. The fentanyl was slowly uptitrated to 100mcg/hr over 15 minutes and slowly titrated back down to 25mcg/hr at the end of the case. Pre-op Diagnosis: Cardiomyopathy Post-op Diagnosis: Cardiomyopathy Procedure(s): Left heart catheterization with coronary angiography Access Site: Right common femoral artery Brief History and Clinical Indications: 64-year-old man who was at active tobacco abuser and COPD presented with shortness of breath at decompensated into hypoxic respiratory failure requiring ventilation found to have elevated troponin, ischemic EKG, and cardiomyopathy who was previously extubated and now reintubated for persistent and continual hypoxic respiratory failure is now here to define his coronary anatomy with possible PCI All risks, benefits and alternatives to left heart catheterization with or without percutaneous coronary intervention was discussed at length with the patient. Risk of complications including but not limited to bleeding, infection, arrhythmia, stroke, worsening kidney function, blood loss, groin hematoma, limb loss, emergency coronary artery bypass grafting, and even were discussed with the patient and all questions were answered. The patient understood and wished to proceed. Time out called, patient name, date of , medical record number, allergies, procedure performed, identify Nurse Administrator, patient and staff member concurred with accurate data, procedure carried on. Findings: LEFT HEART CATHETERIZATION FINDINGS: 1. Left main: The left main coronary artery is widely patent without any significant obstructive disease. 2. Left anterior descending: The LAD has 40-50% stenosis in its midbody. The remainder of the LAD and the diagonal branches are free of angiographic high- grade stenosis. 3. Left circumflex: The left circumflex artery provides 3 OM branches. OM1 has a focal 10-20% stenosis. The remainder of the system is free of angiographic stenosis. 4. Right coronary artery: The RCA is a large dominant vessel with diffuse 10% stenosis. 5. Left ventricle: A. End-diastolic pressure 20 mmHg. B. LV gram deferred. C. No significant gradient across aortic valve on catheter pullback. 6. Opening AO pressure 84/55 and closing AO pressure 107/66 7. Right iliofemoral angiogram: The visualized portions of the proximal SFA has 70% stenosis. The visualized portions of the right external iliac artery has diffuse 20-30% stenosis with possible wire bias. Description of Procedure: Informed consent signed and placed in the chart. Patient transferred to landscape laborer room. Prepped and draped in usual sterile fashion. 2% lidocaine in right groin area. Micropuncture needle used to access right common femoral artery with Seldinger technique under fluoroscopic guidance. J wire advanced, micropuncture cannula placed and exchanged for a 5F sheath. JL4 diagnostic catheter engaged Left Main Coronary Artery. JR4 diagnostic catheter engaged Right Coronary Artery. Multiple orthogonal angiogram obtained and reviewed JR4 diagnostic catheter crossed aortic valve to obtain LVEDP, LV angiogram deferred. Hemostasis was achieved by Angioseal Assessment: Moderate CAD Significant PAD Post Operative Condition: Stable No significant blood loss Disposition: ICU Plan: The patient will be monitored in the recovery area. Continue aspirin 81 mg p.o. daily and start atorvastatin 40 mg every evening Outpatient re-evaluation of his peripheral arterial disease. No further inpatient cardiac workup warranted at this time. Uri [facility] Interventional Cardiology
[2025-03-11] MEDS: SODIUM CHLORIDE 0.9% IV 500 ML 200 ML IV CONT (15:00)
--- NOTE | 2025-03-11 15:45 | P.PNIM_ITS ---
Progress Note: A&P Assessment and Plan (1) Acute respiratory failure with hypoxia and hypercapnia: Code(s): J96.01 - Acute respiratory failure with hypoxia; J96.02 - Acute respiratory failure with hypercapnia Status: Acute Assessment and Plan: Patient presented with respiratory distress, dyspnea, hypoxia with O2 sats in the 30s on 2-3 L oxygen at home, ABGs revealed hypercapnic respiratory failure, patient was initially placed on BiPAP ABGs did not show any improvement rather worsening in the CO2 - intubated after he came to the ICU on 03/07/2025 - 03/08 12/24 PSV weaning trial was tried the patient failed trial due to increased respiratory distress tachycardia and complaint of chest pain. PSV was increased to 15 and later it was aborted and patient was placed back on CMV -03/09 patient was extubated after a successful weaning trial. Patient has required BiPAP on p.r.n. basis and at night yesterday. Continue Change Solu-Medrol to p.o. prednisone taper had worsening breathing today. intubated again. 03/10/25 03/11/25 still Intubated (2) Septic shock: Code(s): A41.9 - Sepsis, unspecified organism; R65.21 - Severe sepsis with septic shock Status: Acute Assessment and Plan: Patient presented with hypoxia, tachypnea, tachycardia. She was found to be in COPD exacerbation -patient was hypotensive, requiring Costa-Synephrine through peripheral IV initially and a PICC line was inserted on 03/07 -Costa-Synephrine weaned off -03/06: Patient on ceftriaxone and doxycycline for the code -03/06: Blood cultures have been obtained and negative till now 03/10. WBC improving 11.7 B/C neg So far 03/11 WBC 10.7 (3) Chronic obstructive pulmonary disease: Code(s): J44.9 - Chronic obstructive pulmonary disease, unspecified Status: Acute Assessment and Plan: COPD exacerbation See above (4) Elevated troponin: Code(s): R79.89 - Other specified abnormal findings of blood chemistry Status: Acute Assessment and Plan: Elevated troponin along with EKG changes Cardiology on board Off of heparin infusion after 48 hours Continue aspirin 81 mg Echo Summary 1. The left ventricle is normal in size and systolic function. The left ventricular ejection fraction is visually estimated to be 50-55%. The anteroseptum on some off-axis views is hypokinetic. 2. The right ventricle is normal in size and systolic function. 3. There is a small size pericardial effusion with no echocardiographic evidence of cardiac tamponade. cardiac catheterization on 03/11: Moderate CAD Significant PAD. follow up as outpatient for PAD (5) Acute kidney injury: Code(s): N17.9 - Acute kidney failure, unspecified Status: Acute Assessment and Plan: Patient presented with creatinine 1.44 on admission (unknown baseline) - adequately fluid-resuscitated and creatinine is normalized -monitor urine output, renal function and electrolytes (6) IV infiltration: Code(s): T80.1XXA - Vascular complications following infusion, transfusion and ther apeutic injection, initial encounter Status: Acute Assessment and Plan: Patient was on Costa-Synephrine through a peripheral access which infiltrated overnight Patient was givent phentolamine/Regitine around the site of infiltration -continue to monitor (7) Electrolyte abnormality: Code(s): E87.8 - Other disorders of electrolyte and fluid balance, not elsewhere classified Status: Acute Assessment and Plan: Potassium improved after placement Plan DVT prophylaxis: Lovenox Stress ulcer prophylaxis: Protonix Nutrition: npo while intubated Remove Bennett catheter Code Status: Full code Subjective Date/time seen: 03/11/25 15:45 Interval history: Patient was seen and examined at bedside. he has been intubated this morning. he is awake . following commands. was able to write for me as he is ok. denies any chest pain, abd pain 03/11/25 Patient was seen and examined at bedside. he is intubated but awake. denies chest pain, abd pain, breathing is ok. underwent cardiac cath: Moderate CAD, Significant PAD. follow up as outpatient for PAD Review of Systems Review of Systems: All systems reviewed & are unremarkable except as noted in HPI and below (HPI) ROS unobtainable: Yes unobtainable due to endotracheal tube and unobtainable due to medical condition Exam Narrative: General: Obvious alert awake, intubated HEENT:? Pupils equal and reactive, sclera is clear, Neck:? Supple Respiratory:? Overall decreased air entry bilaterally, occasional wheezing bilaterallys Cardiac:? S1-S2 is normal, sinus tachycardia Abdomen:? Soft, nontender, nondistended, hypoactive bowel sounds Extremities:? No edema, palpable pedal pulses, left upper extremity IV infiltration site with redness on the forearm Neuro:? Awake alert follows commands all 4 extremities Skin:? No lesions noted Psych:? intubated Const: Other: Tachypnea, otherwise comfortable Eyes: Pupils: Equal, round and reactive pupils present Neck: Neck: supple Resp: Effort & Inspection: normal respiratory effort Other: Bibasilar crackles Cardio: Rate: tachycardic Rhythm: regular rhythm Heart sounds: no gallops, no murmurs and no rubs GI: Inspection: non-distended : General: Yes bladder normal to palpation Neuro: Cranial nerves: Yes Equal, round and reactive pupils present Motor exam (neuro): 5/5 motor strength present throughout Extrem: General: no edema Objective Data Vital Signs Vital Signs: Vital Signs - 24 hr 03/10/25 16:00 03/10/25 16:00 03/10/25 16:00 Temperature 99.6 F Pulse Rate 61 60 65 Respiratory Rate 16 16 16 Blood Pressure 99/70 L Pulse Oximetry 98 Oxygen Delivery Fraction of Inspired Oxygen 03/10/25 16:00 03/10/25 16:00 03/10/25 16:00 Temperature Pulse Rate 59 L Respiratory Rate Blood Pressure Pulse Oximetry 98 Oxygen Delivery Mechanical Ventilation Fraction of Inspired Oxygen 35 35 03/10/25 16:54 03/10/25 17:00 03/10/25 17:59 Temperature Pulse Rate 16 L 81 57 L Respiratory Rate 16 Blood Pressure 97/71 L Pulse Oximetry 99 Oxygen Delivery Mechanical Ventilation Fraction of Inspired Oxygen 30 03/10/25 17:59 03/10/25 18:00 03/10/25 18:00 Temperature 99.4 F Pulse Rate 57 L 57 L 56 L Respiratory Rate 16 16 16 Blood Pressure 97/69 L Pulse Oximetry 97 Oxygen Delivery Fraction of Inspired Oxygen 03/10/25 18:00 03/10/25 19:00 03/10/25 19:00 Temperature Pulse Rate 56 L 58 L 62 Respiratory Rate 18 Blood Pressure 97/67 L Pulse Oximetry Oxygen Delivery Fraction of Inspired Oxygen 03/10/25 19:00 03/10/25 19:20 03/10/25 19:49 Temperature Pulse Rate 61 55 L Respiratory Rate 18 16 Blood Pressure Pulse Oximetry 97 Oxygen Delivery Mechanical Ventilation Fraction of Inspired Oxygen 30 30 03/10/25 20:00 03/10/25 20:00 03/10/25 20:00 Temperature Pulse Rate 55 L 55 L 55 L Respiratory Rate 16 16 Blood Pressure 115/75 Pulse Oximetry Oxygen Delivery Fraction of Inspired Oxygen 03/10/25 20:00 03/10/25 20:00 03/10/25 20:45 Temperature 99.5 F Pulse Rate 55 L 54 L 62 Respiratory Rate 16 Blood Pressure 115/75 Pulse Oximetry 97 97 Oxygen Delivery Mechanical Ventilation Fraction of Inspired Oxygen 30 03/10/25 22:00 03/10/25 22:00 03/10/25 22:00 Temperature 99.7 F H Pulse Rate 55 L 55 L 55 L Respiratory Rate 16 16 Blood Pressure 121/81 Pulse Oximetry 97 Oxygen Delivery Fraction of Inspired Oxygen 03/10/25 22:00 03/10/25 22:00 03/10/25 23:25 Temperature Pulse Rate 55 L 55 L 53 L Respiratory Rate 16 Blood Pressure 121/81 Pulse Oximetry 96 Oxygen Delivery Mechanical Ventilation Fraction of Inspired Oxygen 30 03/10/25 23:29 03/10/25 23:33 03/11/25 00:00 Temperature 99.9 F H Pulse Rate 54 L 54 L Respiratory Rate 16 16 Blood Pressure 126/83 Pulse Oximetry 96 96 Oxygen Delivery Mechanical Ventilation Fraction of Inspired Oxygen 30 30 03/11/25 00:00 03/11/25 00:01 03/11/25 00:01 Temperature Pulse Rate 54 L 55 L 55 L Respiratory Rate 16 16 Blood Pressure Pulse Oximetry Oxygen Delivery Fraction of Inspired Oxygen 03/11/25 00:31 03/11/25 00:31 03/11/25 01:31 Temperature Pulse Rate 56 L 56 L 56 L Respiratory Rate 16 16 16 Blood Pressure Pulse Oximetry Oxygen Delivery Fraction of Inspired Oxygen 03/11/25 02:00 03/11/25 02:00 03/11/25 02:00 Temperature 99.8 F H Pulse Rate 56 L 55 L 56 L Respiratory Rate 16 16 Blood Pressure 111/77 Pulse Oximetry 96 Oxygen Delivery Fraction of Inspired Oxygen 03/11/25 02:00 03/11/25 02:13 03/11/25 03:39 Temperature Pulse Rate 56 L 55 L 57 L Respiratory Rate 16 16 Blood Pressure Pulse Oximetry 96 97 Oxygen Delivery Mechanical Ventilation Mechanical Ventilation Fraction of Inspired Oxygen 30 30 03/11/25 03:45 03/11/25 04:00 03/11/25 04:00 Temperature 99.9 F H Pulse Rate 57 L 57 L Respiratory Rate 16 Blood Pressure 106/76 Pulse Oximetry 97 Oxygen Delivery Fraction of Inspired Oxygen 30 03/11/25 04:00 03/11/25 04:00 03/11/25 05:00 Temperature Pulse Rate 58 L 58 L 58 L Respiratory Rate 16 16 Blood Pressure 100/74 Pulse Oximetry Oxygen Delivery Fraction of Inspired Oxygen 03/11/25 05:30 03/11/25 05:40 03/11/25 06:00 Temperature 99.9 F H Pulse Rate 60 58 L 60 Respiratory Rate 16 16 Blood Pressure 80/62 L Pulse Oximetry 97 98 Oxygen Delivery Mechanical Ventilation Fraction of Inspired Oxygen 30 03/11/25 06:00 03/11/25 06:00 03/11/25 06:00 Temperature Pulse Rate 60 60 60 Respiratory Rate 16 16 Blood Pressure Pulse Oximetry Oxygen Delivery Fraction of Inspired Oxygen 03/11/25 06:15 03/11/25 06:30 03/11/25 07:15 Temperature Pulse Rate 60 60 Respiratory Rate Blood Pressure 80/59 L 80/56 L 98/69 L Pulse Oximetry Oxygen Delivery Fraction of Inspired Oxygen 03/11/25 07:24 03/11/25 07:24 03/11/25 07:30 Temperature Pulse Rate 57 L 57 L Respiratory Rate 16 16 Blood Pressure 88/66 L Pulse Oximetry Oxygen Delivery Fraction of Inspired Oxygen 03/11/25 08:00 03/11/25 08:00 03/11/25 08:00 Temperature Pulse Rate 56 L Respiratory Rate Blood Pressure Pulse Oximetry 98 Oxygen Delivery Mechanical Ventilation Fraction of Inspired Oxygen 30 30 03/11/25 08:00 03/11/25 08:00 03/11/25 08:00 Temperature 99.6 F Pulse Rate 56 L 56 L 56 L Respiratory Rate 16 16 16 Blood Pressure 87/66 L Pulse Oximetry 97 Oxygen Delivery Fraction of Inspired Oxygen 03/11/25 08:50 03/11/25 09:00 03/11/25 09:16 Temperature Pulse Rate 57 L Respiratory Rate Blood Pressure 76/56 L 94/69 L Pulse Oximetry 99 Oxygen Delivery Mechanical Ventilation Fraction of Inspired Oxygen 35 03/11/25 09:30 03/11/25 10:00 03/11/25 10:00 Temperature Pulse Rate 68 77 Respiratory Rate 14 Blood Pressure 104/80 Pulse Oximetry Oxygen Delivery Fraction of Inspired Oxygen 03/11/25 10:00 03/11/25 10:00 03/11/25 11:03 Temperature 98.8 F Pulse Rate 77 77 65 Respiratory Rate 14 14 Blood Pressure 101/81 Pulse Oximetry 96 96 Oxygen Delivery Mechanical Ventilation Fraction of Inspired Oxygen 35 03/11/25 12:00 03/11/25 12:00 03/11/25 12:00 Temperature Pulse Rate 63 63 Respiratory Rate 17 17 Blood Pressure Pulse Oximetry 99 Oxygen Delivery Mechanical Ventilation Fraction of Inspired Oxygen 5 03/11/25 12:00 03/11/25 12:00 03/11/25 12:00 Temperature 98.5 F Pulse Rate 59 L 62 Respiratory Rate 15 Blood Pressure 97/70 L Pulse Oximetry 97 Oxygen Delivery Fraction of Inspired Oxygen 35 03/11/25 14:40 03/11/25 14:55 03/11/25 14:56 Temperature 97.8 F Pulse Rate 56 L 49 L 50 L Respiratory Rate 14 Blood Pressure 104/81 Pulse Oximetry 100 100 Oxygen Delivery Mechanical Ventilation Fraction of Inspired Oxygen 35 03/11/25 14:56 03/11/25 15:11 Temperature Pulse Rate 50 L 50 L Respiratory Rate 14 14 Blood Pressure 114/83 113/83 Pulse Oximetry 100 100 Oxygen Delivery Fraction of Inspired Oxygen Intake/Output Intake/Output: Intake & Output 03/08/25 03/09/25 03/10/25 03/11/25 23:59 23:59 23:59 23:59 Intake Total 1766.5 1454.3 1389.9 798.1 Output Total 675 1000 1300 600 Balance 1091.5 454.3 89.9 198.1 Meds/Results Medications: Active Medications Generic Name Dose Route Start Last Admin Trade Name Freq PRN Reason Stop Dose Admin Albuterol/Ipratropium 3 ml 03/09/25 14:01 03/10/25 08:04 Ipratropium 0.5 Mg/Albuterol Sulfate 2.5 Mg Ampul.Neb 3 Ml INHALATION 3 ml Q6HRT PRN Administration Wheezing Aspirin 81 mg 03/08/25 08:00 03/11/25 07:53 Aspirin 81 Mg Chewable Tablet PO 81 mg DAILY@0800 LIZY Administration Atorvastatin Calcium 40 mg 03/11/25 18:00 Atorvastatin 40 Mg Tablet PO EVENING LIZY Dextrose 12.5 gm 03/07/25 11:20 Dextrose 50% 25 Gm/50 Ml Syringe IV PUSH PRN PRN Hypoglycemia Protocol Enoxaparin Sodium 40 mg 03/09/25 09:00 03/11/25 09:16 Enoxaparin 40 Mg/0.4 Ml Syringe SUB-Q Not Given DAILY LIZY Glucagon 1 mg 03/07/25 11:20 Glucagon For Inj 1 Mg Vial IM PRN PRN Hypoglycemia Protocol Glucose 15 gm 03/07/25 11:20 Glucose Oral Gel 15 Gm Of Glucse In 37.5 Gm Tube PO PRN PRN Hypoglycemia Protocol Dextrose 1,000 mls @ 100 mls/hr 03/07/25 11:20 Dextrose 5% 1,000 Ml IVPB PRN PRN Hypoglycemia Protocol Ceftriaxone Sodium 2 gm/ 100 mls @ 200 mls/hr 03/08/25 12:00 03/11/25 12:12 Sodium Chloride IVPB 03/12/25 12:29 Infused Q24H LIZY Infusion Fentanyl Citrate 2,500 mcg in 250 mls @ 2.5 mls/hr 03/10/25 10:35 03/11/25 12:00 Fentanyl 2,500 Mcg/Ns 250 Ml IV CONT 25 mcg/hr .Q72H LIZY 2.5 mls/hr Titration Protocol 25 MCG/HR Dexmedetomidine HCl 400 mcg in 100 mls @ 11.69 mls/hr 03/10/25 10:35 03/11/25 12:00 Precedex 400 Mcg/100 Ml IV CONT 0.7 mcg/kg/hr .Q8H34M LIZY 11.69 mls/hr Titration Protocol 0.7 MCG/KG/HR Norepinephrine Bitartrate 8 mg in 250 mls @ 9.375 mls/hr 03/11/25 09:15 Levophed 8 Mg/D5w 250 Ml IV CONT .Q24H LIZY Protocol 5 MCG/MIN Sodium Chloride 500 mls @ 200 mls/hr 03/11/25 14:30 03/11/25 15:00 Normal Saline Iv IV CONT 03/11/25 16:59 200 mls/hr .Q2H30M ONE Administration Midazolam HCl 2 mg 03/10/25 10:58 Midazolam Hcl (*Crx) 2 Mg/2 Ml Vial IV PUSH Q1H PRN Sedation Multi-Ingred Cream/Lotion/Oil/Oint 1 applic 03/07/25 09:00 03/11/25 07:54 Mineral Oil/White Petrolatum Ointment EACH EYE 1 applic Q12HR LIZY Administration Pantoprazole Sodium 40 mg 03/08/25 09:00 03/11/25 07:53 Pantoprazole Sodium Iv 40 Mg Vial IV PUSH 40 mg QAM LIZY Administration Prednisone 20 mg 03/12/25 08:00 Prednisone 20 Mg Tablet PO 03/14/25 08:01 DAILY@0800 LIZY Sodium Chloride 10 ml 03/07/25 14:00 03/11/25 15:10 Central Line Flush IV PUSH 10 ml Q8HR LIZY Administration Sodium Chloride 10 ml 03/07/25 07:57 Central Line Flush IV PUSH PRN PRN with TPN bag changes Sodium Chloride 20 ml 03/07/25 07:57 03/10/25 04:45 Central Line Flush IV PUSH 20 ml PRN PRN Administration after blood draws Radiology Results: ITS Impressions Abdomen X-Ray 03/10/25 11:11 IMPRESSION: 1: OG tube tip in the stomach. Chest X-Ray 03/11/25 05:57 Impression: 1: Stable infiltrates right midlung which may represent atelectasis and/or pneumonia. Labs Labs: Laboratory Results - last 24 hr 03/09/25 03/10/25 03/10/25 04:45 05:32 17:29 WBC RBC Hgb Hct MCV MCH MCHC RDW Plt Count MPV Immature Gran % (Auto) Neut % (Auto) Lymph % (Auto) [place] % (Auto) Eos % (Auto) Baso % (Auto) Lymph # (Auto) [place] # (Auto) Eos # (Auto) Baso # (Auto) Abs Immat Gran (auto) Absolute Neuts (auto) Absolute Nucleated RBC Nucleated RBC % Puncture Site ABG pH ABG pCO2 ABG pO2 ABG PO2/FiO2 Ratio ABG HCO3 ABG O2 Saturation ABG O2 Content ABG Base Excess A-a Gradient Oxyhemoglobin Carboxyhemoglobin Methemoglobin Reduced Hemoglobin Total Hemoglobin O2 Delivery Device O2 Liters/Min Minute Volume Not Reportable Vent Rate 16 Vent Mode Cmv Not Reportable FiO2 Tidal Volume 400 Not Reportable PEEP 5 Not Reportable Peak Inspir Pressure Not Reportable Pressure Support Not Reportable Sodium Potassium Chloride Carbon Dioxide Anion Gap BUN Creatinine Estim Creat Clear Calc Estimated GFR Glucose POC Capillary Glucose 115 H Calcium Phosphorus Magnesium Total Bilirubin AST ALT Alkaline Phosphatase Total Protein Albumin 03/11/25 03/11/25 03/11/25 00:08 05:00 05:30 WBC 10.7 H RBC 4.01 L Hgb 12.3 L Hct 40.2 L MCV 100.2 H MCH 30.7 MCHC 30.6 L RDW 13.5 Plt Count 193 MPV 10.3 Immature Gran % (Auto) 0.6 H Neut % (Auto) 68.4 Lymph % (Auto) 17.7 L [place] % (Auto) 12.5 H Eos % (Auto) 0.7 Baso % (Auto) 0.1 L Lymph # (Auto) 1.89 [place] # (Auto) 1.3 H Eos # (Auto) 0.1 Baso # (Auto) 0.0 Abs Immat Gran (auto) 0.06 H Absolute Neuts (auto) 7.3 H Absolute Nucleated RBC 0.000 Nucleated RBC % 0.0 Puncture Site Right radial ABG pH 7.497 H ABG pCO2 42.0 ABG pO2 66.8 L ABG PO2/FiO2 Ratio 2.23 ABG HCO3 31.8 H ABG O2 Saturation 94.6 L ABG O2 Content 18.0 ABG Base Excess 7.8 A-a Gradient 97.8 Oxyhemoglobin 93.6 Carboxyhemoglobin 0.9 Methemoglobin 0.0 Reduced Hemoglobin 5.5 H Total Hemoglobin 13.7 O2 Delivery Device Ventilator O2 Liters/Min Not Reportable Minute Volume Not Reportable Vent Rate 16 Vent Mode Cmv FiO2 30 Tidal Volume 400 PEEP 5 Peak Inspir Pressure Not Reportable Pressure Support Not Reportable Sodium 136 L Potassium 4.0 Chloride 99 Carbon Dioxide 35 H Anion Gap 2 L BUN 31 H Creatinine 0.79 Estim Creat Clear Calc 76 Estimated GFR > 60 Glucose 101 POC Capillary Glucose 127 H Calcium 9.4 Phosphorus 2.7 Magnesium 2.0 Total Bilirubin 0.5 AST 40 ALT 53 H Alkaline Phosphatase 45 Total Protein 5.7 L Albumin 3.3 L 03/11/25 03/11/25 11:25 14:56 WBC RBC Hgb Hct MCV MCH MCHC RDW Plt Count MPV Immature Gran % (Auto) Neut % (Auto) Lymph % (Auto) [place] % (Auto) Eos % (Auto) Baso % (Auto) Lymph # (Auto) [place] # (Auto) Eos # (Auto) Baso # (Auto) Abs Immat Gran (auto) Absolute Neuts (auto) Absolute Nucleated RBC Nucleated RBC % Puncture Site ABG pH ABG pCO2 ABG pO2 ABG PO2/FiO2 Ratio ABG HCO3 ABG O2 Saturation ABG O2 Content ABG Base Excess A-a Gradient Oxyhemoglobin Carboxyhemoglobin Methemoglobin Reduced Hemoglobin Total Hemoglobin O2 Delivery Device O2 Liters/Min Minute Volume Vent Rate Vent Mode FiO2 Tidal Volume PEEP Peak Inspir Pressure Pressure Support Sodium Potassium Chloride Carbon Dioxide Anion Gap BUN Creatinine Estim Creat Clear Calc Estimated GFR Glucose POC Capillary Glucose 162 H 150 H Calcium Phosphorus Magnesium Total Bilirubin AST ALT Alkaline Phosphatase Total Protein Albumin Quality VTE Prophylaxis VTE prophylaxis: pharmacologic ordered
[2025-03-11] MEDS: ATORVASTATIN 40 MG TABLET PO (17:35)
[2025-03-11] MEDS: NOREPINEPHRINE 8 MG/D5W 250 ML 8 MG/250 ML BAG 9.38 MG IV CONT (22:09)
[2025-03-12] VITALS (41 sets, daily range): BP systolic 73–132; BP diastolic 53–114; PULSE 54–104; RESP 12–20; TEMP 37–37.5; O2SAT 93–100
[2025-03-12] MEDS: FENTANYL 2,500MCG/NS250ML(*CRX 2,500 MCG/250 ML BAG IV CONT (00:57)
[2025-03-12] MEDS: dexmedeTOMIDine 400 MCG/100 ML 400 MCG/100 ML BAG 10.02 MCG IV CONT (01:43)
[2025-03-12 04:28] LABS: Hematocrit 42.6 % (42.0-52.0); Hemoglobin 13.4 g/dL (14.0-18.0); Immature Granulocyte Percent A 0.9 % (0-0.5); Lymphocytes Absolute Auto 1.91 K/mm3 (0.9-3.2); Mean Corpuscular HGB Conc 31.5 g/dl (32-36); Mean Corpuscular Hemoglobin 30.7 pg (26-34); Mean Corpuscular Volume 97.5 fl (80-100); Nucleated Red Blood Cells Absolute Auto 0.000 K/mm3 (0.0-0.012); Nucleated Red Blood Cells Perc 0.0 % (0.0-0.2); Platelet Count Result 268 k/mm3 (150-375); Red Blood Count 4.37 M/mm3 (4.6-6.20); White Blood Count 18.3 K/mm3 (4.5-10.0)
[2025-03-12] MEDS: CENTRAL LINE FLUSH 10 ML IV PUSH ×3 (04:46→21:46)
[2025-03-12 04:53] LABS: Alanine Aminotransferase 43 U/L (6-50); Albumin Level 3.3 g/dL (3.5-5.1); Alkaline Phosphatase 47 U/L (38-126); Anion Gap 6 mmol/L (4-12); Aspartate Amino Transferase 33 U/L (17-59); Bilirubin,Total 0.5 mg/dL (0.2-1.3); Blood Urea Nitrogen 40 mg/dL (9-20); Calcium 9.4 mg/dL (8.4-10.2); Carbon Dioxide 32 mmol/L (22-30); Chloride 100 mmol/L (98-107); Estimated CRCL calculation 74 ml/min; Estimated Glomerular Filt Rate > 60; Glucose 234 mg/dL (65-110); Magnesium 2.0 mg/dL (1.6-2.3); Potassium 4.2 mmol/L (3.4-5.0); Sodium 138 mmol/L (137-145); Total Protein 5.8 g/dL (6.3-8.2)
[2025-03-12 05:07] LABS: Alveolar/Arterial O2 Gradient 118.2 mmHg; Fractional Inspired Oxygen 35 %; HCO3 ABG 31.8 mEq/l (22.0-26.0); Modified Allen's Test Pass; Oxygen Content ABG 20.1 %vol (16.0-22.0); Oxygen Saturation ABG 95.3 % (95.0-100.0); PCO2 ABG 48.6 mmHg (35.0-45.0); PO2 ABG 74.9 mmHg (80.0-100.0); PO2 FiO2 Ratio Arterial Blood 2.14 %; Site Drawn LEFT RADIAL
[2025-03-12 05:08] LABS: Arterial Blood Gas Tidal Volume 380 ml; Arterial Blood Gas Ventilator rate 14 /MIN
[2025-03-12] MEDS: PANTOPRAZOLE SODIUM IV 40 MG VIAL IV PUSH (08:36)
[2025-03-12] MEDS: ENOXAPARIN 40 MG/0.4 ML SYRINGE SUB-Q (08:36)
[2025-03-12] MEDS: MINERAL OIL/WHITE PETROLATUM OINTMENT 1 APPLIC EACH EYE (08:36)
[2025-03-12] MEDS: ASPIRIN 81 MG CHEWABLE TABLET PO (08:36)
--- NOTE | 2025-03-12 11:00 | PCNFU ---
Nutrition Follow-Up Complete: Increased protein energy needs related to mechanical ventilation as evidenced by need for tube feeding goal: Meet estimated nutrition needs Patient will continue current goal. Pt current nutrition is Vital AF 1.2 at 60 ml/hr. Last recorded weight is 65.7 kg, up from 60.2 kg Bowel Motility: Last reported BM 03/10 Labs Reviewed: Glu 234, Alb 3.3, BUN 40 Meds Noted: Precedex, Levophed, Fentanyl Skin: WNL Additional Notes: Patient remains on mechanical vent. Tube feedings are on hold for possible extubation today. If patient remains on tube feedings recommend Vital AF 1.2 at 60 ml/hr. Total Nutrition: 1584 kcal/99 gm protein/1070 ml water. Flush 30 ml q 4 hours. Agree with diet orders. Monitoring orders, weights, labs, TF tolerance, output, plan of care, meds, vent settings Follow up Tuesday/Tuesday. Daily rounds
[2025-03-12] MEDS: dexmedeTOMIDine 400 MCG/100 ML 400 MCG/100 ML BAG 8.35 MCG IV CONT (11:01)
--- NOTE | 2025-03-12 11:29 | WPDINTPN ---
Progress Note: A&P Assessment and Plan (1) Acute respiratory failure with hypoxia and hypercapnia: Code(s): J96.01 - Acute respiratory failure with hypoxia; J96.02 - Acute respiratory failure with hypercapnia Status: Acute Assessment and Plan: Patient presented with respiratory distress, dyspnea, hypoxia with O2 sats in the 30s on 2-3 L oxygen at home, family had to force the patient to come to the ED, in the ED he was immediately placed on BiPAP, given DuoNebs. ABGs revealed hypercapnic respiratory failure, patient was initially placed on BiPAP ABGs did not show any improvement rather worsening in the CO2 - intubated after he came to the ICU on 03/07/2025 - 03/08 12/24 PSV weaning trial was tried the patient failed trial due to increased respiratory distress tachycardia and complaint of chest pain. PSV was increased to 15 and later it was aborted and patient was placed back on CMV -03/09 patient was extubated after a successful weaning trial. Required BiPAP intermittently 03/10 Patient was placed on BiPAP in the morning due to increased work of breathing. As the day went patient became worse with increased respiratory distress tachypnea tachycardia. On exam patient was using accessory muscles with face red and diaphoretic. I spoke to patient and discussed option of re-intubation and placed eating back command mechanical ventilation. Patient agreed and provided verbal consent in the presence of patient's nurse. Patient was re intubated emergently without any complication. 03/12: Chest x-ray and ABGs reviewed this morning, placed on SBT, did very well on SBT for about 3 hours, successfully extubated to BiPAP Continue prednisone taper (end date 03/14/2025) -Will add Trelegy Ellipta which is his home inhaler -also continue DuoNeb (2) Septic shock: Code(s): A41.9 - Sepsis, unspecified organism; R65.21 - Severe sepsis with septic shock Status: Acute Assessment and Plan: Patient presented with hypoxia, tachypnea, tachycardia. She was found to be in COPD exacerbation -patient was hypotensive, requiring Costa-Synephrine through peripheral IV initially and a PICC line was inserted on 03/07 -on and off support for Levophed likely secondary to sedation. -03/06: Status post doxycycline and ceftriaxone -03/06: Blood cultures have been obtained and negative till now (3) Chronic obstructive pulmonary disease: Code(s): J44.9 - Chronic obstructive pulmonary disease, unspecified Status: Acute Assessment and Plan: COPD exacerbation See above (4) Elevated troponin: Code(s): R79.89 - Other specified abnormal findings of blood chemistry Status: Acute Assessment and Plan: Elevated troponin along with EKG changes Cardiology consult Off of heparin infusion after 48 hours Continue aspirin 81 mg Echo Summary 1. The left ventricle is normal in size and systolic function. The left ventricular ejection fraction is visually estimated to be 50-55%. The anteroseptum on some off-axis views is hypokinetic. 2. The right ventricle is normal in size and systolic function. 3. There is a small size pericardial effusion with no echocardiographic evidence of cardiac tamponade. 03/11/2025: Cardiac catheterization showed moderate CAD, significant P 80, continue aspirin, statin, outpatient evaluation of his peripheral arterial disease, no further inpatient cardiac workup at this time (5) Acute kidney injury: Code(s): N17.9 - Acute kidney failure, unspecified Status: Acute Assessment and Plan: Patient presented with creatinine 1.44 on admission (unknown baseline) - adequately fluid-resuscitated and creatinine is normalized -monitor urine output, renal function and electrolytes (6) Electrolyte abnormality: Code(s): E87.8 - Other disorders of electrolyte and fluid balance, not elsewhere classified Status: Acute Assessment and Plan: Potassium improved after replacement Plan DVT prophylaxis: Lovenox Stress ulcer prophylaxis: Protonix Nutrition: Tube feeds tube feeds on hold for possible extubation Code Status: Full code Critical Care Time Spent: 33 minutes Discussed with patient regarding extubation and if he fails, he wants to be Re-intubated. Due to a high probability of clinically significant, life threatening deterioration, the patient required my highest level of preparedness to intervene emergently and I personally spent this critical care time directly and personally managing the patient. This critical care time included obtaining a history; examining the patient; pulse oximetry; ordering and review of studies; arranging urgent treatment with development of a management plan; evaluation of patient's response to treatment; frequent reassessment; and discussions with other providers. It was exclusive of separately billable procedures and treating other patients and teaching time. Please see Assessment and Plan section and the rest of the note for further information on patient assessment and treatment This dictation may have been done utilizing a voice recognition system. Attempts have been made to correct errors. However, there may be uncorrected grammatical, spelling, and recognitions errors present. Subjective Date/time seen: 03/12/25 11:29 Interval history: Reason for consult: Shortness of breath, COPD exacerbation, requiring intubation and mechanical ventilator, suicidal ideation -03/07: Intubated 03/09: Extubated 03/10: Re-intubated 03/12/2020: Patient seen and examined the ICU, patient remains intubated on CMV mode of ventilation, peep of 5, 35% FiO2. Sedated with fentanyl and Precedex infusion, patient is awake, alert, follows simple commands and nods to questions. Urine output has been adequate, afebrile. Remains on Levophed 2 mcg/min. Review of Systems Review of Systems: ROS unobtainable: Yes unobtainable due to endotracheal tube and unobtainable due to medical condition Exam Narrative: General: Sedated intubated and in no distress HEENT:? Pupils equal and reactive, sclera is clear, Neck:? Supple Respiratory:? Improved air entry, decreased at bases, no wheezing, Cardiac:? S1-S2 is normal, normal sinus rhythm Abdomen:? Soft, nontender, nondistended, hypoactive bowel sounds Extremities:? No edema, palpable pedal pulses, left upper extremity IV infiltration site with redness on the forearm Neuro:? Intubated, on minimal sedation with fentanyl and Precedex infusion opens eyes and nodes head to questions and follows commands with all 4 extremities Skin:? No lesions noted Objective Data Vital Signs Vital Signs: Vital Signs - 24 hr 03/11/25 12:00 03/11/25 12:00 03/11/25 12:00 Temperature Pulse Rate 63 63 Respiratory Rate 17 17 Blood Pressure Pulse Oximetry 99 Oxygen Delivery Mechanical Ventilation Fraction of Inspired Oxygen 35 03/11/25 12:00 03/11/25 12:00 03/11/25 12:00 Temperature 98.5 F Pulse Rate 59 L 62 Respiratory Rate 15 Blood Pressure 97/70 L Pulse Oximetry 97 Oxygen Delivery Fraction of Inspired Oxygen 35 03/11/25 14:00 03/11/25 14:40 03/11/25 14:55 Temperature 97.8 F Pulse Rate 50 L 56 L 49 L Respiratory Rate 14 14 Blood Pressure 104/81 Pulse Oximetry 100 100 Oxygen Delivery Mechanical Ventilation Fraction of Inspired Oxygen 35 03/11/25 14:56 03/11/25 14:56 03/11/25 15:11 Temperature Pulse Rate 50 L 50 L 50 L Respiratory Rate 14 14 Blood Pressure 114/83 113/83 Pulse Oximetry 100 100 Oxygen Delivery Fraction of Inspired Oxygen 03/11/25 15:41 03/11/25 15:58 03/11/25 16:00 Temperature 97.9 F Pulse Rate 49 L 57 L Respiratory Rate 14 14 Blood Pressure 121/82 Pulse Oximetry 100 100 Oxygen Delivery Mechanical Ventilation Fraction of Inspired Oxygen 35 03/11/25 16:00 03/11/25 16:00 03/11/25 16:00 Temperature 97.8 F Pulse Rate 50 L 49 L Respiratory Rate 16 Blood Pressure 121/84 Pulse Oximetry 100 Oxygen Delivery Fraction of Inspired Oxygen 35 03/11/25 16:00 03/11/25 16:06 03/11/25 16:11 Temperature Pulse Rate 50 L 57 L 50 L Respiratory Rate 14 14 14 Blood Pressure 121/80 Pulse Oximetry 100 Oxygen Delivery Fraction of Inspired Oxygen 03/11/25 17:11 03/11/25 17:14 03/11/25 18:00 Temperature 97.7 F Pulse Rate 51 L 50 L 54 L Respiratory Rate 14 14 Blood Pressure 113/80 Pulse Oximetry 100 100 Oxygen Delivery Mechanical Ventilation Fraction of Inspired Oxygen 35 03/11/25 18:00 03/11/25 18:00 03/11/25 18:07 Temperature 97.8 F Pulse Rate 53 L 53 L 54 L Respiratory Rate 15 14 Blood Pressure 109/77 Pulse Oximetry 100 Oxygen Delivery Fraction of Inspired Oxygen 03/11/25 18:11 03/11/25 19:11 03/11/25 19:58 Temperature 97.8 F Pulse Rate 53 L 60 53 L Respiratory Rate 15 15 Blood Pressure 107/74 112/77 Pulse Oximetry 100 100 99 Oxygen Delivery Mechanical Ventilation Fraction of Inspired Oxygen 35 03/11/25 20:00 03/11/25 20:00 03/11/25 20:00 Temperature 97.7 F Pulse Rate 57 L Respiratory Rate 15 Blood Pressure 107/78 Pulse Oximetry 100 100 Oxygen Delivery Mechanical Ventilation Fraction of Inspired Oxygen 35 35 03/11/25 20:00 03/11/25 20:00 03/11/25 20:00 Temperature Pulse Rate 57 L 57 L 55 L Respiratory Rate 15 15 Blood Pressure Pulse Oximetry Oxygen Delivery Fraction of Inspired Oxygen 03/11/25 20:11 03/11/25 22:00 03/11/25 22:00 Temperature Pulse Rate 54 L 53 L 53 L Respiratory Rate 14 14 14 Blood Pressure 107/78 Pulse Oximetry 100 Oxygen Delivery Fraction of Inspired Oxygen 03/11/25 22:00 03/11/25 22:00 03/11/25 22:09 Temperature Pulse Rate 53 L 53 L 53 L Respiratory Rate 14 Blood Pressure 86/65 L 88/65 L Pulse Oximetry 100 Oxygen Delivery Fraction of Inspired Oxygen 03/11/25 22:15 03/11/25 22:55 03/12/25 00:00 Temperature Pulse Rate 47 L 50 L Respiratory Rate Blood Pressure 115/85 Pulse Oximetry 100 99 Oxygen Delivery Mechanical Ventilation Mechanical Ventilation Fraction of Inspired Oxygen 35 35 03/12/25 00:00 03/12/25 00:00 03/12/25 00:00 Temperature Pulse Rate 54 L 54 L 54 L Respiratory Rate 15 15 Blood Pressure 130/87 Pulse Oximetry Oxygen Delivery Fraction of Inspired Oxygen 03/12/25 00:00 03/12/25 00:00 03/12/25 00:00 Temperature 98.6 F Pulse Rate 60 54 L Respiratory Rate 15 Blood Pressure 130/87 Pulse Oximetry 99 Oxygen Delivery Fraction of Inspired Oxygen 35 03/12/25 00:57 03/12/25 00:57 03/12/25 00:58 Temperature Pulse Rate 59 L 59 L 57 L Respiratory Rate 16 16 Blood Pressure 113/79 Pulse Oximetry Oxygen Delivery Fraction of Inspired Oxygen 03/12/25 01:31 03/12/25 01:43 03/12/25 01:43 Temperature Pulse Rate 68 78 78 Respiratory Rate 14 14 Blood Pressure 73/53 L Pulse Oximetry Oxygen Delivery Fraction of Inspired Oxygen 03/12/25 01:52 03/12/25 02:00 03/12/25 02:00 Temperature Pulse Rate 61 63 63 Respiratory Rate 17 Blood Pressure 86/62 L Pulse Oximetry 100 Oxygen Delivery Mechanical Ventilation Fraction of Inspired Oxygen 35 03/12/25 02:00 03/12/25 02:00 03/12/25 02:00 Temperature Pulse Rate 63 63 63 Respiratory Rate 17 17 Blood Pressure 86/62 L Pulse Oximetry 99 Oxygen Delivery Fraction of Inspired Oxygen 03/12/25 02:04 03/12/25 04:00 03/12/25 04:00 Temperature Pulse Rate 64 70 70 Respiratory Rate 18 Blood Pressure 79/61 L 96/69 L Pulse Oximetry Oxygen Delivery Fraction of Inspired Oxygen 03/12/25 04:00 03/12/25 04:00 03/12/25 04:00 Temperature Pulse Rate 70 Respiratory Rate 18 Blood Pressure Pulse Oximetry 95 Oxygen Delivery Mechanical Ventilation Fraction of Inspired Oxygen 35 35 03/12/25 04:00 03/12/25 04:00 03/12/25 05:01 Temperature 99.0 F Pulse Rate 70 68 91 Respiratory Rate 18 Blood Pressure 96/69 L Pulse Oximetry 98 98 Oxygen Delivery Mechanical Ventilation Fraction of Inspired Oxygen 35 03/12/25 06:00 03/12/25 06:00 03/12/25 06:00 Temperature 98.8 F Pulse Rate 88 88 88 Respiratory Rate 20 20 Blood Pressure 95/70 L Pulse Oximetry 96 Oxygen Delivery Fraction of Inspired Oxygen 03/12/25 06:00 03/12/25 06:00 03/12/25 08:00 Temperature 99.0 F Pulse Rate 88 88 89 Respiratory Rate 20 20 Blood Pressure 95/70 L 108/78 Pulse Oximetry 97 Oxygen Delivery Fraction of Inspired Oxygen 03/12/25 08:00 03/12/25 08:00 03/12/25 08:00 Temperature Pulse Rate 89 89 89 Respiratory Rate 20 20 Blood Pressure 108/89 Pulse Oximetry Oxygen Delivery Fraction of Inspired Oxygen 03/12/25 08:30 03/12/25 08:35 03/12/25 10:00 Temperature 99.5 F Pulse Rate 95 86 Respiratory Rate 17 Blood Pressure 107/80 Pulse Oximetry 97 97 Oxygen Delivery Mechanical Ventilation Mechanical Ventilation Fraction of Inspired Oxygen 35 35 03/12/25 10:00 03/12/25 10:00 03/12/25 10:00 Temperature Pulse Rate 86 86 86 Respiratory Rate 17 17 Blood Pressure 107/80 Pulse Oximetry Oxygen Delivery Fraction of Inspired Oxygen 03/12/25 10:22 03/12/25 10:24 03/12/25 10:25 Temperature Pulse Rate 88 89 88 Respiratory Rate 15 16 Blood Pressure 110/85 Pulse Oximetry Oxygen Delivery Fraction of Inspired Oxygen 03/12/25 10:25 03/12/25 10:29 03/12/25 11:01 Temperature Pulse Rate 86 92 93 Respiratory Rate 16 Blood Pressure Pulse Oximetry 96 96 Oxygen Delivery Mechanical Ventilation Mechanical Ventilation Fraction of Inspired Oxygen 35 35 03/12/25 11:01 Temperature Pulse Rate 93 Respiratory Rate 16 Blood Pressure Pulse Oximetry Oxygen Delivery Fraction of Inspired Oxygen Intake/Output Intake/Output: Intake & Output 03/09/25 03/10/25 03/11/25 03/12/25 23:59 23:59 23:59 23:59 Intake Total 1454.3 1389.9 932.4 990.5 Output Total 1000 1300 950 400 Balance 454.3 89.9 -17.6 590.5 Meds/Results Medications: Active Medications Generic Name Dose Route Start Last Admin Trade Name Freq PRN Reason Stop Dose Admin Albuterol/Ipratropium 3 ml 03/09/25 14:01 03/10/25 08:04 Ipratropium 0.5 Mg/Albuterol Sulfate 2.5 Mg Ampul.Neb 3 Ml INHALATION 3 ml Q6HRT PRN Administration Wheezing Aspirin 81 mg 03/08/25 08:00 03/12/25 08:36 Aspirin 81 Mg Chewable Tablet PO 81 mg DAILY@0800 LIZY Administration Atorvastatin Calcium 40 mg 03/11/25 18:00 03/11/25 17:35 Atorvastatin 40 Mg Tablet PO 40 mg EVENING LIZY Administration Dextrose 12.5 gm 03/07/25 11:20 Dextrose 50% 25 Gm/50 Ml Syringe IV PUSH PRN PRN Hypoglycemia Protocol Enoxaparin Sodium 40 mg 03/09/25 09:00 03/12/25 08:36 Enoxaparin 40 Mg/0.4 Ml Syringe SUB-Q 40 mg DAILY LIZY Administration Glucagon 1 mg 03/07/25 11:20 Glucagon For Inj 1 Mg Vial IM PRN PRN Hypoglycemia Protocol Glucose 15 gm 03/07/25 11:20 Glucose Oral Gel 15 Gm Of Glucse In 37.5 Gm Tube PO PRN PRN Hypoglycemia Protocol Dextrose 1,000 mls @ 100 mls/hr 03/07/25 11:20 Dextrose 5% 1,000 Ml IVPB PRN PRN Hypoglycemia Protocol Ceftriaxone Sodium 2 gm/ 100 mls @ 200 mls/hr 03/08/25 12:00 03/11/25 12:12 Sodium Chloride IVPB 03/12/25 12:29 Infused Q24H LIZY Infusion Fentanyl Citrate 2,500 mcg in 250 mls @ 0 mls/hr 03/10/25 10:35 03/12/25 10:25 Fentanyl 2,500 Mcg/Ns 250 Ml IV CONT 0 mcg/hr .Q0M LIZY 0 mls/hr Titration Protocol 0 MCG/HR Dexmedetomidine HCl 400 mcg in 100 mls @ 8.35 mls/hr 03/10/25 10:35 03/12/25 11:01 Precedex 400 Mcg/100 Ml IV CONT 0.5 mcg/kg/hr .[id number] LIZY 8.35 mls/hr Administration Protocol 0.5 MCG/KG/HR Norepinephrine Bitartrate 8 mg in 250 mls @ 3.75 mls/hr 03/11/25 09:15 03/12/25 10:24 Levophed 8 Mg/D5w 250 Ml IV CONT 2 mcg/min .Q24H LIZY 3.75 mls/hr Titration Protocol 2 MCG/MIN Midazolam HCl 2 mg 03/10/25 10:58 Midazolam Hcl (*Crx) 2 Mg/2 Ml Vial IV PUSH Q1H PRN Sedation Multi-Ingred Cream/Lotion/Oil/Oint 1 applic 03/07/25 09:00 03/12/25 08:36 Mineral Oil/White Petrolatum Ointment EACH EYE 1 applic Q12HR LIZY Administration Pantoprazole Sodium 40 mg 03/08/25 09:00 03/12/25 08:36 Pantoprazole Sodium Iv 40 Mg Vial IV PUSH 40 mg QAM LIZY Administration Prednisone 20 mg 03/12/25 08:00 03/12/25 08:37 Prednisone 20 Mg Tablet PO 03/14/25 08:01 20 mg DAILY@0800 LIZY Administration Sodium Chloride 10 ml 03/07/25 14:00 03/12/25 04:46 Central Line Flush IV PUSH 10 ml Q8HR LIZY Administration Sodium Chloride 10 ml 03/07/25 07:57 Central Line Flush IV PUSH PRN PRN with TPN bag changes Sodium Chloride 20 ml 03/07/25 07:57 03/10/25 04:45 Central Line Flush IV PUSH 20 ml PRN PRN Administration after blood draws Radiology Results: ITS Impressions Abdomen X-Ray 03/10/25 11:11 IMPRESSION: 1: OG tube tip in the stomach. Chest X-Ray 03/12/25 05:32 Impression: 1: Bibasilar atelectasis/scarring. Labs Labs: Laboratory Results - last 24 hr 03/11/25 03/11/25 03/11/25 11:25 14:56 18:18 WBC RBC Hgb Hct MCV MCH MCHC RDW Plt Count MPV Immature Gran % (Auto) Neut % (Auto) Lymph % (Auto) Snyder % (Auto) Eos % (Auto) Baso % (Auto) Lymph # (Auto) Snyder # (Auto) Eos # (Auto) Baso # (Auto) Abs Immat Gran (auto) Absolute Neuts (auto) Absolute Nucleated RBC Nucleated RBC % Puncture Site ABG pH ABG pCO2 ABG pO2 ABG PO2/FiO2 Ratio ABG HCO3 ABG O2 Saturation ABG O2 Content ABG Base Excess A-a Gradient Oxyhemoglobin Total Hemoglobin O2 Delivery Device O2 Liters/Min Minute Volume Vent Rate Vent Mode FiO2 Tidal Volume PEEP Peak Inspir Pressure Pressure Support Sodium Potassium Chloride Carbon Dioxide Anion Gap BUN Creatinine Estim Creat Clear Calc Estimated GFR Glucose POC Capillary Glucose 162 H 150 H 138 H Calcium Phosphorus Magnesium Total Bilirubin AST ALT Alkaline Phosphatase Total Protein Albumin 03/12/25 03/12/25 03/12/25 00:27 04:22 04:53 WBC 18.3 H RBC 4.37 L Hgb 13.4 L Hct 42.6 MCV 97.5 MCH 30.7 MCHC 31.5 L RDW 13.6 Plt Count 268 MPV 10.0 Immature Gran % (Auto) 0.9 H Neut % (Auto) 73.0 Lymph % (Auto) 10.4 L Snyder % (Auto) 14.6 H Eos % (Auto) 0.9 Baso % (Auto) 0.2 Lymph # (Auto) 1.91 Snyder # (Auto) 2.7 H Eos # (Auto) 0.2 Baso # (Auto) 0.0 Abs Immat Gran (auto) 0.16 H Absolute Neuts (auto) 13.4 H Absolute Nucleated RBC 0.000 Nucleated RBC % 0.0 Puncture Site Left radial ABG pH 7.433 ABG pCO2 48.6 H ABG pO2 74.9 L ABG PO2/FiO2 Ratio 2.14 ABG HCO3 31.8 H ABG O2 Saturation 95.3 ABG O2 Content 20.1 ABG Base Excess 6.2 A-a Gradient 118.2 Oxyhemoglobin 94.2 Total Hemoglobin 15.2 O2 Delivery Device Ventilator O2 Liters/Min Not Reportable Minute Volume Not Reportable Vent Rate 14 Vent Mode Cmv FiO2 35 Tidal Volume 380 PEEP 5 Peak Inspir Pressure Not Reportable Pressure Support Not Reportable Sodium 138 Potassium 4.2 Chloride 100 Carbon Dioxide 32 H Anion Gap 6 BUN 40 H Creatinine 0.82 Estim Creat Clear Calc 74 Estimated GFR > 60 Glucose 234 H POC Capillary Glucose 121 H Calcium 9.4 Phosphorus 4.2 Magnesium 2.0 Total Bilirubin 0.5 AST 33 ALT 43 Alkaline Phosphatase 47 Total Protein 5.8 L Albumin 3.3 L 03/12/25 03/12/25 06:01 11:08 WBC RBC Hgb Hct MCV MCH MCHC RDW Plt Count MPV Immature Gran % (Auto) Neut % (Auto) Lymph % (Auto) Snyder % (Auto) Eos % (Auto) Baso % (Auto) Lymph # (Auto) Snyder # (Auto) Eos # (Auto) Baso # (Auto) Abs Immat Gran (auto) Absolute Neuts (auto) Absolute Nucleated RBC Nucleated RBC % Puncture Site ABG pH ABG pCO2 ABG pO2 ABG PO2/FiO2 Ratio ABG HCO3 ABG O2 Saturation ABG O2 Content ABG Base Excess A-a Gradient Oxyhemoglobin Total Hemoglobin O2 Delivery Device O2 Liters/Min Minute Volume Vent Rate Vent Mode FiO2 Tidal Volume PEEP Peak Inspir Pressure Pressure Support Sodium Potassium Chloride Carbon Dioxide Anion Gap BUN Creatinine Estim Creat Clear Calc Estimated GFR Glucose POC Capillary Glucose 173 H 131 H Calcium Phosphorus Magnesium Total Bilirubin AST ALT Alkaline Phosphatase Total Protein Albumin Quality VTE Prophylaxis VTE prophylaxis: pharmacologic ordered
[2025-03-12 11:30] LABS: Alveolar/Arterial O2 Gradient 117.6 mmHg; Carboxyhemoglobin 0.8 % THb (0-2.0); Fractional Inspired Oxygen 35 %; HCO3 ABG 33.9 mEq/l (22.0-26.0); Methemoglobin ABG 0.2 %THb (0-1.5); Oxygen Content ABG 18.7 %vol (16.0-22.0); Oxygen Saturation ABG 95.2 % (95.0-100.0); PCO2 ABG 50.0 mmHg (35.0-45.0); PO2 ABG 73.8 mmHg (80.0-100.0); PO2 FiO2 Ratio Arterial Blood 2.11 %; Reduced Hemoglobin 5.2 %THb (0-5.0)
[2025-03-12 11:31] LABS: Arterial Blood Gas Pressure Support 8 cmH2O; Modified Allen's Test Pass; Site Drawn LEFT RADIAL
[2025-03-12] MEDS: FUROSEMIDE INJ 40 MG/4 ML VIAL IV PUSH (11:50)
[2025-03-12] MEDS: cefTRIAXone 2 GM in SODIUM CHLORIDE 0.9% IV 100 ML 200 ML IVPB (11:56)
--- NOTE | 2025-03-12 13:10 | PM.IMPN ---
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 She was found to be in COPD exacerbation -patient was hypotensive, requiring Costa-Synephrine through peripheral IV initially and a PICC line was inserted on 03/07 -on and off support for Levophed likely secondary to sedation. -03/06: Status post doxycycline and ceftriaxone -03/06: Blood cultures have been obtained and negative till now (3) Chronic obstructive pulmonary disease: Code(s): J44.9 - Chronic obstructive pulmonary disease, unspecified Status: Acute Assessment and Plan: COPD exacerbation See above (4) Elevated troponin: Code(s): R79.89 - Other specified abnormal findings of blood chemistry Status: Acute Assessment and Plan: Elevated troponin along with EKG changes s/p Cardiac cath no significant coronary artery disease ECHO showed EF 50-55% with anteroseptal hypokinesis (5) Acute kidney injury: Code(s): N17.9 - Acute kidney failure, unspecified Status: Acute Assessment and Plan: Patient presented with creatinine 1.44 on admission (unknown baseline) - adequately fluid-resuscitated and creatinine is normalized -monitor urine output, renal function and electrolytes (6) Electrolyte abnormality: Code(s): E87.8 - Other disorders of electrolyte and fluid balance, not elsewhere classified Status: Acute Assessment and Plan: Potassium improved after replacement Plan DVT prophylaxis: Lovenox Stress ulcer prophylaxis: Protonix Nutrition: Tube feeds tube feeds on hold for possible extubation Code Status: Full code Subjective Date/time seen: 03/12/25 13:10 Interval history: Comfortable at bedside On breathing trial, for possible extubation today Review of Systems Review of Systems: All systems reviewed & are unremarkable except as noted in HPI and below (HPI) ROS unobtainable: Yes unobtainable due to endotracheal tube and unobtainable due to medical condition Exam Narrative: General: Sedated intubated and in no distress HEENT:? Pupils equal and reactive, sclera is clear, Neck:? Supple Respiratory:? Improved air entry, decreased at bases, no wheezing, Cardiac:? S1-S2 is normal, normal sinus rhythm Abdomen:? Soft, nontender, nondistended, hypoactive bowel sounds Extremities:? No edema, palpable pedal pulses, left upper extremity IV infiltration site with redness on the forearm Neuro:? Intubated, on minimal sedation with fentanyl and Precedex infusion opens eyes and nodes head to questions and follows commands with all 4 extremities Skin:? No lesions noted Const: Other: Tachypnea, otherwise comfortable Eyes: Pupils: Equal, round and reactive pupils present Neck: Neck: supple Resp: Effort & Inspection: normal respiratory effort Other: Bibasilar crackles Cardio: Rate: tachycardic Rhythm: regular rhythm Heart sounds: no gallops, no murmurs and no rubs GI: Inspection: non-distended : General: Yes bladder normal to palpation Neuro: Cranial nerves: Yes Equal, round and reactive pupils present Motor exam (neuro): 5/5 motor strength present throughout Extrem: General: no edema Objective Data Vital Signs Vital Signs: Vital Signs - 24 hr 03/11/25 14:00 03/11/25 14:40 03/11/25 14:55 Temperature 97.8 F Pulse Rate 50 L 56 L 49 L Respiratory Rate 14 14 Blood Pressure 104/81 Pulse Oximetry 100 100 Oxygen Delivery Mechanical Ventilation Fraction of Inspired Oxygen 35 03/11/25 14:56 03/11/25 14:56 03/11/25 15:11 Temperature Pulse Rate 50 L 50 L 50 L Respiratory Rate 14 14 Blood Pressure 114/83 113/83 Pulse Oximetry 100 100 Oxygen Delivery Fraction of Inspired Oxygen 03/11/25 15:41 03/11/25 15:58 03/11/25 16:00 Temperature 97.9 F Pulse Rate 49 L 57 L Respiratory Rate 14 14 Blood Pressure 121/82 Pulse Oximetry 100 100 Oxygen Delivery Mechanical Ventilation Fraction of Inspired Oxygen 35 03/11/25 16:00 03/11/25 16:00 03/11/25 16:00 Temperature 97.8 F Pulse Rate 50 L 49 L Respiratory Rate 16 Blood Pressure 121/84 Pulse Oximetry 100 Oxygen Delivery Fraction of Inspired Oxygen 35 03/11/25 16:00 03/11/25 16:06 03/11/25 16:11 Temperature Pulse Rate 50 L 57 L 50 L Respiratory Rate 14 14 14 Blood Pressure 121/80 Pulse Oximetry 100 Oxygen Delivery Fraction of Inspired Oxygen 03/11/25 17:11 03/11/25 17:14 03/11/25 18:00 Temperature 97.7 F Pulse Rate 51 L 50 L 54 L Respiratory Rate 14 14 Blood Pressure 113/80 Pulse Oximetry 100 100 Oxygen Delivery Mechanical Ventilation Fraction of Inspired Oxygen 35 03/11/25 18:00 03/11/25 18:00 03/11/25 18:07 Temperature 97.8 F Pulse Rate 53 L 53 L 54 L Respiratory Rate 15 14 Blood Pressure 109/77 Pulse Oximetry 100 Oxygen Delivery Fraction of Inspired Oxygen 03/11/25 18:11 03/11/25 19:11 03/11/25 19:58 Temperature 97.8 F Pulse Rate 53 L 60 53 L Respiratory Rate 15 15 Blood Pressure 107/74 112/77 Pulse Oximetry 100 100 99 Oxygen Delivery Mechanical Ventilation Fraction of Inspired Oxygen 35 03/11/25 20:00 03/11/25 20:00 03/11/25 20:00 Temperature 97.7 F Pulse Rate 57 L Respiratory Rate 15 Blood Pressure 107/78 Pulse Oximetry 100 100 Oxygen Delivery Mechanical Ventilation Fraction of Inspired Oxygen 35 35 03/11/25 20:00 03/11/25 20:00 03/11/25 20:00 Temperature Pulse Rate 57 L 57 L 55 L Respiratory Rate 15 15 Blood Pressure Pulse Oximetry Oxygen Delivery Fraction of Inspired Oxygen 03/11/25 20:11 03/11/25 22:00 03/11/25 22:00 Temperature Pulse Rate 54 L 53 L 53 L Respiratory Rate 14 14 14 Blood Pressure 107/78 Pulse Oximetry 100 Oxygen Delivery Fraction of Inspired Oxygen 03/11/25 22:00 03/11/25 22:00 03/11/25 22:09 Temperature Pulse Rate 53 L 53 L 53 L Respiratory Rate 14 Blood Pressure 86/65 L 88/65 L Pulse Oximetry 100 Oxygen Delivery Fraction of Inspired Oxygen 03/11/25 22:15 03/11/25 22:55 03/12/25 00:00 Temperature Pulse Rate 47 L 50 L Respiratory Rate Blood Pressure 115/85 Pulse Oximetry 100 99 Oxygen Delivery Mechanical Ventilation Mechanical Ventilation Fraction of Inspired Oxygen 35 35 03/12/25 00:00 03/12/25 00:00 03/12/25 00:00 Temperature Pulse Rate 54 L 54 L 54 L Respiratory Rate 15 15 Blood Pressure 130/87 Pulse Oximetry Oxygen Delivery Fraction of Inspired Oxygen 03/12/25 00:00 03/12/25 00:00 03/12/25 00:00 Temperature 98.6 F Pulse Rate 60 54 L Respiratory Rate 15 Blood Pressure 130/87 Pulse Oximetry 99 Oxygen Delivery Fraction of Inspired Oxygen 35 03/12/25 00:57 03/12/25 00:57 03/12/25 00:58 Temperature Pulse Rate 59 L 59 L 57 L Respiratory Rate 16 16 Blood Pressure 113/79 Pulse Oximetry Oxygen Delivery Fraction of Inspired Oxygen 03/12/25 01:31 03/12/25 01:43 03/12/25 01:43 Temperature Pulse Rate 68 78 78 Respiratory Rate 14 14 Blood Pressure 73/53 L Pulse Oximetry Oxygen Delivery Fraction of Inspired Oxygen 03/12/25 01:52 03/12/25 02:00 03/12/25 02:00 Temperature Pulse Rate 61 63 63 Respiratory Rate 17 Blood Pressure 86/62 L Pulse Oximetry 100 Oxygen Delivery Mechanical Ventilation Fraction of Inspired Oxygen 35 03/12/25 02:00 03/12/25 02:00 03/12/25 02:00 Temperature Pulse Rate 63 63 63 Respiratory Rate 17 17 Blood Pressure 86/62 L Pulse Oximetry 99 Oxygen Delivery Fraction of Inspired Oxygen 03/12/25 02:04 03/12/25 04:00 03/12/25 04:00 Temperature Pulse Rate 64 70 70 Respiratory Rate 18 Blood Pressure 79/61 L 96/69 L Pulse Oximetry Oxygen Delivery Fraction of Inspired Oxygen 03/12/25 04:00 03/12/25 04:00 03/12/25 04:00 Temperature Pulse Rate 70 Respiratory Rate 18 Blood Pressure Pulse Oximetry 95 Oxygen Delivery Mechanical Ventilation Fraction of Inspired Oxygen 35 35 03/12/25 04:00 03/12/25 04:00 03/12/25 05:01 Temperature 99.0 F Pulse Rate 70 68 91 Respiratory Rate 18 Blood Pressure 96/69 L Pulse Oximetry 98 98 Oxygen Delivery Mechanical Ventilation Fraction of Inspired Oxygen 35 03/12/25 06:00 03/12/25 06:00 03/12/25 06:00 Temperature 98.8 F Pulse Rate 88 88 88 Respiratory Rate 20 20 Blood Pressure 95/70 L Pulse Oximetry 96 Oxygen Delivery Fraction of Inspired Oxygen 03/12/25 06:00 03/12/25 06:00 03/12/25 08:00 Temperature 99.0 F Pulse Rate 88 88 89 Respiratory Rate 20 20 Blood Pressure 95/70 L 108/78 Pulse Oximetry 97 Oxygen Delivery Fraction of Inspired Oxygen 03/12/25 08:00 03/12/25 08:00 03/12/25 08:00 Temperature Pulse Rate 89 89 89 Respiratory Rate 20 20 Blood Pressure 108/89 Pulse Oximetry Oxygen Delivery Fraction of Inspired Oxygen 03/12/25 08:00 03/12/25 08:30 03/12/25 08:35 Temperature Pulse Rate 95 Respiratory Rate Blood Pressure Pulse Oximetry 97 Oxygen Delivery Mechanical Ventilation Mechanical Ventilation Fraction of Inspired Oxygen 35 35 35 03/12/25 10:00 03/12/25 10:00 03/12/25 10:00 Temperature 99.5 F Pulse Rate 86 86 86 Respiratory Rate 17 17 Blood Pressure 107/80 107/80 Pulse Oximetry 97 Oxygen Delivery Fraction of Inspired Oxygen 03/12/25 10:00 03/12/25 10:22 03/12/25 10:24 Temperature Pulse Rate 86 88 89 Respiratory Rate 17 15 Blood Pressure 110/85 Pulse Oximetry Oxygen Delivery Fraction of Inspired Oxygen 03/12/25 10:25 03/12/25 10:25 03/12/25 10:29 Temperature Pulse Rate 88 86 92 Respiratory Rate 16 Blood Pressure Pulse Oximetry 96 96 Oxygen Delivery Mechanical Ventilation Mechanical Ventilation Fraction of Inspired Oxygen 35 35 03/12/25 11:01 03/12/25 11:01 03/12/25 11:50 Temperature Pulse Rate 93 93 91 Respiratory Rate 16 16 19 Blood Pressure Pulse Oximetry 96 Oxygen Delivery BiPAP Fraction of Inspired Oxygen 03/12/25 11:51 03/12/25 12:00 03/12/25 12:00 Temperature Pulse Rate 93 92 92 Respiratory Rate 14 13 Blood Pressure 120/82 Pulse Oximetry Oxygen Delivery Fraction of Inspired Oxygen 03/12/25 12:19 03/12/25 12:28 Temperature Pulse Rate 94 96 Respiratory Rate 14 Blood Pressure 121/88 Pulse Oximetry Oxygen Delivery Fraction of Inspired Oxygen Intake/Output Intake/Output: Intake & Output 03/09/25 03/10/25 03/11/25 03/12/25 23:59 23:59 23:59 23:59 Intake Total 1454.3 1389.9 932.4 1008.6 Output Total 1000 1300 950 400 Balance 454.3 89.9 -17.6 608.6 Meds/Results Medications: Active Medications Generic Name Dose Route Start Last Admin Trade Name Freq PRN Reason Stop Dose Admin Albuterol/Ipratropium 3 ml 03/12/25 14:00 Ipratropium 0.5 Mg/Albuterol Sulfate 2.5 Mg Ampul.Neb 3 Ml INHALATION Q6HRT LIZY Aspirin 81 mg 03/08/25 08:00 03/12/25 08:36 Aspirin 81 Mg Chewable Tablet PO 81 mg DAILY@0800 LIZY Administration Atorvastatin Calcium 40 mg 03/11/25 18:00 03/11/25 17:35 Atorvastatin 40 Mg Tablet PO 40 mg EVENING LIZY Administration Dextrose 12.5 gm 03/07/25 11:20 Dextrose 50% 25 Gm/50 Ml Syringe IV PUSH PRN PRN Hypoglycemia Protocol Enoxaparin Sodium 40 mg 03/09/25 09:00 03/12/25 08:36 Enoxaparin 40 Mg/0.4 Ml Syringe SUB-Q 40 mg DAILY LIZY Administration Fluticasone/Umeclidinium/Vilanterol 1 puff 03/12/25 12:05 Fluticasone/Umeclidin/Vilanter 100-62.5-25 Mcg Ellipta INHALATION DAILY [facility] Glucagon 1 mg 03/07/25 11:20 Glucagon For Inj 1 Mg Vial IM PRN PRN Hypoglycemia Protocol Glucose 15 gm 03/07/25 11:20 Glucose Oral Gel 15 Gm Of Glucse In 37.5 Gm Tube PO PRN PRN Hypoglycemia Protocol Dextrose 1,000 mls @ 100 mls/hr 03/07/25 11:20 Dextrose 5% 1,000 Ml IVPB PRN PRN Hypoglycemia Protocol Dexmedetomidine HCl 400 mcg in 100 mls @ 5.01 mls/hr 03/10/25 10:35 03/12/25 12:28 Precedex 400 Mcg/100 Ml IV CONT 0.3 mcg/kg/hr .[id number] LIZY 5.01 mls/hr Titration Protocol 0.3 MCG/KG/HR Pantoprazole Sodium 40 mg 03/08/25 09:00 03/12/25 08:36 Pantoprazole Sodium Iv 40 Mg Vial IV PUSH 40 mg QAM LIZY Administration Prednisone 20 mg 03/12/25 08:00 03/12/25 08:37 Prednisone 20 Mg Tablet PO 03/14/25 08:01 20 mg DAILY@0800 LIZY Administration Sodium Chloride 10 ml 03/07/25 14:00 03/12/25 04:46 Central Line Flush IV PUSH 10 ml Q8HR LIZY Administration Sodium Chloride 10 ml 03/07/25 07:57 Central Line Flush IV PUSH PRN PRN with TPN bag changes Sodium Chloride 20 ml 03/07/25 07:57 03/10/25 04:45 Central Line Flush IV PUSH 20 ml PRN PRN Administration after blood draws Radiology Results: ITS Impressions Abdomen X-Ray 03/10/25 11:11 IMPRESSION: 1: OG tube tip in the stomach. Chest X-Ray 03/12/25 05:32 Impression: 1: Bibasilar atelectasis/scarring. Labs Labs: Laboratory Results - last 24 hr 03/11/25 03/11/25 03/12/25 14:56 18:18 00:27 WBC RBC Hgb Hct MCV MCH MCHC RDW Plt Count MPV Immature Gran % (Auto) Neut % (Auto) Lymph % (Auto) Riley % (Auto) Eos % (Auto) Baso % (Auto) Lymph # (Auto) Riley # (Auto) Eos # (Auto) Baso # (Auto) Abs Immat Gran (auto) Absolute Neuts (auto) Absolute Nucleated RBC Nucleated RBC % Puncture Site ABG pH ABG pCO2 ABG pO2 ABG PO2/FiO2 Ratio ABG HCO3 ABG O2 Saturation ABG O2 Content ABG Base Excess A-a Gradient Oxyhemoglobin Carboxyhemoglobin Methemoglobin Reduced Hemoglobin Total Hemoglobin O2 Delivery Device O2 Liters/Min Minute Volume Vent Rate Vent Mode FiO2 Tidal Volume PEEP Peak Inspir Pressure Pressure Support Sodium Potassium Chloride Carbon Dioxide Anion Gap BUN Creatinine Estim Creat Clear Calc Estimated GFR Glucose POC Capillary Glucose 150 H 138 H 121 H Calcium Phosphorus Magnesium Total Bilirubin AST ALT Alkaline Phosphatase Total Protein Albumin 03/12/25 03/12/25 03/12/25 04:22 04:53 06:01 WBC 18.3 H RBC 4.37 L Hgb 13.4 L Hct 42.6 MCV 97.5 MCH 30.7 MCHC 31.5 L RDW 13.6 Plt Count 268 MPV 10.0 Immature Gran % (Auto) 0.9 H Neut % (Auto) 73.0 Lymph % (Auto) 10.4 L Riley % (Auto) 14.6 H Eos % (Auto) 0.9 Baso % (Auto) 0.2 Lymph # (Auto) 1.91 Riley # (Auto) 2.7 H Eos # (Auto) 0.2 Baso # (Auto) 0.0 Abs Immat Gran (auto) 0.16 H Absolute Neuts (auto) 13.4 H Absolute Nucleated RBC 0.000 Nucleated RBC % 0.0 Puncture Site Left radial ABG pH 7.433 ABG pCO2 48.6 H ABG pO2 74.9 L ABG PO2/FiO2 Ratio 2.14 ABG HCO3 31.8 H ABG O2 Saturation 95.3 ABG O2 Content 20.1 ABG Base Excess 6.2 A-a Gradient 118.2 Oxyhemoglobin 94.2 Carboxyhemoglobin Methemoglobin Reduced Hemoglobin Total Hemoglobin 15.2 O2 Delivery Device Ventilator O2 Liters/Min Not Reportable Minute Volume Not Reportable Vent Rate 14 Vent Mode Cmv FiO2 35 Tidal Volume 380 PEEP 5 Peak Inspir Pressure Not Reportable Pressure Support Not Reportable Sodium 138 Potassium 4.2 Chloride 100 Carbon Dioxide 32 H Anion Gap 6 BUN 40 H Creatinine 0.82 Estim Creat Clear Calc 74 Estimated GFR > 60 Glucose 234 H POC Capillary Glucose 173 H Calcium 9.4 Phosphorus 4.2 Magnesium 2.0 Total Bilirubin 0.5 AST 33 ALT 43 Alkaline Phosphatase 47 Total Protein 5.8 L Albumin 3.3 L 03/12/25 03/12/25 11:08 11:28 WBC RBC Hgb Hct MCV MCH MCHC RDW Plt Count MPV Immature Gran % (Auto) Neut % (Auto) Lymph % (Auto) Riley % (Auto) Eos % (Auto) Baso % (Auto) Lymph # (Auto) Riley # (Auto) Eos # (Auto) Baso # (Auto) Abs Immat Gran (auto) Absolute Neuts (auto) Absolute Nucleated RBC Nucleated RBC % Puncture Site Left radial ABG pH 7.449 ABG pCO2 50.0 H ABG pO2 73.8 L ABG PO2/FiO2 Ratio 2.11 ABG HCO3 33.9 H ABG O2 Saturation 95.2 ABG O2 Content 18.7 ABG Base Excess 8.4 A-a Gradient 117.6 Oxyhemoglobin 93.8 Carboxyhemoglobin 0.8 Methemoglobin 0.2 Reduced Hemoglobin 5.2 H Total Hemoglobin 14.2 O2 Delivery Device Ventilator O2 Liters/Min Not Reportable Minute Volume Not Reportable Vent Rate Not Reportable Vent Mode Spontaneous FiO2 35 Tidal Volume Not Reportable PEEP 5 Peak Inspir Pressure Not Reportable Pressure Support 8 Sodium Potassium Chloride Carbon Dioxide Anion Gap BUN Creatinine Estim Creat Clear Calc Estimated GFR Glucose POC Capillary Glucose 131 H Calcium Phosphorus Magnesium Total Bilirubin AST ALT Alkaline Phosphatase Total Protein Albumin Quality VTE Prophylaxis VTE prophylaxis: pharmacologic ordered
[2025-03-12] MEDS: IPRATROPIUM 0.5 MG/ALBUTEROL SULFATE 2.5 MG AMPUL.NEB 3 ML INHALATION ×2 (13:47→20:19)
[2025-03-12] MEDS: FLUTICASONE/UMECLIDIN/VILANTER 100-62.5-25 MCG ELLIPTA 1 PUFF INHALATION (13:47)
[2025-03-12] MEDS: ATORVASTATIN 40 MG TABLET PO (17:14)
[2025-03-13] VITALS (27 sets, daily range): BP systolic 119–164; BP diastolic 77–98; PULSE 95–115; RESP 14–32; TEMP 36.8–38.3; O2SAT 93–100
[2025-03-13] MEDS: IPRATROPIUM 0.5 MG/ALBUTEROL SULFATE 2.5 MG AMPUL.NEB 3 ML INHALATION ×4 (02:16→19:58)
[2025-03-13] MEDS: CENTRAL LINE FLUSH 10 ML IV PUSH ×3 (05:03→20:31)
[2025-03-13 05:08] LABS: Hematocrit 40.0 % (42.0-52.0); Hemoglobin 12.8 g/dL (14.0-18.0); Immature Granulocyte Percent A 1.0 % (0-0.5); Lymphocytes Absolute Auto 1.91 K/mm3 (0.9-3.2); Mean Corpuscular HGB Conc 32.0 g/dl (32-36); Mean Corpuscular Hemoglobin 30.9 pg (26-34); Mean Corpuscular Volume 96.6 fl (80-100); Nucleated Red Blood Cells Absolute Auto 0.000 K/mm3 (0.0-0.012); Nucleated Red Blood Cells Perc 0.0 % (0.0-0.2); Platelet Count Result 223 k/mm3 (150-375); Red Blood Count 4.14 M/mm3 (4.6-6.20); White Blood Count 18.3 K/mm3 (4.5-10.0)
[2025-03-13 05:43] LABS: Alanine Aminotransferase 57 U/L (6-50); Albumin Level 3.5 g/dL (3.5-5.1); Alkaline Phosphatase 58 U/L (38-126); Anion Gap 5 mmol/L (4-12); Aspartate Amino Transferase 55 U/L (17-59); Bilirubin,Total 0.6 mg/dL (0.2-1.3); Blood Urea Nitrogen 32 mg/dL (9-20); Calcium 9.1 mg/dL (8.4-10.2); Carbon Dioxide 35 mmol/L (22-30); Chloride 94 mmol/L (98-107); Estimated CRCL calculation 76 ml/min; Estimated Glomerular Filt Rate > 60; Glucose 80 mg/dL (65-110); Magnesium 1.9 mg/dL (1.6-2.3); Potassium 3.5 mmol/L (3.4-5.0); Sodium 134 mmol/L (137-145); Total Protein 5.9 g/dL (6.3-8.2)
[2025-03-13] MEDS: FLUTICASONE/UMECLIDIN/VILANTER 100-62.5-25 MCG ELLIPTA 1 PUFF INHALATION (07:45)
[2025-03-13 07:56] LABS: Alveolar/Arterial O2 Gradient 95.5 mmHg; Fractional Inspired Oxygen 30 %; HCO3 ABG 33.8 mEq/l (22.0-26.0); Oxygen Content ABG 18.5 %vol (16.0-22.0); Oxygen Saturation ABG 94.5 % (95.0-100.0); PCO2 ABG 44.3 mmHg (35.0-45.0); PO2 ABG 66.4 mmHg (80.0-100.0); PO2 FiO2 Ratio Arterial Blood 2.21 %
[2025-03-13 08:00] LABS: Modified Allen's Test Pass; Non-Invasive Expiratory Pressure 6 CMH2O; Non-Invasive Inspiratory Pressure 12 CMH2O; Non-Invasive Vent Rate 14 /MIN; Site Drawn LEFT RADIAL
[2025-03-13] MEDS: ENOXAPARIN 40 MG/0.4 ML SYRINGE SUB-Q (08:24)
[2025-03-13] MEDS: ASPIRIN 81 MG CHEWABLE TABLET PO (08:24)
[2025-03-13] MEDS: PANTOPRAZOLE SODIUM IV 40 MG VIAL IV PUSH (08:24)
--- NOTE | 2025-03-13 09:12 | WPDINTPN ---
Progress Note: A&P Assessment and Plan (1) Acute respiratory failure with hypoxia and hypercapnia: Code(s): J96.01 - Acute respiratory failure with hypoxia; J96.02 - Acute respiratory failure with hypercapnia Status: Acute Assessment and Plan: Patient presented with respiratory distress, dyspnea, hypoxia with O2 sats in the 30s on 2-3 L oxygen at home, family had to force the patient to come to the ED, in the ED he was immediately placed on BiPAP, given DuoNebs. ABGs revealed hypercapnic respiratory failure, patient was initially placed on BiPAP ABGs did not show any improvement rather worsening in the CO2 - intubated after he came to the ICU on 03/07/2025 - 03/08 12/24 PSV weaning trial was tried the patient failed trial due to increased respiratory distress tachycardia and complaint of chest pain. PSV was increased to 15 and later it was aborted and patient was placed back on CMV -03/09 patient was extubated after a successful weaning trial. Required BiPAP intermittently -03/10 Re-intubated, after failing BiPAP and increased work of breathing 03/12: Extubated directly to BiPAP -will have PT/OT evaluate the pain -speech therapy for bedside swallow Continue prednisone taper (end date 03/14/2025) -continue Trelegy Ellipta which is his home inhaler -also continue DuoNeb -patient wears 3-4 L oxygen at home -BiPAP p.r.n. (2) Septic shock: Code(s): A41.9 - Sepsis, unspecified organism; R65.21 - Severe sepsis with septic shock Status: Acute Assessment and Plan: Patient presented with hypoxia, tachypnea, tachycardia. She was found to be in COPD exacerbation -patient was hypotensive, requiring Costa-Synephrine through peripheral IV initially and a PICC line was inserted on 03/07 -on and off support for Levophed likely secondary to sedation. -03/06: Status post doxycycline and ceftriaxone -03/06: Blood cultures have been obtained and negative till now (3) Chronic obstructive pulmonary disease: Code(s): J44.9 - Chronic obstructive pulmonary disease, unspecified Status: Acute Assessment and Plan: COPD exacerbation See above (4) Elevated troponin: Code(s): R79.89 - Other specified abnormal findings of blood chemistry Status: Acute Assessment and Plan: Elevated troponin along with EKG changes Cardiology consult Off of heparin infusion after 48 hours Continue aspirin 81 mg Echo Summary 1. The left ventricle is normal in size and systolic function. The left ventricular ejection fraction is visually estimated to be 50-55%. The anteroseptum on some off-axis views is hypokinetic. 2. The right ventricle is normal in size and systolic function. 3. There is a small size pericardial effusion with no echocardiographic evidence of cardiac tamponade. 03/11/2025: Cardiac catheterization showed moderate CAD, significant P 80, continue aspirin, statin, outpatient evaluation of his peripheral arterial disease, no further inpatient cardiac workup at this time (5) Acute kidney injury: Code(s): N17.9 - Acute kidney failure, unspecified Status: Acute Assessment and Plan: Patient presented with creatinine 1.44 on admission (unknown baseline) - adequately fluid-resuscitated and creatinine is normalized -monitor urine output, renal function and electrolytes (6) Electrolyte abnormality: Code(s): E87.8 - Other disorders of electrolyte and fluid balance, not elsewhere classified Status: Acute Assessment and Plan: Replace potassium Plan DVT prophylaxis: Lovenox Stress ulcer prophylaxis: Protonix Nutrition: Appreciate speech evaluation and recommendations, will start heart healthy diet Code Status: Full code Critical Care Time Spent: 31 minutes Discussed with patient regarding extubation and if he fails, he wants to be Re-intubated. Due to a high probability of clinically significant, life threatening deterioration, the patient required my highest level of preparedness to intervene emergently and I personally spent this critical care time directly and personally managing the patient. This critical care time included obtaining a history; examining the patient; pulse oximetry; ordering and review of studies; arranging urgent treatment with development of a management plan; evaluation of patient's response to treatment; frequent reassessment; and discussions with other providers. It was exclusive of separately billable procedures and treating other patients and teaching time. Please see Assessment and Plan section and the rest of the note for further information on patient assessment and treatment This dictation may have been done utilizing a voice recognition system. Attempts have been made to correct errors. However, there may be uncorrected grammatical, spelling, and recognitions errors present. Subjective Date/time seen: 03/13/25 09:12 Interval history: Reason for consult: Shortness of breath, COPD exacerbation, requiring intubation and mechanical ventilator, suicidal ideation 03/07: Intubated 03/09: Extubated 03/10: Re-intubated 03/12: Extubated 03/13/2020: Patient seen and examined the ICU, extubated on 03/12, currently on BiPAP overnight, is awake, alert, oriented, follows simple commands and answers to questions appropriately. Patient is afebrile, hemodynamically stable, adequate urine output in response to diuresis. Off all pressors Review of Systems Review of Systems: All systems reviewed & are unremarkable except as noted in HPI and below (HPI) Exam Narrative: General: Pleasant gentleman, awake in no acute distress HEENT:? Pupils equal and reactive, sclera is clear, Neck:? Supple Respiratory:? Improved air entry, decreased at bases, no wheezing, Cardiac:? S1-S2 is normal, normal sinus rhythm Abdomen:? Soft, nontender, nondistended, hypoactive bowel sounds Extremities:? No edema, palpable pedal pulses, Neuro:? Extubated on 03/12, awake, alert, able to answer questions appropriately and follows simple commands in all extremities Skin:? No lesions noted Psych: Normal mentation and affect Objective Data Vital Signs Vital Signs: Vital Signs - 24 hr 03/12/25 10:00 03/12/25 10:00 03/12/25 10:00 Temperature 99.5 F Pulse Rate 86 86 86 Respiratory Rate 17 17 Blood Pressure 107/80 107/80 Pulse Oximetry 97 Oxygen Delivery Oxygen Flow Rate Fraction of Inspired Oxygen 03/12/25 10:00 03/12/25 10:00 03/12/25 10:22 Temperature Pulse Rate 86 86 88 Respiratory Rate 17 15 Blood Pressure Pulse Oximetry Oxygen Delivery Oxygen Flow Rate Fraction of Inspired Oxygen 03/12/25 10:24 03/12/25 10:25 03/12/25 10:25 Temperature Pulse Rate 89 88 86 Respiratory Rate 16 Blood Pressure 110/85 Pulse Oximetry 96 Oxygen Delivery Mechanical Ventilation Oxygen Flow Rate Fraction of Inspired Oxygen 03/12/25 10:29 03/12/25 11:01 03/12/25 11:01 Temperature Pulse Rate 92 93 93 Respiratory Rate 16 16 Blood Pressure Pulse Oximetry 96 Oxygen Delivery Mechanical Ventilation Oxygen Flow Rate Fraction of Inspired Oxygen 35 03/12/25 11:50 03/12/25 11:51 03/12/25 12:00 Temperature Pulse Rate 91 93 92 Respiratory Rate 19 14 13 Blood Pressure Pulse Oximetry 96 Oxygen Delivery BiPAP Oxygen Flow Rate Fraction of Inspired Oxygen 03/12/25 12:00 03/12/25 12:00 03/12/25 12:00 Temperature Pulse Rate 92 96 95 Respiratory Rate 14 Blood Pressure 120/82 Pulse Oximetry 96 Oxygen Delivery BiPAP Oxygen Flow Rate Fraction of Inspired Oxygen 35 03/12/25 12:00 03/12/25 12:19 03/12/25 12:28 Temperature 99.0 F Pulse Rate 92 94 96 Respiratory Rate 14 14 Blood Pressure 120/82 121/88 Pulse Oximetry 96 Oxygen Delivery Oxygen Flow Rate Fraction of Inspired Oxygen 03/12/25 13:30 03/12/25 13:30 03/12/25 13:30 Temperature Pulse Rate 99 99 99 Respiratory Rate 14 14 Blood Pressure Pulse Oximetry 96 Oxygen Delivery BiPAP Oxygen Flow Rate Fraction of Inspired Oxygen 35 03/12/25 13:52 03/12/25 13:53 03/12/25 14:00 Temperature Pulse Rate 98 97 101 H Respiratory Rate 19 19 15 Blood Pressure 115/78 Pulse Oximetry 97 98 Oxygen Delivery BiPAP Oxygen Flow Rate Fraction of Inspired Oxygen 03/12/25 14:00 03/12/25 14:01 03/12/25 15:00 Temperature 99.2 F Pulse Rate 101 H 98 104 H Respiratory Rate 15 16 Blood Pressure 132/114 H Pulse Oximetry 99 Oxygen Delivery Oxygen Flow Rate Fraction of Inspired Oxygen 03/12/25 15:49 03/12/25 16:00 03/12/25 16:00 Temperature 99.3 F Pulse Rate 96 94 95 Respiratory Rate 13 14 Blood Pressure 120/82 Pulse Oximetry 99 93 Oxygen Delivery BiPAP Oxygen Flow Rate Fraction of Inspired Oxygen 35 03/12/25 16:30 03/12/25 16:55 03/12/25 18:00 Temperature Pulse Rate 93 92 92 Respiratory Rate 15 12 Blood Pressure Pulse Oximetry 100 Oxygen Delivery BiPAP Oxygen Flow Rate Fraction of Inspired Oxygen 03/12/25 18:00 03/12/25 20:00 03/12/25 20:00 Temperature 99.5 F 99.4 F Pulse Rate 92 93 93 Respiratory Rate 16 14 14 Blood Pressure 115/83 127/83 Pulse Oximetry 98 100 100 Oxygen Delivery BiPAP Oxygen Flow Rate Fraction of Inspired Oxygen 35 03/12/25 20:00 03/12/25 20:19 03/12/25 20:20 Temperature Pulse Rate 93 88 89 Respiratory Rate 17 18 Blood Pressure Pulse Oximetry 100 Oxygen Delivery BiPAP Oxygen Flow Rate Fraction of Inspired Oxygen 03/12/25 20:26 03/12/25 22:00 03/12/25 22:00 Temperature Pulse Rate 89 96 96 Respiratory Rate 18 14 Blood Pressure 127/77 Pulse Oximetry 100 Oxygen Delivery Oxygen Flow Rate Fraction of Inspired Oxygen 03/12/25 23:26 03/13/25 00:00 03/13/25 00:00 Temperature 100.0 F H Pulse Rate 96 96 96 Respiratory Rate 17 14 14 Blood Pressure 122/80 Pulse Oximetry 100 100 100 Oxygen Delivery BiPAP BiPAP Oxygen Flow Rate Fraction of Inspired Oxygen 30 03/13/25 00:00 03/13/25 02:00 03/13/25 02:00 Temperature Pulse Rate 95 98 98 Respiratory Rate 14 Blood Pressure 142/87 H Pulse Oximetry 100 Oxygen Delivery Oxygen Flow Rate Fraction of Inspired Oxygen 03/13/25 02:17 03/13/25 02:20 03/13/25 04:00 Temperature 99.8 F H Pulse Rate 99 99 100 Respiratory Rate 15 15 14 Blood Pressure 119/77 Pulse Oximetry 100 100 Oxygen Delivery BiPAP Oxygen Flow Rate Fraction of Inspired Oxygen 03/13/25 04:00 03/13/25 04:00 03/13/25 05:10 Temperature Pulse Rate 100 103 H 101 H Respiratory Rate 14 16 Blood Pressure Pulse Oximetry 100 100 Oxygen Delivery BiPAP BiPAP Oxygen Flow Rate Fraction of Inspired Oxygen 30 03/13/25 06:00 03/13/25 06:00 03/13/25 07:48 Temperature Pulse Rate 101 H 101 H 105 H Respiratory Rate 16 22 H Blood Pressure 123/80 Pulse Oximetry 100 98 Oxygen Delivery BiPAP Oxygen Flow Rate Fraction of Inspired Oxygen 03/13/25 07:48 03/13/25 07:55 03/13/25 08:00 Temperature 99.7 F H Pulse Rate 105 H 104 H 104 H Respiratory Rate 18 18 20 Blood Pressure 134/88 Pulse Oximetry 100 Oxygen Delivery Oxygen Flow Rate Fraction of Inspired Oxygen 03/13/25 08:00 03/13/25 08:20 Temperature Pulse Rate 104 H 105 H Respiratory Rate 20 20 Blood Pressure Pulse Oximetry 99 97 Oxygen Delivery BiPAP Nasal Cannula Oxygen Flow Rate 3 Fraction of Inspired Oxygen 30 32 Intake/Output Intake/Output: Intake & Output 03/10/25 03/11/25 03/12/25 03/13/25 23:59 23:59 23:59 23:59 Intake Total 1389.9 932.4 1153.8 200 Output Total 2294 981 9158 500 Balance 89.9 -17.6 -1596.2 -300 Meds/Results Medications: Active Medications Generic Name Dose Route Start Last Admin Trade Name Freq PRN Reason Stop Dose Admin Albuterol/Ipratropium 3 ml 03/12/25 14:00 03/13/25 07:44 Ipratropium 0.5 Mg/Albuterol Sulfate 2.5 Mg Ampul.Neb 3 Ml INHALATION 3 ml Q6HRT LIZY Administration Aspirin 81 mg 03/08/25 08:00 03/13/25 08:24 Aspirin 81 Mg Chewable Tablet PO 81 mg DAILY@0800 LIZY Administration Atorvastatin Calcium 40 mg 03/11/25 18:00 03/12/25 17:14 Atorvastatin 40 Mg Tablet PO 40 mg EVENING LIZY Administration Dextrose 12.5 gm 03/07/25 11:20 Dextrose 50% 25 Gm/50 Ml Syringe IV PUSH PRN PRN Hypoglycemia Protocol Enoxaparin Sodium 40 mg 03/09/25 09:00 03/13/25 08:24 Enoxaparin 40 Mg/0.4 Ml Syringe SUB-Q 40 mg DAILY LIZY Administration Fluticasone/Umeclidinium/Vilanterol 1 puff 03/12/25 12:05 03/13/25 07:45 Fluticasone/Umeclidin/Vilanter 100-62.5-25 Mcg Ellipta INHALATION 1 puff DAILY LIZY Administration Glucagon 1 mg 03/07/25 11:20 Glucagon For Inj 1 Mg Vial IM PRN PRN Hypoglycemia Protocol Glucose 15 gm 03/07/25 11:20 Glucose Oral Gel 15 Gm Of Glucse In 37.5 Gm Tube PO PRN PRN Hypoglycemia Protocol Dextrose 1,000 mls @ 100 mls/hr 03/07/25 11:20 Dextrose 5% 1,000 Ml IVPB PRN PRN Hypoglycemia Protocol Pantoprazole Sodium 40 mg 03/08/25 09:00 03/13/25 08:24 Pantoprazole Sodium Iv 40 Mg Vial IV PUSH 40 mg QAM LIZY Administration Prednisone 20 mg 03/12/25 08:00 03/13/25 08:24 Prednisone 20 Mg Tablet PO 03/14/25 08:01 20 mg DAILY@0800 LIZY Administration Sodium Chloride 10 ml 03/07/25 14:00 03/13/25 05:03 Central Line Flush IV PUSH 10 ml Q8HR LIZY Administration Sodium Chloride 10 ml 03/07/25 07:57 Central Line Flush IV PUSH PRN PRN with TPN bag changes Sodium Chloride 20 ml 03/07/25 07:57 03/10/25 04:45 Central Line Flush IV PUSH 20 ml PRN PRN Administration after blood draws Radiology Results: ITS Impressions Abdomen X-Ray 03/10/25 11:11 IMPRESSION: 1: OG tube tip in the stomach. Chest X-Ray 03/13/25 05:49 Impression: 1: Right basilar infiltrates may represent developing pneumonia or atelectasis. Labs Labs: Laboratory Results - last 24 hr 03/12/25 03/12/25 03/13/25 11:08 11:28 04:54 WBC 18.3 H RBC 4.14 L Hgb 12.8 L Hct 40.0 L MCV 96.6 MCH 30.9 MCHC 32.0 RDW 13.5 Plt Count 223 MPV 10.1 Immature Gran % (Auto) 1.0 H Neut % (Auto) 73.8 H Lymph % (Auto) 10.4 L [place] % (Auto) 13.6 H Eos % (Auto) 1.0 Baso % (Auto) 0.2 Lymph # (Auto) 1.91 [place] # (Auto) 2.5 H Eos # (Auto) 0.2 Baso # (Auto) 0.0 Abs Immat Gran (auto) 0.18 H Absolute Neuts (auto) 13.5 H Absolute Nucleated RBC 0.000 Nucleated RBC % 0.0 Puncture Site Left radial ABG pH 7.449 ABG pCO2 50.0 H ABG pO2 73.8 L ABG PO2/FiO2 Ratio 2.11 ABG HCO3 33.9 H ABG O2 Saturation 95.2 ABG O2 Content 18.7 ABG Base Excess 8.4 A-a Gradient 117.6 Oxyhemoglobin 93.8 Carboxyhemoglobin 0.8 Methemoglobin 0.2 Reduced Hemoglobin 5.2 H Total Hemoglobin 14.2 O2 Delivery Device Ventilator O2 Liters/Min Not Reportable Minute Volume Not Reportable Vent Rate Not Reportable Vent Mode Spontaneous FiO2 35 Expiratory Pressure Tidal Volume Not Reportable PEEP 5 Inspiratory Pressure Peak Inspir Pressure Not Reportable Pressure Support 8 Sodium 134 L Potassium 3.5 Chloride 94 L Carbon Dioxide 35 H Anion Gap 5 BUN 32 H Creatinine 0.79 Estim Creat Clear Calc 76 Estimated GFR > 60 Glucose 80 POC Capillary Glucose 131 H Calcium 9.1 Phosphorus 2.8 Magnesium 1.9 Total Bilirubin 0.6 AST 55 ALT 57 H Alkaline Phosphatase 58 Total Protein 5.9 L Albumin 3.5 03/13/25 07:50 WBC RBC Hgb Hct MCV MCH MCHC RDW Plt Count MPV Immature Gran % (Auto) Neut % (Auto) Lymph % (Auto) [place] % (Auto) Eos % (Auto) Baso % (Auto) Lymph # (Auto) [place] # (Auto) Eos # (Auto) Baso # (Auto) Abs Immat Gran (auto) Absolute Neuts (auto) Absolute Nucleated RBC Nucleated RBC % Puncture Site Left radial ABG pH 7.500 H ABG pCO2 44.3 ABG pO2 66.4 L ABG PO2/FiO2 Ratio 2.21 ABG HCO3 33.8 H ABG O2 Saturation 94.5 L ABG O2 Content 18.5 ABG Base Excess 9.4 A-a Gradient 95.5 Oxyhemoglobin 93.2 Carboxyhemoglobin Methemoglobin Reduced Hemoglobin Total Hemoglobin 14.1 O2 Delivery Device Non-invasive vent O2 Liters/Min Not Reportable Minute Volume Vent Rate 14 Vent Mode FiO2 30 Expiratory Pressure 6 Tidal Volume PEEP Inspiratory Pressure 12 Peak Inspir Pressure Pressure Support Sodium Potassium Chloride Carbon Dioxide Anion Gap BUN Creatinine Estim Creat Clear Calc Estimated GFR Glucose POC Capillary Glucose Calcium Phosphorus Magnesium Total Bilirubin AST ALT Alkaline Phosphatase Total Protein Albumin Quality VTE Prophylaxis VTE prophylaxis: pharmacologic ordered
--- NOTE | 2025-03-13 09:35 | PCSTNOTE ---
Please refer to the Bedside Swallow Evaluation in the EMR. Please note, silent aspiration cannot be ruled out at bedside. The patient is a 64 year old male admitted with respiratory failure/COPD. He was recently extubated an remains NPO. Orders received to complete a bedside swallow evaluation for possible advancement to a diet. The patient was positioned upright and assessed with 5cc/tsp thin liquid, uncontrolled straw drinks thin liquid, pudding/puree, and crackers/solids. Oral Stage: Timely oral preparation and transit for all consistencies.. Pharyngeal Stage: Swallow initiation was completed in a timely manner for all consistencies with good laryngeal elevation and no observed coughing/choking or vocal quality change. The patient does have to coordinate respiration and swallow initiation but appears to manage within normal limits. Reviewed results with nursing and the patient's physician.
--- NOTE | 2025-03-13 10:52 | PCFNICU ---
ICU Rounding Note: Pt current nutrition is Heart Healthy. Last recorded weight is 66.3 kg. Bowel Motility: Last reported BM 03/10 Labs Reviewed: BUN 32, Hct 40.0, Na 134 Meds Noted: Protonix, Lovenox, Prednisone. Skin: WNL Additional Notes: Patient extubated. Swallow study today-recommend regular diet consistencies. Diet order has been advanced to heart healthy. Agree with diet orders Following daily in ICU rounds. Monitoring orders, weights, labs, plan of care, meds, every 5 days.
[2025-03-13] MEDS: FUROSEMIDE INJ 40 MG/4 ML VIAL IV PUSH (11:03)
[2025-03-13] MEDS: POTASSIUM CHLORIDE 20 MEQ ER TABLET 40 MEQ PO (11:04)
[2025-03-13] MEDS: POTASSIUM CHLORIDE 20 MEQ ER TABLET PO (11:07)
--- NOTE | 2025-03-13 16:57 | ECG_ITS ---
Test Date: 2025-03-13 17:08:58 Measurements Intervals [place] Rate: 114 P: 82 WI: 149 QRS: 268 QRSD: 81 T: 85 QT: 330 QTc: 455 Interpretive Statements SINUS TACHYCARDIA RIGHT ATRIAL ENLARGEMENT [0.3mV P WAVE] INDETERMINATE AXIS NONSPECIFIC T-WAVE ABNORMALITY Compared to ECG 03/09/2025 18:35:28 Atrial abnormality now present Possible ischemia no longer present T-wave abnormality still present Electronically Signed On 03-15-2025 15:33:03 CDT by Uri Mark M.D.
[2025-03-13] MEDS: ATORVASTATIN 40 MG TABLET PO (17:05)
[2025-03-13] MEDS: ACETAMINOPHEN 325 MG TABLET 650 MG PO (17:05)
--- NOTE | 2025-03-13 17:08 | PM.IMPN ---
Progress Note: A&P Assessment and Plan (1) Acute respiratory failure with hypoxia and hypercapnia: Code(s): J96.01 - Acute respiratory failure with hypoxia; J96.02 - Acute respiratory failure with hypercapnia Status: Acute Assessment and Plan: s/p intubation now on nasal cannula oxygen Continue prednisone taper (end date 03/14/2025) -continue Trelegy Ellipta which is his home inhaler -also continue DuoNeb -patient wears 3-4 L oxygen at home -BiPAP p.r.n. (2) Septic shock: Code(s): A41.9 - Sepsis, unspecified organism; R65.21 - Severe sepsis with septic shock Status: Acute Assessment and Plan: Patient presented with hypoxia, tachypnea, tachycardia. She was found to be in COPD exacerbation -patient was hypotensive, requiring Costa-Synephrine through peripheral IV initially and a PICC line was inserted on 03/07 -on and off support for Levophed likely secondary to sedation. -03/06: Status post doxycycline and ceftriaxone -03/06: Blood cultures have been obtained and negative till now (3) Chronic obstructive pulmonary disease: Code(s): J44.9 - Chronic obstructive pulmonary disease, unspecified Status: Acute Assessment and Plan: COPD exacerbation See above (4) Elevated troponin: Code(s): R79.89 - Other specified abnormal findings of blood chemistry Status: Acute Assessment and Plan: Elevated troponin along with EKG changes Cardiology consult Off of heparin infusion after 48 hours Continue aspirin 81 mg Echo Summary 1. The left ventricle is normal in size and systolic function. The left ventricular ejection fraction is visually estimated to be 50-55%. The anteroseptum on some off-axis views is hypokinetic. 2. The right ventricle is normal in size and systolic function. 3. There is a small size pericardial effusion with no echocardiographic evidence of cardiac tamponade. 03/11/2025: Cardiac catheterization showed moderate CAD, significant P 80, continue aspirin, statin, outpatient evaluation of his peripheral arterial disease, no further inpatient cardiac workup at this time (5) Acute kidney injury: Code(s): N17.9 - Acute kidney failure, unspecified Status: Acute Assessment and Plan: Patient presented with creatinine 1.44 on admission (unknown baseline) - adequately fluid-resuscitated and creatinine is normalized -monitor urine output, renal function and electrolytes (6) Electrolyte abnormality: Code(s): E87.8 - Other disorders of electrolyte and fluid balance, not elsewhere classified Status: Acute Assessment and Plan: Replace potassium Plan DVT prophylaxis: Lovenox Stress ulcer prophylaxis: Protonix Nutrition: Appreciate speech evaluation and recommendations, will start heart healthy diet Code Status: Full code Subjective Date/time seen: 03/13/25 17:08 Interval history: Comfortable at bedside and on supplemental oxygen by Nasal cannula Review of Systems Review of Systems: All systems reviewed & are unremarkable except as noted in HPI and below (HPI) ROS unobtainable: Yes unobtainable due to endotracheal tube and unobtainable due to medical condition Exam Narrative: General: Pleasant gentleman, awake in no acute distress HEENT:? Pupils equal and reactive, sclera is clear, Neck:? Supple Respiratory:? Improved air entry, decreased at bases, no wheezing, Cardiac:? S1-S2 is normal, normal sinus rhythm Abdomen:? Soft, nontender, nondistended, hypoactive bowel sounds Extremities:? No edema, palpable pedal pulses, Neuro:? Extubated on 03/12, awake, alert, able to answer questions appropriately and follows simple commands in all extremities Skin:? No lesions noted Psych: Normal mentation and affect Const: Other: Tachypnea, otherwise comfortable Eyes: Pupils: Equal, round and reactive pupils present Neck: Neck: supple Resp: Effort & Inspection: normal respiratory effort Other: Bibasilar crackles Cardio: Rate: tachycardic Rhythm: regular rhythm Heart sounds: no gallops, no murmurs and no rubs GI: Inspection: non-distended : General: Yes bladder normal to palpation Neuro: Cranial nerves: Yes Equal, round and reactive pupils present Motor exam (neuro): 5/5 motor strength present throughout Extrem: General: no edema Objective Data Vital Signs Vital Signs: Vital Signs - 24 hr 03/12/25 18:00 03/12/25 18:00 03/12/25 20:00 Temperature 99.5 F 99.4 F Pulse Rate 92 92 93 Respiratory Rate 16 14 Blood Pressure 115/83 127/83 Pulse Oximetry 98 100 Oxygen Delivery Oxygen Flow Rate Fraction of Inspired Oxygen 03/12/25 20:00 03/12/25 20:00 03/12/25 20:19 Temperature Pulse Rate 93 93 88 Respiratory Rate 14 17 Blood Pressure Pulse Oximetry 100 Oxygen Delivery BiPAP Oxygen Flow Rate Fraction of Inspired Oxygen 35 03/12/25 20:20 03/12/25 20:26 03/12/25 22:00 Temperature Pulse Rate 89 89 96 Respiratory Rate 18 18 Blood Pressure Pulse Oximetry 100 Oxygen Delivery BiPAP Oxygen Flow Rate Fraction of Inspired Oxygen 03/12/25 22:00 03/12/25 23:26 03/13/25 00:00 Temperature Pulse Rate 96 96 96 Respiratory Rate 14 17 14 Blood Pressure 127/77 Pulse Oximetry 100 100 100 Oxygen Delivery BiPAP BiPAP Oxygen Flow Rate Fraction of Inspired Oxygen 30 03/13/25 00:00 03/13/25 00:00 03/13/25 02:00 Temperature 100.0 F H Pulse Rate 96 95 98 Respiratory Rate 14 Blood Pressure 122/80 Pulse Oximetry 100 Oxygen Delivery Oxygen Flow Rate Fraction of Inspired Oxygen 03/13/25 02:00 03/13/25 02:17 03/13/25 02:20 Temperature Pulse Rate 98 99 99 Respiratory Rate 14 15 15 Blood Pressure 142/87 H Pulse Oximetry 100 100 Oxygen Delivery BiPAP Oxygen Flow Rate Fraction of Inspired Oxygen 03/13/25 04:00 03/13/25 04:00 03/13/25 04:00 Temperature 99.8 F H Pulse Rate 100 100 103 H Respiratory Rate 14 14 Blood Pressure 119/77 Pulse Oximetry 100 100 Oxygen Delivery BiPAP Oxygen Flow Rate Fraction of Inspired Oxygen 30 03/13/25 05:10 03/13/25 06:00 03/13/25 06:00 Temperature Pulse Rate 101 H 101 H 101 H Respiratory Rate 16 16 Blood Pressure 123/80 Pulse Oximetry 100 100 Oxygen Delivery BiPAP Oxygen Flow Rate Fraction of Inspired Oxygen 03/13/25 07:48 03/13/25 07:48 03/13/25 07:55 Temperature Pulse Rate 105 H 105 H 104 H Respiratory Rate 22 H 18 18 Blood Pressure Pulse Oximetry 98 Oxygen Delivery BiPAP Oxygen Flow Rate Fraction of Inspired Oxygen 03/13/25 08:00 03/13/25 08:00 03/13/25 08:00 Temperature 99.7 F H Pulse Rate 104 H 104 H 106 H Respiratory Rate 20 20 Blood Pressure 134/88 Pulse Oximetry 100 99 Oxygen Delivery BiPAP Oxygen Flow Rate Fraction of Inspired Oxygen 30 03/13/25 08:20 03/13/25 10:00 03/13/25 10:00 Temperature 100.3 F H Pulse Rate 105 H 104 H 104 H Respiratory Rate 20 23 H Blood Pressure 145/86 H Pulse Oximetry 97 100 Oxygen Delivery Nasal Cannula Oxygen Flow Rate 3 Fraction of Inspired Oxygen 32 03/13/25 12:00 03/13/25 12:00 03/13/25 12:00 Temperature 99.8 F H Pulse Rate 107 H 109 H 105 H Respiratory Rate 20 18 Blood Pressure 130/90 Pulse Oximetry 99 94 Oxygen Delivery Nasal Cannula Oxygen Flow Rate 2 Fraction of Inspired Oxygen 03/13/25 14:00 03/13/25 14:00 03/13/25 15:05 Temperature 99.7 F H Pulse Rate 108 H 108 H 107 H Respiratory Rate 25 H 18 Blood Pressure 134/91 H Pulse Oximetry 100 Oxygen Delivery Oxygen Flow Rate Fraction of Inspired Oxygen 03/13/25 15:13 03/13/25 15:14 03/13/25 16:00 Temperature Pulse Rate 105 H 114 H Respiratory Rate 18 23 H Blood Pressure Pulse Oximetry 93 Oxygen Delivery Nasal Cannula Nasal Cannula Oxygen Flow Rate 2 3 Fraction of Inspired Oxygen 03/13/25 16:00 03/13/25 17:05 Temperature 100.8 F H 101.0 F H Pulse Rate 113 H Respiratory Rate 22 H Blood Pressure 121/88 Pulse Oximetry 96 Oxygen Delivery Oxygen Flow Rate Fraction of Inspired Oxygen Intake/Output Intake/Output: Intake & Output 03/10/25 03/11/25 03/12/25 03/13/25 23:59 23:59 23:59 23:59 Intake Total 1389.9 932.4 1153.8 1160 Output Total 3947 378 7406 3150 Balance 89.9 -17.6 -1596.2 -1989 Meds/Results Medications: Active Medications Generic Name Dose Route Start Last Admin Trade Name Freq PRN Reason Stop Dose Admin Acetaminophen 650 mg 03/13/25 16:49 03/13/25 17:05 Acetaminophen 325 Mg Tablet PO 650 mg Q6H PRN Administration Mild Pain (1-3) or Fever Albuterol/Ipratropium 3 ml 03/12/25 14:00 03/13/25 15:04 Ipratropium 0.5 Mg/Albuterol Sulfate 2.5 Mg Ampul.Neb 3 Ml INHALATION 3 ml Q6HRT LIZY Administration Aspirin 81 mg 03/08/25 08:00 03/13/25 08:24 Aspirin 81 Mg Chewable Tablet PO 81 mg DAILY@0800 LIZY Administration Atorvastatin Calcium 40 mg 03/11/25 18:00 03/13/25 17:05 Atorvastatin 40 Mg Tablet PO 40 mg EVENING LIZY Administration Dextrose 12.5 gm 03/07/25 11:20 Dextrose 50% 25 Gm/50 Ml Syringe IV PUSH PRN PRN Hypoglycemia Protocol Enoxaparin Sodium 40 mg 03/09/25 09:00 03/13/25 08:24 Enoxaparin 40 Mg/0.4 Ml Syringe SUB-Q 40 mg DAILY LIZY Administration Fluticasone/Umeclidinium/Vilanterol 1 puff 03/12/25 12:05 03/13/25 07:45 Fluticasone/Umeclidin/Vilanter 100-62.5-25 Mcg Ellipta INHALATION 1 puff DAILY LIZY Administration Glucagon 1 mg 03/07/25 11:20 Glucagon For Inj 1 Mg Vial IM PRN PRN Hypoglycemia Protocol Glucose 15 gm 03/07/25 11:20 Glucose Oral Gel 15 Gm Of Glucse In 37.5 Gm Tube PO PRN PRN Hypoglycemia Protocol Dextrose 1,000 mls @ 100 mls/hr 03/07/25 11:20 Dextrose 5% 1,000 Ml IVPB PRN PRN Hypoglycemia Protocol Pantoprazole Sodium 40 mg 03/08/25 09:00 03/13/25 08:24 Pantoprazole Sodium Iv 40 Mg Vial IV PUSH 40 mg QAM LIZY Administration Prednisone 20 mg 03/12/25 08:00 03/13/25 08:24 Prednisone 20 Mg Tablet PO 03/14/25 08:01 20 mg DAILY@0800 LIZY Administration Sodium Chloride 10 ml 03/07/25 14:00 03/13/25 14:38 Central Line Flush IV PUSH 10 ml Q8HR LIZY Administration Sodium Chloride 10 ml 03/07/25 07:57 Central Line Flush IV PUSH PRN PRN with TPN bag changes Sodium Chloride 20 ml 03/07/25 07:57 03/10/25 04:45 Central Line Flush IV PUSH 20 ml PRN PRN Administration after blood draws Radiology Results: ITS Impressions Abdomen X-Ray 03/10/25 11:11 IMPRESSION: 1: OG tube tip in the stomach. Chest X-Ray 03/13/25 05:49 Impression: 1: Right basilar infiltrates may represent developing pneumonia or atelectasis. Labs Labs: Laboratory Results - last 24 hr 03/13/25 03/13/25 04:54 07:50 WBC 18.3 H RBC 4.14 L Hgb 12.8 L Hct 40.0 L MCV 96.6 MCH 30.9 MCHC 32.0 RDW 13.5 Plt Count 223 MPV 10.1 Immature Gran % (Auto) 1.0 H Neut % (Auto) 73.8 H Lymph % (Auto) 10.4 L [place] % (Auto) 13.6 H Eos % (Auto) 1.0 Baso % (Auto) 0.2 Lymph # (Auto) 1.91 [place] # (Auto) 2.5 H Eos # (Auto) 0.2 Baso # (Auto) 0.0 Abs Immat Gran (auto) 0.18 H Absolute Neuts (auto) 13.5 H Absolute Nucleated RBC 0.000 Nucleated RBC % 0.0 Puncture Site Left radial ABG pH 7.500 H ABG pCO2 44.3 ABG pO2 66.4 L ABG PO2/FiO2 Ratio 2.21 ABG HCO3 33.8 H ABG O2 Saturation 94.5 L ABG O2 Content 18.5 ABG Base Excess 9.4 A-a Gradient 95.5 Oxyhemoglobin 93.2 Total Hemoglobin 14.1 O2 Delivery Device Non-invasive vent O2 Liters/Min Not Reportable Vent Rate 14 FiO2 30 Expiratory Pressure 6 Inspiratory Pressure 12 Sodium 134 L Potassium 3.5 Chloride 94 L Carbon Dioxide 35 H Anion Gap 5 BUN 32 H Creatinine 0.79 Estim Creat Clear Calc 76 Estimated GFR > 60 Glucose 80 Calcium 9.1 Phosphorus 2.8 Magnesium 1.9 Total Bilirubin 0.6 AST 55 ALT 57 H Alkaline Phosphatase 58 Total Protein 5.9 L Albumin 3.5 Quality VTE Prophylaxis VTE prophylaxis: pharmacologic ordered
--- NOTE | 2025-03-13 18:28 | PC.NURSE ---
This patient, Vega Cedeno, was transferred to [[id number] ] on 03/13/25 at 1828. Personal belongings sent with patient. Report given to Sybil. Appropriate documentation sent with patient and patient's brother Osmin has been notified about this patient's being transferred to IMU room 203.
[2025-03-14] VITALS (24 sets, daily range): BP systolic 112–134; BP diastolic 67–83; PULSE 87–108; RESP 18–31; TEMP 36.4–37; O2SAT 94–100
[2025-03-14] MEDS: IPRATROPIUM 0.5 MG/ALBUTEROL SULFATE 2.5 MG AMPUL.NEB 3 ML INHALATION ×3 (01:06→19:55)
[2025-03-14 06:15] LABS: Hematocrit 37.6 % (42.0-52.0); Hemoglobin 12.1 g/dL (14.0-18.0); Immature Granulocyte Percent A 1.2 % (0-0.5); Lymphocytes Absolute Auto 2.06 K/mm3 (0.9-3.2); Mean Corpuscular HGB Conc 32.2 g/dl (32-36); Mean Corpuscular Hemoglobin 31.2 pg (26-34); Mean Corpuscular Volume 96.9 fl (80-100); Nucleated Red Blood Cells Absolute Auto 0.000 K/mm3 (0.0-0.012); Nucleated Red Blood Cells Perc 0.0 % (0.0-0.2); Platelet Count Result 198 k/mm3 (150-375); Red Blood Count 3.88 M/mm3 (4.6-6.20); White Blood Count 19.1 K/mm3 (4.5-10.0)
[2025-03-14] MEDS: CENTRAL LINE FLUSH 10 ML IV PUSH ×3 (06:33→23:01)
[2025-03-14 06:44] LABS: Alanine Aminotransferase 44 U/L (6-50); Albumin Level 3.3 g/dL (3.5-5.1); Alkaline Phosphatase 53 U/L (38-126); Anion Gap 3 mmol/L (4-12); Aspartate Amino Transferase 48 U/L (17-59); Bilirubin,Total 0.7 mg/dL (0.2-1.3); Blood Urea Nitrogen 28 mg/dL (9-20); Calcium 8.7 mg/dL (8.4-10.2); Carbon Dioxide 37 mmol/L (22-30); Chloride 93 mmol/L (98-107); Estimated CRCL calculation 69 ml/min; Estimated Glomerular Filt Rate > 60; Glucose 93 mg/dL (65-110); Magnesium 1.9 mg/dL (1.6-2.3); Potassium 3.8 mmol/L (3.4-5.0); Sodium 133 mmol/L (137-145); Total Protein 5.8 g/dL (6.3-8.2)
[2025-03-14] MEDS: PANTOPRAZOLE SODIUM IV 40 MG VIAL IV PUSH ×2 (11:59→12:00)
[2025-03-14] MEDS: PIPERACILLIN/TAZOBACTAM SOD 4.5 GM in SODIUM CHLORIDE 0.9% IV 100 ML 200 ML IVPB ×2 (12:01→18:41)
[2025-03-14] MEDS: ENOXAPARIN 40 MG/0.4 ML SYRINGE SUB-Q (12:01)
--- NOTE | 2025-03-14 13:22 | PC.NURSE ---
Pt off floor for modified barium swallow
--- NOTE | 2025-03-14 13:48 | PCRTNOTE ---
Window of time for administration has passed. See next scheduled administration.
--- NOTE | 2025-03-14 13:59 | PCSTNOTE ---
Please refer to the Modified Barium Swallow Evaluation in the EMR. The patient is a 64 year old male referred for an MBS Study. The patient was admitted with respiratory failure and hypoxia. The patient was noted to have a choking episode this am with solids. The patient was positioned in the lateral view and presented the following consistencies: 5cc/tsp thin liquid barium, cup/uncontrolled amounts thin liquid barium, pudding mixed with barium paste, and cracker coated with barium paste. Oral Stage: Timely oral preparation and transit for all consistencies. Pharyngeal Stage: Swallow initiation was timely without viewed laryngeal penetration or aspiration for all consistencies. In addition no residual was viewed to remain in the vallecula or pyriform sinus for all consistencies administered. The patients swallow appears within normal limits no further speech services recommended.
--- NOTE | 2025-03-14 14:29 | PM.IMPN ---
Progress Note: A&P Assessment and Plan (1) Acute respiratory failure with hypoxia and hypercapnia: Code(s): J96.01 - Acute respiratory failure with hypoxia; J96.02 - Acute respiratory failure with hypercapnia Status: Acute Assessment and Plan: s/p intubation now on nasal cannula oxygen Continue prednisone taper (end date 03/14/2025) -continue Trelegy Ellipta which is his home inhaler -also continue DuoNeb -patient wears 3-4 L oxygen at home -BiPAP p.r.n. (2) Septic shock: Code(s): A41.9 - Sepsis, unspecified organism; R65.21 - Severe sepsis with septic shock Status: Acute Assessment and Plan: Patient presented with hypoxia, tachypnea, tachycardia. She was found to be in COPD exacerbation -patient was hypotensive, requiring Costa-Synephrine through peripheral IV initially and a PICC line was inserted on 03/07 -on and off support for Levophed likely secondary to sedation. -03/06: Status post doxycycline and ceftriaxone -03/06: Blood cultures have been obtained and negative till now (3) Chronic obstructive pulmonary disease: Code(s): J44.9 - Chronic obstructive pulmonary disease, unspecified Status: Acute Assessment and Plan: COPD exacerbation See above (4) Elevated troponin: Code(s): R79.89 - Other specified abnormal findings of blood chemistry Status: Acute Assessment and Plan: Elevated troponin along with EKG changes Cardiology consult Off of heparin infusion after 48 hours Continue aspirin 81 mg Echo Summary 1. The left ventricle is normal in size and systolic function. The left ventricular ejection fraction is visually estimated to be 50-55%. The anteroseptum on some off-axis views is hypokinetic. 2. The right ventricle is normal in size and systolic function. 3. There is a small size pericardial effusion with no echocardiographic evidence of cardiac tamponade. 03/11/2025: Cardiac catheterization showed moderate CAD, significant P 80, continue aspirin, statin, outpatient evaluation of his peripheral arterial disease, no further inpatient cardiac workup at this time (5) Acute kidney injury: Code(s): N17.9 - Acute kidney failure, unspecified Status: Acute Assessment and Plan: resolved Cr 0.81 (6) Electrolyte abnormality: Code(s): E87.8 - Other disorders of electrolyte and fluid balance, not elsewhere classified Status: Acute Assessment and Plan: Replace potassium Plan Aspiration pnuemonia Patient had an aspiration event last night and CXR showed LLL infiltrate likely from aspiration Started on Zosyn MBS now aspiration noted patient will continue on regular diet monitor one more night DVT prophylaxis: Lovenox Stress ulcer prophylaxis: Protonix Nutrition: Appreciate speech evaluation and recommendations, will start heart healthy diet Code Status: Full code Subjective Date/time seen: 03/14/25 14:29 Interval history: Comfortable at bedside Had an aspiration event last night and CXR showed developing LLL infiltrate suspicious for aspiration Review of Systems Review of Systems: All systems reviewed & are unremarkable except as noted in HPI and below (HPI) ROS unobtainable: Yes unobtainable due to endotracheal tube and unobtainable due to medical condition Exam Narrative: General: Pleasant gentleman, awake in no acute distress HEENT:? Pupils equal and reactive, sclera is clear, Neck:? Supple Respiratory:? Improved air entry, decreased at bases, no wheezing, Cardiac:? S1-S2 is normal, normal sinus rhythm Abdomen:? Soft, nontender, nondistended, hypoactive bowel sounds Extremities:? No edema, palpable pedal pulses, Neuro:? Extubated on 03/12, awake, alert, able to answer questions appropriately and follows simple commands in all extremities Skin:? No lesions noted Psych: Normal mentation and affect Const: Other: Tachypnea, otherwise comfortable Eyes: Pupils: Equal, round and reactive pupils present Neck: Neck: supple Resp: Effort & Inspection: normal respiratory effort Other: Bibasilar crackles Cardio: Rate: tachycardic Rhythm: regular rhythm Heart sounds: no gallops, no murmurs and no rubs GI: Inspection: non-distended : General: Yes bladder normal to palpation Neuro: Cranial nerves: Yes Equal, round and reactive pupils present Motor exam (neuro): 5/5 motor strength present throughout Extrem: General: no edema Objective Data Vital Signs Vital Signs: Vital Signs - 24 hr 03/13/25 15:05 03/13/25 15:13 03/13/25 15:14 Temperature Pulse Rate 107 H 105 H Respiratory Rate 18 18 Blood Pressure Pulse Oximetry Oxygen Delivery Nasal Cannula Oxygen Flow Rate 2 Fraction of Inspired Oxygen 03/13/25 16:00 03/13/25 16:00 03/13/25 16:00 Temperature 100.8 F H Pulse Rate 114 H 113 H 115 H Respiratory Rate 23 H 22 H Blood Pressure 121/88 Pulse Oximetry 93 96 Oxygen Delivery Nasal Cannula Oxygen Flow Rate 3 Fraction of Inspired Oxygen 03/13/25 17:05 03/13/25 18:00 03/13/25 18:00 Temperature 101.0 F H 100.6 F H Pulse Rate 110 H 111 H Respiratory Rate 26 H Blood Pressure 133/81 Pulse Oximetry 93 Oxygen Delivery Oxygen Flow Rate Fraction of Inspired Oxygen 03/13/25 18:05 03/13/25 19:58 03/13/25 19:59 Temperature 100.6 F H 98.2 F Pulse Rate 108 H 105 H Respiratory Rate 23 H 20 Blood Pressure 164/98 H Pulse Oximetry 100 Oxygen Delivery Oxygen Flow Rate Fraction of Inspired Oxygen 03/13/25 20:00 03/13/25 20:00 03/13/25 20:01 Temperature Pulse Rate 106 H 110 H Respiratory Rate 20 Blood Pressure Pulse Oximetry 100 100 Oxygen Delivery Nasal Cannula Nasal Cannula Oxygen Flow Rate 3 3 Fraction of Inspired Oxygen 32 03/13/25 22:00 03/13/25 22:56 03/13/25 23:40 Temperature 98.6 F Pulse Rate 110 H 102 H 109 H Respiratory Rate 26 H 32 H Blood Pressure 140/95 H Pulse Oximetry 97 99 Oxygen Delivery BiPAP Oxygen Flow Rate Fraction of Inspired Oxygen 03/14/25 00:00 03/14/25 00:00 03/14/25 01:07 Temperature Pulse Rate 108 H 100 Respiratory Rate 23 H Blood Pressure Pulse Oximetry 97 Oxygen Delivery BiPAP Oxygen Flow Rate Fraction of Inspired Oxygen 30 03/14/25 01:08 03/14/25 02:00 03/14/25 03:51 Temperature 97.7 F Pulse Rate 100 101 H 95 Respiratory Rate 23 H 24 H Blood Pressure 118/76 Pulse Oximetry 99 98 Oxygen Delivery BiPAP Oxygen Flow Rate Fraction of Inspired Oxygen 03/14/25 04:00 03/14/25 04:00 03/14/25 04:18 Temperature Pulse Rate 99 98 Respiratory Rate 31 H Blood Pressure Pulse Oximetry 100 98 Oxygen Delivery BiPAP BiPAP Oxygen Flow Rate Fraction of Inspired Oxygen 30 03/14/25 04:20 03/14/25 06:00 03/14/25 08:00 Temperature Pulse Rate 98 94 102 H Respiratory Rate 20 Blood Pressure Pulse Oximetry 98 Oxygen Delivery Nasal Cannula Oxygen Flow Rate 3 Fraction of Inspired Oxygen 32 03/14/25 08:11 03/14/25 08:18 03/14/25 10:00 Temperature 97.5 F L Pulse Rate 100 104 H Respiratory Rate 18 Blood Pressure 134/78 Pulse Oximetry 95 95 Oxygen Delivery Nasal Cannula Oxygen Flow Rate 3 Fraction of Inspired Oxygen 03/14/25 12:00 03/14/25 12:00 03/14/25 13:51 Temperature 98.2 F Pulse Rate 104 H 104 H 104 H Respiratory Rate 22 H 20 Blood Pressure 112/83 Pulse Oximetry 100 Oxygen Delivery Oxygen Flow Rate Fraction of Inspired Oxygen 03/14/25 13:55 Temperature Pulse Rate 100 Respiratory Rate 20 Blood Pressure Pulse Oximetry Oxygen Delivery Oxygen Flow Rate Fraction of Inspired Oxygen Intake/Output Intake/Output: Intake & Output 03/11/25 03/12/25 03/13/25 03/14/25 23:59 23:59 23:59 23:59 Intake Total 932.4 1153.8 1160 420 Output Total 950 2750 3150 350 Balance -17.6 -1596.2 -1989 70 Meds/Results Medications: Active Medications Generic Name Dose Route Start Last Admin Trade Name Freq PRN Reason Stop Dose Admin Acetaminophen 650 mg 03/13/25 16:49 03/13/25 17:05 Acetaminophen 325 Mg Tablet PO 650 mg Q6H PRN Administration Mild Pain (1-3) or Fever Albuterol/Ipratropium 3 ml 03/12/25 14:00 03/14/25 13:48 Ipratropium 0.5 Mg/Albuterol Sulfate 2.5 Mg Ampul.Neb 3 Ml INHALATION 3 ml Q6HRT LIZY Administration Aspirin 81 mg 03/08/25 08:00 03/14/25 11:45 Aspirin 81 Mg Chewable Tablet PO Not Given DAILY@0800 LIZY Atorvastatin Calcium 40 mg 03/11/25 18:00 03/13/25 17:05 Atorvastatin 40 Mg Tablet PO 40 mg EVENING LIZY Administration Dextrose 12.5 gm 03/07/25 11:20 Dextrose 50% 25 Gm/50 Ml Syringe IV PUSH PRN PRN Hypoglycemia Protocol Enoxaparin Sodium 40 mg 03/09/25 09:00 03/14/25 12:01 Enoxaparin 40 Mg/0.4 Ml Syringe SUB-Q 40 mg DAILY LIZY Administration Fluticasone/Umeclidinium/Vilanterol 1 puff 03/12/25 12:05 03/14/25 13:48 Fluticasone/Umeclidin/Vilanter 100-62.5-25 Mcg Ellipta INHALATION Not Given DAILY LIZY Glucagon 1 mg 03/07/25 11:20 Glucagon For Inj 1 Mg Vial IM PRN PRN Hypoglycemia Protocol Glucose 15 gm 03/07/25 11:20 Glucose Oral Gel 15 Gm Of Glucse In 37.5 Gm Tube PO PRN PRN Hypoglycemia Protocol Dextrose 1,000 mls @ 100 mls/hr 03/07/25 11:20 Dextrose 5% 1,000 Ml IVPB PRN PRN Hypoglycemia Protocol Piperacillin Sod/Tazobactam 100 mls @ 200 mls/hr 03/14/25 10:00 03/14/25 12:01 Sod 4.5 gm/ Sodium Chloride IVPB 200 mls/hr Q6H LIZY Administration Pantoprazole Sodium 40 mg 03/08/25 09:00 03/14/25 12:00 Pantoprazole Sodium Iv 40 Mg Vial IV PUSH 40 mg QAM LIZY Administration Sodium Chloride 10 ml 03/07/25 14:00 03/14/25 06:33 Central Line Flush IV PUSH 10 ml Q8HR LIZY Administration Sodium Chloride 10 ml 03/07/25 07:57 Central Line Flush IV PUSH PRN PRN with TPN bag changes Sodium Chloride 20 ml 03/07/25 07:57 03/10/25 04:45 Central Line Flush IV PUSH 20 ml PRN PRN Administration after blood draws Radiology Results: ITS Impressions Abdomen X-Ray 03/10/25 11:11 IMPRESSION: 1: OG tube tip in the stomach. Chest X-Ray 03/14/25 09:15 Impression: 1: Developing left basilar infiltrate may represent atelectasis or pneumonia. Consider aspiration. Modified Barium Swallow 03/14/25 14:04 IMPRESSION: No penetration or aspiration Please refer to speech pathologist report for additional detail. Labs Labs: Laboratory Results - last 24 hr 03/14/25 06:04 WBC 19.1 H RBC 3.88 L Hgb 12.1 L Hct 37.6 L MCV 96.9 MCH 31.2 MCHC 32.2 RDW 13.5 Plt Count 198 MPV 9.8 Immature Gran % (Auto) 1.2 H Neut % (Auto) 71.7 Lymph % (Auto) 10.8 L [place] % (Auto) 14.4 H Eos % (Auto) 1.7 Baso % (Auto) 0.2 Lymph # (Auto) 2.06 [place] # (Auto) 2.8 H Eos # (Auto) 0.3 Baso # (Auto) 0.0 Abs Immat Gran (auto) 0.22 H Absolute Neuts (auto) 13.7 H Absolute Nucleated RBC 0.000 Nucleated RBC % 0.0 Sodium 133 L Potassium 3.8 Chloride 93 L Carbon Dioxide 37 H Anion Gap 3 L BUN 28 H Creatinine 0.81 Estim Creat Clear Calc 69 Estimated GFR > 60 Glucose 93 Calcium 8.7 Phosphorus 2.8 Magnesium 1.9 Total Bilirubin 0.7 AST 48 ALT 44 Alkaline Phosphatase 53 Total Protein 5.8 L Albumin 3.3 L Quality VTE Prophylaxis VTE prophylaxis: pharmacologic ordered
[2025-03-14] MEDS: ATORVASTATIN 40 MG TABLET PO (18:42)
[2025-03-15] VITALS (17 sets, daily range): BP systolic 116–134; BP diastolic 67–94; PULSE 85–109; RESP 16–26; TEMP 36.3–36.9; O2SAT 96–100
[2025-03-15] MEDS: PIPERACILLIN/TAZOBACTAM SOD 4.5 GM in SODIUM CHLORIDE 0.9% IV 100 ML 200 ML IVPB ×5 (00:21→23:14)
[2025-03-15] MEDS: IPRATROPIUM 0.5 MG/ALBUTEROL SULFATE 2.5 MG AMPUL.NEB 3 ML INHALATION ×4 (01:21→21:21)
[2025-03-15] MEDS: CENTRAL LINE FLUSH 10 ML IV PUSH ×3 (06:30→23:12)
[2025-03-15 06:45] LABS: Hematocrit 36.5 % (42.0-52.0); Hemoglobin 11.8 g/dL (14.0-18.0); Immature Granulocyte Percent A 1.0 % (0-0.5); Lymphocytes Absolute Auto 1.48 K/mm3 (0.9-3.2); Mean Corpuscular HGB Conc 32.3 g/dl (32-36); Mean Corpuscular Hemoglobin 30.9 pg (26-34); Mean Corpuscular Volume 95.5 fl (80-100); Nucleated Red Blood Cells Absolute Auto 0.000 K/mm3 (0.0-0.012); Nucleated Red Blood Cells Perc 0.0 % (0.0-0.2); Platelet Count Result 223 k/mm3 (150-375); Red Blood Count 3.82 M/mm3 (4.6-6.20); White Blood Count 16.5 K/mm3 (4.5-10.0)
[2025-03-15] MEDS: FLUTICASONE/UMECLIDIN/VILANTER 100-62.5-25 MCG ELLIPTA 1 PUFF INHALATION (07:20)
[2025-03-15] MEDS: ASPIRIN 81 MG CHEWABLE TABLET PO (08:04)
[2025-03-15] MEDS: ENOXAPARIN 40 MG/0.4 ML SYRINGE SUB-Q (08:05)
[2025-03-15] MEDS: PANTOPRAZOLE SODIUM IV 40 MG VIAL IV PUSH (08:05)
[2025-03-15] MEDS: ACETAMINOPHEN 325 MG TABLET 650 MG PO (08:06)
[2025-03-15 08:35] LABS: Alanine Aminotransferase 39 U/L (6-50); Albumin Level 3.4 g/dL (3.5-5.1); Alkaline Phosphatase 54 U/L (38-126); Anion Gap 5 mmol/L (4-12); Aspartate Amino Transferase 41 U/L (17-59); Bilirubin,Total 0.6 mg/dL (0.2-1.3); Blood Urea Nitrogen 21 mg/dL (9-20); Calcium 8.8 mg/dL (8.4-10.2); Carbon Dioxide 34 mmol/L (22-30); Chloride 94 mmol/L (98-107); Estimated CRCL calculation 73 ml/min; Estimated Glomerular Filt Rate > 60; Glucose 134 mg/dL (65-110); Magnesium 2.1 mg/dL (1.6-2.3); Potassium 4.2 mmol/L (3.4-5.0); Sodium 133 mmol/L (137-145); Total Protein 5.9 g/dL (6.3-8.2)
--- NOTE | 2025-03-15 12:45 | PC.NURSE ---
This patient, Vega Cedeno, was received from IMU room 203 on 03/15/25 at 1215. Patient/family oriented to unit policies and routines
--- NOTE | 2025-03-15 13:43 | PM.IMPN ---
Progress Note: A&P Assessment and Plan (1) Acute respiratory failure with hypoxia and hypercapnia: Code(s): J96.01 - Acute respiratory failure with hypoxia; J96.02 - Acute respiratory failure with hypercapnia Status: Acute Assessment and Plan: s/p intubation now on nasal cannula oxygen Continue prednisone taper (end date 03/14/2025) -continue Trelegy Ellipta which is his home inhaler -also continue DuoNeb -patient wears 3-4 L oxygen at home -BiPAP p.r.n. (2) Septic shock: Code(s): A41.9 - Sepsis, unspecified organism; R65.21 - Severe sepsis with septic shock Status: Acute Assessment and Plan: Patient presented with hypoxia, tachypnea, tachycardia. She was found to be in COPD exacerbation -patient was hypotensive, requiring Costa-Synephrine through peripheral IV initially and a PICC line was inserted on 03/07 -on and off support for Levophed likely secondary to sedation. -03/06: Status post doxycycline and ceftriaxone -03/06: Blood cultures have been obtained and negative till now (3) Chronic obstructive pulmonary disease: Code(s): J44.9 - Chronic obstructive pulmonary disease, unspecified Status: Acute Assessment and Plan: COPD exacerbation See above (4) Elevated troponin: Code(s): R79.89 - Other specified abnormal findings of blood chemistry Status: Acute Assessment and Plan: Elevated troponin along with EKG changes Cardiology consult Off of heparin infusion after 48 hours Continue aspirin 81 mg Echo Summary 1. The left ventricle is normal in size and systolic function. The left ventricular ejection fraction is visually estimated to be 50-55%. The anteroseptum on some off-axis views is hypokinetic. 2. The right ventricle is normal in size and systolic function. 3. There is a small size pericardial effusion with no echocardiographic evidence of cardiac tamponade. 03/11/2025: Cardiac catheterization showed moderate CAD, significant P 80, continue aspirin, statin, outpatient evaluation of his peripheral arterial disease, no further inpatient cardiac workup at this time (5) Acute kidney injury: Code(s): N17.9 - Acute kidney failure, unspecified Status: Acute Assessment and Plan: resolved Cr 0.81 (6) Electrolyte abnormality: Code(s): E87.8 - Other disorders of electrolyte and fluid balance, not elsewhere classified Status: Acute Assessment and Plan: Replace potassium Plan Aspiration pneumonia Patient had an aspiration event last night and CXR showed LLL infiltrate likely from aspiration day 2 on Zosyn MBS now aspiration noted patient will continue on regular diet monitor one more night Acute on chronic respiratory failure resolved to baseline 2-3 nasal cannula DVT prophylaxis: Lovenox Stress ulcer prophylaxis: Protonix Code Status: Full code Awaiting placement Subjective Date/time seen: 03/15/25 13:43 Interval history: Comfortable at bedside Awaiting placement Review of Systems Review of Systems: All systems reviewed & are unremarkable except as noted in HPI and below (HPI) ROS unobtainable: Yes unobtainable due to endotracheal tube and unobtainable due to medical condition Exam Narrative: General: Pleasant gentleman, awake in no acute distress HEENT:? Pupils equal and reactive, sclera is clear, Neck:? Supple Respiratory:? Improved air entry, decreased at bases, no wheezing, Cardiac:? S1-S2 is normal, normal sinus rhythm Abdomen:? Soft, nontender, nondistended, hypoactive bowel sounds Extremities:? No edema, palpable pedal pulses, Neuro:? Extubated on 03/12, awake, alert, able to answer questions appropriately and follows simple commands in all extremities Skin:? No lesions noted Psych: Normal mentation and affect Const: Other: Tachypnea, otherwise comfortable Eyes: Pupils: Equal, round and reactive pupils present Neck: Neck: supple Resp: Effort & Inspection: normal respiratory effort Other: Bibasilar crackles Cardio: Rate: tachycardic Rhythm: regular rhythm Heart sounds: no gallops, no murmurs and no rubs GI: Inspection: non-distended : General: Yes bladder normal to palpation Neuro: Cranial nerves: Yes Equal, round and reactive pupils present Motor exam (neuro): 5/5 motor strength present throughout Extrem: General: no edema Objective Data Vital Signs Vital Signs: Vital Signs - 24 hr 03/14/25 13:51 03/14/25 13:55 03/14/25 14:00 Temperature Pulse Rate 104 H 100 100 Respiratory Rate 20 20 Blood Pressure Pulse Oximetry Oxygen Delivery Oxygen Flow Rate Fraction of Inspired Oxygen 03/14/25 15:15 03/14/25 15:44 03/14/25 15:58 Temperature 98.4 F Pulse Rate 101 H 100 Respiratory Rate 22 H Blood Pressure 123/67 Pulse Oximetry 98 Oxygen Delivery Nasal Cannula Oxygen Flow Rate 2 Fraction of Inspired Oxygen 03/14/25 19:55 03/14/25 19:55 03/14/25 20:00 Temperature Pulse Rate 98 Respiratory Rate 22 H Blood Pressure Pulse Oximetry 96 97 Oxygen Delivery Nasal Cannula Nasal Cannula Oxygen Flow Rate 3 2 Fraction of Inspired Oxygen 03/14/25 20:01 03/14/25 20:10 03/14/25 21:57 Temperature 98.6 F Pulse Rate 104 H 96 87 Respiratory Rate 22 H 23 H 23 H Blood Pressure 124/74 Pulse Oximetry 94 95 Oxygen Delivery BiPAP Oxygen Flow Rate Fraction of Inspired Oxygen 03/15/25 00:07 03/15/25 01:21 03/15/25 01:21 Temperature 98.5 F Pulse Rate 85 92 92 Respiratory Rate 22 H 26 H 26 H Blood Pressure 125/81 Pulse Oximetry 99 96 Oxygen Delivery BiPAP Oxygen Flow Rate Fraction of Inspired Oxygen 03/15/25 01:27 03/15/25 07:15 03/15/25 07:20 Temperature Pulse Rate 95 86 Respiratory Rate 26 H 20 Blood Pressure Pulse Oximetry 96 Oxygen Delivery Nasal Cannula Oxygen Flow Rate 3 Fraction of Inspired Oxygen 32 03/15/25 07:22 03/15/25 07:59 03/15/25 08:00 Temperature 98.0 F Pulse Rate 92 88 Respiratory Rate 20 22 H Blood Pressure 134/79 Pulse Oximetry 100 100 Oxygen Delivery Nasal Cannula Oxygen Flow Rate 3 Fraction of Inspired Oxygen 03/15/25 12:37 03/15/25 12:50 Temperature 97.4 F L Pulse Rate 109 H Respiratory Rate 16 Blood Pressure 116/67 Pulse Oximetry 100 100 Oxygen Delivery Nasal Cannula Oxygen Flow Rate 3 Fraction of Inspired Oxygen 32 Intake/Output Intake/Output: Intake & Output 03/12/25 03/13/25 03/14/25 03/15/25 23:59 23:59 23:59 23:59 Intake Total 1153.8 1160 1160 1330 Output Total 2750 3150 1100 1300 Balance -1596.2 30 Meds/Results Medications: Active Medications Generic Name Dose Route Start Last Admin Trade Name Freq PRN Reason Stop Dose Admin Acetaminophen 650 mg 03/13/25 16:49 03/15/25 08:06 Acetaminophen 325 Mg Tablet PO 650 mg Q6H PRN Administration Mild Pain (1-3) or Fever Albuterol/Ipratropium 3 ml 03/12/25 14:00 03/15/25 07:19 Ipratropium 0.5 Mg/Albuterol Sulfate 2.5 Mg Ampul.Neb 3 Ml INHALATION 3 ml Q6HRT LIZY Administration Aspirin 81 mg 03/08/25 08:00 03/15/25 08:04 Aspirin 81 Mg Chewable Tablet PO 81 mg DAILY@0800 LIZY Administration Atorvastatin Calcium 40 mg 03/11/25 18:00 03/14/25 18:42 Atorvastatin 40 Mg Tablet PO 40 mg EVENING LIZY Administration Dextrose 12.5 gm 03/07/25 11:20 Dextrose 50% 25 Gm/50 Ml Syringe IV PUSH PRN PRN Hypoglycemia Protocol Enoxaparin Sodium 40 mg 03/09/25 09:00 03/15/25 08:05 Enoxaparin 40 Mg/0.4 Ml Syringe SUB-Q 40 mg DAILY LIZY Administration Fluticasone/Umeclidinium/Vilanterol 1 puff 03/12/25 12:05 03/15/25 07:20 Fluticasone/Umeclidin/Vilanter 100-62.5-25 Mcg Ellipta INHALATION 1 puff DAILY LIZY Administration Glucagon 1 mg 03/07/25 11:20 Glucagon For Inj 1 Mg Vial IM PRN PRN Hypoglycemia Protocol Glucose 15 gm 03/07/25 11:20 Glucose Oral Gel 15 Gm Of Glucse In 37.5 Gm Tube PO PRN PRN Hypoglycemia Protocol Dextrose 1,000 mls @ 100 mls/hr 03/07/25 11:20 Dextrose 5% 1,000 Ml IVPB PRN PRN Hypoglycemia Protocol Piperacillin Sod/Tazobactam 100 mls @ 200 mls/hr 03/15/25 06:00 03/15/25 12:04 Sod 4.5 gm/ Sodium Chloride IVPB Infused Q6H LIZY Infusion Pantoprazole Sodium 40 mg 03/08/25 09:00 03/15/25 08:05 Pantoprazole Sodium Iv 40 Mg Vial IV PUSH 40 mg QAM LIZY Administration Sodium Chloride 10 ml 03/07/25 14:00 03/15/25 06:30 Central Line Flush IV PUSH 10 ml Q8HR LIZY Administration Sodium Chloride 10 ml 03/07/25 07:57 Central Line Flush IV PUSH PRN PRN with TPN bag changes Sodium Chloride 20 ml 03/07/25 07:57 03/10/25 04:45 Central Line Flush IV PUSH 20 ml PRN PRN Administration after blood draws Radiology Results: ITS Impressions Abdomen X-Ray 03/10/25 11:11 IMPRESSION: 1: OG tube tip in the stomach. Chest X-Ray 03/14/25 09:15 Impression: 1: Developing left basilar infiltrate may represent atelectasis or pneumonia. Consider aspiration. Modified Barium Swallow 03/14/25 14:04 IMPRESSION: No penetration or aspiration Please refer to speech pathologist report for additional detail. Labs Labs: Laboratory Results - last 24 hr 03/15/25 06:34 WBC 16.5 H RBC 3.82 L Hgb 11.8 L Hct 36.5 L MCV 95.5 MCH 30.9 MCHC 32.3 RDW 13.2 Plt Count 223 MPV 10.1 Immature Gran % (Auto) 1.0 H Neut % (Auto) 77.9 H Lymph % (Auto) 9.0 L [place] % (Auto) 11.6 H Eos % (Auto) 0.3 Baso % (Auto) 0.2 Lymph # (Auto) 1.48 [place] # (Auto) 1.9 H Eos # (Auto) 0.1 Baso # (Auto) 0.0 Abs Immat Gran (auto) 0.16 H Absolute Neuts (auto) 12.8 H Absolute Nucleated RBC 0.000 Nucleated RBC % 0.0 Sodium 133 L Potassium 4.2 Chloride 94 L Carbon Dioxide 34 H Anion Gap 5 BUN 21 H Creatinine 0.73 Estim Creat Clear Calc 73 Estimated GFR > 60 Glucose 134 H Calcium 8.8 Magnesium 2.1 Total Bilirubin 0.6 AST 41 ALT 39 Alkaline Phosphatase 54 Total Protein 5.9 L Albumin 3.4 L Quality VTE Prophylaxis VTE prophylaxis: pharmacologic ordered
--- NOTE | 2025-03-15 14:17 | PCOTNOTE ---
Attempted to see Patient at this time. Patient on the phone, states he has business to take care of, not today, come back tomorrow.
[2025-03-15] MEDS: ATORVASTATIN 40 MG TABLET PO (17:30)
--- NOTE | 2025-03-15 17:34 | P.CONPL_ITS ---
Assessment and Plan Assessment and plan (1) Acute on chronic respiratory failure with hypoxia and hypercapnia: Code(s): J96.21 - Acute and chronic respiratory failure with hypoxia; J96.22 - Acute and chronic respiratory failure with hypercapnia Status: Acute Assessment and Plan: Long standing need for O2, has not been on home ventilation in the past. He has had high pCO2 throughout this admission, over-corrected at the time of extubation. He may be a candidate for non invasive home ventilation. He uses O2 at night, has not been evaluated for non invasive home vent, and with his ABGs, he may be a candidate. This may keep him from going into failure. Using his ABGs from this admission, he would not have to be sleep tested. (2) Chronic obstructive pulmonary disease: Code(s): J44.9 - Chronic obstructive pulmonary disease, unspecified Status: Acute Assessment and Plan: Very end end stage COPD, FEV1 was less than a liter in 2020; Long standing, advanced; he did not follow through with plans to have evaluation for [place] valve, endobronchial valve for COPD management. He is on Trelegy at home, may benefit from having his meds switched to nebulized instead of inhaler due to his poor lung mechanics. He is hyperinflated, breathing at the top of his lung volumes. He missed his recent appointment which was scheduled for December. He was last seen in June. (3) Shortness of Breath: Code(s): R06.02 - Shortness of breath Status: Acute Assessment and Plan: He has intractable shortness of breath, has been worsening over the last several months. (4) History of tobacco abuse: Code(s): Z87.891 - Personal history of nicotine dependence Status: Acute Assessment and Plan: has not smoked since pre-COVID; reports a light history of smoking, only a half pack per day for 10 years so 5 pack years, and secondary smoke exposure growing up. His degree of COPD is out of proportion to the minimal amount of smoking. He did say that when COVID hit, 2019, he thought everything was deteriorating, so he decided to smoke with a friend. He knew immediately that smoking was awful for him and he stopped. Plan plan: 1) CTA r/o PE; I want to exclude this diagnosis for his persistent dyspnea and as a possible reason for his left lung hyperlucency. He seems to have unilateral hypertranslucency, left lung appears more lucent; this can occur due to a number of conditions; will evaluate for PE. He arrived with increased creatinine, now his acute kidney injury has resolved, est GFR is > 60. 2) He has very end end stage COPD, FEV1 was less than a liter in 2020; he is breathing at the top of his lung volumes, has no pulmonary reserve. He tells me that he has been making bad choices with his health, has often refused to follow recommendations. He was referred for evaluation for [place] valve, never followed up with the referral. He has never had pulmonary rehab, has a borrowed nebulizer at home, does not have meds for it. WE can send albuterol and other medications when he is discharged. He may be better served with a nebulized medication regimen instead of Trelegy one puff a day; he has no inspiratory capacity. He needs to have medications added to COPD, 3) Add Daliresp/roflumilast 250 mcg a day. 4) He may be a candidate for non-invasive positive pressure device at discharge. Will ask RT to assist with ordering and trials while he is here. 5) He is going to need close f/u in our clinic. He missed his December appt. History of Present Illness History of Present Illness Consult date: 03/16/25 Requesting physician: Konrad Kennedy MD Chief complaint: COPD, Acute hypoxic hypercapnic resp failure Narrative: pt was seen March 16, 2025 at 19:[address] Cintron consulted me to see the patient for increasing O2 need, intubation twice recently March 06 or and again March 10, cardiac cath March 11 NEW: Vega Cedeno is a 64-year-old man admitted March 06 with low saturation and shortness of breath for 1-2 days, was in extremis, friends who are also co- workers/landlord overrode his complaints that he did not want to come in; he was making ill informed decisions based on hypoxemia. He tells me that he has been eating a lot of processed foods, cold cuts, frozen pizzas recently. He has not been drinking much fluids. His COPD is managed with Trelegy 100, ONE puff a day and albuterol rescue inhaler 2 or 3 puffs daily. He has been using oxygen for several years. He tells me that he was really short of breath, had a short walk from his job to apartment which is 140 feet away from door to door. The heat has been oppressive with extremely high humidity. On the day of admission, he decided to wait outside in the heat to get his mail instead of going in and trying to make a second trip back to the mailbox. He was extremely short of breath, was waiting until he felt better but apparently was standing outside in the extreme heat for 30 minutes. His neighbor noticed this was happening, and others around him rushed to his side, called 911 despite his loud objections. He admits that he often makes poor choices when his O2 level is low. He had very low oxygen saturation despite using oxygen. He says that he had a cough with clear sputum, some wheezing but no chest pain, fever, sore throat, sinus congestion, leg swelling. His reported saturation was in the 30% range, probably not accurate. He had hypercapnia with a pCO2 in the 65-70 range, was on BiPAP before intubation, was treated empirically for pneumonia, had ceftriaxone and doxycycline, IV Solu-Medrol, then extubated. He had acute kidney injury, now resolved. He has been intubated and extubated twice now. He was in the intensive care unit with septic shock which was attributed to a COPD exacerbation. He had an elevated lactic acid of 5.9, he had a PICC line with Cotsa-Synephrine, negative blood cultures. He had elevated troponins consistent with demand ischemia. He was reintubated 03/10, had a cardiac cath 03/11. He was extubated, remains short of breath with little exertion. Labs: Lactic acid 2.2. Troponin 0.74. BNP [id number]. ABG demonstrating pH 7.22, pCO2 69, pO2 was 201 on BiPAP 100% FiO2, bicarb 28. Repeat ABG slightly improved with a pH 7.26, pCO2 65, PO2 130 on 60% FiO2, bicarb 28.6. He had been on a rate of 12 with IPAP EPAP 15/8. Cardiology consulted from ER, troponin EKG reviewed. Heparin GTT started. Patient also given ceftriaxone and doxycycline, Solu-Medrol 125 mg IV x1, magnesium 2 g IV x1, DuoNebs. 03/07/25 echo: The left ventricle is normal in size and systolic function. The left ventricular ejection fraction is visually estimated to be 50-55%. The morgan-septum on some off-axis views is hypokinetic. 2. The right ventricle is normal in size and systolic function. 3. There is a small size pericardial effusion with no echocardiographic evidence of cardiac tamponade. He had elevate troponin with demand ischemia ; acute kidney injury Reintubated 03/10/25 Cath 03/11 Dr Mark ; Left main: The left main coronary artery is widely patent without any significant obstructive disease. 2. Left anterior descending: The LAD has 40-50% stenosis in its midbody. The remainder of the LAD and the diagonal branches are free of angiographic high- grade stenosis. 3. Left circumflex: The left circumflex artery provides 3 OM branches. OM1 has a focal 10-20% stenosis. The remainder of the system is free of angiographic stenosis. 4. Right coronary artery: The RCA is a large dominant vessel with diffuse 10% stenosis. 5. Left ventricle: A. End-diastolic pressure 20 mmHg. B. LV gram deferred. C. No significant gradient across aortic valve on catheter pullback. 6. Opening AO pressure 84/55 and closing AO pressure 107/66 7. Right iliofemoral angiogram: The visualized portions of the proximal SFA has 70% stenosis. The visualized portions of the right external iliac artery has diffuse 20-30% stenosis with possible wire bias. 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 3 03/0603/11/2503/12 pH 7.225 7.26 7.433 7.497 7.433 7.499 7.50 pCO2 69 65 40 42 48.6 50 44 pO2 201 130 97.5 67 75 74 66 HCO3 28 28 29 32 32 34 34 sat 93% 94% 94% 93% O2 delivery CMV CMV CMV spontaneous BiPAP O2 40% 30% 35% 35% 30% rate 16 IPAP 15 15 12 EPAP 8 8 5 5 5 5 * 03/14/2025, CXR : Developing left basilar infiltrate may represent atelectasis or pneumonia. Consider aspiration. He had the MBS due to this CXR, and had no aspiration. He appears to have unilateral hypertranslucency, left side is . I am not a radiologist. The differential diagnosis of unilateral hyperlucency is broad. One of the causes is large PE. older testing; 07/08/21 - PFTs - ?severe obstructive abnormality on PFTs 07/08/21 with FEV1 0.88 (25% predicted, TLC 143%, FRC 259%, RV 311%, DCLO corrected for Va 49%) . 07/08/21 - Home O2 evaluation - Required no supplemental oxygen at rest and 2L/min O2 with ambulation. 07/08/21 - CT chest - Mild to moderate upper lobe predominant emphysema. Mild discoid atelectasis in RLL and lingula. A 3mm nodule in right middle lobe. Mild fusiform ascending thoracic aortic aneurysm measuring up to 4.3 x 4.3 cm in maximal transaxial dimensions.? 06/08/21 - Overnight oximetry on 2L/min - ?time with saturation less than or equal to 88% was 2.3 minutes. Continue 2L/min with sleep. - Overnight oximetry on room air - ?Low saturation 78%, time with saturation less than or to a 8 equal to 88% was 219.5 minutes.?He was prescribed 2L/min O2 with sleep Review of Systems 2 Review of Systems: All systems reviewed & are unremarkable except as noted in HPI and below PMFSH Past Medical History Medical History (Updated 03/18/25 @ 14:54 by Livia Iglesias MD) Chronic obstructive pulmonary disease Chronic respiratory failure with hypoxia Surgical History Surgical History History of ankle surgery (~1976) Right Family History Family History Mother Bone cancer Father Lung cancer Sibling Bone cancer Sibling Liver cancer Social History Social History Smoking packs per day: 0.5 Smoking cigarettes per day: 10.0 Years smoked: 10 Smoking pack-years: 5.00 Smoking status: Former smoker Tobacco type: cigarettes Second hand tobacco smoke exposure: No Smoking end date: 08/22/17 Alcohol intake: current Alcohol use details: Socially Substance use: never Substance use type: does not use Last use: Social drinker Do You Feel Safe in your Home?: Yes Lack of Transportation: No Lack of Food: Never True Current Housing: I Have Housing Concerned About Future Housing: No Difficulty Paying Gas/Electric Bills: No Difficulty Paying for Meds: YES Currently Unemployed: No Education: Decline to Answer Difficulty w/ Childcare or Family Care: No Living arrangements: alone Occupation/Education: occupation Gender identity (if verbalized by the patient): Male Spiritual care concerns: No Meds Home Medications and Allergies Home Medications ?Medication ?Instructions ?Recorded ?Confirmed ?Type albuterol sulfate 2.5 mg/3 mL 2.5 mg inhalation Q4-6H PRN 05/19/21 03/07/25 History (0.083 %) solution for nebulization shortness of breath or wheezing multivitamin 1 tablet PO DAILY 05/19/21 03/07/25 History albuterol sulfate 90 mcg/actuation 2 inh inhalation Q4H PRN shortness 02/04/25 03/07/25 Rx aerosol inhaler (Ventolin HFA) of breath or wheezing #8.5 grams fluticasone fur. 100 mcg-umeclid 1 inh inhalation DAILY #60 ea 02/04/25 03/07/25 Rx 62.5 mcg-vilant 25 mcg inhalat.powder (Trelegy Ellipta) Allergies Allergy/AdvReac Type Severity Reaction Status Date / Time morphine Allergy Intermediate Swelling Verified 03/06/25 22:06 Vital Signs Vital Signs - 24 hr 03/14/25 19:55 03/14/25 19:55 03/14/25 20:00 Temperature Pulse Rate 98 Respiratory Rate 22 H Blood Pressure Pulse Oximetry 96 97 Oxygen Delivery Nasal Cannula Nasal Cannula Oxygen Flow Rate 3 2 Fraction of Inspired Oxygen 03/14/25 20:01 03/14/25 20:10 03/14/25 21:57 Temperature 37.0 C Pulse Rate 104 H 96 87 Respiratory Rate 22 H 23 H 23 H Blood Pressure 124/74 Pulse Oximetry 94 95 Oxygen Delivery BiPAP Oxygen Flow Rate Fraction of Inspired Oxygen 03/15/25 00:07 03/15/25 01:21 03/15/25 01:21 Temperature 36.9 C Pulse Rate 85 92 92 Respiratory Rate 22 H 26 H 26 H Blood Pressure 125/81 Pulse Oximetry 99 96 Oxygen Delivery BiPAP Oxygen Flow Rate Fraction of Inspired Oxygen 03/15/25 01:27 03/15/25 07:15 03/15/25 07:20 Temperature Pulse Rate 95 86 Respiratory Rate 26 H 20 Blood Pressure Pulse Oximetry 96 Oxygen Delivery Nasal Cannula Oxygen Flow Rate 3 Fraction of Inspired Oxygen 32 03/15/25 07:22 03/15/25 07:59 03/15/25 08:00 Temperature 36.7 C Pulse Rate 92 88 Respiratory Rate 20 22 H Blood Pressure 134/79 Pulse Oximetry 100 100 Oxygen Delivery Nasal Cannula Oxygen Flow Rate 3 Fraction of Inspired Oxygen 03/15/25 12:37 03/15/25 12:50 03/15/25 15:15 Temperature 36.3 C L Pulse Rate 109 H 86 Respiratory Rate 16 20 Blood Pressure 116/67 Pulse Oximetry 100 100 Oxygen Delivery Nasal Cannula Oxygen Flow Rate 3 Fraction of Inspired Oxygen 32 03/15/25 15:25 Temperature Pulse Rate 88 Respiratory Rate 20 Blood Pressure Pulse Oximetry Oxygen Delivery Oxygen Flow Rate Fraction of Inspired Oxygen Exam 2 Narrative: GEN: Alert, oriented, mild increase in respiratory effort, nasal cannula O2 HEENT: pupils are equal, EOMI, symmetrical face; oral membranes dry, Mallampati II airway NECK: Trachea is midline, no lymphadenopathy CHEST: Equal air entry, hyperinflated, symmetric excursion, decreased breath sounds CV: Distant regular S1S2 no m/g/r ABD : (+) bowel sounds Extremities : no clubbing, cyanosis, or edema PSYCH: normal thought, speech, gait is not tested Results Laboratory Findings 03/17/25 05:09 03/17/25 05:09 ABG, PT/INR, D-dimer: ABG ABG pH 7.500 (7.350-7.450) H 03/13/25 07:50 ABG pCO2 44.3 mmHg (35.0-45.0) 03/13/25 07:50 ABG pO2 66.4 mmHg (80.0-100.0) L 03/13/25 07:50 ABG O2 Saturation 94.5 % (95.0-100.0) L 03/13/25 07:50 PT/INR, D-dimer PT 15.5 Seconds (11.1-14.7) H 03/07/25 04:44 INR 1.2 03/07/25 04:44 D-Dimer 0.49 ug/mL (<0.48) H 03/06/25 19:53 Abnormal lab findings: Abnormal Labs 03/06/25 03/06/25 03/06/25 19:36 19:53 20:42 WBC 21.0 H RBC Hgb Hct MCV MCHC Immature Gran % (Auto) Neut % (Auto) Lymph % (Auto) [place] % (Auto) Baso % (Auto) Lymph # (Auto) [place] # (Auto) Abs Immat Gran (auto) Absolute Neuts (auto) Neutrophils % (Manual) 80 H Band Neutrophils % Lymphocytes % (Manual) 6.0 L Monocytes % (Manual) 10 H Abs Neuts (Manual) 17.64 H Abs Lymphs (Manual) Abs Monocytes (Manual) 2.10 H PT APTT 37.8 H D-Dimer 0.49 H ABG pH 7.225 L* 7.262 L* ABG pCO2 68.9 H* 64.8 H* ABG pO2 201.3 H 129.7 H ABG HCO3 27.9 H 28.6 H ABG O2 Saturation ABG O2 Content 22.6 H 22.4 H Reduced Hemoglobin Total Hemoglobin Sodium Chloride Carbon Dioxide 31 H Anion Gap BUN 31 H Creatinine 1.44 H Estimated GFR 49 L Glucose 174 H POC Capillary Glucose Lactic Acid 2.2 H Phosphorus Magnesium 3.8 H AST 80 H ALT Troponin I 0.740 H* NT-Pro-B Natriuret Pep 95717 H Total Protein 8.7 H Albumin 03/06/25 03/06/25 03/07/25 23:39 23:48 02:11 WBC RBC Hgb Hct MCV MCHC Immature Gran % (Auto) Neut % (Auto) Lymph % (Auto) [place] % (Auto) Baso % (Auto) Lymph # (Auto) [place] # (Auto) Abs Immat Gran (auto) Absolute Neuts (auto) Neutrophils % (Manual) Band Neutrophils % Lymphocytes % (Manual) Monocytes % (Manual) Abs Neuts (Manual) Abs Lymphs (Manual) Abs Monocytes (Manual) PT APTT D-Dimer ABG pH 7.226 L* 7.243 L* ABG pCO2 71.8 H* 67.7 H* ABG pO2 135.6 H 222.6 H ABG HCO3 29.1 H 28.6 H ABG O2 Saturation ABG O2 Content Reduced Hemoglobin Total Hemoglobin Sodium Chloride Carbon Dioxide Anion Gap BUN Creatinine Estimated GFR Glucose POC Capillary Glucose Lactic Acid 4.3 H* Phosphorus Magnesium AST ALT Troponin I NT-Pro-B Natriuret Pep Total Protein Albumin 03/07/25 03/07/25 03/07/25 04:23 04:44 08:04 WBC 17.7 H RBC 4.42 L Hgb 13.5 L Hct MCV 100.5 H MCHC 30.4 L Immature Gran % (Auto) Neut % (Auto) Lymph % (Auto) [place] % (Auto) Baso % (Auto) Lymph # (Auto) [place] # (Auto) Abs Immat Gran (auto) Absolute Neuts (auto) Neutrophils % (Manual) 90 H Band Neutrophils % Lymphocytes % (Manual) 3.0 L Monocytes % (Manual) Abs Neuts (Manual) 16.46 H Abs Lymphs (Manual) 0.53 L Abs Monocytes (Manual) PT 15.5 H APTT 45.9 H D-Dimer ABG pH ABG pCO2 ABG pO2 65.1 L ABG HCO3 28.2 H ABG O2 Saturation 93.1 L ABG O2 Content Reduced Hemoglobin 6.2 H Total Hemoglobin Sodium Chloride Carbon Dioxide Anion Gap BUN 34 H Creatinine Estimated GFR Glucose 177 H POC Capillary Glucose 165 H Lactic Acid 5.9 H* Phosphorus Magnesium 2.7 H AST ALT Troponin I 0.589 H* NT-Pro-B Natriuret Pep Total Protein Albumin 03/07/25 03/07/25 03/07/25 09:49 11:46 11:53 WBC RBC Hgb Hct MCV MCHC Immature Gran % (Auto) Neut % (Auto) Lymph % (Auto) [place] % (Auto) Baso % (Auto) Lymph # (Auto) [place] # (Auto) Abs Immat Gran (auto) Absolute Neuts (auto) Neutrophils % (Manual) Band Neutrophils % Lymphocytes % (Manual) Monocytes % (Manual) Abs Neuts (Manual) Abs Lymphs (Manual) Abs Monocytes (Manual) PT APTT 79.4 H D-Dimer ABG pH ABG pCO2 ABG pO2 ABG HCO3 ABG O2 Saturation ABG O2 Content Reduced Hemoglobin Total Hemoglobin Sodium Chloride Carbon Dioxide Anion Gap BUN Creatinine Estimated GFR Glucose POC Capillary Glucose 136 H Lactic Acid Phosphorus Magnesium AST ALT Troponin I 0.431 H* D NT-Pro-B Natriuret Pep Total Protein Albumin 03/07/25 03/07/25 03/07/25 17:29 17:31 23:18 WBC RBC Hgb Hct MCV MCHC Immature Gran % (Auto) Neut % (Auto) Lymph % (Auto) [place] % (Auto) Baso % (Auto) Lymph # (Auto) [place] # (Auto) Abs Immat Gran (auto) Absolute Neuts (auto) Neutrophils % (Manual) Band Neutrophils % Lymphocytes % (Manual) Monocytes % (Manual) Abs Neuts (Manual) Abs Lymphs (Manual) Abs Monocytes (Manual) PT APTT 81.6 H D-Dimer ABG pH ABG pCO2 ABG pO2 ABG HCO3 ABG O2 Saturation ABG O2 Content Reduced Hemoglobin Total Hemoglobin Sodium Chloride Carbon Dioxide Anion Gap BUN Creatinine Estimated GFR Glucose POC Capillary Glucose 143 H 131 H Lactic Acid Phosphorus Magnesium AST ALT Troponin I NT-Pro-B Natriuret Pep Total Protein Albumin 03/08/25 03/08/25 03/08/25 04:37 05:18 12:30 WBC 18.4 H RBC 3.35 L Hgb 10.3 L D Hct 32.9 L MCV MCHC 31.3 L Immature Gran % (Auto) Neut % (Auto) Lymph % (Auto) Burn[place] % (Auto) Baso % (Auto) Lymph # (Auto) [place] # (Auto) Abs Immat Gran (auto) Absolute Neuts (auto) Neutrophils % (Manual) 77 H Band Neutrophils % 11 H Lymphocytes % (Manual) 3 L Monocytes % (Manual) Abs Neuts (Manual) 16.19 H Abs Lymphs (Manual) 0.55 L Abs Monocytes (Manual) 1.65 H PT APTT 61.4 H D-Dimer ABG pH 7.483 H ABG pCO2 ABG pO2 ABG HCO3 29.3 H ABG O2 Saturation ABG O2 Content Reduced Hemoglobin Total Hemoglobin 11.7 L Sodium Chloride Carbon Dioxide Anion Gap BUN 33 H Creatinine Estimated GFR Glucose 155 H POC Capillary Glucose 169 H Lactic Acid Phosphorus 2.1 L Magnesium 2.4 H AST ALT Troponin I NT-Pro-B Natriuret Pep Total Protein Albumin 03/08/25 03/08/25 03/08/25 13:17 17:43 23:09 WBC RBC Hgb Hct MCV MCHC Immature Gran % (Auto) Neut % (Auto) Lymph % (Auto) [place] % (Auto) Baso % (Auto) Lymph # (Auto) [place] # (Auto) Abs Immat Gran (auto) Absolute Neuts (auto) Neutrophils % (Manual) Band Neutrophils % Lymphocytes % (Manual) Monocytes % (Manual) Abs Neuts (Manual) Abs Lymphs (Manual) Abs Monocytes (Manual) PT APTT 79.6 H D-Dimer ABG pH ABG pCO2 ABG pO2 ABG HCO3 ABG O2 Saturation ABG O2 Content Reduced Hemoglobin Total Hemoglobin Sodium Chloride Carbon Dioxide Anion Gap BUN Creatinine Estimated GFR Glucose POC Capillary Glucose 170 H 187 H Lactic Acid Phosphorus Magnesium AST ALT Troponin I NT-Pro-B Natriuret Pep Total Protein Albumin 03/09/25 03/09/25 03/09/25 04:45 05:22 09:35 WBC 14.2 H RBC 3.71 L Hgb 11.4 L Hct 36.8 L MCV MCHC 31.0 L Immature Gran % (Auto) 1.0 H Neut % (Auto) 85.4 H Lymph % (Auto) 4.6 L Burnett % (Auto) 8.9 H Baso % (Auto) 0.1 L Lymph # (Auto) 0.66 L Burnett # (Auto) 1.3 H Abs Immat Gran (auto) 0.14 H Absolute Neuts (auto) 12.2 H Neutrophils % (Manual) Band Neutrophils % Lymphocytes % (Manual) Monocytes % (Manual) Abs Neuts (Manual) Abs Lymphs (Manual) Abs Monocytes (Manual) PT APTT D-Dimer ABG pH ABG pCO2 47.1 H 56.2 H ABG pO2 101.8 H 72.3 L ABG HCO3 30.8 H 30.9 H ABG O2 Saturation 93.7 L ABG O2 Content Reduced Hemoglobin Total Hemoglobin Sodium Chloride Carbon Dioxide Anion Gap BUN 36 H Creatinine Estimated GFR Glucose 179 H POC Capillary Glucose Lactic Acid Phosphorus Magnesium 2.4 H AST ALT Troponin I NT-Pro-B Natriuret Pep Total Protein Albumin 03/09/25 03/09/25 03/09/25 12:00 17:48 23:49 WBC RBC Hgb Hct MCV MCHC Immature Gran % (Auto) Neut % (Auto) Lymph % (Auto) Burn[place] % (Auto) Baso % (Auto) Lymph # (Auto) Burnett # (Auto) Abs Immat Gran (auto) Absolute Neuts (auto) Neutrophils % (Manual) Band Neutrophils % Lymphocytes % (Manual) Monocytes % (Manual) Abs Neuts (Manual) Abs Lymphs (Manual) Abs Monocytes (Manual) PT APTT D-Dimer ABG pH ABG pCO2 ABG pO2 ABG HCO3 ABG O2 Saturation ABG O2 Content Reduced Hemoglobin Total Hemoglobin Sodium Chloride Carbon Dioxide Anion Gap BUN Creatinine Estimated GFR Glucose POC Capillary Glucose 144 H 142 H 114 H Lactic Acid Phosphorus Magnesium AST ALT Troponin I NT-Pro-B Natriuret Pep Total Protein Albumin 03/10/25 03/10/25 03/10/25 04:40 05:32 11:59 WBC 11.7 H RBC 3.73 L Hgb 11.5 L Hct 37.5 L MCV 100.5 H MCHC 30.7 L Immature Gran % (Auto) Neut % (Auto) 78.8 H Lymph % (Auto) 9.3 L Burnett % (Auto) 11.2 H Baso % (Auto) Lymph # (Auto) Burnett # (Auto) 1.3 H Abs Immat Gran (auto) 0.06 H Absolute Neuts (auto) 9.2 H Neutrophils % (Manual) Band Neutrophils % Lymphocytes % (Manual) Monocytes % (Manual) Abs Neuts (Manual) Abs Lymphs (Manual) Abs Monocytes (Manual) PT APTT D-Dimer ABG pH ABG pCO2 52.5 H 47.1 H ABG pO2 110.0 H ABG HCO3 34.6 H 29.5 H ABG O2 Saturation ABG O2 Content Reduced Hemoglobin Total Hemoglobin Sodium Chloride Carbon Dioxide 37 H Anion Gap 3 L BUN 30 H Creatinine Estimated GFR Glucose POC Capillary Glucose Lactic Acid Phosphorus Magnesium AST ALT 56 H Troponin I NT-Pro-B Natriuret Pep Total Protein 6.2 L Albumin 03/10/25 03/10/25 03/11/25 12:30 17:29 00:08 WBC RBC Hgb Hct MCV MCHC Immature Gran % (Auto) Neut % (Auto) Lymph % (Auto) Burn[place] % (Auto) Baso % (Auto) Lymph # (Auto) [place] # (Auto) Abs Immat Gran (auto) Absolute Neuts (auto) Neutrophils % (Manual) Band Neutrophils % Lymphocytes % (Manual) Monocytes % (Manual) Abs Neuts (Manual) Abs Lymphs (Manual) Abs Monocytes (Manual) PT APTT D-Dimer ABG pH ABG pCO2 ABG pO2 ABG HCO3 ABG O2 Saturation ABG O2 Content Reduced Hemoglobin Total Hemoglobin Sodium Chloride Carbon Dioxide Anion Gap BUN Creatinine Estimated GFR Glucose POC Capillary Glucose 120 H 115 H 127 H Lactic Acid Phosphorus Magnesium AST ALT Troponin I NT-Pro-B Natriuret Pep Total Protein Albumin 03/11/25 03/11/25 03/11/25 05:00 05:30 11:25 WBC 10.7 H RBC 4.01 L Hgb 12.3 L Hct 40.2 L MCV 100.2 H MCHC 30.6 L Immature Gran % (Auto) 0.6 H Neut % (Auto) Lymph % (Auto) 17.7 L Burnett % (Auto) 12.5 H Baso % (Auto) 0.1 L Lymph # (Auto) Burnett # (Auto) 1.3 H Abs Immat Gran (auto) 0.06 H Absolute Neuts (auto) 7.3 H Neutrophils % (Manual) Band Neutrophils % Lymphocytes % (Manual) Monocytes % (Manual) Abs Neuts (Manual) Abs Lymphs (Manual) Abs Monocytes (Manual) PT APTT D-Dimer ABG pH 7.497 H ABG pCO2 ABG pO2 66.8 L ABG HCO3 31.8 H ABG O2 Saturation 94.6 L ABG O2 Content Reduced Hemoglobin 5.5 H Total Hemoglobin Sodium 136 L Chloride Carbon Dioxide 35 H Anion Gap 2 L BUN 31 H Creatinine Estimated GFR Glucose POC Capillary Glucose 162 H Lactic Acid Phosphorus Magnesium AST ALT 53 H Troponin I NT-Pro-B Natriuret Pep Total Protein 5.7 L Albumin 3.3 L 03/11/25 03/11/25 03/12/25 14:56 18:18 00:27 WBC RBC Hgb Hct MCV MCHC Immature Gran % (Auto) Neut % (Auto) Lymph % (Auto) Burnett % (Auto) Baso % (Auto) Lymph # (Auto) Burnett # (Auto) Abs Immat Gran (auto) Absolute Neuts (auto) Neutrophils % (Manual) Band Neutrophils % Lymphocytes % (Manual) Monocytes % (Manual) Abs Neuts (Manual) Abs Lymphs (Manual) Abs Monocytes (Manual) PT APTT D-Dimer ABG pH ABG pCO2 ABG pO2 ABG HCO3 ABG O2 Saturation ABG O2 Content Reduced Hemoglobin Total Hemoglobin Sodium Chloride Carbon Dioxide Anion Gap BUN Creatinine Estimated GFR Glucose POC Capillary Glucose 150 H 138 H 121 H Lactic Acid Phosphorus Magnesium AST ALT Troponin I NT-Pro-B Natriuret Pep Total Protein Albumin 03/12/25 03/12/25 03/12/25 04:22 04:53 06:01 WBC 18.3 H RBC 4.37 L Hgb 13.4 L Hct MCV MCHC 31.5 L Immature Gran % (Auto) 0.9 H Neut % (Auto) Lymph % (Auto) 10.4 L [place] % (Auto) 14.6 H Baso % (Auto) Lymph # (Auto) [place] # (Auto) 2.7 H Abs Immat Gran (auto) 0.16 H Absolute Neuts (auto) 13.4 H Neutrophils % (Manual) Band Neutrophils % Lymphocytes % (Manual) Monocytes % (Manual) Abs Neuts (Manual) Abs Lymphs (Manual) Abs Monocytes (Manual) PT APTT D-Dimer ABG pH ABG pCO2 48.6 H ABG pO2 74.9 L ABG HCO3 31.8 H ABG O2 Saturation ABG O2 Content Reduced Hemoglobin Total Hemoglobin Sodium Chloride Carbon Dioxide 32 H Anion Gap BUN 40 H Creatinine Estimated GFR Glucose 234 H POC Capillary Glucose 173 H Lactic Acid Phosphorus Magnesium AST ALT Troponin I NT-Pro-B Natriuret Pep Total Protein 5.8 L Albumin 3.3 L 03/12/25 03/12/25 03/13/25 11:08 11:28 04:54 WBC 18.3 H RBC 4.14 L Hgb 12.8 L Hct 40.0 L MCV MCHC Immature Gran % (Auto) 1.0 H Neut % (Auto) 73.8 H Lymph % (Auto) 10.4 L [place] % (Auto) 13.6 H Baso % (Auto) Lymph # (Auto) [place] # (Auto) 2.5 H Abs Immat Gran (auto) 0.18 H Absolute Neuts (auto) 13.5 H Neutrophils % (Manual) Band Neutrophils % Lymphocytes % (Manual) Monocytes % (Manual) Abs Neuts (Manual) Abs Lymphs (Manual) Abs Monocytes (Manual) PT APTT D-Dimer ABG pH ABG pCO2 50.0 H ABG pO2 73.8 L ABG HCO3 33.9 H ABG O2 Saturation ABG O2 Content Reduced Hemoglobin 5.2 H Total Hemoglobin Sodium 134 L Chloride 94 L Carbon Dioxide 35 H Anion Gap BUN 32 H Creatinine Estimated GFR Glucose POC Capillary Glucose 131 H Lactic Acid Phosphorus Magnesium AST ALT 57 H Troponin I NT-Pro-B Natriuret Pep Total Protein 5.9 L Albumin 03/13/25 03/14/25 03/15/25 07:50 06:04 06:34 WBC 19.1 H 16.5 H RBC 3.88 L 3.82 L Hgb 12.1 L 11.8 L Hct 37.6 L 36.5 L MCV MCHC Immature Gran % (Auto) 1.2 H 1.0 H Neut % (Auto) 77.9 H Lymph % (Auto) 10.8 L 9.0 L [place] % (Auto) 14.4 H 11.6 H Baso % (Auto) Lymph # (Auto) [place] # (Auto) 2.8 H 1.9 H Abs Immat Gran (auto) 0.22 H 0.16 H Absolute Neuts (auto) 13.7 H 12.8 H Neutrophils % (Manual) Band Neutrophils % Lymphocytes % (Manual) Monocytes % (Manual) Abs Neuts (Manual) Abs Lymphs (Manual) Abs Monocytes (Manual) PT APTT D-Dimer ABG pH 7.500 H ABG pCO2 ABG pO2 66.4 L ABG HCO3 33.8 H ABG O2 Saturation 94.5 L ABG O2 Content Reduced Hemoglobin Total Hemoglobin Sodium 133 L 133 L Chloride 93 L 94 L Carbon Dioxide 37 H 34 H Anion Gap 3 L BUN 28 H 21 H Creatinine Estimated GFR Glucose 134 H POC Capillary Glucose Lactic Acid Phosphorus Magnesium AST ALT Troponin I NT-Pro-B Natriuret Pep Total Protein 5.8 L 5.9 L Albumin 3.3 L 3.4 L
[2025-03-16] VITALS (14 sets, daily range): BP systolic 109–132; BP diastolic 66–100; PULSE 82–97; RESP 16–20; TEMP 35.7–36.8; O2SAT 94–100
[2025-03-16] MEDS: IPRATROPIUM 0.5 MG/ALBUTEROL SULFATE 2.5 MG AMPUL.NEB 3 ML INHALATION ×4 (02:24→21:49)
[2025-03-16] MEDS: PIPERACILLIN/TAZOBACTAM SOD 4.5 GM in SODIUM CHLORIDE 0.9% IV 100 ML 200 ML IVPB ×4 (05:26→23:03)
[2025-03-16] MEDS: CENTRAL LINE FLUSH 10 ML IV PUSH ×3 (05:26→23:02)
[2025-03-16] MEDS: ENOXAPARIN 40 MG/0.4 ML SYRINGE SUB-Q (09:56)
[2025-03-16] MEDS: ASPIRIN 81 MG CHEWABLE TABLET PO (09:56)
--- NOTE | 2025-03-16 13:23 | PM.IMPN ---
Progress Note: A&P Assessment and Plan (1) Acute respiratory failure with hypoxia and hypercapnia: Code(s): J96.01 - Acute respiratory failure with hypoxia; J96.02 - Acute respiratory failure with hypercapnia Status: Acute Assessment and Plan: s/p intubation now on nasal cannula oxygen Continue prednisone taper (end date 03/14/2025) -continue Trelegy Ellipta which is his home inhaler -also continue DuoNeb -patient wears 3-4 L oxygen at home -BiPAP p.r.n. (2) Septic shock: Code(s): A41.9 - Sepsis, unspecified organism; R65.21 - Severe sepsis with septic shock Status: Acute Assessment and Plan: Patient presented with hypoxia, tachypnea, tachycardia. She was found to be in COPD exacerbation -patient was hypotensive, requiring Costa-Synephrine through peripheral IV initially and a PICC line was inserted on 03/07 -on and off support for Levophed likely secondary to sedation. -03/06: Status post doxycycline and ceftriaxone -03/06: Blood cultures have been obtained and negative till now (3) Chronic obstructive pulmonary disease: Code(s): J44.9 - Chronic obstructive pulmonary disease, unspecified Status: Acute Assessment and Plan: COPD exacerbation See above (4) Elevated troponin: Code(s): R79.89 - Other specified abnormal findings of blood chemistry Status: Acute Assessment and Plan: Elevated troponin along with EKG changes Cardiology consult Off of heparin infusion after 48 hours Continue aspirin 81 mg Echo Summary 1. The left ventricle is normal in size and systolic function. The left ventricular ejection fraction is visually estimated to be 50-55%. The anteroseptum on some off-axis views is hypokinetic. 2. The right ventricle is normal in size and systolic function. 3. There is a small size pericardial effusion with no echocardiographic evidence of cardiac tamponade. 03/11/2025: Cardiac catheterization showed moderate CAD, significant P 80, continue aspirin, statin, outpatient evaluation of his peripheral arterial disease, no further inpatient cardiac workup at this time (5) Acute kidney injury: Code(s): N17.9 - Acute kidney failure, unspecified Status: Acute Assessment and Plan: resolved Cr 0.81 (6) Electrolyte abnormality: Code(s): E87.8 - Other disorders of electrolyte and fluid balance, not elsewhere classified Status: Acute Assessment and Plan: Replace potassium Plan Aspiration pneumonia Patient had an aspiration event last night and CXR showed LLL infiltrate likely from aspiration day 3 on Zosyn MBS now aspiration noted patient will continue on regular diet monitor one more night Acute on chronic respiratory failure resolved to baseline 2-3 nasal cannula DVT prophylaxis: Lovenox Stress ulcer prophylaxis: Protonix Code Status: Full code Awaiting placement Subjective Date/time seen: 03/16/25 13:23 Interval history: Comfortable at bedside Awaiting placement Review of Systems Review of Systems: All systems reviewed & are unremarkable except as noted in HPI and below (HPI) ROS unobtainable: Yes unobtainable due to endotracheal tube and unobtainable due to medical condition Exam Narrative: General: Pleasant gentleman, awake in no acute distress HEENT:? Pupils equal and reactive, sclera is clear, Neck:? Supple Respiratory:? Improved air entry, decreased at bases, no wheezing, Cardiac:? S1-S2 is normal, normal sinus rhythm Abdomen:? Soft, nontender, nondistended, hypoactive bowel sounds Extremities:? No edema, palpable pedal pulses, Neuro:? Extubated on 03/12, awake, alert, able to answer questions appropriately and follows simple commands in all extremities Skin:? No lesions noted Psych: Normal mentation and affect Const: Other: Tachypnea, otherwise comfortable Eyes: Pupils: Equal, round and reactive pupils present Neck: Neck: supple Resp: Effort & Inspection: normal respiratory effort Other: Bibasilar crackles Cardio: Rate: tachycardic Rhythm: regular rhythm Heart sounds: no gallops, no murmurs and no rubs GI: Inspection: non-distended : General: Yes bladder normal to palpation Neuro: Cranial nerves: Yes Equal, round and reactive pupils present Motor exam (neuro): 5/5 motor strength present throughout Extrem: General: no edema Objective Data Vital Signs Vital Signs: Vital Signs - 24 hr 03/15/25 15:15 03/15/25 15:25 03/15/25 20:00 Temperature Pulse Rate 86 88 Respiratory Rate 20 20 Blood Pressure Pulse Oximetry 100 Oxygen Delivery Nasal Cannula Oxygen Flow Rate 3 Fraction of Inspired Oxygen 03/15/25 21:22 03/15/25 21:23 03/15/25 21:30 Temperature Pulse Rate 90 91 Respiratory Rate 20 20 Blood Pressure Pulse Oximetry 100 Oxygen Delivery Nasal Cannula Oxygen Flow Rate 3 Fraction of Inspired Oxygen 32 03/15/25 22:07 03/16/25 02:25 03/16/25 02:32 Temperature 98.3 F Pulse Rate 98 82 83 Respiratory Rate 16 18 18 Blood Pressure 116/94 H Pulse Oximetry 100 Oxygen Delivery Oxygen Flow Rate Fraction of Inspired Oxygen 03/16/25 06:28 03/16/25 07:40 03/16/25 07:45 Temperature 98.2 F Pulse Rate 96 93 Respiratory Rate 20 18 Blood Pressure 113/75 Pulse Oximetry 94 97 Oxygen Delivery Nasal Cannula Oxygen Flow Rate 3 Fraction of Inspired Oxygen 32 03/16/25 07:46 03/16/25 08:00 Temperature Pulse Rate 91 Respiratory Rate 18 Blood Pressure Pulse Oximetry 98 Oxygen Delivery Nasal Cannula Oxygen Flow Rate 3 Fraction of Inspired Oxygen 32 Intake/Output Intake/Output: Intake & Output 03/13/25 03/14/25 03/15/25 03/16/25 23:59 23:59 23:59 23:59 Intake Total 1160 1160 1770 340 Output Total 3150 1100 1300 Balance -1989 60 470 340 Meds/Results Medications: Active Medications Generic Name Dose Route Start Last Admin Trade Name Freq PRN Reason Stop Dose Admin Acetaminophen 650 mg 03/13/25 16:49 03/15/25 08:06 Acetaminophen 325 Mg Tablet PO 650 mg Q6H PRN Administration Mild Pain (1-3) or Fever Albuterol/Ipratropium 3 ml 03/12/25 14:00 03/16/25 07:45 Ipratropium 0.5 Mg/Albuterol Sulfate 2.5 Mg Ampul.Neb 3 Ml INHALATION 3 ml Q6HRT LIZY Administration Aspirin 81 mg 03/08/25 08:00 03/16/25 09:56 Aspirin 81 Mg Chewable Tablet PO 81 mg DAILY@0800 LIZY Administration Atorvastatin Calcium 40 mg 03/11/25 18:00 03/15/25 17:30 Atorvastatin 40 Mg Tablet PO 40 mg EVENING LIZY Administration Dextrose 12.5 gm 03/07/25 11:20 Dextrose 50% 25 Gm/50 Ml Syringe IV PUSH PRN PRN Hypoglycemia Protocol Enoxaparin Sodium 40 mg 03/09/25 09:00 03/16/25 09:56 Enoxaparin 40 Mg/0.4 Ml Syringe SUB-Q 40 mg DAILY LIZY Administration Fluticasone/Umeclidinium/Vilanterol 1 puff 03/12/25 12:05 03/15/25 07:20 Fluticasone/Umeclidin/Vilanter 100-62.5-25 Mcg Ellipta INHALATION 1 puff DAILY LIZY Administration Glucagon 1 mg 03/07/25 11:20 Glucagon For Inj 1 Mg Vial IM PRN PRN Hypoglycemia Protocol Glucose 15 gm 03/07/25 11:20 Glucose Oral Gel 15 Gm Of Glucse In 37.5 Gm Tube PO PRN PRN Hypoglycemia Protocol Dextrose 1,000 mls @ 100 mls/hr 03/07/25 11:20 Dextrose 5% 1,000 Ml IVPB PRN PRN Hypoglycemia Protocol Piperacillin Sod/Tazobactam 100 mls @ 200 mls/hr 03/15/25 06:00 03/16/25 13:04 Sod 4.5 gm/ Sodium Chloride IVPB 200 mls/hr Q6H LIZY Administration Pantoprazole Sodium 40 mg 03/08/25 09:00 03/15/25 08:05 Pantoprazole Sodium Iv 40 Mg Vial IV PUSH 40 mg QAM LIZY Administration Sodium Chloride 10 ml 03/07/25 14:00 03/16/25 13:04 Central Line Flush IV PUSH 10 ml Q8HR LIZY Administration Sodium Chloride 10 ml 03/07/25 07:57 Central Line Flush IV PUSH PRN PRN with TPN bag changes Sodium Chloride 20 ml 03/07/25 07:57 03/10/25 04:45 Central Line Flush IV PUSH 20 ml PRN PRN Administration after blood draws Radiology Results: ITS Impressions Abdomen X-Ray 03/10/25 11:11 IMPRESSION: 1: OG tube tip in the stomach. Chest X-Ray 03/14/25 09:15 Impression: 1: Developing left basilar infiltrate may represent atelectasis or pneumonia. Consider aspiration. Modified Barium Swallow 03/14/25 14:04 IMPRESSION: No penetration or aspiration Please refer to speech pathologist report for additional detail. Quality VTE Prophylaxis VTE prophylaxis: pharmacologic ordered
[2025-03-16] MEDS: ATORVASTATIN 40 MG TABLET PO (18:26)
[2025-03-16] MEDS: ACETAMINOPHEN 325 MG TABLET 650 MG PO (20:20)
[2025-03-17] VITALS (12 sets, daily range): BP systolic 105–118; BP diastolic 56–68; PULSE 85–100; RESP 16–20; TEMP 36.1–37.5; O2SAT 96–100
[2025-03-17] MEDS: IPRATROPIUM 0.5 MG/ALBUTEROL SULFATE 2.5 MG AMPUL.NEB 3 ML INHALATION ×4 (03:40→20:26)
[2025-03-17] MEDS: PIPERACILLIN/TAZOBACTAM SOD 4.5 GM in SODIUM CHLORIDE 0.9% IV 100 ML 200 ML IVPB ×2 (05:04→11:38)
[2025-03-17] MEDS: CENTRAL LINE FLUSH 10 ML IV PUSH ×3 (05:08→20:58)
[2025-03-17 05:30] LABS: Hematocrit 34.0 % (42.0-52.0); Hemoglobin 10.7 g/dL (14.0-18.0); Immature Granulocyte Percent A 0.9 % (0-0.5); Lymphocytes Absolute Auto 1.88 K/mm3 (0.9-3.2); Mean Corpuscular HGB Conc 31.5 g/dl (32-36); Mean Corpuscular Hemoglobin 31.0 pg (26-34); Mean Corpuscular Volume 98.6 fl (80-100); Nucleated Red Blood Cells Absolute Auto 0.000 K/mm3 (0.0-0.012); Nucleated Red Blood Cells Perc 0.0 % (0.0-0.2); Platelet Count Result 200 k/mm3 (150-375); Red Blood Count 3.45 M/mm3 (4.6-6.20); White Blood Count 12.0 K/mm3 (4.5-10.0)
[2025-03-17 05:51] LABS: Alanine Aminotransferase 44 U/L (6-50); Albumin Level 3.2 g/dL (3.5-5.1); Alkaline Phosphatase 57 U/L (38-126); Anion Gap 4 mmol/L (4-12); Aspartate Amino Transferase 51 U/L (17-59); Bilirubin,Total 0.5 mg/dL (0.2-1.3); Blood Urea Nitrogen 11 mg/dL (9-20); Calcium 8.7 mg/dL (8.4-10.2); Carbon Dioxide 36 mmol/L (22-30); Chloride 94 mmol/L (98-107); Estimated CRCL calculation 82 ml/min; Estimated Glomerular Filt Rate > 60; Glucose 86 mg/dL (65-110); Magnesium 1.9 mg/dL (1.6-2.3); Potassium 4.0 mmol/L (3.4-5.0); Sodium 134 mmol/L (137-145); Total Protein 5.7 g/dL (6.3-8.2)
[2025-03-17] MEDS: ASPIRIN 81 MG CHEWABLE TABLET PO (08:08)
[2025-03-17] MEDS: PANTOPRAZOLE SODIUM IV 40 MG VIAL IV PUSH (08:08)
[2025-03-17] MEDS: ENOXAPARIN 40 MG/0.4 ML SYRINGE SUB-Q (08:08)
[2025-03-17] MEDS: ROFLUMILAST 250 MCG TABLET PO (08:55)
[2025-03-17] MEDS: FLUTICASONE/UMECLIDIN/VILANTER 100-62.5-25 MCG ELLIPTA 1 PUFF INHALATION ×2 (09:07)
--- NOTE | 2025-03-17 12:48 | P.PNIM_ITS ---
Progress Note: A&P Assessment and Plan (1) Acute respiratory failure with hypoxia and hypercapnia: Code(s): J96.01 - Acute respiratory failure with hypoxia; J96.02 - Acute respiratory failure with hypercapnia Status: Acute Assessment and Plan: s/p intubation now on nasal cannula oxygen Continue prednisone taper (end date 03/14/2025) -continue Trelegy Ellipta which is his home inhaler -also continue DuoNeb -patient wears 3-4 L oxygen at home -BiPAP p.r.n. now at baseline oxygen (2) Septic shock: Code(s): A41.9 - Sepsis, unspecified organism; R65.21 - Severe sepsis with septic shock Status: Acute Assessment and Plan: Patient presented with hypoxia, tachypnea, tachycardia. She was found to be in COPD exacerbation -patient was hypotensive, requiring [place]-Synephrine through peripheral IV initially and a PICC line was inserted on 03/07 -on and off support for Levophed likely secondary to sedation. -03/06: Status post doxycycline and ceftriaxone -03/06: Blood cultures have been obtained and negative till now (3) Chronic obstructive pulmonary disease: Code(s): J44.9 - Chronic obstructive pulmonary disease, unspecified Status: Acute Assessment and Plan: COPD exacerbation Pulm evaliated and recommended Dailresp 250mcg per day and Nebulizer treatment as patient is incapable of considerable inspiration to use other modalities. F/u with Pulm for [place] valve, jan noted he is ready for it now (4) Elevated troponin: Code(s): R79.89 - Other specified abnormal findings of blood chemistry Status: Acute Assessment and Plan: Elevated troponin along with EKG changes Cardiology consult Off of heparin infusion after 48 hours Continue aspirin 81 mg Echo Summary 1. The left ventricle is normal in size and systolic function. The left ventricular ejection fraction is visually estimated to be 50-55%. The anteroseptum on some off-axis views is hypokinetic. 2. The right ventricle is normal in size and systolic function. 3. There is a small size pericardial effusion with no echocardiographic evidence of cardiac tamponade. 03/11/2025: Cardiac catheterization showed moderate CAD, significant P 80, continue aspirin, statin, outpatient evaluation of his peripheral arterial disease, no further inpatient cardiac workup at this time (5) Acute kidney injury: Code(s): N17.9 - Acute kidney failure, unspecified Status: Acute Assessment and Plan: resolved Cr 0.81 (6) Electrolyte abnormality: Code(s): E87.8 - Other disorders of electrolyte and fluid balance, not elsewhere classified Status: Acute Assessment and Plan: Replace potassium Plan Aspiration pneumonia Patient had an aspiration event last night and CXR showed LLL infiltrate likely from aspiration Completed 3 days of Zosyn, now on Augmentin for another 4 days (03/17/25) MBS no aspiration noted patient will continue on regular diet monitor one more night Acute on chronic respiratory failure resolved to baseline 2-3 nasal cannula DVT prophylaxis: Lovenox Stress ulcer prophylaxis: Protonix Code Status: Full code Awaiting placement Subjective Date/time seen: 03/17/25 12:48 Interval history: Comfortable at bedside Awaiting placement Review of Systems Review of Systems: All systems reviewed & are unremarkable except as noted in HPI and below (HPI) ROS unobtainable: Yes unobtainable due to endotracheal tube and unobtainable due to medical condition Exam Narrative: General: Pleasant gentleman, awake in no acute distress HEENT:? Pupils equal and reactive, sclera is clear, Neck:? Supple Respiratory:? Improved air entry, decreased at bases, no wheezing, Cardiac:? S1-S2 is normal, normal sinus rhythm Abdomen:? Soft, nontender, nondistended, hypoactive bowel sounds Extremities:? No edema, palpable pedal pulses, Neuro:? Extubated on 03/12, awake, alert, able to answer questions appropriately and follows simple commands in all extremities Skin:? No lesions noted Psych: Normal mentation and affect Const: Other: Tachypnea, otherwise comfortable Eyes: Pupils: Equal, round and reactive pupils present Neck: Neck: supple Resp: Effort & Inspection: normal respiratory effort Other: Bibasilar crackles Cardio: Rate: tachycardic Rhythm: regular rhythm Heart sounds: no gallops, no murmurs and no rubs GI: Inspection: non-distended : General: Yes bladder normal to palpation Neuro: Cranial nerves: Yes Equal, round and reactive pupils present Motor exam (neuro): 5/5 motor strength present throughout Extrem: General: no edema Objective Data Vital Signs Vital Signs: Vital Signs - 24 hr 03/16/25 14:20 03/16/25 14:29 03/16/25 15:27 Temperature 96.2 F L Pulse Rate 88 89 84 Respiratory Rate 18 18 18 Blood Pressure 109/66 Pulse Oximetry 100 Oxygen Delivery Oxygen Flow Rate Fraction of Inspired Oxygen 03/16/25 20:00 03/16/25 21:52 03/16/25 21:52 Temperature Pulse Rate 96 Respiratory Rate 18 Blood Pressure Pulse Oximetry 99 98 Oxygen Delivery Nasal Cannula Nasal Cannula Oxygen Flow Rate 3 3 Fraction of Inspired Oxygen 32 03/16/25 22:00 03/16/25 22:27 03/17/25 03:42 Temperature 98.1 F Pulse Rate 97 97 96 Respiratory Rate 18 16 18 Blood Pressure 132/100 H Pulse Oximetry 99 Oxygen Delivery Oxygen Flow Rate Fraction of Inspired Oxygen 03/17/25 05:56 03/17/25 08:15 03/17/25 09:08 Temperature 98.1 F Pulse Rate 89 88 Respiratory Rate 16 18 Blood Pressure 105/68 Pulse Oximetry 99 99 Oxygen Delivery Nasal Cannula Oxygen Flow Rate 3 Fraction of Inspired Oxygen 03/17/25 09:20 Temperature Pulse Rate 92 Respiratory Rate 18 Blood Pressure Pulse Oximetry Oxygen Delivery Oxygen Flow Rate Fraction of Inspired Oxygen Intake/Output Intake/Output: Intake & Output 03/14/25 03/15/25 03/16/25 03/17/25 23:59 23:59 23:59 23:59 Intake Total 1160 1770 1120 1040 Output Total 1100 1300 800 Balance 60 470 1120 240 Meds/Results Medications: Active Medications Generic Name Dose Route Start Last Admin Trade Name Freq PRN Reason Stop Dose Admin Acetaminophen 650 mg 03/13/25 16:49 03/16/25 20:20 Acetaminophen 325 Mg Tablet PO 650 mg Q6H PRN Administration Mild Pain (1-3) or Fever Albuterol/Ipratropium 3 ml 03/12/25 14:00 03/17/25 09:06 Ipratropium 0.5 Mg/Albuterol Sulfate 2.5 Mg Ampul.Neb 3 Ml INHALATION 3 ml Q6HRT LIZY Administration Aspirin 81 mg 03/08/25 08:00 03/17/25 08:08 Aspirin 81 Mg Chewable Tablet PO 81 mg DAILY@0800 LIZY Administration Atorvastatin Calcium 40 mg 03/11/25 18:00 03/16/25 18:26 Atorvastatin 40 Mg Tablet PO 40 mg EVENING LIZY Administration Dextrose 12.5 gm 03/07/25 11:20 Dextrose 50% 25 Gm/50 Ml Syringe IV PUSH PRN PRN Hypoglycemia Protocol Enoxaparin Sodium 40 mg 03/09/25 09:00 03/17/25 08:08 Enoxaparin 40 Mg/0.4 Ml Syringe SUB-Q 40 mg DAILY LIZY Administration Fluticasone/Umeclidinium/Vilanterol 1 puff 03/12/25 12:05 03/17/25 09:07 Fluticasone/Umeclidin/Vilanter 100-62.5-25 Mcg Ellipta INHALATION 1 puff DAILY LIZY Administration Glucagon 1 mg 03/07/25 11:20 Glucagon For Inj 1 Mg Vial IM PRN PRN Hypoglycemia Protocol Glucose 15 gm 03/07/25 11:20 Glucose Oral Gel 15 Gm Of Glucse In 37.5 Gm Tube PO PRN PRN Hypoglycemia Protocol Dextrose 1,000 mls @ 100 mls/hr 03/07/25 11:20 Dextrose 5% 1,000 Ml IVPB PRN PRN Hypoglycemia Protocol Piperacillin Sod/Tazobactam 100 mls @ 200 mls/hr 03/15/25 06:00 03/17/25 11:38 Sod 4.5 gm/ Sodium Chloride IVPB 200 mls/hr Q6H LIZY Administration Pantoprazole Sodium 40 mg 03/08/25 09:00 03/17/25 08:08 Pantoprazole Sodium Iv 40 Mg Vial IV PUSH 40 mg QAM LIZY Administration Roflumilast 250 mcg 03/17/25 09:00 03/17/25 08:55 Roflumilast 250 Mcg Tablet PO 250 mcg DAILY LIZY Administration Sodium Chloride 10 ml 03/07/25 14:00 03/17/25 05:08 Central Line Flush IV PUSH 10 ml Q8HR LIZY Administration Sodium Chloride 10 ml 03/07/25 07:57 Central Line Flush IV PUSH PRN PRN with TPN bag changes Sodium Chloride 20 ml 03/07/25 07:57 03/10/25 04:45 Central Line Flush IV PUSH 20 ml PRN PRN Administration after blood draws Radiology Results: ITS Impressions Abdomen X-Ray 03/10/25 11:11 IMPRESSION: 1: OG tube tip in the stomach. Chest X-Ray 03/14/25 09:15 Impression: 1: Developing left basilar infiltrate may represent atelectasis or pneumonia. Consider aspiration. Modified Barium Swallow 03/14/25 14:04 IMPRESSION: No penetration or aspiration Please refer to speech pathologist report for additional detail. Chest CTA 03/17/25 07:08 IMPRESSION: No pulmonary embolus. No thoracic aortic dissection. Small right and trace left-sided pleural effusion. Right basilar consolidation. Labs Labs: Laboratory Results - last 24 hr 03/17/25 05:09 WBC 12.0 H RBC 3.45 L Hgb 10.7 L Hct 34.0 L MCV 98.6 MCH 31.0 MCHC 31.5 L RDW 13.1 Plt Count 200 MPV 10.0 Immature Gran % (Auto) 0.9 H Neut % (Auto) 69.0 Lymph % (Auto) 15.7 L [place] % (Auto) 10.1 H Eos % (Auto) 4.0 Baso % (Auto) 0.3 Lymph # (Auto) 1.88 [place] # (Auto) 1.2 H Eos # (Auto) 0.5 H Baso # (Auto) 0.0 Abs Immat Gran (auto) 0.11 H Absolute Neuts (auto) 8.3 H Absolute Nucleated RBC 0.000 Nucleated RBC % 0.0 Sodium 134 L Potassium 4.0 Chloride 94 L Carbon Dioxide 36 H Anion Gap 4 BUN 11 D Creatinine 0.75 Estim Creat Clear Calc 82 Estimated GFR > 60 Glucose 86 Calcium 8.7 Magnesium 1.9 Total Bilirubin 0.5 AST 51 ALT 44 Alkaline Phosphatase 57 Total Protein 5.7 L Albumin 3.2 L Quality VTE Prophylaxis VTE prophylaxis: pharmacologic ordered
[2025-03-17] MEDS: ATORVASTATIN 40 MG TABLET PO (17:27)
[2025-03-18] VITALS (14 sets, daily range): BP systolic 100–120; BP diastolic 64–70; PULSE 88–101; RESP 16–20; TEMP 36.5–36.8; O2SAT 97–99
[2025-03-18] MEDS: IPRATROPIUM 0.5 MG/ALBUTEROL SULFATE 2.5 MG AMPUL.NEB 3 ML INHALATION ×4 (01:51→20:43)
[2025-03-18] MEDS: CENTRAL LINE FLUSH 10 ML IV PUSH ×3 (05:54→21:00)
[2025-03-18] MEDS: FLUTICASONE/UMECLIDIN/VILANTER 100-62.5-25 MCG ELLIPTA 1 PUFF INHALATION (07:39)
[2025-03-18] MEDS: ROFLUMILAST 250 MCG TABLET PO (10:10)
[2025-03-18] MEDS: PANTOPRAZOLE SODIUM IV 40 MG VIAL IV PUSH (10:10)
[2025-03-18] MEDS: ENOXAPARIN 40 MG/0.4 ML SYRINGE SUB-Q (10:10)
[2025-03-18] MEDS: ASPIRIN 81 MG CHEWABLE TABLET PO (10:10)
--- NOTE | 2025-03-18 11:28 | PCNFU ---
Nutrition Follow-Up Complete: Increased protein energy needs related to mechanical ventilation as evidenced by need for tube feeding Goal:Meet estimated nutrition needs Pt meeting goal, continue with same goal Pt current nutrition is Heart healthy. Nutrition recommendation: continue with current plan of care Last recorded weight is 68 kg. Bowel Motility: +BM 03/18 Labs Reviewed: Hgb:10.7, HCt:34, Alb:3.2, Na:134 Meds Noted: protonix, lovenox Skin: WNL Additional Notes: Pt continues on a heart healhty diet, intake 100% at this time. tolerating. Continue with current plan of care. Monitoring orders, weights, labs, Follow up in 5 days.
--- NOTE | 2025-03-18 12:41 | P.PNIM_ITS ---
Progress Note: A&P Assessment and Plan (1) Acute respiratory failure with hypoxia and hypercapnia: Code(s): J96.01 - Acute respiratory failure with hypoxia; J96.02 - Acute respiratory failure with hypercapnia Status: Acute Assessment and Plan: s/p intubation now on nasal cannula oxygen Continue prednisone taper (end date 03/14/2025) -continue Trelegy Ellipta which is his home inhaler -also continue DuoNeb -patient wears 3-4 L oxygen at home -BiPAP p.r.n. now at baseline oxygen (2) Septic shock: Code(s): A41.9 - Sepsis, unspecified organism; R65.21 - Severe sepsis with septic shock Status: Acute Assessment and Plan: Patient presented with hypoxia, tachypnea, tachycardia. She was found to be in COPD exacerbation -patient was hypotensive, requiring Costa-Synephrine through peripheral IV initially and a PICC line was inserted on 03/07 -on and off support for Levophed likely secondary to sedation. -03/06: Status post doxycycline and ceftriaxone -03/06: Blood cultures have been obtained and negative till now (3) Chronic obstructive pulmonary disease: Code(s): J44.9 - Chronic obstructive pulmonary disease, unspecified Status: Acute Assessment and Plan: COPD exacerbation Pulm evaliated and recommended Dailresp 250mcg per day and Nebulizer treatment as patient is incapable of considerable inspiration to use other modalities. F/u with Pulm for [place] valve, jan noted he is ready for it now (4) Elevated troponin: Code(s): R79.89 - Other specified abnormal findings of blood chemistry Status: Acute Assessment and Plan: Elevated troponin along with EKG changes Cardiology consult Off of heparin infusion after 48 hours Continue aspirin 81 mg Echo Summary 1. The left ventricle is normal in size and systolic function. The left ventricular ejection fraction is visually estimated to be 50-55%. The anteroseptum on some off-axis views is hypokinetic. 2. The right ventricle is normal in size and systolic function. 3. There is a small size pericardial effusion with no echocardiographic evidence of cardiac tamponade. 03/11/2025: Cardiac catheterization showed moderate CAD, significant P 80, continue aspirin, statin, outpatient evaluation of his peripheral arterial disease, no further inpatient cardiac workup at this time (5) Acute kidney injury: Code(s): N17.9 - Acute kidney failure, unspecified Status: Acute Assessment and Plan: resolved Cr 0.81 (6) Electrolyte abnormality: Code(s): E87.8 - Other disorders of electrolyte and fluid balance, not elsewhere classified Status: Acute Assessment and Plan: Replace potassium Plan Aspiration pneumonia Patient had an aspiration event last night and CXR showed LLL infiltrate likely from aspiration Completed 3 days of Zosyn, now on Augmentin for another 4 days (from 03/17/25) MBS no aspiration noted patient will continue on regular diet monitor one more night Acute on chronic respiratory failure resolved to baseline 2-3 nasal cannula DVT prophylaxis: Lovenox Stress ulcer prophylaxis: Protonix Code Status: Full code Awaiting placement Subjective Date/time seen: 03/18/25 12:41 Interval history: Comfortable at bedside Awaiting placement Review of Systems Review of Systems: All systems reviewed & are unremarkable except as noted in HPI and below (HPI) ROS unobtainable: Yes unobtainable due to endotracheal tube and unobtainable due to medical condition Exam Narrative: General: Pleasant gentleman, awake in no acute distress HEENT:? Pupils equal and reactive, sclera is clear, Neck:? Supple Respiratory:? Improved air entry, decreased at bases, no wheezing, Cardiac:? S1-S2 is normal, normal sinus rhythm Abdomen:? Soft, nontender, nondistended, hypoactive bowel sounds Extremities:? No edema, palpable pedal pulses, Neuro:? Extubated on 03/12, awake, alert, able to answer questions appropriately and follows simple commands in all extremities Skin:? No lesions noted Psych: Normal mentation and affect Const: Other: Tachypnea, otherwise comfortable Eyes: Pupils: Equal, round and reactive pupils present Neck: Neck: supple Resp: Effort & Inspection: normal respiratory effort Other: Bibasilar crackles Cardio: Rate: tachycardic Rhythm: regular rhythm Heart sounds: no gallops, no murmurs and no rubs GI: Inspection: non-distended : General: Yes bladder normal to palpation Neuro: Cranial nerves: Yes Equal, round and reactive pupils present Motor exam (neuro): 5/5 motor strength present throughout Extrem: General: no edema Objective Data Vital Signs Vital Signs: Vital Signs - 24 hr 03/17/25 13:46 03/17/25 13:58 03/17/25 14:00 Temperature 97 F L Pulse Rate 96 90 100 Respiratory Rate 18 18 16 Blood Pressure 118/56 L Pulse Oximetry 100 Oxygen Delivery Oxygen Flow Rate 03/17/25 20:27 03/17/25 20:28 03/17/25 20:35 Temperature Pulse Rate 85 90 Respiratory Rate 18 18 Blood Pressure Pulse Oximetry 96 Oxygen Delivery Nasal Cannula Oxygen Flow Rate 3 03/17/25 21:52 03/18/25 01:51 03/18/25 02:00 Temperature 99.5 F Pulse Rate 97 88 90 Respiratory Rate 20 18 18 Blood Pressure 112/66 Pulse Oximetry 99 Oxygen Delivery Oxygen Flow Rate 03/18/25 06:00 03/18/25 07:40 03/18/25 07:40 Temperature 98.3 F Pulse Rate 96 101 H Respiratory Rate 18 20 Blood Pressure 116/70 Pulse Oximetry 97 97 Oxygen Delivery Nasal Cannula Oxygen Flow Rate 3 03/18/25 07:48 03/18/25 08:00 Temperature Pulse Rate 98 Respiratory Rate 20 Blood Pressure Pulse Oximetry 97 Oxygen Delivery Nasal Cannula Oxygen Flow Rate 3 Intake/Output Intake/Output: Intake & Output 03/15/25 03/16/25 03/17/25 03/18/25 23:59 23:59 23:59 23:59 Intake Total 1770 1120 1520 Output Total 1300 1200 900 Balance 470 1120 320 -900 Meds/Results Medications: Active Medications Generic Name Dose Route Start Last Admin Trade Name Freq PRN Reason Stop Dose Admin Acetaminophen 650 mg 03/13/25 16:49 03/16/25 20:20 Acetaminophen 325 Mg Tablet PO 650 mg Q6H PRN Administration Mild Pain (1-3) or Fever Albuterol/Ipratropium 3 ml 03/12/25 14:00 03/18/25 07:38 Ipratropium 0.5 Mg/Albuterol Sulfate 2.5 Mg Ampul.Neb 3 Ml INHALATION 3 ml Q6HRT LZIY Administration Amoxicillin/Clavulanate Potassium 1 tablet 03/17/25 21:00 03/18/25 10:10 Amoxicillin/Clavulanate K 875-125 Mg Tab PO 1 tablet Q12HR LIZY Administration Aspirin 81 mg 03/08/25 08:00 03/18/25 10:10 Aspirin 81 Mg Chewable Tablet PO 81 mg DAILY@0800 LIZY Administration Atorvastatin Calcium 40 mg 03/11/25 18:00 03/17/25 17:27 Atorvastatin 40 Mg Tablet PO 40 mg EVENING LIZY Administration Dextrose 12.5 gm 03/07/25 11:20 Dextrose 50% 25 Gm/50 Ml Syringe IV PUSH PRN PRN Hypoglycemia Protocol Enoxaparin Sodium 40 mg 03/09/25 09:00 03/18/25 10:10 Enoxaparin 40 Mg/0.4 Ml Syringe SUB-Q 40 mg DAILY LIZY Administration Fluticasone/Umeclidinium/Vilanterol 1 puff 03/12/25 12:05 03/18/25 07:39 Fluticasone/Umeclidin/Vilanter 100-62.5-25 Mcg Ellipta INHALATION 1 puff DAILY LIZY Administration Glucagon 1 mg 03/07/25 11:20 Glucagon For Inj 1 Mg Vial IM PRN PRN Hypoglycemia Protocol Glucose 15 gm 03/07/25 11:20 Glucose Oral Gel 15 Gm Of Glucse In 37.5 Gm Tube PO PRN PRN Hypoglycemia Protocol Dextrose 1,000 mls @ 100 mls/hr 03/07/25 11:20 Dextrose 5% 1,000 Ml IVPB PRN PRN Hypoglycemia Protocol Pantoprazole Sodium 40 mg 03/08/25 09:00 03/18/25 10:10 Pantoprazole Sodium Iv 40 Mg Vial IV PUSH 40 mg QAM LIZY Administration Roflumilast 250 mcg 03/17/25 09:00 03/18/25 10:10 Roflumilast 250 Mcg Tablet PO 250 mcg DAILY LIZY Administration Sodium Chloride 10 ml 03/07/25 14:00 03/18/25 05:54 Central Line Flush IV PUSH 10 ml Q8HR LIZY Administration Sodium Chloride 10 ml 03/07/25 07:57 Central Line Flush IV PUSH PRN PRN with TPN bag changes Sodium Chloride 20 ml 03/07/25 07:57 03/10/25 04:45 Central Line Flush IV PUSH 20 ml PRN PRN Administration after blood draws Radiology Results: ITS Impressions Abdomen X-Ray 03/10/25 11:11 IMPRESSION: 1: OG tube tip in the stomach. Chest X-Ray 03/14/25 09:15 Impression: 1: Developing left basilar infiltrate may represent atelectasis or pneumonia. Consider aspiration. Modified Barium Swallow 03/14/25 14:04 IMPRESSION: No penetration or aspiration Please refer to speech pathologist report for additional detail. Chest CTA 03/17/25 07:08 IMPRESSION: No pulmonary embolus. No thoracic aortic dissection. Small right and trace left-sided pleural effusion. Right basilar consolidation. Quality VTE Prophylaxis VTE prophylaxis: pharmacologic ordered
--- NOTE | 2025-03-18 15:23 | P.PNPL_ITS ---
Progress Note: A&P Assessment and Plan (1) Acute respiratory failure with hypoxia and hypercapnia: Code(s): J96.01 - Acute respiratory failure with hypoxia; J96.02 - Acute respiratory failure with hypercapnia Status: Acute Assessment and Plan: Long standing need for O2, has not been on home ventilation in the past. He has had high pCO2 throughout this admission, over-corrected at the time of extubation. He may be a candidate for non invasive home ventilation. He uses O2 at night, has not been evaluated for non invasive home vent, and with his ABGs, he may be a candidate. This may keep him from going into failure. Using his ABGs from this admission, he would not have to be sleep tested. (2) Chronic obstructive pulmonary disease: Code(s): J44.9 - Chronic obstructive pulmonary disease, unspecified Status: Acute Assessment and Plan: Very end end stage COPD, FEV1 was less than a liter in 2020; Long standing, advanced; he did not follow through with plans to have evaluation for [place] valve, endobronchial valve for COPD management. He is on Trelegy at home, may benefit from having his meds switched to nebulized instead of inhaler due to his poor lung mechanics. He is hyperinflated, breathing at the top of his lung volumes. He missed his recent appointment which was scheduled for December. He was last seen in June. (3) Shortness of Breath: Code(s): R06.02 - Shortness of breath Status: Acute Assessment and Plan: He has intractable shortness of breath, has been worsening over the last several months. He needs to have his COPD medication optimized, may not be able to benefit from Trelegy inhaler as well as a full nebulied regime. =Insurance will be important as sometimes, cost is the limiting factor. Convenience is also a factor. Some patients diop not want to deal with the nebulizer 2-4 times a day. (4) History of tobacco abuse: Code(s): Z87.891 - Personal history of nicotine dependence Status: Acute Assessment and Plan: has not smoked since pre-COVID; reports a light history of smoking, only a half pack per day for 10 years so 5 pack years, and secondary smoke exposure growing up. His degree of COPD is out of proportion to the minimal amount of smoking. He did say that when COVID hit, 2019, he thought everything was deteriorating, so he decided to smoke with a friend. He knew immediately that smoking was awful for him and he stopped. Plan plan: 1) CTA excluded PE; He has a difference in sizes of his pulmonary arteries, right is larger than left and may contribute to lucency on left side. 2) His insurance is Medicare Managed Care; [employer] PPO He will stop Trelegy, instead go home on nebulized new meds ; he has a nebulizer his cousin gave him. If it breask, he can get a kurtz pay nebulizer for $45 at [facility]. Budesonide 0.5 mg b.i.d. Arformoterol 15 mg b.i.d. Ipratropium 2.5 mg t.i.d to q.i.d. albuterol 0.083% once a day New medication: Daliresp /roflumilast 250 mcg x 28 days, then will increase to 500 mcg. This medication can cause diarrhea, if this occurs take the pill every other day. He needs to be referred for pulmonary rehab; this is twice a week for 12 weeks. He has never had any type of pulmonary rehab. We can arrange this in the out patient setting. O2: Home O2 study; on 3 L with walking his saturation is 96%. While sitting and resting on 2 liters/minute saturation is 96%. He can be weaned before going home. Oxygen is a drug. Supplemental oxygen should be used to maintain saturation 90- 94%, not higher. If saturation is higher weaning should occur. He may eventually be a candidate for nppv, overall since admission and does not appear to need this device today. RTC in 3 weeks, I will see him. d/w hospitalist, Galina Coyne PA-C. Subjective Date/time seen: 03/19/25 110:15 Interval history: 03/16/2025; new consult; Vega Cedeno is a 64-year-old man who is on home O2, COPD, admitted March 06 with low saturation and shortness of breath for 1-2 days, was in extremis, friends who are also co-workers/landlord overrode his complaints that he did not want to come in; he was making ill informed decisions based on hypoxemia. He tells me that he has been eating a lot of processed foods, cold cuts, frozen pizzas recently. He has not been drinking much fluids. His COPD is managed with Trelegy 100, ONE puff a day and albuterol rescue inhaler 2 or 3 puffs daily. He has been using oxygen for several years. He tells me that he was really short of breath, had a short walk from his job to apartment which is 140 feet away from door to door. The heat has been oppressive with extremely high humidity. On the day of admission, he decided to wait outside in the heat to get his mail instead of going in and trying to make a second trip back to the mailbox. He was extremely short of breath, was waiting until he felt better but apparently was standing outside in the extreme heat for 30 minutes. His neighbor noticed this was happening, and others around him rushed to his side, called 911 despite his loud objections. He admits that he often makes poor choices when his O2 level is low. He had very low oxygen saturation despite using oxygen. He says that he had a cough with clear sputum, some wheezing but no chest pain, fever, sore throat, sinus congestion, leg swelling. His reported saturation was in the 30% range, probably not accurate. He had hypercapnia with a pCO2 in the 65-70 range, was on BiPAP before intubation, was treated empirically for pneumonia, had ceftriaxone and doxycycline, IV Solu-Medrol, then extubated. He had acute kidney injury, now resolved. He has been intubated and extubated twice now. He was in the intensive care unit with septic shock which was attributed to a COPD exacerbation. He had an elevated lactic acid of 5.9, he had a PICC line with Costa-Synephrine, negative blood cultures. He had elevated troponins consistent with demand ischemia. He was reintubated 03/10, had a cardiac cath 03/11. He was extubated, remains short of breath with little exertion. Labs: Lactic acid 2.2. Troponin 0.74. BNP 48148. ABG demonstrating pH 7.22, pCO2 69, pO2 was 201 on BiPAP 100% FiO2, bicarb 28. Repeat ABG slightly improved with a pH 7.26, pCO2 65, PO2 130 on 60% FiO2, bicarb 28.6. He had been on a rate of 12 with IPAP EPAP 15/8. Cardiology consulted from ER, troponin EKG reviewed. Heparin GTT started. Patient also given ceftriaxone and doxycycline, Solu-Medrol 125 mg IV x1, magnesium 2 g IV x1, DuoNebs. 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 His CTA showed showed no PE, he has a difference in size in his pulmonary arteries. He is on oral antibiotics, not clear that he is infected. DATA * 03/07/25 echo: The left ventricle is normal in size and systolic function. The left ventricular ejection fraction is visually estimated to be 50-55%. The morgan-septum on some off-axis views is hypokinetic. 2. The right ventricle is normal in size and systolic function. 3. There is a small size pericardial effusion with no echocardiographic evidence of cardiac tamponade. * 03/11/[address] Mark ; Left main: The left main coronary artery is widely patent without any significant obstructive disease. 2. Left anterior descending: The LAD has 40-50% stenosis in its midbody. The remainder of the LAD and the diagonal branches are free of angiographic high- grade stenosis. 3. Left circumflex: The left circumflex artery provides 3 OM branches. OM1 has a focal 10-20% stenosis. The remainder of the system is free of angiographic stenosis. 4. Right coronary artery: The RCA is a large dominant vessel with diffuse 10% stenosis. 5. Left ventricle: A. End-diastolic pressure 20 mmHg. B. LV gram deferred. C. No significant gradient across aortic valve on catheter pullback. 6. Opening AO pressure 84/55 and closing AO pressure 107/66 7. Right iliofemoral angiogram: The visualized portions of the proximal SFA has 70% stenosis. The visualized portions of the right external iliac artery has diffuse 20-30% stenosis with possible wire bias. 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 03/0603/11/2503/12 pH 7.225 7.26 7.433 7.497 7.433 7.499 7.50 pCO2 69 65 40 42 48.6 50 44 pO2 201 130 97.5 67 75 74 66 HCO3 28 28 29 32 32 34 34 sat 93% 94% 94% 93% O2 delivery CMV CMV CMV spontaneous BiPAP O2 40% 30% 35% 35% 30% rate 16 IPAP 15 15 12 EPAP 8 8 5 5 5 5 * 03/14/2025, CXR : Developing left basilar infiltrate may represent atelectasis or pneumonia. Consider aspiration. He had the MBS due to this CXR, and had no aspiration. He appears to have unilateral hypertranslucency, left side is . I am not a radiologist. The differential diagnosis of unilateral hyperlucency is broad. One of the causes is large PE. older testing; 07/08/21 - PFTs - ?severe obstructive abnormality on PFTs 07/08/21 with FEV1 0.88 (25% predicted, TLC 143%, FRC 259%, RV 311%, DCLO corrected for Va 49%) . 07/08/21 - Home O2 evaluation - Required no supplemental oxygen at rest and 2L/min O2 with ambulation. 07/08/21 - CT chest - Mild to moderate upper lobe predominant emphysema. Mild discoid atelectasis in RLL and lingula. A 3mm nodule in right middle lobe. Mild fusiform ascending thoracic aortic aneurysm measuring up to 4.3 x 4.3 cm in maximal transaxial dimensions.? 06/08/21 - Overnight oximetry on 2L/min - ?time with saturation less than or equal to 88% was 2.3 minutes. Continue 2L/min with sleep. - Overnight oximetry on room air - ?Low saturation 78%, time with saturation less than or to a 8 equal to 88% was 219.5 minutes.?He was prescribed 2L/min O2 with sleep Review of Systems Review of Systems: All systems reviewed & are unremarkable except as noted in HPI and below Exam Narrative: GEN: Alert, oriented, sitting up in the chair; on O2 3 L sat 96% NECK: Trachea is midline, no lymphadenopathy CHEST: Equal air entry, hyperinflated, symmetric excursion, decreased breath sounds CV: Distant regular S1S2 no m/g/r ABD : (+) bowel sounds Extremities : no clubbing, cyanosis, or edema PSYCH: normal thought, speech, gait is not tested however the therapist just reported that he walked 300 ft using 3 L of oxygen, this is much longer distance than yesterday when he was able to accomplish 100 ft. Objective Data Vital Signs Vital Signs: Vital Signs - 24 hr 03/17/25 20:27 03/17/25 20:28 03/17/25 20:35 Temperature Pulse Rate 85 90 Respiratory Rate 18 18 Blood Pressure Pulse Oximetry 96 Oxygen Delivery Nasal Cannula Oxygen Flow Rate 3 03/17/25 21:52 03/18/25 01:51 03/18/25 02:00 Temperature 37.5 C Pulse Rate 97 88 90 Respiratory Rate 20 18 18 Blood Pressure 112/66 Pulse Oximetry 99 Oxygen Delivery Oxygen Flow Rate 03/18/25 06:00 03/18/25 07:40 03/18/25 07:40 Temperature 36.8 C Pulse Rate 96 101 H Respiratory Rate 18 20 Blood Pressure 116/70 Pulse Oximetry 97 97 Oxygen Delivery Nasal Cannula Oxygen Flow Rate 3 03/18/25 07:48 03/18/25 08:00 03/18/25 14:00 Temperature 36.6 C Pulse Rate 98 95 Respiratory Rate 20 18 Blood Pressure 120/68 Pulse Oximetry 97 99 Oxygen Delivery Nasal Cannula Oxygen Flow Rate 3 Intake/Output Intake/Output: Intake & Output 03/15/25 03/16/25 03/17/25 03/18/25 23:59 23:59 23:59 23:59 Intake Total 1770 1120 1520 480 Output Total 1300 1200 900 Balance 470 1120 320 -420 Meds/Results Medications: Active Medications Generic Name Dose Route Start Last Admin Trade Name Freq PRN Reason Stop Dose Admin Acetaminophen 650 mg 03/13/25 16:49 03/16/25 20:20 Acetaminophen 325 Mg Tablet PO 650 mg Q6H PRN Administration Mild Pain (1-3) or Fever Albuterol/Ipratropium 3 ml 03/12/25 14:00 03/18/25 15:22 Ipratropium 0.5 Mg/Albuterol Sulfate 2.5 Mg Ampul.Neb 3 Ml INHALATION 3 ml Q6HRT LIZY Administration Amoxicillin/Clavulanate Potassium 1 tablet 03/17/25 21:00 03/18/25 10:10 Amoxicillin/Clavulanate K 875-125 Mg Tab PO 1 tablet Q12HR LIZY Administration Aspirin 81 mg 03/08/25 08:00 03/18/25 10:10 Aspirin 81 Mg Chewable Tablet PO 81 mg DAILY@0800 LIZY Administration Atorvastatin Calcium 40 mg 03/11/25 18:00 03/17/25 17:27 Atorvastatin 40 Mg Tablet PO 40 mg EVENING LIZY Administration Dextrose 12.5 gm 03/07/25 11:20 Dextrose 50% 25 Gm/50 Ml Syringe IV PUSH PRN PRN Hypoglycemia Protocol Enoxaparin Sodium 40 mg 03/09/25 09:00 03/18/25 10:10 Enoxaparin 40 Mg/0.4 Ml Syringe SUB-Q 40 mg DAILY LIZY Administration Fluticasone/Umeclidinium/Vilanterol 1 puff 03/12/25 12:05 03/18/25 07:39 Fluticasone/Umeclidin/Vilanter 100-62.5-25 Mcg Ellipta INHALATION 1 puff DAILY LIZY Administration Glucagon 1 mg 03/07/25 11:20 Glucagon For Inj 1 Mg Vial IM PRN PRN Hypoglycemia Protocol Glucose 15 gm 03/07/25 11:20 Glucose Oral Gel 15 Gm Of Glucse In 37.5 Gm Tube PO PRN PRN Hypoglycemia Protocol Dextrose 1,000 mls @ 100 mls/hr 03/07/25 11:20 Dextrose 5% 1,000 Ml IVPB PRN PRN Hypoglycemia Protocol Pantoprazole Sodium 40 mg 03/08/25 09:00 03/18/25 10:10 Pantoprazole Sodium Iv 40 Mg Vial IV PUSH 40 mg QAM LIZY Administration Roflumilast 250 mcg 03/17/25 09:00 03/18/25 10:10 Roflumilast 250 Mcg Tablet PO 250 mcg DAILY LIZY Administration Sodium Chloride 10 ml 03/07/25 14:00 03/18/25 05:54 Central Line Flush IV PUSH 10 ml Q8HR LIZY Administration Sodium Chloride 10 ml 03/07/25 07:57 Central Line Flush IV PUSH PRN PRN with TPN bag changes Sodium Chloride 20 ml 03/07/25 07:57 03/10/25 04:45 Central Line Flush IV PUSH 20 ml PRN PRN Administration after blood draws Radiology Results: ITS Impressions Abdomen X-Ray 03/10/25 11:11 IMPRESSION: 1: OG tube tip in the stomach. Chest X-Ray 03/14/25 09:15 Impression: 1: Developing left basilar infiltrate may represent atelectasis or pneumonia. Consider aspiration. Modified Barium Swallow 03/14/25 14:04 IMPRESSION: No penetration or aspiration Please refer to speech pathologist report for additional detail. Chest CTA 03/17/25 07:08 IMPRESSION: No pulmonary embolus. No thoracic aortic dissection. Small right and trace left-sided pleural effusion. Right basilar consolidation.
[2025-03-18] MEDS: ATORVASTATIN 40 MG TABLET PO (17:09)
[2025-03-19] VITALS (15 sets, daily range): BP systolic 92–102; BP diastolic 55–58; PULSE 92–129; RESP 16–22; TEMP 36.5–36.8; O2SAT 87–99
[2025-03-19] MEDS: IPRATROPIUM 0.5 MG/ALBUTEROL SULFATE 2.5 MG AMPUL.NEB 3 ML INHALATION ×3 (02:20→15:10)
[2025-03-19] MEDS: CENTRAL LINE FLUSH 10 ML IV PUSH (06:12)
[2025-03-19] MEDS: ASPIRIN 81 MG CHEWABLE TABLET PO (08:06)
[2025-03-19] MEDS: ROFLUMILAST 250 MCG TABLET PO (08:06)
[2025-03-19] MEDS: PANTOPRAZOLE SODIUM IV 40 MG VIAL IV PUSH (08:06)
[2025-03-19] MEDS: ENOXAPARIN 40 MG/0.4 ML SYRINGE SUB-Q (08:07)
--- NOTE | 2025-03-19 11:27 | P.DS_ITS ---
DS: Admitting Diagnosis Discharge Date 03/19/25 Admitting Diagnosis Acute respitatory failure DS: Discharge Diagnosis Discharge Diagnosis (1) Acute respiratory failure with hypoxia and hypercapnia: Code(s): J96.01 - Acute respiratory failure with hypoxia; J96.02 - Acute respiratory failure with hypercapnia Status: Acute Assessment and Plan: s/p intubation now on home o2 level steroid taper complete medications changed by pulmonology, pt has nebulizer at home pt to follow up in their office after (2) Septic shock: Code(s): A41.9 - Sepsis, unspecified organism; R65.21 - Severe sepsis with septic shock Status: Acute Assessment and Plan: Patient presented with hypoxia, tachypnea, tachycardia. She was found to be in COPD exacerbation - requiring Costa-Synephrine through peripheral IV initially and a PICC line -on and off support for Levophed likely secondary to sedation -blood cx neg -finished IV abx and sent home to finish oral course (3) Chronic obstructive pulmonary disease: Code(s): J44.9 - Chronic obstructive pulmonary disease, unspecified Status: Acute Assessment and Plan: as above (4) Elevated troponin: Code(s): R79.89 - Other specified abnormal findings of blood chemistry Status: Acute Assessment and Plan: Elevated troponin along with EKG changes Cardiology consulted 03/11/2025: Cardiac catheterization showed moderate CAD, significant P 80, continue aspirin, statin, outpatient evaluation of his peripheral arterial disease, no further inpatient cardiac workup at this time Continue aspirin 81 mg -follow up with cardiology at d/c (5) Acute kidney injury: Code(s): N17.9 - Acute kidney failure, unspecified Status: Acute Assessment and Plan: Resolved (6) Electrolyte abnormality: Code(s): E87.8 - Other disorders of electrolyte and fluid balance, not elsewhere classified Status: Acute Assessment and Plan: resolved DS: Summary Hospital Course Hospital Course: Patient is a 64-year-old male who presented emergency room 03/06/25 for decreased oxygen found to have significant COPD exacerbation that required intubation, abx, and steroid therapy. Pt improved on this tx and was able to be extubated and placed back on his home o2. See above for details. Pulmonology was consulted and changed his medications and is going to follow up with him in the office about CTA findings. Pt also had elevated troponin and underwent cardiac cath with moderate stenosis but no intervention. He was placed on aspirin and atorvastatin and is going to follow up with cardiology outpt. The day of discharge pt was feeling great and ready to go home. He did well with PT and is going to be discharged with home health with close follow up with his pcp Dr. Carlton. He saw ST with no concerns for ongoing aspiration but pt is finishing abx for suspected aspiration event during hospital stay. Pt overall is doing well and ready to go. We discussed the worrisome signs and symptoms to come back to the ED for and pt agreed and was discharged in stable condition. To PCP: Follow CBC Encourage cardiology and pulmonology follow up appointments Contact [phone] for questions Time Spent with Patient Time attestation: Total time spent providing and/or coordinating discharge services:40 Time spent: Greater than 30 minutes Exam Narrative: General: Well developed well nourished patient in NAD HEENT: normocephalic Neck: supple Neuro: Alert and oriented CV:RRR Resp:Minimal lung sounds, bilaterally Abd: Soft, non distended. No pain to palpation. Positive bowel sounds Extremities: No swelling, erythema, or pain to palpation. DS: Data Data Completed and Pending Labs on day of discharge: Preliminary micro results at discharge 03/14/25 09:54 Blood Culture - Preliminary Blood 03/14/25 10:08 Blood Culture - Preliminary Blood Discharge Plan Discharge Attending physician on discharge: Bennie Alvarenga Consulting providers: Reese Flores; Greg Kennedy; Jeanette Wilkins; Livia Iglesias; Galina Coyne Discharging Clinician: Galina Coyne Patient Disposition: Home with Home Health Service Activity: as tolerated Diet: regular Discharge Instructions: -Follow up with your primary care provider in 1 week after this stay - follow-up with Dr. Iglesias, your lung doctor and Cardiology. Call their offices (provided on this sheet) to make an appointment. - worrisome signs and symptoms to come back to emergency room for: chest pain, shortness of breath, fevers 100.4 or greater, progressive significant weakness, or any other worrisome symptom Per Care Coordination - [facility] will be calling to admit for PT/Nursing. [facility] #[phone] Patient Instructions: Antibiotic Form, Heart Failure (GEN), COPD (Chronic Obstructive Pulmonary Disease) (GEN), Removal of a Central Line, PICC, or Midline Catheter (DC) Patient Language: [place] Stand Alone Forms: General Discharge Information Follow-up/Referrals: Livia Iglesias MD [Physician] - 3 Weeks (Pt needs to call withing 2 days for post discharge visit in next 3 weeks. ) Jeanette Wilkins MD [Physician] - Dimitrios Rowe MD [Primary Care Provider] - Discharge Medications: New atorvastatin 40 mg Tablet 40 mg PO EVENING Qty: 30 0RF albuterol sulfate 2.5 mg/0.5 mL solution for nebulization 2.5 mg inhalation ONCE 30 Days Qty: 30 1RF Rx Instructions: Take nebulized once a day. budesonide 0.5 mg/2 mL suspension for nebulization 0.5 mg inhalation BID 30 Days Qty: 120 1RF Rx Instructions: Take nebulized twice a day 10-12 hours apart. ipratropium bromide 0.02 % solution 2.5 ml inhalation QID 30 Days Qty: 250 1RF Rx Instructions: Take this nebulized 3 or 4 times a day. aspirin [Children's Aspirin] 81 mg Tablet,Chewable 81 mg PO DAILY@0800 Qty: 30 0RF arformoterol 15 mcg/2 mL solution for nebulization 2 ml inhalation BID 30 Days Qty: 120 1RF Rx Instructions: Take in nebulizer twice a day, 10-12 hours apart. roflumilast 250 mcg tablet 250 mcg PO DAILY 28 Days Qty: 28 0RF amoxicillin-pot clavulanate [Augmentin] 500-125 mg tablet 1 tablet PO TID 3 Days Qty: 9 0RF Continued multivitamin Tablet 1 tablet PO DAILY Discontinued albuterol sulfate 2.5 mg /3 mL (0.083 %) solution for nebulization 2.5 mg inhalation Q4-6H PRN (Reason: shortness of breath or wheezing) albuterol sulfate [Ventolin HFA] 90 mcg/actuation HFA aerosol inhaler 2 inh inhalation Q4H PRN (Reason: shortness of breath or wheezing) Qty: 8.5 6RF Trelegy Ellipta 100-62.5-25 mcg blister with device 1 inh inhalation DAILY Qty: 60 5RF Date of admission: 03/06/25 21:10 Primary Care Provider: Dimitrios Rowe Admitting Provider: Corrine Wise Attending physician on admission: Corrine Wise Condition: Improved
[2025-03-19] MEDS: NEOMYCIN/POLYMYXIN/BACITRACIN OINTMENT PACKET 1 PACKET (12:24)
--- NOTE | 2025-03-19 14:03 | HOMEO2EVAL ---
Evaluation was performed at [facility] Home Oxygen Evaluation RC: Home Oxygen (O2) Evaluation Start: 03/19/25 11:03 Freq: ONCE Status: Active Protocol: RPE Activity Type Activity Date Activity User E-sign Co-sign Detail Recorded Client Recorded Date Recorded By Document 03/19/25 13:15 AVI [email or web address] 03/19/25 13:51 AVI Document 03/19/25 13:16 AVI [email or web address] 03/19/25 13:51 AVI Document 03/19/25 13:17 [email or web address] [email or web address] 03/19/25 13:51 AVI Document 03/19/25 13:20 [email or web address] [email or web address] 03/19/25 13:51 AVI Document 03/19/25 13:22 [email or web address] [email or web address] 03/19/25 13:51 AVI Document 03/19/25 13:30 AVI [email or web address] 03/19/25 13:51 AVI 03/19/25 03/19/25 03/19/25 13:15 13:16 13:17 Home O2 Evaluation [Oxygen] -Test Phase Resting Resting Resting -Oxygen Delivery Room Air Nasal Cannula Nasal Cannula -Oxygen Flow Rate (L/min) 1 2 [Pulse Oximetry] -Pulse Oximetry (90-100 %) 87 L 88 L 93 [Pulse Rate] -Pulse Rate (60-100 beats/min) 110 H [Exercise] -Ambulation Distance (feet) -Ambulation Distance (meters) [Comments] -Home Oxygen Evaluation Comments [Charges] -Evaluation Charges O2 Evaluation by Pulmonary 03/19/25 03/19/25 03/19/25 13:20 13:22 13:30 Home O2 Evaluation [Oxygen] -Test Phase Exercise Exercise Resting -Oxygen Delivery Nasal Cannula Nasal Cannula Nasal Cannula -Oxygen Flow Rate (L/min) 2 3 2 [Pulse Oximetry] -Pulse Oximetry (90-100 %) 87 L 92 94 [Pulse Rate] -Pulse Rate (60-100 beats/min) 129 H 109 H [Exercise] -Ambulation Distance (feet) 300 -Ambulation Distance (meters) 91.43 [Comments] -Home Oxygen Evaluation Comments Pt requires 2 liters at rest and 3 liters with activity [Charges] -Evaluation Charges
--- NOTE | 2025-03-19 14:06 | PCRCNOTE ---
Pt has [facility] for O2. Pt has tank in room if needed for transport home.
--- NOTE | 2025-03-22 12:52 | PC.NURSE ---
Blood cx shows no growth.
== END 2025-03-19 20:13 | disposition home health service (06) | DRG 871 ==
LOC: ANHED 21:16 → ANHICU 23:21 → ANHIMU 03-13 18:23 → ANH3MEDSUR 03-15 12:26
PROVIDERS: Internal Medicine; Admitting Provider General Practice; Emergency Provider Emergency Medicine; PCP Family Medicine Adolescent Medicine; Visit Provider Physician Assistant
PROC: 4A023N7 Measurement of Cardiac Sampling and Pressure, Left Heart, Percutaneous Approach (ICD-10-PCS; CPT 93452; principal; 2025-03-11 13:30)
PROC: 4A023N7 Measurement of Cardiac Sampling and Pressure, Left Heart, Percutaneous Approach (ICD-10-PCS; 2025-03-11 13:30)
DX: A41.9 Sepsis, unspecified organism (principal); J18.9 Pneumonia, unspecified organism; J96.21 Acute and chronic respiratory failure with hypoxia; J96.22 Acute and chronic respiratory failure with hypercapnia; J69.0 Pneumonitis due to inhalation of food and vomit; R65.21 Severe sepsis with septic shock; J44.1 Chronic obstructive pulmonary disease with (acute) exacerbation; J44.0 Chronic obstructive pulmonary disease with (acute) lower respiratory infection; E87.21 Acute metabolic acidosis; N17.9 Acute kidney failure, unspecified; I42.9 Cardiomyopathy, unspecified; R45.851 Suicidal ideations; T80.818A Extravasation of other vesicant agent, initial encounter; I25.10 Atherosclerotic heart disease of native coronary artery without angina pectoris; I71.40 Abdominal aortic aneurysm, without rupture, unspecified; I73.9 Peripheral vascular disease, unspecified; D72.829 Elevated white blood cell count, unspecified; E87.8 Other disorders of electrolyte and fluid balance, not elsewhere classified; Z87.891 Personal history of nicotine dependence; Z99.81 Dependence on supplemental oxygen
CPT/HCPCS: 31500; 36415; 36569; 36600; 71045; 71275; 74230; 80048; 80053; 82375; 82805; 82948; 83050; 83605; 83735; 83880; 84100; 84145; 84484; 85018; 85025; 85380; 85610; 85730; 87040; 87637; 87641; 92610; 92611; 93005; 93458; 94002; 94003; 94618; 94640; 96365; 96366; 96367; 96375; 97110; 97116; 97162; 97166; 97530; 97535; 99291; A9270; C1751; C1760; C1769; C1887; C1894; C8929; G0269; J0168; J0330; J0461; J0696; J1644; J1650; J1938; J2003; J2250; J2305; J2371; J2470; J2543; J2760; J2919; J3010; J3475; J7030; J7040; J7050; J7120; J7512; P9047; Q9957; Q9967